=== PATIENT | male | born 1960 | race Caucasian/White ===

== ENCOUNTER → 2022-04-20 | Outpatient (CLI) | payer MEDICARE, SELFPAY ==
--- NOTE | 2022-04-20 07:07 | ECHOD_ITS ---
Reason For Study: CAD Procedure This was a 2D Doppler, Color Flow transthoracic echocardiogram. Exam performed in department. Left Ventricle Normal size and thickness. The left ventricular ejection fraction is 45 %. Unable to assess diastolic dysfunction. Right Ventricle Normal right ventricle. Atria Normal left atrium. Normal right atrium. Inter-atrial septum markedly aneurysmal. PFO noted on previous study thus no bubble contrast done. Mitral Valve Moderate (2+) mitral valve insufficiency. Tricuspid Valve Trivial tricuspid valve insufficiency. Unable to estimate RV systolic pressure due to insufficient tricuspid regurgitant envelope. Aortic Valve Trisinus/trileaflet aortic valve. Mild (1+) aortic valve insufficiency. Pulmonic Valve Severe (4+) pulmonic valve insufficiency. Great Vessels Moderate pulmonary artery dilation. Pericardium/Pleural No pericardial effusion. MMode/2D Measurements & Calculations LVIDd: 5.0 cm IVSd: 0.85 cm Ao root diam: 3.5 cm LVIDs: 4.0 cm LVPWd: 0.85 cm RVDd: 3.7 cm FS: 20.7 % LAV(MOD-bp): 42.5 ml RVOT diam: 2.6 cm LVAd ap4: 28.2 cm2 LAV(MOD-bp) Indexed: 20.9 ml/m2 LVLd ap4: 7.6 cm LAV(MOD-sp2): 41.2 ml EDV(MOD-sp4): 89.2 ml LAV(MOD-sp4): 37.7 ml EDV(sp4-el): 88.8 ml LVAs ap4: 18.4 cm2 LVLs ap4: 6.5 cm ESV(MOD-sp4): 46.6 ml ESV(sp4-el): 43.9 ml EF(MOD-sp4): 47.7 % EF(sp4-el): 50.6 % LVAd ap2: 32.4 cm2 SV(MOD-sp4): 42.6 ml SV(MOD-sp2): 46.7 ml LVLd ap2: 8.5 cm EDV(MOD-sp2): 103.8 ml EDV(sp2-el): 105.1 ml LVAs ap2: 22.0 cm2 LVLs ap2: 7.6 cm ESV(MOD-sp2): 57.1 ml ESV(sp2-el): 54.0 ml EF(MOD-sp2): 45.0 % SV(sp4-el): 44.9 ml LA dimension(2D): 4.0 cm LA A4 area: 16.0 cm2 RA A4 area: 13.1 cm2 Doppler Measurements & Calculations MV E max lambert: 31.1 cm/sec Lat Peak E' Lambert: 8.3 cm/sec Med Peak E' Lambert: 5.0 cm/sec MV A max lambert: 45.7 cm/sec E/E' lat: 3.7 E/E' med: 6.2 MV E/A: 0.68 Ao V2 max: 115.2 cm/sec AI max lambert: 365.9 cm/sec LV V1 max: 103.6 cm/sec Ao max P.3 mmHg AI max P.6 mmHg LV V1 max P.3 mmHg Ao V2 mean: 78.8 cm/sec AI dec slope: 153.0 cm/sec2 LV V1 mean P.1 mmHg Ao mean P.9 mmHg AI P1/2t: 700.4 msec LV V1 mean: 68.2 cm/sec Ao V2 VTI: 24.9 cm LV V1 VTI: 21.8 cm AV (velocity ratio): 0.88 PA V2 max: 179.8 cm/sec SV(RVOT): 131.3 ml PA max PG (full): 7.2 mmHg PA V2 mean: 113.6 cm/sec PA mean PG (full): 3.1 mmHg ECHO/Echo Complete Interpretation Summary The left ventricular ejection fraction is 45 %. Suspect non-cpmpaction. Unable to assess diastolic dysfunction. Inter-atrial septum markedly aneurysmal. PFO noted on previous study thus no bu bble contrast done. Moderate (2+) mitral valve insufficiency. Mild (1+) aortic valve insufficiency. Severe (4+) pulmonic valve insufficiency. Moderate pulmonary artery dilation. Recommend cardiac MRI for futher evlauation. Ordering Physician: Best Titus Referring Physician: Tej Vega Performed By: Bertha, Alexa, RDCS
[2022-04-20 08:48] LABS: Anion Gap 4 (5-15); BUN 14 mg/dL (7-18); BUN/Creat Ratio 12.2 RATIO (10-20); Calcium,Total 9.3 mg/dL (8.5-10.1); Chloride 108 mmol/L (98-107); Creatinine, Serum 1.15 mg/dL (0.70-1.30); EST Glomerular Filtration Rate 68 mL/min (>60); Est Glom Filt Rate - Afr Amer 83 mL/min (>60); Glucose 114 mg/dL (74-106); Potassium 3.8 mmol/L (3.5-5.1); Sodium Level 142 mmol/L (136-145)
== END | disposition home or self-care (01) ==
PROVIDERS: PCP Family Medicine; Visit Provider Internal Medicine Cardiovascular Disease
DX: I10 Essential (primary) hypertension (principal); I25.10 Atherosclerotic heart disease of native coronary artery without angina pectoris
CPT/HCPCS: 36415; 80048; 93306

== ENCOUNTER → 2022-07-18 | Outpatient (CLI) | payer MEDICARE, SELFPAY ==
--- NOTE | 2022-07-18 12:41 | CT_ITS ---
EXAM: CT CHEST WITHOUT INTRAVENOUS CONTRAST CLINICAL INDICATION: Multiple lung nodules TECHNIQUE: Helically acquired images were obtained of the chest without intravenous contrast. This CT exam was performed using one or more of the following dose reduction techniques: automated exposure control, adjustment of the mA and/or kV according to patient size, and/or use of iterative reconstruction technique. RADIATION DOSE: CTDIvol = 12.6 mGy, DLP = 472.47 mGy-cm COMPARISON: No relevant prior studies available. FINDINGS: LUNGS AND PLEURAL SPACES: There is severe COPD with diffuse bullous emphysematous change throughout the lungs, with less severe involvement at the lung bases. There is a juxtapleural right middle lobe nodular focus of 9 mm x 7 mm x 6 mm. Posterior right lower lobe juxtapleural ovoid nodule of 6 mm x 5 mm x 5 mm. Right upper lobe focal calcified apparent band of scarring with adjacent linear scarring, this measures roughly 1.1 cm x 7 mm x 6 mm but without obvious soft tissue nodule component. No definite infiltrate or effusion. No pneumothorax. HEART: See below. MEDIASTINUM: Slight hiatal hernia. No mediastinal or hilar adenopathy. Esophagus is unremarkable. THYROID: Unremarkable. No thyroid lesions. BONES/JOINTS: Unremarkable. No suspicious lytic or blastic abnormality. No suspicious bone lesions. VASCULATURE: Dilated main pulmonary artery is consistent with pulmonary arterial hypertension due to end-stage lung disease. Small mediastinal lymph nodes are not necessarily pathologic. Mild calcification of the great vessels. Marked calcification or stents in left anterior descending coronary artery and right coronary artery. ADRENALS: Most of the abdomen is not included. Unremarkable almost completely included adrenals. CT/Chest without Contrast IMPRESSION: 1. Severe diffuse COPD. 2. Distention of the main pulmonary artery consistent with aneurysmal dilatation due to end-stage lung disease and pulmonary arterial hypertension. Main pulmonary artery is 6.4 cm. 3. 2 indeterminate but juxtapleural noncalcified nodules on the right, the largest 9 mm. Likely benign due to the juxtapleural location. No spiculation and no nonjuxtapleural nodule. RECOMMENDATIONS: Fleischner Society Guidelines (MacMahon, et al. Radiology 2017; 284(1):228-43) suggest that no further follow-up is necessary for patients with low or high risk of malignancy. Additional Considerations: I suggest follow-up routine low-dose CT screening in this patient with severe COPD and obvious high risk for neoplasm. Electronically Signed: Tosin Godoy MD at 9:29 EDT ,
== END | disposition home or self-care (01) ==
PROVIDERS: PCP Family Medicine; Referring Provider Internal Medicine Critical Care Medicine; Visit Provider Internal Medicine Critical Care Medicine
DX: R91.8 Other nonspecific abnormal finding of lung field (principal); J44.9 Chronic obstructive pulmonary disease, unspecified
CPT/HCPCS: 71250

== ENCOUNTER → 2022-07-24 | Outpatient (CLI) | payer MEDICARE, SELFPAY ==
--- NOTE | 2022-07-25 07:41 | PFT ---
INTRODUCTION: The patient is a 62-year-old male that presents for pulmonary function studies secondary to a diagnosis of shortness of breath. Respiratory therapy reported good patient effort. Bronchodilators were used during testing. INTERPRETATION: Forced expiration spirometry demonstrates the presence of a moderately severe large airways obstructive ventilatory defect. There was no significant response to aerosolized bronchodilators. Spirograms are of good quality but do not plateau indicating slow emptying of the lungs. Body plethysmography was performed and revealed an elevated RV to 120% of predicted, indicative of underlying air trapping. Diffusing capacity by single breath CO was reduced to 56% of predicted. IMPRESSION: Irreversible moderately severe large airways obstructive ventilatory defect with associated air trapping and symmetric reduction in diffusing capacity.
== END | disposition home or self-care (01) ==
LOC: PSN 12:31
PROVIDERS: PCP Family Medicine; Referring Provider Internal Medicine Critical Care Medicine; Visit Provider Internal Medicine Critical Care Medicine
DX: R91.8 Other nonspecific abnormal finding of lung field (principal); J44.9 Chronic obstructive pulmonary disease, unspecified
CPT/HCPCS: 94060; 94726; 94729

== ENCOUNTER → 2022-07-31 | Outpatient (CLI) | payer MEDICARE, SELFPAY ==
[2022-07-31 12:45] VITALS: PULSE 48; PULSE 52; PULSE 59; PULSE 66; PULSE 69; PULSE 71; PULSE 72; O2SAT 90; O2SAT 93; O2SAT 96; O2SAT 98
--- NOTE | 2022-07-31 12:47 | CPS ---
Patient stated that he was really tired today but that he has days like this sometimes. I asked the patient if 48-52 was a normal resting heart rate for him and he stated that he wasn't sure. Denied chest pains and dizziness.
--- NOTE | 2022-07-31 14:39 | PCM.PSN.6M ---
PSN 6 Minute Walk Test 6 Minute Walk Test 6 Minute Walk Test: 6 Minute Walk Test PSN:6-Minute Walk Test Start: 07/31/22 12:45 Freq: Status: Active Protocol: RESP.6MINW Document 07/31/22 12:45 PAUL (Rec: 07/31/22 12:49 PAUL [id number]) 6 Minute Walk Test Date Performed 07/31/22 Time Performed 12:30 Height 5 ft 10 in Weight: 81.647 kg Weight in Pounds 180.[address]: Nuno Waggoner Assistive device used: Cane Pre-test Pulse Ox (%) 98 Pulse Rate (60-100 beats/min) 48 L Dyspnea Ewelina Scale (0-10) 1 Exertion Ewelina Scale (6-20) 6 1st minute Oxygen Delivery Method Room Air Pulse Ox (%) 96 Pulse Rate (60-100 beats/min) 59 L 2nd minute Oxygen Delivery Method Room Air Pulse Ox (%) 93 Pulse Rate (60-100 beats/min) 66 3rd minute Oxygen Delivery Method Room Air Pulse Ox (%) 90 Pulse Rate (60-100 beats/min) 69 4th minute Oxygen Delivery Method Room Air Pulse Ox (%) 90 Pulse Rate (60-100 beats/min) 71 5th minute Oxygen Delivery Method Room Air Pulse Ox (%) 90 Pulse Rate (60-100 beats/min) 72 6th minute Oxygen Delivery Method Room Air Pulse Ox (%) 90 Pulse Rate (60-100 beats/min) 72 Dyspnea Ewelina Scale (0-10) 4 Exertion Ewelina Scale (6-20) 14 Post-test Oxygen Delivery Method Room Air Pulse Ox (%) 96 Pulse Rate (60-100 beats/min) 52 L Full Laps Walked 10 Partial Lap, Number of Tiles Walked 20 Total Distance Walked (ft) 610 07/31/22 12:47 Cardiopulmonary Services by Maya Mallory Patient stated that he was really tired today but that he has days like this sometimes. I asked the patient if 48-52 was a normal resting heart rate for him and he stated that he wasn't sure. Denied chest pains and dizziness. Initialized on 07/31/22 12:47 - END OF NOTE Interpretation Interpretation: The patient was noted to have a saturation of 98% on room air at rest, but did desaturate as low as 90% with ambulation. In total, the patient traveled only 610 feet over the course of 6 minutes on room air with the assistance of a cane and no breaks. These findings are consistent with a respiratory limitation exercise tolerance. Recommendations Recommendations: No supplemental oxygen is indicated at this time. However, patient will need to be followed closely given level of desaturation.
== END | disposition home or self-care (01) ==
LOC: PSN 12:11
PROVIDERS: PCP Family Medicine; Referring Provider Internal Medicine Critical Care Medicine; Visit Provider Internal Medicine Critical Care Medicine
DX: R91.8 Other nonspecific abnormal finding of lung field (principal); J44.9 Chronic obstructive pulmonary disease, unspecified
CPT/HCPCS: 94618

== ENCOUNTER → 2022-08-14 | Outpatient (CLI) | payer MEDICARE, SELFPAY ==
--- NOTE | 2022-08-16 13:39 | STRESSREP ---
Stress Test Report Date: 08/14/2022 Procedure: Pharmacologic stress nuclear imaging study Indications: Dyspnea Consent: Per the patient Procedure: The patient underwent pharmacologic (Regadenoson 0.4mg ) evaluation with a peak heart rate of 75 beats per minute (47%predicted maximal heart rate) and a peak blood pressure of 122/64 mmHg. The baseline ECG demonstrated normal sinus rhythm with right bundle branch block. The peak pharmacologic ECG demonstrated no ischemic changes. There were no cardiac dysrhythmias pretest, during pharmacologic infusion, or recovery. There was no complaint of chest discomfort during pharmacologic infusion or recovery. The patient was injected with 10 millicuries of technetium 99m Cardiolite and subsequently rest SPECT Cardiolite nuclear imaging was obtained in the horizontal long, vertical long, and short axis views. The patient underwent pharmacologic (Regadenoson) evaluation. The patient was injected with 33.9 millicuries of technetium 99m Cardiolite and subsequently stress SPECT Cardiolite nuclear imaging was obtained in the horizontal long, vertical long, and short axis views. A gated Cardiolite study at peak stress was obtained. The examination was stopped secondary to completion of protocol. Rest and stress SPECT Cardiolite nuclear imaging status post realignment, normalization, and attenuation correction demonstrate no fixed or reversible perfusion defects. The left ventricle seems dilated. There is end systolic thickening and brightening. The gated Cardiolite study demonstrates myocardial thickening and inward wall motion. The reported LVEF is 57%. Impression: 1. Pharmacologic (Regadenoson) evaluation 2. Peak pharmacologic ECG with no ischemic changes. 3. There were no cardiac dysrhythmias pretest, during pharmacologic infusion, or recovery. 5. No fixed or reversible perfusion defects. 6. The gated Cardiolite study reports an LVEF of 57%. This note was generated with [employer] software. It may contain incorrect words, spelling, and punctuation that were not noted in checking the note before signing.
== END | disposition home or self-care (01) ==
LOC: CVS 07:14
PROVIDERS: PCP Family Medicine; Referring Provider Internal Medicine Cardiovascular Disease; Visit Provider Internal Medicine Cardiovascular Disease
DX: I25.10 Atherosclerotic heart disease of native coronary artery without angina pectoris (principal); R06.00 Dyspnea, unspecified
CPT/HCPCS: 78452; 93017; A9500; A4216; J2785

== ENCOUNTER → 2023-05-15 | Outpatient (CLI) | payer MEDICARE, SELFPAY ==
--- NOTE | 2023-05-15 12:55 | CT_ITS ---
INDICATION: h/o Tobacco Dependency EXAMINATION: - CT Low Dose CT Chest for Lung Cancer Screening A radiation dose optimization technique was used for this scan. RADIATION DOSAGE (If Supplied By Facility): CTDIvol/DLP = ( 2.39 ) / ( 89.06 ) mGy/mGycm COMPARISON: 07/18/2022 FINDINGS: Low dose Noncontrast serial CT axial images through the chest with coronal and sagittal reformatted series. MEDIASTINUM: Dense coronary artery atherosclerotic calcifications. Significantly enlarged main pulmonary artery likely pulmonary artery hypertension. Noncontrast mediastinum is otherwise unremarkable. LUNG PARENCHYMA: No acute pulmonary parenchymal abnormality. Multiple stable right pulmonary nodules, measuring up to 11 mm. Severe diffuse emphysematous lung changes, apical predominant. PLEURA: No pleural effusion. No pneumothorax. BONES: Osseous structures are unremarkable for age. UPPER ABDOMEN: Unremarkable. CT/Low Dose CT Lung Screening IMPRESSION: Multiple stable pulmonary nodules from 2021. Significantly enlarged main pulmonary artery likely pulmonary artery hypertension. Severe diffuse emphysematous lung changes, apical predominant. Electronically Signed: Tigre Yeung MD at 6:14 EST ,
== END | disposition home or self-care (01) ==
LOC: CT 12:44
PROVIDERS: PCP Family Medicine; Referring Provider Internal Medicine Critical Care Medicine; Visit Provider Internal Medicine Critical Care Medicine
DX: F17.211 Nicotine dependence, cigarettes, in remission (principal)
CPT/HCPCS: 71271

== ENCOUNTER → 2023-08-14 | Outpatient (CLI) | payer MEDICARE, SELFPAY ==
--- NOTE | 2023-08-14 12:53 | ECHOD_ITS ---
Reason For Study: Heart Disease Procedure This was a 2D Doppler, Color Flow transthoracic echocardiogram. Exam performed in department. Left Ventricle Normal size and thickness. Mild to moderate global left ventricular systolic dysfunction. The left ventricular ejection fraction is 40 %. Stage 2 diastolic dysfunction. Right Ventricle Normal RV size. Moderate global right ventricular systolic dysfunction. Atria The left atrium is mildly enlarged. Normal right atrium. Aneurysmal atrial septum. Mitral Valve Moderate (2+) mitral valve insufficiency. Tricuspid Valve Moderate (2+) tricuspid valve insufficiency. Right ventricular systolic pressure estimated to be 53 mmHg. Aortic Valve Trisinus/trileaflet aortic valve. Mild (1+) aortic valve insufficiency. Pulmonic Valve The pulmonic valve is not well visualized. Mild-Moderate (1-2+) pulmonic valve insufficiency. Great Vessels Normal sized aortic root. Pericardium/Pleural No pericardial effusion. MMode/2D Measurements & Calculations LVIDd: 5.0 cm IVSd: 0.82 cm Ao root diam: 3.5 cm LVIDs: 4.1 cm LVPWd: 0.86 cm RVDd: 4.7 cm FS: 19.5 % LAV(MOD-bp): 34.6 ml LVAd ap4: 25.3 cm2 SV(MOD-sp4): 32.9 ml LAV(MOD-bp) Indexed: 16.9 ml/m2 LVLd ap4: 6.9 cm LAV(MOD-sp2): 33.0 ml EDV(MOD-sp4): 75.7 ml LAV(MOD-sp4): 34.1 ml EDV(sp4-el): 78.6 ml LVAs ap4: 17.2 cm2 LVLs ap4: 5.9 cm ESV(MOD-sp4): 42.8 ml ESV(sp4-el): 43.0 ml EF(MOD-sp4): 43.4 % EF(sp4-el): 45.3 % SV(sp4-el): 35.6 ml LA A4 area: 14.4 cm2 LA dimension(2D): 3.7 cm RA A4 area: 17.0 cm2 TAPSE: 1.3 cm Time Measurements MV dec time: 0.26 sec Doppler Measurements & Calculations MV E max lambert: 35.5 cm/sec Lat Peak E' Lambert: 8.7 cm/sec Med Peak E' Lambert: 4.1 cm/sec MV A max lambert: 60.2 cm/sec E/E' lat: 4.1 E/E' med: 8.7 MV E/A: 0.59 AI max lambert: 352.5 cm/sec PA V2 max: 183.9 cm/sec MV dec slope: 134.8 cm/sec2 AI max P.7 mmHg PA max PG (full): 7.8 mmHg PA V2 mean: 124.2 cm/sec AI dec slope: 104.2 cm/sec2 PA mean PG (full): 4.0 mmHg AI P1/2t: 990.3 msec PI end-d lambert: 106.2 cm/sec TR max lambert: 346.4 cm/sec TR max P.0 mmHg ECHO/Echo Complete Interpretation Summary Mild to moderate global left ventricular systolic dysfunction. The left ventricular ejection fraction is 40-45 %. Stage 2 diastolic dysfunction. Moderate global right ventricular systolic dysfunction. The left atrium is mildly enlarged. Moderate (2+) mitral valve insufficiency. Moderate (2+) tricuspid valve insufficiency. Right ventricular systolic pressure estimated to be 53 mmHg. Mild-Moderate (1-2+) pulmonic valve insufficiency. Ordering Physician: Best Titus Referring Physician: Tej Vega Performed By: Dede Brooke, LINNETTECS, RVT
== END | disposition home or self-care (01) ==
PROVIDERS: PCP Family Medicine; Referring Provider Internal Medicine Cardiovascular Disease; Visit Provider Internal Medicine Cardiovascular Disease
DX: I25.10 Atherosclerotic heart disease of native coronary artery without angina pectoris (principal); I50.42 Chronic combined systolic (congestive) and diastolic (congestive) heart failure; R06.09 Other forms of dyspnea; I35.1 Nonrheumatic aortic (valve) insufficiency; I34.0 Nonrheumatic mitral (valve) insufficiency
CPT/HCPCS: 93306

== ENCOUNTER → 2023-12-18 | Outpatient (CLI) | payer MEDICARE, SELFPAY ==
[2023-12-18 13:07] LABS: ALB/GLOB Ratio 0.9 RATIO (0.9-2.4); AST(SGOT) 21 U/L (15-37); Alanine Aminotransfer ALT/SGPT 21 U/L (16-61); Albumin, Serum 3.5 g/dL (3.2-5.0); Alkaline Phosphatase 91 U/L (45-117); Anion Gap 4 (5-15); BUN 14 mg/dL (7-18); BUN/Creat Ratio 11.1 RATIO (10-20); Calcium,Total 9.7 mg/dL (8.5-10.1); Chloride 106 mmol/L (98-107); Cholesterol 109 mg/dL (200); Creatinine, Serum 1.26 mg/dL (0.70-1.30); EST Glomerular Filtration Rate 61 mL/min (>60); Est Glom Filt Rate - Afr Amer 74 mL/min (>60); Glucose 115 mg/dL (74-106); High Density Lipoprotein 35 mg/dL; Potassium 4.3 mmol/L (3.5-5.1); Protein, Total 7.5 g/dL (6.4-8.2); Sodium Level 138 mmol/L (136-145); Triglycerides 179 mg/dL; Very Low Density Lipoprotein 36 mg/dL (5-40)
== END | disposition home or self-care (01) ==
PROVIDERS: PCP Family Medicine; Referring Provider Internal Medicine Cardiovascular Disease; Visit Provider Internal Medicine Cardiovascular Disease
DX: I25.10 Atherosclerotic heart disease of native coronary artery without angina pectoris (principal); I10 Essential (primary) hypertension; R06.09 Other forms of dyspnea; E78.2 Mixed hyperlipidemia
CPT/HCPCS: 36415; 80053; 80061; 84443

== ENCOUNTER → 2024-01-01 | Outpatient (CLI) | payer MEDICARE, SELFPAY ==
--- NOTE | 2024-01-01 12:55 | CT_ITS ---
INDICATION: multiple lung nodules high risk patient EXAMINATION: CT CHEST WITHOUT CONTRAST - CT Chest W/O Contrast Injection TECHNIQUE: Helically acquired images were obtained of the chest. A radiation dose optimization technique was used for this scan. IV Contrast dosage and agent: None. COMPARISON: 05/15/2023 FINDINGS: LUNGS, PLEURA AND LARGE AIRWAYS: Severe emphysema. Right upper lobe calcified scar. No change in 1 cm noncalcified nodule in the subpleural right middle lobe of the lungs on image 88 unchanged dating back to 06/21/2021 consistent with a noncalcified granuloma or scar. No pleural effusion or thickening. No pneumothorax. THYROID: No thyroid lesions. HEART AND PERICARDIUM: Heart size is normal. No pericardial effusion. CORONARY ARTERIES: Coronary artery calcification is seen. VESSELS: Thoracic aorta is not dilated. Enlarged central pulmonary arteries suggesting pulmonary arterial hypertension. MEDIASTINUM AND FRANKY: No mediastinal or hilar adenopathy. Esophagus is unremarkable. Small hiatal hernia. UPPER ABDOMEN: No acute pathology. BONES: Multiple healed right rib fractures. CT/Chest without Contrast IMPRESSION: Severe emphysema with no change in the right middle lobe subpleural noncalcified granuloma or scar. Return to annual low-dose screening CT is recommended. Electronically Signed: Adan Sena MD at 9:54 EDT ,
== END | disposition home or self-care (01) ==
LOC: CT 12:53
PROVIDERS: PCP Family Medicine; Referring Provider Nurse Practitioner Acute Care; Visit Provider Nurse Practitioner Acute Care
DX: R91.1 Solitary pulmonary nodule (principal)
CPT/HCPCS: 71250

== ENCOUNTER → 2024-09-28 | Outpatient (CLI) | payer MEDICARE, SELFPAY | END | disposition home or self-care (01) | LOC: PSN 10:38 | PROVIDERS: PCP Family Medicine; Referring Provider Nurse Practitioner Acute Care; Visit Provider Nurse Practitioner Acute Care | DX: R06.09 Other forms of dyspnea (principal) | CPT/HCPCS: 94060; 94726; 94729 ==

== ENCOUNTER → 2024-11-03 | Outpatient (CLI) | payer MEDICARE, SELFPAY ==
[2024-11-03 12:55] VITALS: PULSE 45; PULSE 48; PULSE 63; PULSE 64; PULSE 66; PULSE 67; PULSE 68; O2SAT 89; O2SAT 90; O2SAT 92; O2SAT 93; O2SAT 96
--- NOTE | 2024-11-03 13:30 | CT_ITS ---
PROCEDURE: CHEST WITHOUT CONTRAST 11/03/2024 REASON FOR EXAM: SMOKER Current smoker. Patient has smoked for 54 years. TECHNIQUE: Chest CT without contrast. Coronal and Sagittal reconstruction series were provided. One or more dose reduction techniques were used (e.g., Automated exposure control, adjustment of the mA and/or kV according to patient size, use of iterative reconstruction technique RADIATION DOSE SUMMARY: CTDlvol: 10.53 mGy DLP: 397.47 mGycm COMPARISON: Prior studies dated May 16, 2023 and January 01, 2024. FINDINGS: Hardware: None Lymph nodes: Multiple small benign-appearing bilateral axillary lymph nodes. Heart and Vasculature: Stable dilatation of the main pulmonary artery with a transverse dimension of 5.7 cm. Prominence of the central pulmonary arteries bilaterally. Atherosclerotic calcific plaques of the aortic arch. Coronary Artery Calcifications: Coronary artery calcification. No evidence of pericardial effusion. Lungs and Airways: Advanced emphysematous changes are present. Interval decrease in size of the previously seen noncalcified nodule in the lateral aspect of the right upper lobe as seen on axial image number 38 it presently measures 6.8 mm. Previously, it measures 8.2 mL. Essentially stable size of the previously seen pulmonary nodule in the anterior aspect of the right middle lobe as seen on axial image number 87 Pleura: No pleural effusion. Upper Abdomen: Unremarkable Bones: Degenerative changes of the thoracic spine. CT/Chest without Contrast IMPRESSION: Coronary artery calcification (CAC) is is present Stable emphysematous changes. Stable dilatation of the main pulmonary artery in the right and left pulmonary arteries. This is suggestive of pulmonary hypertension. Slight decrease in size of the previously seen nodule in the lateral aspect of the right upper lobe. Otherwise unchanged. Reading Location: [id number]
--- NOTE | 2024-11-05 09:56 | PCM.PSN.6M ---
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 Assistive device Cane used: Pre-test Oxygen Delivery Room Air Method Pulse Ox (%) 96 Pulse Rate (60-100 48 L beats/min) Dyspnea Ewelina Scale ( 1 0-10) Exertion Ewleina Scale 7 (6-20) 1st minute Oxygen Delivery Room Air Method Pulse Ox (%) 93 Pulse Rate (60-100 66 beats/min) Reported Symptoms Increased Work of Breathing,Dizziness 2nd minute Oxygen Delivery Room Air Method Pulse Ox (%) 93 Pulse Rate (60-100 64 beats/min) Reported Symptoms Increased Work of Breathing,Dizziness 3rd minute Oxygen Delivery Room Air Method Pulse Ox (%) 92 Pulse Rate (60-100 67 beats/min) Reported Symptoms Increased Work of Breathing 4th minute Oxygen Delivery Room Air Method Pulse Ox (%) 92 Pulse Rate (60-100 63 beats/min) Dyspnea Ewelina Scale ( 7 0-10) Exertion Ewelina Scale 13 (6-20) Number of Rests 1 Taken Reported Symptoms Increased Work of Breathing,Dizziness 5th minute Oxygen Delivery Room Air Method Pulse Ox (%) 90 Pulse Rate (60-100 67 beats/min) 6th minute Oxygen Delivery Room Air Method Pulse Ox (%) 89 Pulse Rate (60-100 68 beats/min) Dyspnea Ewelina Scale ( 8 0-10) Exertion Ewelina Scale 14 (6-20) Post-test Oxygen Delivery Room Air Method Pulse Ox (%) 93 Pulse Rate (60-100 45 L beats/min) Full Laps Walked 8 Partial Lap, Number 0 of Tiles Walked Total Distance 472 Walked (ft) Interpretation Interpretation: The patient ambulated 472 feet over the course of 6 minutes beginning on room air without assistive devices. Pretesting oxygen saturation was noted to be 96% on room air. With ambulation, the joan oxygen saturation was 89%. This represents a significant exertional oxygen desaturation, consistent with a pulmonary limitation to exercise tolerance. Recommendations Recommendations: There is no indication for the use of supplemental oxygen at this time. However, close interval follow-up is recommended, given the degree of oxygen desaturation noted during this study.
== END | disposition home or self-care (01) ==
PROVIDERS: PCP Family Medicine; Referring Provider Nurse Practitioner Acute Care; Visit Provider Nurse Practitioner Acute Care
DX: R91.1 Solitary pulmonary nodule (principal)
CPT/HCPCS: 71250; 94618

== ENCOUNTER 2025-02-26 17:19 | Emergency (ER) | payer MEDICARE, SELFPAY ==
[2025-02-26] VITALS (7 sets, daily range): BP systolic 134–152; BP diastolic 71–85; PULSE 44–47; RESP 15–20; TEMP 37.2; O2SAT 94–100; BMI 23.1
--- NOTE | 2025-02-26 17:49 | EKG12_ITS ---
Test Reason : CP Blood Pressure : */* mmHG Vent. Rate : 46 BPM Atrial Rate : 46 BPM P-R Int : 172 ms QRS Dur : 150 ms QT Int : 478 ms P-R-T Axes : 62 -83 34 degrees QTcB Int : 418 ms Sinus bradycardia Left axis deviation Right bundle branch block Abnormal ECG Reconfirmed by Olga Lidia Quevedo ([id number]), copy editor TASNEEM KNAPP ([id number]) on 03/01/2025 10:21:18 AM Also confirmed by Olga Lidia Quevedo ([id number]), copy editor TASNEEM KNAPP ([id number]) on 03/02/2025 8:18:56 AM Referred By: UNA/DARREN Confirmed By: Olga Lidia Quevedo
--- NOTE | 2025-02-26 17:49 | EDS_ITS ---
HPI History of Present Illness Chief Complaint: Chest Pain Informant: patient and family Onset/Context/Timing Onset: Days Activity at onset: gradual Timing: Continuous Location: Left Chest Current Severity: Moderate Maximum Severity: Moderate Worsened By: Movement of Torso Relieved By: Nothing Associated Symptoms: Positive for Cough; Negative for Nausea, Vomiting, Diaphoresis, Dyspnea, Fever, Lightheadedness, Acid Reflux or Palpitations Narrative Narrative: 64-year-old male history of CHF mitral regurg, COPD, CAD. States he is concerned he may have pneumonia. He said left chest hurts with coughing or movement. Denies any fall injury or trauma. No hemoptysis. He has got basically nonproductive cough. No leg pain or swelling. No history of DVT or PE. No recent travel surgery or immobilization. No recent hospitalization. Prior Similar Symptoms: No Recent Illness/Hospitalization: No CVD Risk Factors: Negative for Diabetes PE Risk Factors: Negative for Recent Travel/Surgery, Recent Immobilization, Prior DVT or PE or Cancer TAD Risk Factors: Negative for Marfan's Syndrome [facility] Medical History Nicotine dependence, cigarettes, in remission Hypothyroidism (acquired) Nonrheumatic aortic (valve) insufficiency Non-rheumatic mitral regurgitation Nonrheumatic pulmonary valve regurgitation Dilation of pulmonary artery Dyslipidemia Dyspnea on exertion Chronic combined systolic and diastolic CHF, NYHA class 3 Lung nodules MVP (mitral valve prolapse) Pulmonary stenosis PFO (patent foramen ovale) Essential hypertension Mixed hyperlipidemia COPD (chronic obstructive pulmonary disease) Atherosclerotic heart disease of [place] coronary artery without angina pectoris Home Medications ?Medication ?Instructions ?Recorded ?Last Taken ?Type aspirin 81 mg tablet,delayed 81 mg PO DAILY 04/06/22 U nknown History release (Adult Low Dose Aspirin) lansoprazole 30 mg capsule,delayed 30 mg PO DAILY 03/12 09/30 Unknown History release metoprolol succinate 25 mg 25 mg PO DAILY 04/06/22 Unk nown History tablet,extended release 24 hr paroxetine HCl 20 mg tablet 20 mg PO DAILY 04/06/22 Un known History potassium chloride 20 mEq 20 meq PO DAILY 04/06/22 Unk nown History tablet,extended release rosuvastatin 10 mg tablet 10 mg PO DAILY 04/06/22 Unkn own History losartan 25 mg tablet (Cozaar) 25 mg PO DAILY #30 tabs 05/07/22 Unknown Rx levothyroxine 75 mcg tablet 75 mcg PO DAILY 06/19/22 U nknown History ipratropium 0.5 mg-albuterol 3 mg 3 ml inhalation Q4H PRN shortness 06/20/22 Unknown Rx (2.5 mg base)/3 mL nebulization of breath or wheezing #180 mL soln nitroglycerin 0.4 mg sublingual 0.4 mg sublingual Q5-1 5M PRN chest 06/26/22 Unkn own Rx tablet pain #25 tabs POWER MOBILITY DEVICE #1 ea 11/27/22 Unknown Rx furosemide 20 mg tablet 20 mg PO QDAY 05/20/23 Unkno wn History albuterol sulfate 90 mcg/actuation 2 puff inhalation Q 4H PRN 11/18/24 Unknown Rx aerosol inhaler (Proventil HFA) shortness of breath or wheezing #8.5 grams fluticasone fur. 100 mcg-umeclid 1 inh inhalation CHEN Y #60 ea 11/18/24 Unknown Rx 62.5 mcg-vilant 25 mcg inhalat.powder (Trelegy Ellipta) Allergy/AdvReac Type Severity Reaction Status Date / Time No Known Allergies Allergy Verified 02/26/25 17:20 Family History Mother Cancer Bone Grandmother Heart disease Grandfather CHF (congestive heart failure) Surgical History History of right heart catheterization (RHC) (~12/05/11) History of arthroscopy of right knee History of coronary artery bypass surgery (~2011) Social History housing: house Smoking Status: Former smoker alcohol intake: never substance use type: does not use caffeine: Yes Type: coffee Number of servings: 1 ROS ROS ED ROS Narrative Left-sided chest pain. Constitutional Constitutional ED: Denies chills or fever(s) Eyes Eyes: Reports none ENT ENT ED: Denies ear pain Cardiovascular Cardiovascular: Reports as per HPI and chest pain; Denies palpitations or racing heartbeat Respiratory/Chest Respiratory/Chest: Denies cough or dyspnea Gastrointestinal Gastrointestinal: Denies abdominal pain Genitourinary Genitourinary ED: Denies dysuria or hematuria Musculoskeletal Musculoskeletal: Denies arthralgias Integumentary Denies abscess Neurologic Neurologic: Denies headache(s) Psychiatric Psychiatric: Denies anxiety Endocrine Endocrinology: Denies cold intolerance Hematologic/Lymphatic Hematologic/Lymphatic: Denies easy bleeding, easy bruising or lymphadenopathy Allergic/Immunologic Allergic/Immunologic ED: Denies mouth swelling, tongue swelling or urticaria EXAM Physical Exam Narrative Exam Narrative: 64-year-old male sitting upright in bed vital signs are stable afebrile. Pulse ox 100% on room air no signs hypoxia. No distress. Family member at bedside. H EENT exam pupils round react light. Moist mucous membranes. Neck nontender no JVD. No lymphadenopathy. Lungs clear to auscultation bilaterally. Heart regular rhythm rate about 50 no murmur. Chest wall is reproducible chest wall pain on the left. There is no ecchymosis or bruising no subcu air or crepitance. No redness. Normal in appearance. Definitely reproducible pain however. Right chest wall nontender. Abdomen soft nontender normal bowel sounds without peritoneal signs. Back nontender. Moving all 4 extremities. 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 Equal symmetrical radial pulses. Dorsi plantarflexion intact. Calves nontender no edema no cords. Neurologically is awake alert. Answering questions following commands. Const Vital Signs: 02/26/25 17:20 02/26/25 17:38 02/26/25 17:57 Temperature 98.9 F Temperature Source Oral Pulse Rate 45 L Respiratory Rate 18 Respiratory Effort Normal Short of Breath Blood Pressure 139/75 H Blood Pressure Mean 96 Pulse Ox 100 96 Oxygen Delivery Method Room Air Room Air 02/26/25 18:20 02/26/25 19:00 02/26/25 20:00 Temperature Temperature Source Pulse Rate 44 L 44 L 44 L Respiratory Rate 15 20 H 16 Respiratory Effort Blood Pressure 147/74 H 152/77 H 134/74 H Blood Pressure Mean 98 102 94 Pulse Ox 97 95 94 Oxygen Delivery Method Room Air MDM MDM MDM Narrative Medical decision making narrative: 64-year-old male reproducible chest wall pain for a week. Denies fall injury or trauma. He is got no risk factors or history of a DVT or PE. No recent travel surgery immobilization. No hemoptysis. Pain is not pleuritic. He has got no calf pain or swelling. I do not think this is cardiac chest pain but undergo cardiac workup. His got no history of trauma. He is concerned it may be pneumonia possibly could be but did not have pneumonia on exam. Repeat exam unchanged at around 7:35 PM. Still has reproducible left chest wall pain consistent musculoskeletal pain. Is not red is not warm. There is no significant bruising or signs of trauma there is no crepitance. He has no axillary lymphadenopathy. I think is musculoskeletal chest wall pain waiting on the second troponin if it is okay he will be discharged home on Tylenol Motrin ice this should progressively get better if not follow-up or if getting worse return. I spoke to he and his family members are comfortable with the plan. We discussed his test results, EKG and chest x-ray. Repeat exam doing well at 9:06 PM. Patient be discharged home chest wall pain. History & Record Review Discussion w/independent historian: Patient and Family Additional record(s) reviewed:: Prior outpatient record, Prior ED visit and Prior labs Lab Data Attestation: I reviewed the patient's lab results. Lab results narrative: Chest x-ray 2 views showed chronic changes no acute process no pneumonia. CBC showed a white count of 10. H&H 15 and 45. Platelets of 210. Chemistries show a gap at 9. BUN and creatinine 10 and 1.1. Glucose 89. Troponin 22. 2-hour troponin 22 also. Labs: Laboratory Results - last 24 hr 02/26/25 02/26/25 17:34 19:15 WBC 10.1 RBC 4.60 Hgb 15.0 Hct 45.0 MCV 97.8 H MCH 32.6 H MCHC 33.3 RDW Std Deviation 50.4 H RDW Coeff of Fad[place] 14.0 Plt Count 210 MPV 9.7 Immature Gran % (Auto) 0.500 Neut % (Auto) 68.5 Lymph % (Auto) 21.7 Jenkins % (Auto) 6.0 Eos % (Auto) 2.7 Baso % (Auto) 0.6 Absolute Neuts (auto) 6.9 Absolute Lymphs (auto) 2.19 Nucleated RBC % 0 Sodium 140 Potassium 3.6 Chloride 105 Carbon Dioxide 25.8 Anion Gap 9 BUN 10 Creatinine 1.14 Estim Creat Clear Calc 68.80 Est GFR (MDRD) Non-Af 71 BUN/Creatinine Ratio 8.4 L Glucose 89 Calcium 9.4 Troponin T High Sens 22 Troponin T Hi Sens 2 Hr 22 Radiography Chest X-Ray - ED: 2 View, Read by ED Physician, Heart, Lungs, Mediastinum, Bony Structures, No Acute Disease and Chronic Changes Diagnostic Testing: Clinical Impression(s) from Imaging Studies Chest X-Ray 02/26/25 18:00 IMPRESSION: Mild cardiomegaly and central vascular congestion. Redemonstrated ectatic caliber of the central pulmonary arteries suggesting pulmonary arterial hypertension. 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 No appreciable airspace consolidation, pneumothorax or pleural effusion. Reading Location: [facility] Chest x-ray, 2 views, AP and lateral, shows chronic changes. Borderline cardiomegaly. No acute processes. No pneumonia. No pneumothorax. No effusion. Chronic lung changes. Interpreted both by myself and the radiologist. Rhythm Strip Rhythm Strip: Sinus bradycardia Rate: 46 Ectopy: None EKG Initial EKG: Attestation: I personally reviewed and interpreted this EKG as follows: Interpretation: No Acute Injury Pattern and Sinus Bradycardia Comments: Sinus bradycardia rate of 46 no acute signs of MO or ischemia. Right bundle branch block. Discharge Plan Triage Chief Complaint: Chest Pain ED Provider: Te Aleman Dx/Rx/DC Orders Clinical Impression: Left-sided chest wall pain, History of COPD Instructions: ED Chest Wall Strain Prescriptions: No Action ipratropium-albuterol 0.5 mg-3 mg(2.5 mg base)/3 mL solution for nebulization 3 ml inhalation Q4H PRN (Reason: shortness of breath or wheezing) Qty: 180 6RF potassium chloride 20 mEq tablet extended release 20 meq PO DAILY lansoprazole 30 mg capsule,delayed release(DR/EC) 30 mg PO DAILY metoprolol succinate 25 mg tablet extended release 24 hr 25 mg PO DAILY paroxetine HCl 20 mg tablet 20 mg PO DAILY rosuvastatin 10 mg tablet 10 mg PO DAILY aspirin [Adult Low Dose Aspirin] 81 mg tablet,delayed release (DR/EC) 81 mg PO DAILY nitroglycerin 0.4 mg tablet, sublingual 0.4 mg sublingual Q5-15M PRN (Reason: chest pain) Qty: 25 3RF Rx Instructions: do not exceed 3 doses per episode levothyroxine 75 mcg tablet 75 mcg PO DAILY furosemide 20 mg tablet 20 mg PO QDAY Trelegy Ellipta 100-62.5-25 mcg blister with device 1 inh inhalation DAILY Qty: 60 6RF albuterol sulfate [Proventil HFA] 90 mcg/actuation HFA aerosol inhaler 2 puff inhalation Q4H PRN (Reason: shortness of breath or wheezing) Qty: 8.5 6RF losartan [Cozaar] 25 mg tablet 25 mg PO DAILY Qty: 30 6RF (DME) POWER MOBILITY DEVICE See Rx Instructions .Route .MEDSUPPLY Qty: 1 0RF Rx Instructions: As directed Primary Care Provider: Tej Vega Referrals: Tej Vega MD [Primary Care Provider, Family Practice] - 3-5 Days if not improving Activity Restrictions/Additional Instructions: This appears to either be a contusion or strain or inflammation in your chest wall. There is no signs of infection or it being your heart. Ice to the area chest wall and sore. Do like 30 minutes at a time like 4 times a day. Motrin for pain and inflammation. Alternate with Tylenol for pain. This should progressively get better if not follow-up with your doctor if it looks red or you develop a fever or you are feeling worse to return. At this time your test and labs look good. Print Language: Dutch Disposition Disposition: Home, Self Care
--- OUTSIDE RECORDS SUMMARY | 2025-02-26 17:53 | XMS RPT_ITS | CCD ---
Author Organization [facility] Care Team Providers Care Shift Commander Name Role Phone Misael Saleh Attending Unavailable PROVIDER, UNKNOWN Referring Unavailable PROVIDER, UNKNOWN Primary Care Unavailable Cisco Phan MD Primary Care Provider Cisco Phan MD Primary Care Provider Cisco Phan MD Primary Care Provider Dr. Tej Phan Primary Care Provider Juliana Willson Attending Provider Unavailable Dr. Best Titus Attending Provider Dr. Tej Phan Referring Provider Dr. Tej Phan Primary Care Provider Juliana Willson Attending Provider Unavailable Dr. Best Titus Attending Provider Dr. Tej Phan Referring Provider Dr. Nuno Waggoner Attending Provider Dr. Tej Phan Primary Care Provider Juliana Willson Attending Provider Unavailable Dr. Tej Phan Referring Provider Dr. Best Titus Attending Provider Dr. Nuno Waggoner Referring Provider Dr. Nuno Waggoner Other Provider Dr. Agustín Elder Attending Provider Dr. Best Titus Referring Provider Dr. Best Titus Other Provider Kontak, Cisco R Primary Care Provider [phone] CISCO PHAN Attending Unavailable LINDSAY, BEST Referring Unavailable EMILIE, CISCO Primary Care Unavailable EMILIE DENNIS, CISCO ESPINOZA Attending Unava Dr. Tej Pablo Primary Care Provider Dr. Tej Phan Referring Provider Ghazal SUPERVISOR INSTRUMENT MAINTENANCE, SUPERVISOR INSTRUMENT MAINTENANCE-C María Attending Provider Emilie DENNIS, Cisco R Primary Care Provider Vilma PUBLICIST.INSURANCE ADJUSTOR, Carla Unavailable Emilie DENNIS, Dr. Burnham Primary Care Provider Ghazal SUPERVISOR INSTRUMENT MAINTENANCE-C, María Attending Provider Ghazal SUPERVISOR INSTRUMENT MAINTENANCE-C, María Referring Provider EMILIE DENNIS, CISCO ESPINOZA Primary Care Physicia n EMILIE DENNIS, CISCO ESPINOZA Primary Care Unava tata SILVA MD, CLEMENT Patel Attending Unavailable DR ANMOL MARAVILLA DO Attending Unavailable Ghazal SUPERVISOR INSTRUMENT MAINTENANCE-C, María Other Provider Dr. Nuno Waggoner DO Attending Provider Emilie DENNIS, Dr. Burnham Referring Provider CISCO PHAN Referring Unavailable EMILIE, CISCO R Primary Care Unavailable EMILIE, CISCO R Referring Unavailable KONTAAilyn, CISCO R Primary Care Unavailable SELF Referring Unavailable CISCO PHAN R Attending Unavailable YEIMIK, CISCO R Primary Care Unavailable Kontak, [place] Primary Care Unavailable Ghazal SUPERVISOR INSTRUMENT MAINTENANCE, María Referring Unavailable Nuno Waggoner Attending Unavailable Emilie, Tej Primary Care Unavailable Harman SUPERVISOR INSTRUMENT MAINTENANCE, María Referring Unavailable Ghazal SUPERVISOR INSTRUMENT MAINTENANCE, María Consulting Unavailable Nuno Waggoner Attending Unavailable Ghazal SUPERVISOR INSTRUMENT MAINTENANCE, María Attending Unavailable Julestaailyn, Tej Referring Unavailable Kontak, Tej Primary Care Unavailable Kontak, Tej Primary Care Unavailable Harman SUPERVISOR INSTRUMENT MAINTENANCE, María Attending Unavailable Emilie, Tej Referring Unavailable Kontak, Tej Primary Care Unavailable Lindsay, Best Attending Unavailable Lindsay, Best Referring Unavailable Harman SUPERVISOR INSTRUMENT MAINTENANCE, María Attending Unavailable Harman SUPERVISOR INSTRUMENT MAINTENANCE, María Attending Unavailable Tej Phan Primary [facility] [place] Unavailable Ghazal SUPERVISOR INSTRUMENT MAINTENANCE, María Referring Unavailable Ghazal SUPERVISOR INSTRUMENT MAINTENANCE, María Attending Unavailable Ghazal SUPERVISOR INSTRUMENT MAINTENANCE, María [facility] Unavailable Ghazal SUPERVISOR INSTRUMENT MAINTENANCE, María Attending Unavailable Ghazal SUPERVISOR INSTRUMENT MAINTENANCE, María Referring Unavailable Medications Current Medications Medication Drug Class(es) Dates Sig (Normalized) Sig (Original) [id number] actuat albuterol 0.09 mg/actuat metered dose inhaler (20 sources) beta2-Adrenergic Agonist Start: 04-06-2022 End: 11-18-2024 Albuterol Sulfate (Proventil Hfa) 90 mcg/actuation HFA aerosol inhaler Active 2 NMA INHALATION Q4H as needed for shortness of breath or wheezing 8.5 6 November 18, 2024 8:40am Chronic obstructive pulmonary disease Centrilobular emphysema Start: 04-06-2022 End: 06-20-2022 take 1 puff(s) by inhalation every four hours Albuterol Sulfate (Proventil Hfa) 90 mcg/actuation HFA aerosol inhaler Active 2 PUFF INHALATION Q4H 8.5 June 20, 2022 2:15pm Start: 06-16-2019 End: 09-13-2021 take 2 puff(s) by inhalation every four hours as needed albuterol HFA (PROVENTIL HFA, VENTOLIN HFA) 90 mcg/actuation inhaler Inhale 2 Puffs as instructed every 4 hours as needed. 1 Inhaler 5 09/13/2021 Active Start: 03-01-2018 Ventolin HFA M DI (90 mcg/inh) inhalation aerosol Inhalation, QID, 0 Refill(s) Start Date: 03/01/18 Status: Ordered Repeat number: 1 Start: 03-01-2018 Ventolin HFA M DI (90 mcg/inh) inhalation aerosol Inhalation, QID, 0 Refill(s) Start Date: 03/01/18 Status: Ordered Comment on above: Inhale 2 Puffs as in structed every 4 hours as needed. albuterol 0.833 mg/ml / ipratropium bromide 0.167 mg/ml inhalation solution (20 sources) Anticholinergic, beta2-Adrenergic Agonist Start: 3 take 3 mL by inhalation every four hours as needed for wheezing ipratropium-albute rol (DUONEB) 0.5 mg-3 mg(2.5 mg base)/3 mL nebu INHALE 3 ML EVERY 4 HOUR NEEDED FOR SHORTNESS OF BREATH/WHEEZING 06/20/2022 Active Start: 06-20-2022 take 1 mL by inhalat ion every four hours as needed for wheezing Ipratropium-Albuterol 0.5 mg-3 mg(2.5 mg base)/3 mL solution for nebulization Active 3 mL INHALATION Q4H as needed for shortness of breath or wheezing 180 6 June 20, 2022 12:00am Comment on above: INHALE 3 ML EVERY 4 HOUR NEEDED FOR SHORTNESS OF BREATH/WHEEZING aspirin 81 mg delayed release oral tablet (20 sources) Platelet Aggregation Inhibitor, Nonsteroidal Anti-inflammatory Drug Start: 04-06-2022 Aspirin (Adult Low Dose Aspirin) 81 mg tablet,delayed release (DR/EC) Active 81 mg PO DAILY April 06, 2022 1:00am Comment on above: Take 81 mg by mouth once daily. doxycycline hyclate 100 mg oral capsule (4 sources) Tetracycline-class Drug Start: 10-06-2024 End: 10-16-2024 doxycycline hyclate 100 mg oral capsule Dose : 100 mg = 1 cap(s), Oral, BID, X 10 day(s), # 20 cap(s), 0 Refill(s), 10/16/24 10:58:00 AM EDT, 87.6 Start Date: 10/06/24 Stop Date: 10/16/24 Status: Ordered Quantity: 20.0 Unit: cap(s) Repeat number: 1 Start: 08-22-2024 End: 09-01-2024 doxycycline hyclate 100 mg o ral tablet Dose : 100 mg = 1 tab(s), Oral, BID, Take with a probiotic, X 10 day(s), # 20 tab(s), 0 Refill(s), 09/01/24 11:08:00 PM EDT, 773 Start Date: 08/22/24 Stop Date: 09/01/24 Status: Ordered Quantity: 20.0 Unit: tab(s) Repeat number: 1 Start: 03-08-2022 End: 03-18-2022 take 1 tablet by mouth twice daily doxycycline (VIBRA-TABS) 100 mg tablet Indications: Acute non-recurrent maxillary sinusitis Take 1 tablet by mouth twice daily for 10 days. 20 tablet 0 03/08/2022 03/18/2022 Active Comment on above: Take 1 tablet by katrin twice daily for 10 days. Fluticasone-Umeclidin -Vilanter (20 sources) Anticholinergic, Corticosteroid, beta2-Adrenergic Agonist Start: 11-18-2024 Gghyqcrcloj-Smhewnstv-Nptiw ter (Trelegy Ellipta) 100-62.5-25 mcg blister with device Active 1 NMA INHALATION DAILY 60 November 18, 2024 8:39am Chronic obstructive pulmonary disease Centrilobular emphysema Start: 02-24-2024 End: 11-18-2024 Yvyzxqkzixa-Pjclzuxjz-Qnwftt er (Trelegy Ellipta) 100-62.5-25 mcg blister with device Discontinued 1 NMA INHALATION DAILY 60 February 24, 2024 10:15am November 18, 2024 8:40am Start: 02-24-2024 Fluticasone-Um eclidin-Vilanter (Trelegy Ellipta) 100-62.5-25 mcg blister with device Active 1 NMA INHALATION DAILY 60 February 24, 2024 10:15am Start: 05-13-2023 End: 02-24-2024 Hwfcgqoepqx-Gtjxpktdm-Ybfaly er (Trelegy Ellipta) 100-62.5-25 mcg blister with device Discontinued 1 NMA INHALATION DAILY 60 May 13, 2023 9:16am February 24, 2024 10:15am Start: 05-13-2023 Fluticasone-Um eclidin-Vilanter (Trelegy Ellipta) 100-62.5-25 mcg blister with device Active 1 INH INHALATION DAILY May 13, 2023 9:16am Start: 06-20-2022 End: 05-13-2023 Onifrqsgnti-Edszmzxan-Zxtgzg er (Trelegy Ellipta) 100-62.5-25 mcg blister with device Discontinued 1 NMA INHALATION DAILY 60 June 20, 2022 2:15pm May 13, 2023 9:16am Start: 06-20-2022 End: 05-13-2023 Egfzxrbqxry-Vdipnsmdx-Vpepai er (Trelegy Ellipta) 100-62.5-25 mcg blister with device Discontinued 1 INH INHALATION DAILY 60 June 20, 2022 2:15pm May 13, 2023 9:16am Start: 06-20-2022 Fluticasone-Um eclidin-Vilanter (Trelegy Ellipta) 100-62.5-25 mcg blister with device Active 1 INH INHALATION DAILY 60 June 20, 2022 2:15pm Start: 04-06-2022 End: 06-20-2022 Ldktofrkuec-Bbdnuknsl-Wibopi er (Trelegy Ellipta) 100-62.5-25 mcg blister with device Discontinued 1 NMA INHALATION DAILY April 06, 2022 1:00am June 20, 2022 2:16pm Start: 04-06-2022 End: 06-20-2022 Oxbrdbohzlh-Kupzgyzcz-Oihycz er (Trelegy Ellipta) 100-62.5-25 mcg blister with device Discontinued 1 INH INHALATION DAILY April 06, 2022 1:00am June 20, 2022 2:16pm Start: 04-06-2022 Fluticasone-Um eclidin-Vilanter (Trelegy Ellipta) 100-62.5-25 mcg blister with device Active 1 INH INHALATION DAILY April 06, 2022 12:00am Start: 09-21-2020 End: 09-13-2021 take 1 puff(s) by inhalation once daily iewikijkrpn-bmvobabde-pdstvyhl (TRELEGY ELLIPTA) 100-62.5-25 mcg inhalation powder Inhale 1 Puff as instructed once daily. 60 Each 5 09/13/2021 Active Comment on above: Inhale 1 Puff as ins tructed once daily. furosemide 20 mg oral tablet (20 sources) Loop Diuretic Start: 01-15-2023 End: 10-21-2024 take 1 tablet by mouth once daily furosemide (LASIX) 20 mg tablet Take 1 tablet by mouth once daily. 90 tablet 10/21/2024 Active Start: 04-06-2022 End: 05-20-2023 take 1 tablet by mouth once daily Furosemide 40 mg tablet Discontinued 40 mg PO DAILY April 06, 2022 1:00am May 20, 2023 2:21pm Start: 07-20-2021 End: 09-08-2021 take 1 tablet by mouth once daily furosemide (LASIX) 40 mg tablet Indications: Pedal edema Take 1 tablet by mouth once daily. 90 tablet 2 09/08/2021 Active Start: 07-07-2021 End: 07-20-2021 take 1 tablet by mouth once daily furosemide (LASIX) 20 mg tablet TAKE 1 TABLET BY MOUTH EVERY DAY 30 tablet 0 07/07/2021 07/20/2021 Discontinued Start: 05-18-2021 End: 06-09-2021 take 1 tablet by mouth once daily furosemide (LASIX) 20 mg tablet TAKE 1 TABLET BY MOUTH EVERY DAY 30 tablet 0 06/09/2021 Active Comment on above: Take 1 tablet by katrin once daily. TAKE 1 TABLET BY KATRIN TH EVERY DAY lansoprazole 30 mg delayed release oral capsule (20 sources) Proton Pump Inhibitor Start: 05-16-19 End: 07-28-19 take 1 capsule by mouth once daily lansoprazole (PREVACID) 30 mg capsule Indications: Epigastric pain Take 1 capsule by mouth once daily. 90 capsule 2 07/27/2024 Active Comment on above: TAKE 1 CAPSULE BY MO [facility] ONCE DAILY. TAKE A 1/2 HR BEFORE MEAL. TAKE 1 CAPSULE BY MO UT ONCE DAILY A 1/2 HOUR BEFORE MEAL Take 1 capsule by mo ut once daily. TAKE 1 CAPSULE BY MO UT ONCE DAILY levothyroxine sodium 0.075 mg oral tablet (20 sources) l-Thyroxine Start: 05-23-19 End: 10-22-19 take 1 tablet by mouth once daily for thyroid dysfunction levothyroxine (SYNTHROID) 75 mcg tablet TAKE 1 TABLET BY MOUTH ONCE DAILY. TAKE ON EMPTY STOMACH. FOR THYROID. 90 tablet 10/21/2024 Active Start: 05-08-2022 take 1 tablet by katrin th once daily for thyroid dysfunction levothyroxine (LEVOXYL) 75 mcg tablet Take 1 tablet by mouth once daily. Take on empty stomach. For thyroid. 30 tablet 5 05/08/2022 Active Comment on above: Take 1 tablet by katrin th once daily. Take on empty stomach. For thyroid. losartan potassium 25 mg oral tablet (20 sources) Angiotensin 2 Receptor Ino Start: 3 End: 5 take 1 tablet by mouth once daily losartan (COZAAR) 25 mg tablet Indications: Essential (primary) hypertension Take 1 tablet by mouth once daily. 90 tablet 3 07/27/2024 Active Comment on above: Take 25 mg by mouth once daily. Take 1 tablet by katrin th once daily. 24 hr metoprolol succinate 25 mg extended release oral tablet (20 sources) beta-Adrenergic Ino Start: 3 End: 5 take 1 tablet by mouth once daily metoprolol succinate ER (TOPROL XL) 25 mg 24 hr tablet Indications: Cardiomyopathy, ischemic Take 1 tablet by mouth once daily. 90 tablet 3 07/27/2024 Active Start: 04-21-2021 End: 09-08-2021 take 1 tablet by mouth once daily metoprolol succinate ER (TOPROL XL) 25 mg 24 hr tablet Indications: Cardiomyopathy, ischemic Take 1 tablet by mouth once daily. 90 tablet 2 09/08/2021 Active Comment on above: TAKE 1 TABLET BY KATRIN TH EVERY DAY Take 1 tablet by katrin th once daily. nitroglycerin 0.4 mg sublingual tablet (20 sources) Nitrate Vasodilator Start: 06-26-2022 nitroglycerin sublingual (NITROQUICK) 0.4 mg SL tablet 1 TAB SUBLINGUALLY EVERY 5 TO 15 MINUTES NEEDED FOR CHEST PAIN DO NOT EXCEED 3 DOSES PER EPISODE 06/26/2022 Active Start: 06-26-2022 End: 06-26-2022 Nitroglycerin 0.4 mg tablet, sublingual Active 0.4 mg SL every 5 to 15 minutes as needed for chest pain 02 06June 26, 2022 3:03pm do not exceed 3 doses per episode Start: 06-26-2022 End: 06-26-2022 Nitroglycerin Active 0.4 MG SL every 5 to 15 minutes June 26, 2022 3:03pm do not exceed 3 doses per episode Comment on above: 1 TAB SUBLINGUALLY E VERY 5 TO 15 MINUTES NEEDED FOR CHEST PAIN DO NOT EXCEED 3 DOSES PER EPISODE PARoxetine hydrochloride 20 mg oral tablet (20 sources) Serotonin Reuptake Inhibitor Start: 3 End: 5 take 1 tablet by mouth once daily PARoxetine (PAXIL) 20 mg tablet Take 1 tablet by mouth once daily. 90 tablet 3 07/27/2024 Active Start: 03-27-2021 End: 09-08-2021 take 1 tablet by mouth once daily PARoxetine (PAXIL) 20 mg tablet Take 1 tablet by mouth once daily. 90 tablet 2 09/08/2021 Active Comment on above: TAKE 1 TABLET BY KATRIN TH EVERY DAY Take 1 tablet by katrin th once daily. microencapsulated potassium chloride 20 meq extended release oral tablet (20 sources) Start: take 1 tablet by mouth once daily Potassium Chloride 20 mEq tablet extended release Active 20 meq PO DAILY April 06, 2022 1:00am Start: 07-20-2021 End: 10-19-2024 take 1 tablet by mouth once potassium chloride ER (KLO R-CON) 20 mEq tablet Indications: Pedal edema TAKE 1 TABLET BY MOUTH EVERY AFTERNOON 90 tablet 10/19/2024 Active Comment on above: Take 1 tablet by katrin th once daily. TAKE 1 TABLET BY KATRIN TH EVERY DAY POWER MOBILITY DEVICE (4 sources) Start: 11-27-2022 POWER MOBILITY DEVICE Active 0 .Route .MEDSUPPLY 1 0 November 27, 2022 1:05pm Chronic obstructive pulmonary disease Chronic obstructive pulmonary disease, unspecified As directed Start: 11-27-2022 POWER MOBILITY DEVICE Active 0 .Route .MEDSUPPLY 1 November 27, 2022 1:05pm As directed rosuvastatin calcium 10 mg oral tablet (20 sources) HMG-CoA Reductase Inhibitor Start: 05-09-2021 End: 10-01-2025 take 1 tablet by mouth once daily at bedtime rosuvastatin (CRESTOR) 10 mg tablet Indications: Cardiomyopathy, ischemic , Hypercholesterolemia Take 1 tablet by mouth daily at bedtime. 90 tablet 3 10/01/2024 10/01/2025 Active Comment on above: TAKE 1 TABLET BY KATRIN TH EVERYDAY AT BEDTIME Take 1 tablet by katrin th daily at bedtime. varenicline 1 mg oral tablet (10 sources) Partial Cholinergic Nicotinic Agonist Start: 07-27-2024 take 1 tablet by mouth twice daily at mealtime varenicline (CHANTIX) 1 mg tablet Take 1 tablet by mouth two times a day with meals. 60 tablet 2 07/27/2024 Active Completed/Discontinued Medications Medication Drug Class(es) Dates Sig (Normalized) Sig (Original) ALPRAZolam 0.5 mg oral tablet (19 sources) Benzodiazepine Start: 06-26-2022 End: 07-08-2023 Alprazolam (Xanax) 0.5 mg tablet Discontinued 0.5 mg PO .COMPLEX 2 0 June 26, 2022 3:00pm July 08, 2023 3:01pm 0.5 mg orally take 1 tab by mouth prior to procedure; Start: 04-18-2022 End: 05-21-2022 ALPRAZolam (XANAX) 0.25 mg t ablet Indications: Situational anxiety Take 1 tablet 30 minutes before procedure. May repeat dose x 1 if no relief. 2 tablet 0 04/30/2022 05/21/2022 Active Comment on above: Take 1 tablet 30 min utes before procedure. May repeat dose x 1 if no relief. gadobutrol (Gadavist) injection 12.5 mL (2 sources) Start: 09-25-2022 End: 09-25-2022 gadobutrol (Gadavist) injection 12.5 mL motorized wheelchair (4 sources) Start: 11-13-2022 End: 11-27-2022 motorized wheelchair Discontinued 0 .Route .MEDSUPPLY 1 0 November 13, 2022 12:00am November 27, 2022 1:05pm Chronic obstructive pulmonary disease Chronic obstructive pulmonary disease, unspecified As directed Start: 11-13-2022 End: 11-27-2022 motorized wheelchair Discont inued 0 .Route .MEDSUPPLY 1 November 13, 2022 12:00am November 27, 2022 1:05pm As directed Salt Irrigation Solution No.1 (OCEAN COMPLETE) aero (20 sources) Start: 03-08-2022 take 177 mL nasal route once Salt Irrigation Solution No.1 (OCEAN COMPLETE) aero Indications: Acute non-recurrent maxillary sinusitis [place] into nose both nostrils several times a day 177 mL 03/08/2022 Active Start: 03-08-2022 take 177 mL nasal route once S alt Irrigation Solution No.1 (OCEAN COMPLETE) aero Indications: Acute non-recurrent maxillary sinusitis [place] into nose both nostrils several times a day 177 mL 0 03/08/2022 Active Comment on above: [place] into nose both nostrils several times a day Problems Active Problems Problem Classification Problem Date Documented Date Episodic/Chronic Adjustment disorders (20 sources) Adjustment disorder with anxious mood; Translations: [Adjustment disorder with anxiety] Onset: 01-09-2019 01-09-2019 Chronic Anxiety disorders (6 sources) Panic disorder [episodic paroxysmal anxiety]; Translations: [Anxiety disorder, unspecified] Onset: 03-26-2018 Chronic Cardiac and circulatory congenital anomalies (20 sources) Patent foramen ovale; Translations: [Patent foramen ovale] Onset: 05-07-2022 04-06-2022 Chronic Cardiac dysrhythmias (20 sources) Ventricular premature beats; Translations: [Ventricular premature depolarization] Onset: 04-04-2015 04-04-2015 Chronic Chronic obstructive pulmonary disease and bronchiectasis (20 sources) Chronic obstructive pulmonary disease, unspecified; Translations: [Chronic obstructive lung disease] Onset: 11-14-2017 11-14-2017 Chronic Congestive heart failure; nonhypertensive (20 sources) 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ailure; Translations: [Chronic combined systolic (congestive) and diastolic (congestive) heart failure] Onset: 04-09-2022 Chronic Coronary atherosclerosis and other heart disease (20 sources) Atherosclerotic heart disease of [place] coronary artery without angina pectoris; Translations: [Ischemic myocardial dysfunction] Onset: 04-04-2015 Chronic Coronary atherosclerosis and other heart disease (4 sources) Presence of aortocoronary bypass graft; Translations: [Aortocoronary bypass status] 04-09-2022 Episodic Diabetes mellitus without complication (3 sources) Hyperglycemia; Translations: [Hyperglycemia, unspecified] Episodic Disorders of lipid metabolism (20 sources) Hyperlipidemia, unspecified; Translations: [Hypercholesterolemia] Onset: 04-04-2015 04-04-2015 Chronic E Codes: Fall (1 source) Fall in home; Translations: [Unspecified fall, initial encounter] 06-24-2023 Episodic Essential hypertension (20 sources) Essential (primary) hypertension; Translations: [Essential hypertension] Onset: 03-26-2018 04-09-2022 Chronic Genitourinary symptoms and ill-defined conditions (1 source) Increased frequency of urination; Translations: [Frequency of micturition] Episodic Headache; including migraine (1 source) Occipital headache; Translations: [Occipital headache] 06-24-2023 Episodic Heart valve disorders (20 sources) Pulmonic valve regurgitation; Translations: [Nonrheumatic pulmonary valve insufficiency] Onset: 05-07-2022 04-27-2022 Chronic Comment on above: Severe (4+) per ECHO 04/20/22 Mild (1+) per ECHO 0 04/20/22 Moderate (2+) per EC HO 04/20/22 Immunizations and screening for infectious disease (8 sources) Patient encounter status; Translations: [Encounter for screening for human immunodeficiency virus [HIV]] Onset: 11-18-2024 Episodic Mood disorders (1 source) Chronic depression; Translations: [Chronic depression] 07-27-2024 Chronic Mood disorders (2 sources) Major depressive disorder, single episode, unspecified; Translations: [Major depressive disorder, single episode, unspecified] Onset: 03-26-2018 Open wounds of extremities (2 sources) Open bite of left hand, initial encounter; Translations: [Open bite of left hand, initial encounter] Onset: 10-06-2024 Episodic Other aftercare (2 sources) 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; Translations: [snf (current) use of aspirin] Onset: 03-26-2018 Episodic Other and ill-defined heart disease (3 sources) Left ventricular systolic dysfunction; Translations: [Other ill-defined heart diseases] 12-11-2023 Chronic Other circulatory disease (7 sources) H/O: heart disorder; Translations: [Personal history of other diseases of the circulatory system] 04-09-2022 Episodic Other circulatory disease (1 source) Personal history of other diseases of the circulatory system; Translations: [Personal history of other diseases of circulatory system] 04-09-2022 Episodic Other congenital anomalies (3 sources) 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; Translations: [Other microdeletions] 09-25-2022 Chronic Other congenital anomalies (2 sources) Other microdeletions; Translations: [Other microdeletions] Onset: 09-25-2022 Chronic Other hereditary and degenerative nervous system conditions (1 source) Impaired cognition; Translations: [Mild cognitive impairment, so stated] 06-24-2023 Chronic Other lower respiratory disease (2 sources) Dyspnea; Translations: [Shortness of breath] Episodic Other lower respiratory disease (5 sources) Nodule of lung; Translations: [Solitary pulmonary nodule] Episodic Other lower respiratory disease (6 sources) Other forms of dyspnea; Translations: [Other respiratory abnormalities] Onset: 11-18-2024 04-09-2022 Episodic Other lower respiratory disease (3 sources) Other nonspecific abnormal finding of lung field; Translations: [Other nonspecific abnormal finding of lung field] 06-20-2022 Episodic Other lower respiratory disease (2 sources) Solitary pulmonary nodule; Translations: [Solitary pulmonary nodule] Onset: 11-26-2024 Episodic Other screening for suspected conditions (not mental disorders or infectious disease) (1 source) CT of chest abnormal; Translations: [Abnormal findings on diagnostic imaging of other specified body structures] Chronic Other upper respiratory infections (1 source) Acute maxillary sinusitis; Translations: [Acute maxillary sinusitis, unspecified] Episodic Peripheral and visceral atherosclerosis (20 sources) Peripheral vascular disease, unspecified; Translations: [Peripheral vascular disease, unspecified] Onset: 11-29-2017 11-29-2017 Chronic Pulmonary heart disease (20 sources) Pulmonary hypertension; Translations: [Pulmonary hypertension, unspecified] Onset: 01-15-2023 01-15-2023 Chronic Residual codes; unclassified (4 sources) Daytime hypersomnia; Translations: [Hypersomnia, unspecified] 05-20-2023 Chronic Residual codes; unclassified (1 source) Hypersomnia, unspecified; Translations: [Hypersomnia, unspecified] 05-20-2023 Chronic Residual codes; unclassified (8 sources) Edema of foot; Translations: [Localized edema] Episodic Skin and subcutaneous tissue infections (4 sources) Infection of skin and/or subcutaneous tissue; Translations: [Local infection of the skin and subcutaneous tissue, unspecified] Onset: 08-22-2024 Episodic Substance-related disorders (7 sources) Nicotine dependence, cigarettes, uncomplicated; Translations: [Tobacco dependence in remission] Onset: 03-26-2018 04-15-2023 Chronic Superficial injury; contusion (3 sources) Insect bite of lower limb; Translations: [Insect bite (nonvenomous), unspecified lower leg, initial encounter] 10-08-2022 Episodic Thyroid disorders (8 sources) Acquired hypothyroidism; Translations: [Hypothyroidism, unspecified] Chronic Past or Other Problems Problem Classification Problem Date Documented Date Episodic/Chronic Abdominal pain (9 sources) Epigastric pain; Translations: [Epigastric pain] Onset: 07-27-2024 Episodic Cardiac dysrhythmias (20 sources) Sinus bradycardia; Translations: [Bradycardia, unspecified] Onset: 04-04-2015 04-04-2015 Episodic Other aftercare (1 source) Other [place] (current[facility] drug therapy; Translations: [Medication management] Onset: 07-28-2024 Episodic Other lower respiratory disease (20 sources) Dyspnea on exertion; Translations: [Dyspnea, unspecified] Onset: 04-04-2015 04-04-2015 Episodic Other lower respiratory disease (20 sources) Multiple nodules of lung; Translations: [Other nonspecific abnormal finding of lung field] Onset: 05-07-2022 Episodic Other lower respiratory disease (2 sources) Persistent cough; Translations: [Persistent cough] Onset: 07-28-2024 07-27-2024 Episodic Pulmonary heart disease (20 sources) Dilatation of pulmonary artery; Translations: [Other diseases of pulmonary vessels] Onset: 09-25-2022 04-27-2022 Episodic Comment on above: Moderate Per ECHO Residual codes; unclassified (20 sources) Tobacco user; Translations: [Tobacco use] Onset: 04-04-2015 04-04-2015 Episodic Residual codes; unclassified (6 sources) History of cardiac catheterization; Translations: [Other specified postprocedural states] Onset: 11-10-2011 06-19-2022 Episodic Residual codes; unclassified (1 source) Tobacco use; Translations: [Continuous tobacco abuse] Onset: 07-27-2024 Episodic Screening and history of mental health and substance abuse codes (3 sources) Ex-smoker; Translations: [Personal history of nicotine dependence] Onset: 07-27-2024 Episodic Spondylosis; intervertebral disc disorders; other back problems (20 sources) Chronic low back pain; Translations: [Lumbago with sciatica, right side] Onset: 01-09-2019 01-09-2019 Episodic Results Test Name Value Interpretation Reference Range Facility [facility] 11-18-2024 MARYJANE Telephone (FPWADS) SANDEE SORIANO ([id number]) 1960 M Date Time Provider Department 11/18/24 CISCO PHAN During your visit today, we recorded the following information about you: Marcus Juarez LPN 11/18/2024 2:43 PM Signed Received visit summary from [facility] pul. Placed in provider's inbox for review. Route to MA scanning Allergies As of Date: 11/18/2024 (No Known Allergies) Date Reviewed: 07/27/2024 Reviewed by: Marcus Juarez LPN - Fully Assessed Reason for Visit: Received Outside Medical Records [[id number]] Cmt: [facility] pul Prescriptions as of 11/18/2024 - levothyroxine (SYNTHROID) 75 mcg tablet TAKE 1 TABLET BY MOUTH ONCE DAILY. TAKE ON EMPTY STOMACH. FOR THYROID. - furosemide (LASIX) 20 mg tablet Take 1 tablet by mouth once daily. - potassium chloride ER (KLOR-CON) 20 mEq tablet TAKE 1 TABLET BY MOUTH EVERY AFTERNOON - rosuvastatin (CRESTOR) 10 mg tablet Take 1 tablet by mouth daily at bedtime. - metoprolol succinate ER (TOPROL XL) 25 mg 24 hr tablet Take 1 tablet by mouth once daily. - PARoxetine (PAXIL) 20 mg tablet Take 1 tablet by mouth once daily. - lansoprazole (PREVACID) 30 mg capsule Take 1 capsule by mouth once daily. - losartan (COZAAR) 25 mg tablet Take 1 tablet by mouth once daily. - varenicline (CHANTIX) 1 mg tablet Take 1 tablet by mouth two times a day with meals. - nitroglycerin sublingual (NITROQUICK) 0.4 mg SL tablet 1 TAB SUBLINGUALLY EVERY 5 TO 15 MINUTES NEEDED FOR CHEST PAIN DO NOT EXCEED 3 DOSES PER EPISODE - ipratropium-albuterol (DUONEB) 0.5 mg-3 mg(2.5 mg base)/3 mL nebu INHALE 3 ML EVERY 4 HOUR NEEDED FOR SHORTNESS OF BREATH/WHEEZING - Salt Irrigation Solution No.1 (OCEAN COMPLETE) aero [place] into nose both nostrils several times a day - fjphqlogxhp-vjuwhvpvb-q ilanter (TRELEGY ELLIPTA) 100-62.5-25 mcg inhalation powder Inhale 1 Puff as instructed once daily. - albuterol HFA (PROVENTIL HFA, VENTOLIN HFA) 90 mcg/actuation inhaler Inhale 2 Puffs as instructed every 4 hours as needed. - aspirin, enteric coated (ASPIRIN, ENTERIC COATED) 81 mg EC tablet Take 81 mg by mouth once daily. Problem List As Of Date 11/18/2024 Noted Resolved Cardiomyopathy, ischemic [I25.5] 04/04/2015 Hx of CABG [Z95.1] 04/04/2015 Dyspnea on exertion [R06.09] 04/04/2015 Sinus bradycardia [R00.1] 04/04/2015 PVC's (premature ventricular contractions) [I49*04/04/2015 Tobacco abuse [Z72.0] 04/04/2015 Hypercholesterolemia [E78.00] 04/04/2015 COPD (chronic obstructive pulmonary disease) (H*11/14/2017 PAD (peripheral artery disease) (HCC) [I73.9] 11/29/2017 Chronic low back pain with bilateral sciatica [*01/09/2019 Adjustment disorder with anxiety [F43.22] 01/09/2019 Atherosclerosis of coronary artery [I25.10] 04/09/2022 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 [place] [address] OFFICE VISIT Date of Service: 11/18/24 MR#: [id number] Acct: [id number] Name: SANTOSSANDEEYUMIKO TORRES Rep #: [id number] : 1960 Provider: BAY Harman Age/Sex: 64/M Location: [facility] Status: Signed Assessment and Plan Assessment and Plan (1) COPD (chronic obstructive pulmonary disease): Status: Chronic Qualifiers: COPD type: emphysema Emphysema type: centrilobular Qualified Code(s): J43.2 - Centrilobular emphysema Comment: FEV1 53% of predicted Plan: Stable, he does not appear to be an exacerbation of COPD today. No need for prednisone or antibiotic. Continue current maintenance medication, symptomatically controlled with the use of triple therapy on Trelegy. Plan for repeat pulmonary function test and 6-minute walk test every 6 months while the patient continues to smoke. Ordered for May 2025. Contact the office for any new or worsening symptoms. An acute visit and typically be arranged within 1-2 days. Follow-up in June 2024. He was provided with annual influenza vaccination. (2) Lung nodules: Status: Chronic Plan: Encourage complete smoking cessation. 7 minutes spent [id number] discussing smoking cessation. I suggested that the patient would benefit from using a suckers or wooden cinnamon sticks in place of cigarettes, not to substitute cigarettes when feeling triggered and have the urge for the hand to mouth habit. Patient states he is not a fan of cinnamon, however he is willing to try suckers. He does have a prescription for Chantix at home. I offered to refer him to the outpatient smoking cessation clinic, the patient declined. Repeat LDCT in 12 months. Ordered accordingly. (3) Pulmonary hypertension: Status: Chronic Plan: Ruled out exertional hypoxia. (4) Smoking greater than 20 pack years: Status: Chronic Plan: Continue with LDCT, ordered. Orders: Orders Influenza Immunization Today Z23 - Encounter for immunization Low Dose CT Lung Screening 10/09/25 F17.210 - Nicotine dependence, cigarettes, uncomplicated, R91.8 - Other nonspecific abnormal finding of lung field PFT Complete - DLCO, Spirometry b/a bronchodilators, lung volumes 05/24/25 J43.2 - Centrilobular emphysema Simple Pulmonary Exercise Test 06/03/25 J43.2 - Centrilobular emphysema Medications: Refilled tpnrnwdrngm-gsdfufiqh-h ilanter 100-62.5-25 mcg (Trelegy Ellipta) 1 inh inhalation DAILY 60 ea 6RF J43.2 - Centrilobular emphysema albuterol sulfate 90 mcg/actuation (Proventil HFA) 2 puffs inhalation Q4H PRN 8.5 grams 6RF shortness of breath or wheezing J43.2 - Centrilobular emphysema Plan Details Additional Comments: This note was generated with [employer] dictation software. It may contain incorrect words, spelling, and punctuation that were not noted in checking the note before signing. I have spent 33 minutes today reviewing labs, records and history. Time includes coordinating care, interpretation of tests. This also includes time I spent with the patient for exam, treatment plan and education as well as documenting clinical information. Follow Up: 7 Months HPI Follow up from testing Chief Complaint: Test results HPI Comments Details: This patient presents to the office today for follow-up of his COPD and lung nodules, and to discuss test results. He is ambulatory, on room air and accompanied today by his daughter. He has not recently been seen in the ED or urgent care for any respiratory illness. He has not required any antibiotics or prednisone for any breathing problems. He is compliant with use of Trelegy 1 puff daily. He admits that he was not aware he was supposed to be rinsing his mouth out after each use. He denies any medication side effect such as sore throat or thrush. He is using albuterol 5 times daily. Typically utilizes the inhaler and infrequently the nebulizer. Unfortunately, he has resumed smoking. He is now smoking 1/2 pack/day. He does have some shortness of breath on exertion. He denies any wheezing, chest tightness, chest pain or palpitations. He denies any cough, sputum production or hemoptysis. He denies any fever, chills or body aches. Test results personally reviewed with patient: CT scan of the chest completed on November 03, 2024. Advanced evidence Simonis changes present. Interval decrease in size of the previously seen noncalcified nodule in the lateral aspect of the right upper lobe, presently measures 6.8 mm. Essentially stable size of the previously seen pulmonary nodule in the anterior aspect of the right middle lobe. Pulmonary stress test completed on November 03, 2024. The patient was able to ambulate total of 472 feet over the course of 6 minutes. He did not become hypoxic and does not currently qualify for supple (more content not included)... [facility] 6 Minute Walk Teston 025 6 Minute Walk Test y [facility] Pulmonary Services/Neurology [address] [place] [address] MR#: [id number] Acct: [id number] Name: SANDEE SORIANO Rep #: [id number] : 1960 64 From: Nuno Waggoner DO Referring Dr: María Harman SUPERVISOR INSTRUMENT MAINTENANCE SUPERVISOR INSTRUMENT MAINTENANCE-C Status: REG CLI Location: PSN Date: Sex: M C PSN 6 Minute Walk Test 6 Minute Walk Test 6 Minute Walk Test: 6 Minute Walk Test PSN:6-Minute Walk Test Start: 11/03/24 13:19 Freq: Status: Active Protocol: RESP.[id number] Document 11/03/24 12:55 WLB (Rec: 11/03/24 13:22 WLB [id number]) 6 Minute Walk Test Date Performed 11/03/24 Time Performed 12:55 Height 5 ft 11 in Weight: 193 lb Weight in Pounds 193.[address]: María Harman SUPERVISOR INSTRUMENT MAINTENANCE Assistive device Cane used: Pre-test Oxygen Delivery Room Air Method Pulse Ox (%) 96 Pulse Rate (60-100 48 L beats/min) Dyspnea Ewelina Scale ( 1 0-10) Exertion [place]welina Scale 7 (6-20) 1st minute Oxygen Delivery Room Air Method Pulse Ox (%) 93 Pulse Rate (60-100 66 beats/min) Reported Symptoms Increased Work of Breathing,Dizziness 2nd minute Oxygen Delivery Room Air Method Pulse Ox (%) 93 Pulse Rate (60-100 64 beats/min) Reported Symptoms Increased Work of Breathing,Dizziness 3rd minute Oxygen Delivery Room Air Method Pulse Ox (%) 92 Pulse Rate (60-100 67 beats/min) Reported Symptoms Increased Work of Breathing 4th minute Oxygen Delivery Room Air Method Pulse Ox (%) 92 Pulse Rate (60-100 63 beats/min) Dyspnea Ewelina Scale ( 7 0-10) Exertion Ewelina Scale 13 (6-20) Number of Rests 1 Taken Reported Symptoms Increased Work of Breathing,Dizziness 5th minute Oxygen Delivery Room Air Method Pulse Ox (%) 90 Pulse Rate (60-100 67 beats/min) 6th minute Oxygen Delivery Room Air Method Pulse Ox (%) 89 Pulse Rate (60-100 68 beats/min) Dyspnea Ewelina Scale ( 8 0-10) Exertion Ewelina Scale 14 (6-20) Post-test Oxygen Delivery Room Air Method Pulse Ox (%) 93 Pulse Rate (60-100 45 L beats/min) Full Laps Walked 8 Partial Lap, Number 0 of Tiles Walked Total Distance 472 Walked (ft) Interpretation Interpretation: The patient ambulated 472 feet over the course of 6 minutes beginning on room air without assistive devices. Pretesting oxygen saturation was noted to be 96% on room air. With ambulation, the joan oxygen saturation was 89%. This represents a significant exertional oxygen desaturation, consistent with a pulmonary limitation to exercise tolerance. Recommendations Recommendations: There is no indication for the use of supplemental oxygen at this time. However, close interval follow-up is recommended, given the degree of oxygen desaturation noted during this study. 11/05/24955 Date Nuno Waggoner DO CC: Date Dictated: 11/05/24955 Date Transcribed: 11/05/24955 Side Seam Envelope Machine Operator: Dr. Nuno Waggoner DO Signed [facility] Chest without Contraston Chest without Contrast [facility] Imaging Services [address] [place] [id number] Chest without Contrast MR#: [id number] Acct: [id number] Name: SANDEE SORIANO Rep #: [id number] : 1960 M 64 From: Oumar huynh MD PCP: Dr. Tej Phan MD Status: REG CL Study: Chest without Contrast Date of Exam: 11/03/24 Exam# [id number] Ordering Dr: María Harman SUPERVISOR INSTRUMENT MAINTENANCE SUPERVISOR INSTRUMENT MAINTENANCE-C PROCEDURE: CHEST WITHOUT CONTRAST 11/03/2024 REASON FOR EXAM: SMOKER Current smoker. Patient has smoked for 54 years. TECHNIQUE: Chest CT without contrast. Coronal and Sagittal reconstruction series were provided. One or more dose reduction techniques were used (e.g., Automated exposure control, adjustment of the mA and/or kV according to patient size, use of iterative reconstruction technique RADIATION DOSE SUMMARY: CTDlvol: 10.53 mGy DLP: 397.47 mGycm COMPARISON: Prior studies dated May 16, 2023 and January 01, 2024. FINDINGS: Hardware: None Lymph nodes: Multiple small benign-appearing bilateral axillary lymph nodes. Heart and Vasculature: Stable dilatation of the main pulmonary artery with a transverse dimension of 5.7 cm. Prominence of the central pulmonary arteries bilaterally. Atherosclerotic calcific plaques of the aortic arch. Coronary Artery Calcifications: Coronary artery calcification. No evidence of pericardial effusion. Lungs and Airways: Advanced emphysematous changes are present. Interval decrease in size of the previously seen noncalcified nodule in the lateral aspect of the right upper lobe as seen on axial image number 38 it presently measures 6.8 mm. Previously, it measures 8.2 mL. Essentially stable size of the previously seen pulmonary nodule in the anterior aspect of the right middle lobe as seen on axial image number 87 Pleura: No pleural effusion. Upper Abdomen: Unremarkable Bones: Degenerative changes of the thoracic spine. CT/Chest without Contrast IMPRESSION: Coronary artery calcification (CAC) is is present Stable emphysematous changes. Stable dilatation of the main pulmonary artery in the right and left pulmonary arteries. This is suggestive of pulmonary hypertension. Slight decrease in size of the previously seen nodule in the lateral aspect of the right upper lobe. Otherwise unchanged. Reading Location: [id number] CC: BAY Harman; Dr. Tej Phan MD Side Seam Envelope Machine Operator: Signed [facility] 08-24-2024 MARYJANE Telephone (MARY) SANDEE SORIANO ([id number]) 1960 M Date Time Provider Department 08/24/24 CISCO PHAN During your visit today, we recorded the following information about you: Marcus Juarez LPN 08/24/2024 4:23 PM Signed Received home visit summary from [facility]. Placed in provider's inbox for review. Route to MA scanning Allergies As of Date: 08/24/2024 (No Known Allergies) Date Reviewed: 07/27/2024 Reviewed by: Marcus Juarez LPN - Fully Assessed Reason for Visit: Received Outside Medical Records [[id number]] Cmt: [facility] Prescriptions as of 08/24/2024 - furosemide (LASIX) 20 mg tablet TAKE 1 TABLET BY MOUTH EVERY DAY - metoprolol succinate ER (TOPROL XL) 25 mg 24 hr tablet Take 1 tablet by mouth once daily. - PARoxetine (PAXIL) 20 mg tablet Take 1 tablet by mouth once daily. - lansoprazole (PREVACID) 30 mg capsule Take 1 capsule by mouth once daily. - losartan (COZAAR) 25 mg tablet Take 1 tablet by mouth once daily. - varenicline (CHANTIX) 1 mg tablet Take 1 tablet by mouth two times a day with meals. - levothyroxine (SYNTHROID) 75 mcg tablet TAKE 1 TABLET BY MOUTH ONCE DAILY. TAKE ON EMPTY STOMACH. FOR THYROID. - potassium chloride ER (KLOR-CON) 20 mEq tablet TAKE 1 TABLET BY MOUTH EVERY DAY EVERY AFTERNOON - rosuvastatin (CRESTOR) 10 mg tablet TAKE 1 TABLET BY MOUTH EVERYDAY AT BEDTIME - nitroglycerin sublingual (NITROQUICK) 0.4 mg SL tablet 1 TAB SUBLINGUALLY EVERY 5 TO 15 MINUTES NEEDED FOR CHEST PAIN DO NOT EXCEED 3 DOSES PER EPISODE - ipratropium-albuterol (DUONEB) 0.5 mg-3 mg(2.5 mg base)/3 mL nebu INHALE 3 ML EVERY 4 HOUR NEEDED FOR SHORTNESS OF BREATH/WHEEZING - Salt Irrigation Solution No.1 (OCEAN COMPLETE) aero [place] into nose both nostrils several times a day - ivlamvekmww-qfphrrsvd-z ilanter (TRELEGY ELLIPTA) 100-62.5-25 mcg inhalation powder Inhale 1 Puff as instructed once daily. - albuterol HFA (PROVENTIL HFA, VENTOLIN HFA) 90 mcg/actuation inhaler Inhale 2 Puffs as instructed every 4 hours as needed. - aspirin, enteric coated (ASPIRIN, ENTERIC COATED) 81 mg EC tablet Take 81 mg by mouth once daily. Problem List As Of Date 08/24/2024 Noted Resolved Cardiomyopathy, ischemic [I25.5] 04/04/2015 Hx of CABG [Z95.1] 04/04/2015 Dyspnea on exertion [R06.09] 04/04/2015 Sinus bradycardia [R00.1] 04/04/2015 PVC's (premature ventricular contractions) [I49*04/04/2015 Tobacco abuse [Z72.0] 04/04/2015 Hypercholesterolemia [E78.00] 04/04/2015 COPD (chronic obstructive pulmonary disease) (H*11/14/2017 PAD (peripheral artery disease) (HCC) [I73.9] 11/29/2017 Chronic low back pain with bilateral sciatica [*01/09/2019 Adjustment disorder with anxiety [F43.22] 01/09/2019 Atherosclerosis of coronary artery [I25.10] 04/09/2022 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*04/09/2022 Dyslipidemia [E78.5] 04/09/2022 Essential (primary) hypertension [I10] 04/09/2022 Multiple pulmonary nodules [R91.8] 05/07/2022 Patent foramen ovale [Q21.12] 05/07/2022 Pulmonary valve stenosis [I37.0] 05/07/2022 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 No acute fracture or dislocation. There is subtle remodeling of the proximal pole the scaphoid at the radiocarpal joint, likely secondary to fracture or osteoarthritis. Negative ulnar variance. Linear high density foreign bodies anterior to the carpal bones and the ulnar side of the 2nd digit distal interphalangeal joint are of questionable clinical significance. IMPRESSION: No acute osseous abnormality. Generalized edema of the wrist and distal forearm. Tiny radiopaque foreign bodies of the wrist and 2nd ray are of questionable clinical significance. Correlation is advised. I have reviewed the resident's preliminary report and agree with findings and impression. Interpreted by: Zion Petersen Preliminary Report By: Fernie Morrow Electronically signed By Zion Petersen Dictated Date: 08/22/2024 10:45:12 PM Prelim Date: 08/22/2024 10:49:44 PM Sign Date: 08/22/2024 10:54:12 PM Ordering Provider: ANMOL Topete [facility] CBC panel Auto (Bld)on 07-28 Erythrocyte distribution width (RBC) [Ratio] 15.1 % High 11.5-15.0 [facility] Comment on above: Order Comment: Speci men Type: BLOOD SPECIMEN Ordering Facility: [facility] Address: [address] [place] [address] Performed By: #### 5 8410-2 #### [facility] CLIA [id number] [address] [place] [address] [place] Hematocrit (Bld) [Volume fraction] 48.3 % Normal 39.0-51.0 [facility] Comment on above: Order Comment: Speci men Type: BLOOD SPECIMEN Ordering Facility: [facility] Address: [address] [place] [address] Performed By: #### 5 8410-2 #### [facility] CLIA [id number] [address] [place] [address] [place] Hemoglobin (Bld) [Mass/Vol] 16.1 g/dL Normal 13.0-17.0 [facility] Comment on above: Order Comment: Speci men Type: BLOOD SPECIMEN Ordering Facility: [facility] Address: [address] [place] [address] Performed By: #### 5 8410-2 #### [facility] CLIA [id number] [address] [place] [address] [place] MCH (RBC) [Entitic mass] 31.8 pg Normal 26.0-34.0 [facility] Comment on above: Order Comment: Speci men Type: BLOOD SPECIMEN Ordering Facility: [facility] Address: [address] [place] [address] Performed By: #### 5 8410-2 #### [facility] CLIA [id number] [address] [place] [address] [place] MCHC (RBC) [Mass/Vol] 33.3 g/dL Normal 30.5-36.0 [facility] Comment on above: Order Comment: Speci men Type: BLOOD SPECIMEN Ordering Facility: [facility] Address: [address] [place] [address] Performed By: #### 5 8410-2 #### [facility] CLIA [id number] [address] [place] [address] [place] MCV (RBC) [Entitic vol] 95.3 fL Normal 80.0-100.0 [facility] Comment on above: Order Comment: Speci men Type: BLOOD SPECIMEN Ordering Facility: [facility] Address: [address] [place] [address] Performed By: #### 5 8410-2 #### [facility] CLIA [id number] [address] [place] [address] [place] Nucleated RBC (Bld) [#/Vol] 10*3/uL Normal <0.01 [facility] Comment on above: Order Comment: Speci men Type: BLOOD SPECIMEN Ordering Facility: [facility] Address: [address] [place] [address] Performed By: #### 5 8410-2 #### [facility] CLIA [id number] [address] [place] [address] [place] Platelet mean volume (Bld) [Entitic vol] 9.8 fL Normal 9.0-12.7 [facility] Comment on above: Order Comment: Speci men Type: BLOOD SPECIMEN Ordering Facility: [facility] Address: [address] [place] [address] Performed By: #### 5 8410-2 #### [facility] CLIA [id number] [address] [place] [address] [place] Platelets (Bld) [#/Vol] 234 10*3/uL Normal 150-400 [facility] Comment on above: Order Comment: Speci men Type: BLOOD SPECIMEN Ordering Facility: [facility] Address: [address] [place] [address] Performed By: #### 5 8410-2 #### [facility] CLIA [id number] [address] [place] [address] [place] RBC (Bld) [#/Vol] 5.07 10*6/uL Normal 4.20-6.00 [facility] Comment on above: Order Comment: Speci men Type: BLOOD SPECIMEN Ordering Facility: [facility] Address: [address] [place] [address] Performed By: #### 5 8410-2 #### [facility] CLIA [id number] [address] [place] [address] [place] WBC (Bld) [#/Vol] 11.36 10*3/uL High 3.70-11.00 [facility] Comment on above: Order Comment: Speci men Type: BLOOD SPECIMEN Ordering Facility: [facility] Address: [address] [place] [address] Performed By: #### 5 8410-2 #### [facility] CLIA [id number] [address] [place] [address] [place] Lipid 1996 panelon 5 Cholesterol [Mass/Vol] 96 mg/dL Normal <200 [facility] Comment on above: Order Comment: Speci men Type: BLOOD SPECIMEN Ordering Facility: [facility] Address: [address] [place] [address] Result Comment: <200 mg/dL, Desirable 200-239 mg/dL, Borderline high >239 mg/dL, High Performed By: #### 2 4331-1 #### [facility] CLIA [id number] [address] [place] [address] OF [facility] Cholesterol in HDL [Mass/Vol] 30 mg/dL Low >39 [facility] Comment on above: Order Comment: Justine shore Type: BLOOD SPECIMEN Ordering Facility: [facility] Address: [address] [place] [address] Result Comment: 40-5 9 mg/dL, Acceptable >59 mg/dL, High: Negative risk factor for coronary heart disease <40 mg/dL, Low: Positive risk factor for coronary heart disease Performed By: #### 2 4331-1 #### [facility] CLIA [id number] [address] [place] [address] Cholesterol in LDL [Mass/Vol] 40 mg/dL Normal <100 [facility] Comment on above: Order Comment: [place]ine [place] Type: BLOOD SPECIMEN Ordering Facility: [facility] Address: [address] [place] [address] Result Comment: <100 mg/dL, Optimal 100-129 mg/dL, Near optimal/above optimal 130-159 mg/dL, Borderline high 160-189 mg/dL, High >189 mg/dL, Very high Secondary prevention optimal LDL Cholesterol levels are recommended to be <70 mg/dL LDL cholesterol is calculated using the Chao-NIH equation. Performed By: #### 2 4331-1 #### [facility] CLIA [id number] [address] [place] [address] OF [facility] Cholesterol in LDL/Cholesterol in HDL [Mass ratio] 1.33 {ratio} Normal <2.54 [facility] Comment on above: Order Comment: Justine silviano Type: BLOOD SPECIMEN Ordering Facility: [facility] Address: [address] [place] [address] Result Comment: Eze kay: 1. National Cholesterol Education Program ATP III Guideline At-A-Glance Quick Desk Reference: National Heart, Lung, and Blood [place]. National Institutes of Health. 2001: NIH Publication No. 01-3305. 2. An International Atherosclerosis Society position paper: global recommendations for the management of dyslipidemia: executive summary, Atherosclerosis. 2014: 232(2):410-413. Performed By: #### 2 4331-1 #### [facility] CLIA [id number] [address] [place] [address] [place] Cholesterol in VLDL [Mass/Vol] 20 mg/dL Normal <30 [facility] Comment on above: Order Comment: Speci men Type: BLOOD SPECIMEN Ordering Facility: [facility] Address: [address] [place] [address] Performed By: #### 2 4331-1 #### [facility] CLIA [id number] [address] [place], [place] [id number] [place] Cholesterol non HDL [Mass/Vol] 66 mg/dL Normal <130 [facility] Comment on above: Order Comment: Speci men Type: BLOOD SPECIMEN Ordering Facility: [facility] Address: [address] [place] [address] Result Comment: <130 mg/dL, Optimal 130-159 mg/dL, Near optimal/above optimal 160-189 mg/dL, Borderline high 190-219 mg/dL, High >219 mg/dL, Very high Secondary prevention optimal non HDL Cholesterol levels are recommended to be <100 mg/dL Performed By: #### 2 4331-1 #### [facility] CLIA [id number] [address] [place], [place] [id number] [place] Cholesterol.total/Cho lesterol in HDL [Mass ratio] 3.20 {ratio} Normal <5.10 [facility] Comment on above: Order Comment: Speci men Type: BLOOD SPECIMEN Ordering Facility: [facility] Address: [address] [place], [place] [address] Performed By: #### 2 4331-1 #### [facility] CLIA [id number] [address] [place], [place] [id number] [place] FASTING TIME 12 hrs Normal [facility] Comment on above: Order Comment: Speci men Type: BLOOD SPECIMEN Ordering Facility: [facility] Address: [address] [place] [address] Performed By: #### 2 4331-1 #### [facility] CLIA [id number] [address] [place] [address] [place] [facility] Triglyceride [Mass/Vol] 149 mg/dL Normal <150 [facility] Comment on above: Order Comment: Speci men Type: BLOOD SPECIMEN Ordering Facility: [facility] Address: [address] [place] [address] Result Comment: <150 mg/dL, Normal 150-199 mg/dL, Borderline high 200-499 mg/dL, High >499 mg/dL, Very high Performed By: #### 2 4331-1 #### [facility] CLIA [id number] [address] [place] [address] [place] XR CHEST 2V FRONTAL/LATon XR CHEST 2V FRONTAL/LAT * * *Final Report* * * DATE OF EXAM: Jul 28 2024 11:58AM WOX [id number] - XR CHEST 2V FRONTAL/LAT / PROCEDURE REASON: multiple diagnoses * * * * Physician Interpretation * * * * EXAMINATION: CHEST RADIOGRAPH (2 VIEW FRONTAL and LATERAL) CLINICAL HISTORY: Chronic obstructive pulmonary disease, unspecified COPD type (HCC) Persistent cough MQ: [id number] EXAM DATE/TIME: 07/28/2024 11:58 AM COMPARISON: 06/27/2023 RESULT: Lines, tubes, and devices: None. Lungs and pleura: No consolidation. No lung mass. No pleural effusion. No pneumothorax. Hyperinflated lungs with mild interstitial prominence. Cardiomediastinal silhouette: Enlarged pulmonary artery is suggested. Bones and soft tissues: Unremarkable. IMPRESSION: Pulmonary arterial hypertension likely present. Emphysema and mild interstitial prominence is noted with no pneumonia seen Side Seam Envelope Machine Operator: PSCB Transcribe Date/Time: Jul 30 2024 5:01P Dictated by : TRESA BRANDON MD This examination was interpreted and the report reviewed and electronically signed by: TRESA BRANDON MD on Jul 30 2024 5:01PM EST [id number] Normal [facility] CNOVon 07-27-2024 CNOV Office Visit (FPWADS ) SANDEE SORIANO ([id number]) 1960 M Date Time Provider Department 07/27/24 1:00 PM CISCO PHAN During your visit today, we recorded the following information about you: Temperature Blood pressure Weight Height 97 degrees 110/67 78.5 kg 1.769 m Cisco Phan MD 07/27/2024 3:55 PM Signed Subjective Sandee is a 64-year-old male with a history of COPD, depression, and tricuspid valve regurgitation, presenting with fatigue, dyspnea, and leg pain. Fatigue and Dyspnea: - Reports fatigue and low energy, often remaining on the couch. - Experiences wheezing and easy dyspnea. - Recent exposure to son with pneumonia. - History of COPD; missed recent pulmonary function tests due to a family . - Last seen by coal carrier Dr. Waggoner at [facility]. - Recent recommendation for portable oxygen due to SpO2 <90% with exertion. Leg Pain: - Bilateral leg pain when standing in one spot for >2 minutes. - Pain radiates to the back, preventing standing upright. - Believes pain is related to arthritis in the back. Depression: - Mood is stable on Paxil. - Denies suicidal ideation. Tricuspid Valve Regurgitation: - Missed recent cardiology appointment due to illness and family . Tobacco Use: - Resumed smoking, approximately 1 pack/week. - Expresses desire to quit, previously used Chantix successfully. Constitutional: (+) fatigue Eyes: (+) tearing right eye Ears/Nose/Mouth/Throat: (+) congestion, (+) runny nose Cardiovascular: (-) chest pain Respiratory: (+) wheezing, (+) shortness of breath Musculoskeletal: (+) leg pain, (+) back pain Psychiatric: (-) depressed mood, (-) suicidal ideation Objective Blood pressure 110/67, temperature 36.1 ?C (97 ?F), height 176.9 cm (5' 9.65), weight 78.5 kg (173 lb 1 oz), SpO2 95%. General: No acute distress. HEENT: Right eye with excessive tearing. CV: Regular rhythm, soft murmur auscultated. Resp: Lungs clear to auscultation. MSK/Ext: No ankle edema. Labs: (12/17) - Kidney function: Normal - Blood glucose: Normal - Liver enzymes: Normal - Triglycerides: Elevated - HDL: Low - LDL: Well-controlled - Thyroid function: Normal Imaging: (08/13) Echocardiogram: Mild tricuspid regurgitation 1. Screening for depression (Z13.31) 2. Encounter for screening examination for other mental health and behavioral disorders (Z13.39) - Depression is stable on Paxil; no suicidal ideation reported. - Renewed Paxil prescription for one year. 3. Cardiomyopathy, ischemic (I25.5) 4. 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 - Previous echocardiogram on August 13 showed tricuspid valve regurgitation. - Follow-up with cardiology was missed last week; advised to reschedule. - Renewed metoprolol prescription for one year. 5. Hypercholesterolemia (E78.00) - December labs showed elevated triglycerides, low HDL, and well-controlled LDL. - Ordered repeat fasting lipid panel. 6. Chronic obstructive pulmonary disease, unspecified COPD type (HCC) (J44.9) - Dyspnea on exertion and occasional wheezing reported. - Lungs clear on auscultation. - Missed pulmonary function tests last week; advised to reschedule with Dr. Waggoner at [facility]. - Discussed potential need for supplemental oxygen during exertion; advised follow-up with pulmonology. 7. PAD (peripheral artery disease) (I73.9) - No significant edema noted in lower extremities. - Advised to monitor for any changes in symptoms. 8. Essential (primary) hypertension (I10) - Blood pressure management stable on metoprolol. - Renewed metoprolol prescription for one year. 9. Persistent cough (R05.3) - Ordered chest X-ray to evaluate for pneumonia. - Will consider antibiotics based on X-ray findings. 10. Epigastric pain (R10.13) Seeing GI. He's on lansoprazole 11. Continuous tobacco abuse (Z72.0) - Resumed smoking, approximately one pack per week. - agreeble to smoking cessation Prescribed Chantix 1 mg; instructed to start with 1 tablet daily for 3-5 days, then increase to 2 tablets daily. - Discussed potential side effects including nausea and headache. 12. Chronic bilateral low back pain with bilateral sciatica (M54.42) - Severe pain limiting standing to less than 2 minutes. - Discussed previous treatments and current limitations; not a surgical candidate. - Advised to manage pain with current measures. This sounds like spinal stenosis. Attestation Recording using [employer] software for draft documentation of the visit was discussed with the patient/authorized field representative/health education; all questions welcomed and answered. Patient/authorized field representative/health education agreed to proceed Cisco Phan MD Referring Provider: SELF [200] Ousmane (more content not included)... Normal [facility] Julieta 02-13-2024 MARYJANE Telephone (RICOBioMetric SolutionANJELICA) SANDEE SORIANO ([id number]) 1960 M Date Time Provider Department 02/13/24 CISCO PHAN During your visit today, we recorded the following information about you: Marcus Juarez LPN 02/13/2024 9:55 AM Signed Received visit summary from [facility] pul. Placed in provider's inbox for review. Route to MA scanning Allergies As of Date: 02/13/2024 (No Known Allergies) Date Reviewed: 06/24/2023 Reviewed by: Marcus Juarez LPN - Fully Assessed Reason for Visit: Received Outside Medical Records [[id number]] Cmt: [facility] Pulmonary Prescriptions as of 02/13/2024 - potassium chloride ER (KLOR-CON M20) 20 mEq tablet Take 1 tablet by mouth every afternoon. - metoprolol succinate ER (TOPROL XL) 25 mg 24 hr tablet TAKE 1 TABLET BY MOUTH EVERY DAY - furosemide (LASIX) 20 mg tablet Take 1 tablet by mouth once daily. - PARoxetine (PAXIL) 20 mg tablet Take 1 tablet by mouth once daily. - lansoprazole (PREVACID) 30 mg capsule take 1 capsule by mouth every day - losartan (COZAAR) 25 mg tablet Take 1 tablet by mouth once daily. - levothyroxine (SYNTHROID) 75 mcg tablet TAKE 1 TABLET BY MOUTH ONCE DAILY. TAKE ON EMPTY STOMACH. FOR THYROID. - rosuvastatin (CRESTOR) 10 mg tablet take 1 tablet by mouth everyday at bedtime - nitroglycerin sublingual (NITROQUICK) 0.4 mg SL tablet 1 TAB SUBLINGUALLY EVERY 5 TO 15 MINUTES NEEDED FOR CHEST PAIN DO NOT EXCEED 3 DOSES PER EPISODE - ipratropium-albuterol (DUONEB) 0.5 mg-3 mg(2.5 mg base)/3 mL nebu INHALE 3 ML EVERY 4 HOUR NEEDED FOR SHORTNESS OF BREATH/WHEEZING - Salt Irrigation Solution No.1 (OCEAN COMPLETE) aero [place] into nose both nostrils several times a day - vdymxhgihoj-qgpuuhrdi-f ilanter (TRELEGY ELLIPTA) 100-62.5-25 mcg inhalation powder Inhale 1 Puff as instructed once daily. - albuterol HFA (PROVENTIL HFA, VENTOLIN HFA) 90 mcg/actuation inhaler Inhale 2 Puffs as instructed every 4 hours as needed. - aspirin, enteric coated (ASPIRIN, ENTERIC COATED) 81 mg EC tablet Take 81 mg by mouth once daily. Problem List As Of Date 02/13/2024 Noted Resolved Cardiomyopathy, ischemic [I25.5] 04/04/2015 Hx of CABG [Z95.1] 04/04/2015 Dyspnea on exertion [R06.09] 04/04/2015 Sinus bradycardia [R00.1] 04/04/2015 PVC's (premature ventricular contractions) [I49*04/04/2015 Tobacco abuse [Z72.0] 04/04/2015 Hypercholesterolemia [E78.00] 04/04/2015 COPD (chronic obstructive pulmonary disease) (H*11/14/2017 PAD (peripheral artery disease) (HCC) [I73.9] 11/29/2017 Chronic low back pain with bilateral sciatica [*01/09/2019 Adjustment disorder with anxiety [F43.22] 01/09/2019 Atherosclerosis of coronary artery [I25.10] 04/09/2022 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*04/09/2022 Dyslipidemia [E78.5] 04/09/2022 Essential (primary) hypertension [I10] 04/09/2022 Multiple pulmonary nodules [R91.8] 05/07/2022 Patent foramen ovale [Q21.12] 05/07/2022 Pulmonary valve stenosis [I37.0] 05/07/2022 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 [place] [address] OFFICE VISIT Date of Service: 02/12/24 MR#: [id number] Acct: [id number] Name: SANDEE SORIANO Rep #: [id number] : 1960 Provider: BAY Harman Age/Sex: 63/M Location: [facility] Status: Signed Assessment and Plan Assessment and Plan (1) COPD (chronic obstructive pulmonary disease): Status: Chronic Qualifiers: COPD type: emphysema Emphysema type: centrilobular Qualified Code(s): J43.2 - Centrilobular emphysema Plan: Stable, he does not appear to be an exacerbation of COPD today. No need for prednisone or antibiotic. Continue current maintenance medication, symptomatically controlled with the use of triple therapy on Trelegy. Repeat pulmonary function test and walking oximetry. The patient did have a saturation of 88% when he presented to the office today but quickly rebounded to 92% after a few minutes of rest. I suspect that he will require supplemental oxygen on ambulation, which will be ordered accordingly. Contact the office for any new or worsening symptoms. An acute visit and typically be arranged within 1-2 days. Follow-up in July 2024. He was provided with influenza vaccination and Pneumovax 23 today. If the patient's PFT and walking oximetry indicate disease progression he may be appropriate for lung transplant referral. This was briefly discussed at the office visit today. (2) Lung nodules: Status: Chronic Plan: Continue surveillance with repeat diagnostic CT of the chest in 6 months. Follow-up afterwards to discuss test results. (3) Daytime hypersomnia: Status: Acute Plan: The patient did not complete testing as requested. He is not interested in testing at this time. Orders: Orders Chest without Contrast 06/09/24 R91.1 - Solitary pulmonary nodule PFT Complete: DLCO, Spirometry b/a bronchodilators, lung volumes 02/18/24 R06.09 - Other forms of dyspnea Simple Pulmonary Exercise Test 02/20/24 R06.09 - Other forms of dyspnea Influenza Immunization Today J43.2 - Centrilobular emphysema, J44.9 - Chronic obstructive pulmonary disease, unspecified Pneumonia Immunization Today J43.2 - Centrilobular emphysema, Z23 - Encounter for immunization Plan Details Follow Up: 07/09/24 (LMR) HPI 7 m fu Chief Complaint: Test results HPI Comments Details: This patient presents to the office today for follow-up of his COPD and lung nodules. He is ambulatory, currently on room air and accompanied today by his daughter. He has not recently been seen in the ED or urgent care for any respiratory illness. He has not required any antibiotics or prednisone for any breathing problems. He is compliant with use of Trelegy 1 puff daily. He admits that he was not aware he was supposed to be rinsing his mouth out after each use. He denies any medication side effect such as sore throat or thrush. He is using albuterol 1-3 times daily. Typically utilizes the inhaler and infrequently needs the nebulizer. He continues complete smoking cessation. If you recall, he quit smoking in January 2019. Prior to that he was a 2 to 3 pack/day smoker. He does have shortness of breath on exertion. He denies any wheezing, chest tightness, chest pain or palpitations. He has a daily cough productive of clear to white-colored sputum but denies any hemoptysis. He denies any fever, chills or body aches. Polysomnogram ordered at the last office visit, it was canceled due to concern over cost. Order was then placed for a home sleep test, also not scheduled per patient preference. Test results personally reviewed with patient: CT scan of the chest completed on January 01, 2024. Severe emphysema. Right upper lobe calcified scar. No change in 1 cm noncalcified nodule in the subpleural right middle lobe of the lungs when compared back to June 21, 2021, consistent with a noncalcified granuloma or scar. Intake Vital Signs 05/20/23 07:57 07/08/23 14:55 12/11/23 14:39 02/12/24 07:54 Height 5 ft 10 in 5 ft 10 in 5 ft 10 in 5 ft 10 in Weight: 190 lb BMI 27.2 BP 134/73 H Blood Pressure Location Rt brachial Position Sitting Respiration 24 H Pulse 81 Pulse Source Monitor Temp 97.3 F L Temperature Source Temporal Artery Pulse Oximetry (%) 88 Oxygen Delivery Method room air Comment oxygen increased to 93 after 2 minutes Intake Visit Reasons: 7 m Baler Operator Required: No Accompanied by: Daughter Allergies No Known Allergies Allergy (Unverified 02/12/24 15:22) Medications ???Medication ???Instructions ???Recorded ???Confirmed ???Type aspirin 81 mg tablet,delayed 81 mg PO DAILY 04/06/22 02/12/24 History release (Adult Low Dose Aspirin) lansoprazole 30 mg capsule,delayed 30 mg PO DAILY 04/06/22 (more content not included)... Normal [facility] 01-02-2024 [facility] Telephone ([employer]) SANDEE SORIANO ([id number]) 1960 M Date Time Provider Department 01/02/24 [facility] During your visit today, we recorded the following information about you: Marcus Juarez LPN 01/02/2024 2:30 PM Signed Received chest ct results from [facility]. Placed in provider's inbox for review. Route to MA scanning Allergies As of Date: 01/02/2024 (No Known Allergies) Date Reviewed: 06/24/2023 Reviewed by: Marcus Juarez LPN - Fully Assessed Reason for Visit: Received Outside Medical Records [[id number]] Cmt: [facility] chest CT Prescriptions as of 01/02/2024 - lansoprazole (PREVACID) 30 mg capsule take 1 capsule by mouth every day - losartan (COZAAR) 25 mg tablet Take 1 tablet by mouth once daily. - levothyroxine (SYNTHROID) 75 mcg tablet TAKE 1 TABLET BY MOUTH ONCE DAILY. TAKE ON EMPTY STOMACH. FOR THYROID. - rosuvastatin (CRESTOR) 10 mg tablet take 1 tablet by mouth everyday at bedtime - furosemide (LASIX) 20 mg tablet take 1 tablet by mouth every day - metoprolol succinate ER (TOPROL XL) 25 mg 24 hr tablet take 1 tablet by mouth every day - PARoxetine (PAXIL) 20 mg tablet take 1 tablet by mouth every day - KLOR-CON M20 20 mEq tablet take 1 tablet by mouth every day - nitroglycerin sublingual (NITROQUICK) 0.4 mg SL tablet 1 TAB SUBLINGUALLY EVERY 5 TO 15 MINUTES NEEDED FOR CHEST PAIN DO NOT EXCEED 3 DOSES PER EPISODE - ipratropium-albuterol (DUONEB) 0.5 mg-3 mg(2.5 mg base)/3 mL nebu INHALE 3 ML EVERY 4 HOUR NEEDED FOR SHORTNESS OF BREATH/WHEEZING - Salt Irrigation Solution No.1 (OCEAN COMPLETE) aero [place] into nose both nostrils several times a day - mvsrdefdvhc-sjzbwovhk-i ilanter (TRELEGY ELLIPTA) 100-62.5-25 mcg inhalation powder Inhale 1 Puff as instructed once daily. - albuterol HFA (PROVENTIL HFA, VENTOLIN HFA) 90 mcg/actuation inhaler Inhale 2 Puffs as instructed every 4 hours as needed. - aspirin, enteric coated (ASPIRIN, ENTERIC COATED) 81 mg EC tablet Take 81 mg by mouth once daily. Problem List As Of Date 01/02/2024 Noted Resolved Cardiomyopathy, ischemic [I25.5] 04/04/2015 Hx of CABG [Z95.1] 04/04/2015 Dyspnea on exertion [R06.09] 04/04/2015 Sinus bradycardia [R00.1] 04/04/2015 PVC's (premature ventricular contractions) [I49*04/04/2015 Tobacco abuse [Z72.0] 04/04/2015 Hypercholesterolemia [E78.00] 04/04/2015 COPD (chronic obstructive pulmonary disease) (H*11/14/2017 PAD (peripheral artery disease) (HCC) [I73.9] 11/29/2017 Chronic low back pain with bilateral sciatica [*01/09/2019 Adjustment disorder with anxiety [F43.22] 01/09/2019 Atherosclerosis of coronary artery [I25.10] 04/09/2022 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*04/09/2022 Dyslipidemia [E78.5] 04/09/2022 Essential (primary) hypertension [I10] 04/09/2022 Multiple pulmonary nodules [R91.8] 05/07/2022 Patent foramen ovale [Q21.12] 05/07/2022 Pulmonary valve stenosis [I37.0] 05/07/2022 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 Tej Phan MD Status: REG CLI Study: Chest without Contrast Date of Exam: 01/01/24 Exam# [id number] Ordering Dr: María Harman SUPERVISOR INSTRUMENT MAINTENANCE SUPERVISOR INSTRUMENT MAINTENANCE-C [id number] INDICATION: multiple lung nodules high risk patient EXAMINATION: CT CHEST WITHOUT CONTRAST - CT Chest W/O Contrast Injection TECHNIQUE: Helically acquired images were obtained of the chest. A radiation dose optimization technique was used for this scan. IV Contrast dosage and agent: None. COMPARISON: 05/15/2023 FINDINGS: LUNGS, PLEURA AND LARGE AIRWAYS: Severe emphysema. Right upper lobe calcified scar. No change in 1 cm noncalcified nodule in the subpleural right middle lobe of the lungs on image 88 unchanged dating back to 06/21/2021 consistent with a noncalcified granuloma or scar. No pleural effusion or thickening. No pneumothorax. THYROID: No thyroid lesions. HEART AND PERICARDIUM: Heart size is normal. No pericardial effusion. CORONARY ARTERIES: Coronary artery calcification is seen. VESSELS: Thoracic aorta is not dilated. Enlarged central pulmonary arteries suggesting pulmonary arterial hypertension. MEDIASTINUM AND FRANKY: No mediastinal or hilar adenopathy. Esophagus is unremarkable. Small hiatal hernia. UPPER ABDOMEN: No acute pathology. BONES: Multiple healed right rib fractures. CT/Chest without Contrast IMPRESSION: Severe emphysema with no change in the right middle lobe subpleural noncalcified granuloma or scar. Return to annual low-dose screening CT is recommended. Electronically Signed: Adan Sena MD at 9:54 EDT , CC: BAY Harman; Dr. Tej Phan MD Side Seam Envelope Machine Operator: Signed [facility] 12-19-2023 [facility] Tele[facility] (MARY) SANDEE SORIANO ([id number]) 1960 M Date Time Provider Department 12/19/23 CISCO PHAN During your visit today, we recorded the following information about you: Marcus Juarez LPN 12/19/2023 9:47 AM Signed Received lab results from [facility]. Placed in provider's inbox for review. Route to MA scanning Entered into pt chart. Allergies As of Date: 12/19/2023 (No Known Allergies) Date Reviewed: 06/24/2023 Reviewed by: Marcus Juarez LPN - Fully Assessed Reason for Visit: Outside Labs Results [437] [facility]: [facility] 12/17 Order(s):CMP (EXTERNAL) [[id number]] Order #: [id number] LIPID PANEL BASIC [SQLIPB] Order #: [id number] TSH (EXTERNAL) [3019999] Order #: [id number] Prescriptions as of 12/19/2023 - lansoprazole (PREVACID) 30 mg capsule take 1 capsule by mouth every day - losartan (COZAAR) 25 mg tablet Take 1 tablet by mouth once daily. - levothyroxine (SYNTHROID) 75 mcg tablet TAKE 1 TABLET BY MOUTH ONCE DAILY. TAKE ON EMPTY STOMACH. FOR THYROID. - rosuvastatin (CRESTOR) 10 mg tablet take 1 tablet by mouth everyday at bedtime - furosemide (LASIX) 20 mg tablet take 1 tablet by mouth every day - metoprolol succinate ER (TOPROL XL) 25 mg 24 hr tablet take 1 tablet by mouth every day - PARoxetine (PAXIL) 20 mg tablet take 1 tablet by mouth every day - KLOR-CON M20 20 mEq tablet take 1 tablet by mouth every day - nitroglycerin sublingual (NITROQUICK) 0.4 mg SL tablet 1 TAB SUBLINGUALLY EVERY 5 TO 15 MINUTES NEEDED FOR CHEST PAIN DO NOT EXCEED 3 DOSES PER EPISODE - ipratropium-albuterol (DUONEB) 0.5 mg-3 mg(2.5 mg base)/3 mL nebu INHALE 3 ML EVERY 4 HOUR NEEDED FOR SHORTNESS OF BREATH/WHEEZING - Salt Irrigation Solution No.1 (OCEAN COMPLETE) aero [place] into nose both nostrils several times a day - txioazunapn-ahentdpic-j ilanter (TRELEGY ELLIPTA) 100-62.5-25 mcg inhalation powder Inhale 1 Puff as instructed once daily. - albuterol HFA (PROVENTIL HFA, VENTOLIN HFA) 90 mcg/actuation inhaler Inhale 2 Puffs as instructed every 4 hours as needed. - aspirin, enteric coated (ASPIRIN, ENTERIC COATED) 81 mg EC tablet Take 81 mg by mouth once daily. Problem List As Of Date 12/19/2023 Noted Resolved Cardiomyopathy, ischemic [I25.5] 04/04/2015 Hx of CABG [Z95.1] 04/04/2015 Dyspnea on exertion [R06.09] 04/04/2015 Sinus bradycardia [R00.1] 04/04/2015 PVC's (premature ventricular contractions) [I49*04/04/2015 Tobacco abuse [Z72.0] 04/04/2015 Hypercholesterolemia [E78.00] 04/04/2015 COPD (chronic obstructive pulmonary disease) (H*11/14/2017 PAD (peripheral artery disease) (HCC) [I73.9] 11/29/2017 Chronic low back pain with bilateral sciatica [*01/09/2019 Adjustment disorder with anxiety [F43.22] 01/09/2019 Atherosclerosis of coronary artery [I25.10] 04/09/2022 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*04/09/2022 Dyslipidemia [E78.5] 04/09/2022 Essential (primary) hypertension [I10] 04/09/2022 Multiple pulmonary nodules [R91.8] 05/07/2022 Patent foramen ovale [Q21.12] 05/07/2022 Pulmonary valve stenosis [I37.0] 05/07/2022 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 Anion gap [Moles/Vol] 4 mmol/L Abnormal 8 - 15 mmol/L [facility] Bili Total 0.8 mg/dL 0.2 - 1 mg/dL [facility] Calcium [Mass/Vol] 9.7 mg/dL 8.5 - 10. 1 mg/dL [facility] CO2 [Moles/Vol] 28 mmol/L [facility] GFR 61 mL/MIN [facility] GFR AFR AMER 74 mL/MIN [facility] GLOBULIN 4.9 [facility] Protein [Mass/Vol] 7.5 g/dL [facility] Urea nitrogen/Creatinine [Mass ratio] 11.1 mg/mg [facility] Metabolic Prof margot 12-18-2023 Albumin [Mass/Vol] 3.5 g/dL Normal 3.2-5.0 [facility] Comment on above: Performed By: #### L 501.9520, L500.4100, L500.4050 #### [facility] [address] [place], [address] Albumin/Globulin [Mass ratio] 0.9 {ratio} Normal 0.9-2.4 [facility] Comment on above: Performed By: #### L 501.9520, L500.4100, L500.4050 #### [facility] [address] [place], [address] ALK P 91 U/L Normal 45-117 [facility] Comment on above: Performed By: #### L 501.9520, L500.4100, L500.4050 #### [facility] [address] [place], [address] ALT [Catalytic activity/Vol] 21 U/L Normal 16-61 [facility] Comment on above: Performed By: #### L 501.9520, L500.4100, L500.4050 #### [facility] [address] [place], [address] AST [Catalytic activity/Vol] 21 U/L Normal 15-37 [facility] Comment on above: Performed By: #### L 501.9520, L500.4100, L500.4050 #### [facility] [address] [place], [address] Bilirubin [Mass/Vol] 0.80 mg/dL Normal 0.20-1.00 [facility] Comment on above: Result Comment: For patients on eltrombopag therapy, use of Dimension [place] TBIL is not recommended. Performed By: #### L 501.9520, L500.4100, L500.4050 #### [facility] [address] [place], [address] BUN/CRE 11.1 RATIO Normal 10-20 [facility] Comment on above: Performed By: #### L 501.9520, L500.4100, L500.4050 #### [facility] [address] [place], [address] CA,Total 9.7 mg/dL Normal 8.5-10.1 [facility] Comment on above: Performed By: #### L 501.9520, L500.4100, L500.4050 #### [facility] [address] [place], [address] Chloride [Moles/Vol] 106 mmol/L Normal 98-107 [facility] Comment on above: Performed By: #### L 501.9520, L500.4100, L500.4050 #### [facility] [address] [place], [address] CO2 [Moles/Vol] 28.0 mmol/L Normal 21.0-32.0 [facility] Comment on above: Performed By: #### L 501.9520, L500.4100, L500.4050 #### [facility] [address] [place], [address] Creatinine [Mass/Vol] 1.26 mg/dL Normal 0.70-1.30 [facility] Comment on above: Result Comment: The validity of the calculated GFR GFRAA in patients over 70 years has not been determined. Clinical correlation is essential. Performed By: #### L 501.9520, L500.4100, L500.4050 #### [facility] [address] [place], [address] EST GFR - AA 74 mL/min Normal >60 [facility] Comment on above: Result Comment: Afri can [place] GFR Calc Performed By: #### L 501.9520, L500.4100, L500.4050 #### [facility] [address] [facility] [place], [address] GAP 4 Low 5-15 [facility] Comment on above: Performed By: #### L 501.9520, L500.4100, L500.4050 #### [facility] [address] [place], [address] GFR/1.73 sq M.predicted among non-blacks MDRD (S/P/Bld) [Vol rate/Area] 61 mL/min/{1.73_m2} Normal >60 [facility] Comment on above: Result Comment: Non- GFR Calc Performed By: #### L 501.9520, L500.4100, L500.4050 #### [facility] [address] [place], [address] Globulin (S) [Mass/Vol] 4.0 g/dL Normal 2.2-4.2 [facility] Comment on above: Performed By: #### L 501.9520, L500.4100, L500.4050 #### [facility] [address] [place], [address] Glucose [Mass/Vol] 115 mg/dL High 74-106 [facility] Comment on above: Result Comment: Fast ing Glucose result from 100 to 125 mg/dL suggests IMPAIRED HOMEOSTASIS per A.D.A. criteria. Performed By: #### L 501.9520, L500.4100, L500.4050 #### [facility] [address] [place], [address] Potassium [Moles/Vol] 4.3 mmol/L Normal 3.5-5.1 [facility] Comment on above: Performed By: #### L 501.9520, L500.4100, L500.4050 #### [facility] [address] [place], [address] Sodium [Moles/Vol] 138 mmol/L Normal 136-145 [facility] Comment on above: Performed By: #### L 501.9520, L500.4100, L500.4050 #### [facility] [address] [place], [address] T PROT 7.5 g/dL Normal 6.4-8.2 [facility] Comment on above: Performed By: #### L 501.9520, L500.4100, L500.4050 #### [facility] [address] [place], [address] Urea nitrogen [Mass/Vol] 14 mg/dL Normal 7-18 [facility] Comment on above: Performed By: #### L 501.9520, L500.4100, L500.4050 #### [facility] [address] [place], [address] Lipid 1996 panelon VLDL Cholesterol [address] [facility] Lipid Profileon 12-18-2023 Cholesterol [Mass/Vol] 109 mg/dL Normal 200 [facility] Comment on above: Result Comment: <200 mg/dL Desirable 200-240 mg/dL Borderline >240 mg/dL High Risk Performed By: #### L 501.9520, L500.4100, L500.4050 #### [facility] [address] [place], [address] Cholesterol in HDL [Mass/Vol] 35 mg/dL Low [facility] Comment on above: Result Comment: The drugs N-Acetylcysteine and Metamizole may falsely depress this assay. Reference Range HDL <40 mg/dL Low HDL Cholesterol HDL >or= 60 mg/dL High HDL Cholesterol Performed By: #### L 501.9520, L500.4100, L500.4050 #### [facility] [address] [place], [address] Cholesterol in LDL [Mass/Vol] 38 mg/dL Normal 0-130 [facility] Comment on above: Performed By: #### L 501.9520, L500.4100, L500.4050 #### [facility] [address] [place], [address] Cholesterol in VLDL [Mass/Vol] 36 mg/dL Normal 5-40 [facility] Comment on above: Performed By: #### L 501.9520, L500.4100, L500.4050 #### [facility] [address] [place], [address] Triglyceride [Mass/Vol] 179 mg/dL Normal [facility] Comment on above: Result Comment: The drugs N-Acetylcysteine and Metamizole may falsely depress this assay. Serum Triglycerides Reference Interval Normal <150 mg/dL Borderline high 150 - 199 mg/dL High 200 - 499 mg/dL Very High > or = 500 mg/dL Performed By: #### L 501.9520, L500.4100, L500.4050 #### [facility] [address] [place], [address] No Panel Informationon 12-17 Interpretation and review of laboratory results Abnormal [facility] TSH (EXTERNAL)on 12-18-2023 TSH Qn 3.7 m[IU]/L [facility] Thyroid Stim Hormone (TSH)on 12-18-2023 TSH 3.700 uIU/mL Normal 0.358-3.740 [facility] Comment on above: Performed By: #### L 501.9520, L500.4100, L500.4050 #### [facility] [address] [place], [address] XR Ribs - right 2 Viewson IMPRESSION: 1. Negative radiographs of the right ribs. Side Seam Envelope Machine Operator: PSCB Transcribe Date/Time: Jun 29 2023 8:48A Dictated by : AUTUMN BOURGEOIS MD This examination was interpreted and the report reviewed and electronically signed by: UATUMN BOURGEOIS MD on Jun 29 2023 8:49AM [facility] DIVISION OF RADIOLOGY * * *Final Report* * * DATE OF EXAM: Jun 27 2023 4:35PM WOX 5585 - XR RIBS 2V AP/OBL RT / PROCEDURE REASON: Rib contusion, right, initial encounter * * * * Physician Interpretation * * * * RIGHT RIB RADIOGRAPHS HISTORY: Rib contusion, right, initial encounter TECHNOLOGIST PROVIDED HISTORY (if applicable): Right rib pain after fall onto side of bathtub a couple days ago. Pain on lateral side of ribs. TECHNIQUE: XR RIBS 2V AP/OBL RT COMPARISON: Chest radiograph 08/17/2014 RESULT: There is no visualized rib fracture or focal bony abnormality. COPD with chronic linear lung markings and peripheral/pleural-base d scarring in the right upper lobe appears grossly stable. DIVISION OF RADIOLOGY Provider, [facility] - 06/29/2023 * * *Final Report* * * DATE OF EXAM: Jun 27 2023 4:35PM WOX 5585 - XR RIBS 2V AP/OBL RT / PROCEDURE REASON: Rib contusion, right, initial encounter * * * * Physician Interpretation * * * * RIGHT RIB RADIOGRAPHS HISTORY: Rib contusion, right, initial encounter TECHNOLOGIST PROVIDED HISTORY (if applicable): Right rib pain after fall onto side of bathtub a couple days ago. Pain on lateral side of ribs. TECHNIQUE: XR RIBS 2V AP/OBL RT COMPARISON: Chest radiograph 08/17/2014 RESULT: There is no visualized rib fracture or focal bony abnormality. COPD with chronic linear lung markings and peripheral/pleural-base d scarring in the right upper lobe appears grossly stable. IMPRESSION IMPRESSION: 1. Negative radiographs of the right ribs. Side Seam Envelope Machine Operator: PSCB Transcribe Date/Time: Jun 29 2023 8:48A Dictated by : AUTUMN BOURGEOIS MD This examination was interpreted and the report reviewed and electronically signed by: AUTUMN BOURGEOIS MD on Jun 29 2023 8:49AM EST [facility] XR Ribs - right 2 ViewsOrder ed By: [facility] Provider on 06-29-2023 [facility] XR Ribs - right 2 Viewson Radiology Study observation (narrative) [facility] .Auto Diffon 03-12-2023 Basophil, Absolute 0.0 10 3/mcL Normal 0.0-0.2 [facility] ([place]) Comment on above: Performed By: #### G FR, ANEU, ADIFF, BMP, CBC #### [address] [address] Basophils/100 WBC (Bld) 0.3 % Normal 0.0-2.5 [facility] ([place]) Comment on above: Performed By: #### G FR, ANEU, ADIFF, BMP, CBC #### [address] [address] Eosinophil, Absolute 0.0 10 3/mcL Normal 0.0-0.4 [facility] ([place]) Comment on above: Performed By: #### G FR, ANEU, ADIFF, BMP, CBC #### [address] [address] Eosinophils/100 WBC (Bld) 0.1 % Normal 0.0-7.0 [facility] ([place]) Comment on above: Performed By: #### G FR, ANEU, ADIFF, BMP, CBC #### [address] [address] Lymphocyte, Absolute 1.0 10 3/mcL Normal 0.8-3.9 [facility] ([place]) Comment on above: Performed By: #### Eric FR, ANEU, ADIFF, BMP, CBC #### [address] [address] Lymphocytes/100 WBC (Bld) 12.1 % Normal 10.0-50.0 [facility] ([place]) Comment on above: Performed By: #### G FR, ANEU, ADIFF, BMP, CBC #### [address] [address] Monocyte, Absolute 1.1 10 3/mcL High 0.2-1.0 [facility] ([place]) Comment on above: Performed By: #### G FR, ANEU, ADIFF, BMP, CBC #### [address] [address] Monocytes/100 WBC (Bld) 12.3 % Normal 1.7-13.0 [facility] ([place]) Comment on above: Performed By: #### G FR, ANEU, ADIFF, BMP, CBC #### [address] [address] Neutrophils/100 WBC (Bld) 75.2 % Normal 37.0-80.0 [facility] ([place]) Comment on above: Performed By: #### G FR, ANEU, ADIFF, BMP, CBC #### [address] [address] .GFRon 03-12-2023 GFR Non- 57 ml/min/1.73sqm Normal [facility] ([place]) Comment on above: Result Comment: GFR Population mean for , Non- Americans Ages 20-29 = 116 mL/min/1.73 sq.m. Ages 30-39 = 107 mL/min/1.73 sq.m. Ages 40-49 = 99 mL/min/1.73 sq.m. Ages 50-59 = 93 mL/min/1.73 sq.m. Ages 60-69 = 85 mL/min/1.73 sq.m. Ages 70+ = 75 mL/min/1.73 sq.m. Chronic Kidney Disease: Less than 60 mL/min/1.73 square meters End Stage Renal Disease: Less than 15 mL/min/1.73 square meters Performed By: #### G FR, ANEU, ADIFF, BMP, CBC #### [address] [address] GFR 69 ml/min/1.73sqm Normal [facility] ([place]) Comment on above: Result Comment: GFR Population mean for , Non- Americans Ages 20-29 = 116 mL/min/1.73 sq.m. Ages 30-39 = 107 mL/min/1.73 sq.m. Ages 40-49 = 99 mL/min/1.73 sq.m. Ages 50-59 = 93 mL/min/1.73 sq.m. Ages 60-69 = 85 mL/min/1.73 sq.m. Ages 70+ = 75 mL/min/1.73 sq.m. Chronic Kidney Disease: Less than 60 mL/min/1.73 square meters End Stage Renal Disease: Less than 15 mL/min/1.73 square meters Performed By: #### G FR, ANEU, ADIFF, BMP, CBC #### [address] [address] .NEUABSon 03-12-2023 Neutrophil, Absolute 6.5 10 3/mcL High 2.9-6.2 [facility] ([place]) Comment on above: Performed By: #### G FR, ANEU, ADIFF, BMP, CBC #### [address] [address] .Urinalysis Microscopic (AO) on 03-12-2023 UA Bacteria 2+ /hpf Abnormal [facility] ([place]) Comment on above: Performed By: #### U A, UAMICAO #### [address] [address] UA RBC 10-15 Abnormal None Seen [facility] ([place]) Comment on above: Performed By: #### U A, UAMICAO #### [address] [address] UA Squam Epithelial None Seen Normal None Seen [facility] ([place]) Comment on above: Performed By: #### U A, UAMICAO #### [address] [address] UA WBC LOADED Abnormal None Seen [facility] ([place]) Comment on above: Performed By: #### U A, UAMICAO #### [address] [address] BMPon 03-12-2023 BUN/Creatinine Ratio 13 ratio Normal 7-27 [facility] ([place]) Comment on above: Performed By: #### G FR, ANEU, ADIFF, BMP, CBC #### [address] [address] Calcium [Mass/Vol] 9.1 mg/dL Normal 8.4-10.2 [facility] ([place]) Comment on above: Performed By: #### G FR, ANEU, ADIFF, BMP, CBC #### [address] [address] Chloride [Moles/Vol] 97 mmol/L Low 98-107 [facility] ([place]) Comment on above: Performed By: #### G FR, ANEU, ADIFF, BMP, CBC #### [address] [address] CO2 [Moles/Vol] 25 mmol/L Normal 23-31 [facility] ([place]) Comment on above: Performed By: #### G FR, ANEU, ADIFF, BMP, CBC #### [address] [address] Creatinine [Mass/Vol] 1.28 mg/dL Normal 0.70-1.30 [facility] ([place]) Comment on above: Performed By: #### G FR, ANEU, ADIFF, BMP, CBC #### [address] [address] Electrolyte Balance 11.0 mEq/L Normal 4.0-15.0 [facility] ([place]) Comment on above: Performed By: #### G FR, ANEU, ADIFF, BMP, CBC #### [address] [address] Glucose [Mass/Vol] 108 mg/dL Normal 80-115 [facility] ([place]) Comment on above: Performed By: #### G FR, ANEU, ADIFF, BMP, CBC #### [address] [address] Potassium [Moles/Vol] 3.7 mmol/L Normal 3.5-5.1 [facility] ([place]) Comment on above: Performed By: #### G FR, ANEU, ADIFF, BMP, CBC #### [address] [address] Sodium [Moles/Vol] 133 mmol/L Low 136-145 [facility] ([place]) Comment on above: Performed By: #### G FR, ANEU, ADIFF, BMP, CBC #### [address] [address] Urea nitrogen [Mass/Vol] 17 mg/dL Normal 7-18 [facility] ([place]) Comment on above: Performed By: #### G FR, ANEU, ADIFF, BMP, CBC #### [address] [address] CBCon 03-12-2023 Erythrocyte distribution width (RBC) [Ratio] 14.6 % High 11.5-14.5 [facility] ([place]) Comment on above: Performed By: #### G FR, ANEU, ADIFF, BMP, CBC #### [place] [address] Hematocrit (Bld) [Volume fraction] 41.9 % Low 42.0-52.0 [facility] ([place]) Comment on above: Performed By: #### G FR, ANEU, ADIFF, BMP, CBC #### [place] [address] Hgb 14.3 G/dL Normal 14.0-18.0 [facility] ([place]) Comment on above: Performed By: #### Eric FR, ANEU, ADIFF, BMP, CBC #### [place] [address] MCH (RBC) [Entitic mass] 31.1 pg Normal 27.0-31.2 [facility] ([place]) Comment on above: Performed By: #### Eric FR, ANEU, ADIFF, BMP, CBC #### [place] [address] MCHC 34.2 G/dL Normal 31.8-35.4 [facility] ([place]) Comment on above: Performed By: #### Eric FR, ANEU, ADIFF, BMP, CBC #### [place] [address] MCV (RBC) [Entitic vol] 91.0 fL Normal 80.0-94.0 [facility] ([place]) Comment on above: Performed By: #### Eric FR, ANEU, ADIFF, BMP, CBC #### [place] [address] Platelet 179 10 3/mcL Normal 130-400 [facility] ([place]) Comment on above: Performed By: #### G FR, ANEU, ADIFF, BMP, CBC #### [address] [address] Platelet mean volume (Bld) [Entitic vol] 7.9 fL Normal 7.4-10.4 [facility] ([place]) Comment on above: Performed By: #### G FR, ANEU, ADIFF, BMP, CBC #### [address] [address] RBC 4.61 10 6/mcL Normal 4.04-6.13 [facility] ([place]) Comment on above: Performed By: #### G FR, ANEU, ADIFF, BMP, CBC #### [address] [address] WBC 8.6 10 3/mcL Normal 4.6-10.8 [facility] ([place]) Comment on above: Performed By: #### G FR, ANEU, ADIFF, BMP, CBC #### [address] [address] LABORATORYOrdered By: Kristi Crenshaw on 03-12-2023 Appearance (U) Slightly Cloudy *ABN* (03/12/23 1:51 PM) Invalid Interpretation Code Clear AO Auto Urine SS Bacteria LM.HPF (Urine sed) [#/Area] 2 /[HPF] Invalid Interpretation Code AO Auto Urine SS Bilirubin Ql (U) Negative (03/12/23 1:51 PM) Normal Negative AO Auto Urine SS Color (U) Yellow (03/12/23 1:51 PM) Normal AO Auto Urine SS Glucose Test strip (U) [Mass/Vol] Negative Normal Negative AO Auto Urine SS Hemoglobin Auto test strip (U) [Mass/Vol] Moderate *ABN* (03/12/23 1:51 PM) Invalid Interpretation Code Negative AO Auto Urine SS Ketones Ql (U) Negative Normal Negative AO Auto Urine SS UA Leuk Est Large *ABN* (03/12/23 1:51 PM) Invalid Interpretation Code Negative AO Auto Urine SS UA Nitrite Positive *ABN* (03/12/23 1:51 PM) Invalid Interpretation Code Negative AO Auto Urine SS UA pH 5.5 (03/12/23 1:51 PM) Normal 5.0 - 8.0 AO Auto Urine SS UA Protein 100 mg/dL Invalid Interpretation Code Negative AO Auto Urine SS UA RBC 10-15 /HPF Invalid Interpretation Code None Seen AO Auto Urine SS UA Spec Grav 1.015 (03/12/23 1:51 PM) Normal 1.015-1.025 AO Auto Urine SS UA Specimen Type Not Given (03/12/23 1:51 PM) Normal AO Auto Urine SS UA Squam Epithelial None Seen /HPF Normal None Seen A O Auto Urine SS UA Urobilinogen 1.0 E.U./dL Normal 0.2-1.0 AO Auto Urine SS WBC LM.HPF (Urine sed) [#/Area] LOADED /HPF Invalid Interpretation Code None Seen AO Auto Urine SS LABORATORYOrdered By: SYSTEM SYSTEM on 03-12-2023 Basophil, Absolute 0.0 103/mcL Normal 0.0 - 0.2 10^3/mcL AO Workflow SS Basophils/100 WBC (Bld) 0.3 % Normal 0.0 - 2.5 % AO Workflow SS Calcium [Mass/Vol] 9.1 mg/dL Normal 8.4 - 10. 2 mg/dL AO ADM SS Chloride [Moles/Vol] 97 mmol/L Low 98 - 10 7 mmol/L AO ADM SS CO2 [Moles/Vol] 25 mmol/L Normal 23 - 31 mmol/L AO ADM SS Creatinine [Mass/Vol] 1.28 mg/dL Normal 0.70 - 1.30 mg/dL AO ADM SS Electrolyte Balance 11.0 mEq/L Normal 4.0 - 15 .0 mEq/L AO ADM SS Eosinophil, Absolute 0.0 103/mcL Normal 0.0 - 0 .4 10^3/mcL AO Workflow SS Eosinophils/100 WBC (Bld) 0.1 % Normal 0.0 - 7.0 % AO Workflow SS Erythrocyte distribution width (RBC) [Ratio] 14.6 % High 11.5 - 14.5 % AO Workflow SS GFR/1.73 sq M.predicted among blacks MDRD (S/P/Bld) [Vol rate/Area] 69 ml/min/1.73sqm Invalid Interpretation Code AO Chemistry S Comment on above: Interpretive Data: GFR Population mean for , Non- Americans Ages 20-29 = 116 mL/min/1.73 sq.m. Ages 30-39 = 107 mL/min/1.73 sq.m. Ages 40-49 = 99 mL/min/1.73 sq.m. Ages 50-59 = 93 mL/min/1.73 sq.m. Ages 60-69 = 85 mL/min/1.73 sq.m. Ages 70+ = 75 mL/min/1.73 sq.m. Chronic Kidney Disease: Less than 60 mL/min/1.73 square meters End Stage Renal Disease: Less than 15 mL/min/1.73 square meters GFR/1.73 sq M.predicted among non-blacks MDRD (S/P/Bld) [Vol rate/Area] 57 ml/min/1.73sqm Invalid Interpretation Code AO Chemistry S Comment on above: Interpretive Data: GFR Population mean for , Non- Americans Ages 20-29 = 116 mL/min/1.73 sq.m. Ages 30-39 = 107 mL/min/1.73 sq.m. Ages 40-49 = 99 mL/min/1.73 sq.m. Ages 50-59 = 93 mL/min/1.73 sq.m. Ages 60-69 = 85 mL/min/1.73 sq.m. Ages 70+ = 75 mL/min/1.73 sq.m. Chronic Kidney Disease: Less than 60 mL/min/1.73 square meters End Stage Renal Disease: Less than 15 mL/min/1.73 square meters Glucose [Mass/Vol] 108 mg/dL Normal 80 - 115 mg/dL AO ADM SS Hematocrit (Bld) [Volume fraction] 41.9 % Low 42.0 - 52.0 % AO Workflow SS Hemoglobin (Bld) [Mass/Vol] 14.3 G/dL Normal 14.0 - 18.0 G/dL AO Workflow SS Lymphocyte, Absolute 1.0 103/mcL Normal 0.8 - 3 .9 10^3/mcL AO Workflow SS Lymphocytes/100 WBC (Bld) 12.1 % Normal 10.0 - 50.0 % AO Workflow SS MCH (RBC) [Entitic mass] 31.1 pg Normal 27.0 - 31.2 pg AO Workflow SS MCHC 34.2 G/dL Normal 31.8 - 35.4 G/dL AO Workflow SS MCV (RBC) [Entitic vol] 91.0 fL Normal 80.0 - 94.0 fL AO Workflow SS Monocyte, Absolute 1.1 103/mcL High 0.2 - 1.0 10^3/mcL AO Workflow SS Monocytes/100 WBC (Bld) 12.3 % Normal 1.7 - 13.0 % AO Workflow SS Neutrophil, Absolute 6.5 103/mcL High 2.9 - 6 .2 10^3/mcL AO Workflow SS Neutrophils/100 WBC (Bld) 75.2 % Normal 37.0 - 80.0 % AO Workflow SS Platelet mean volume (Bld) [Entitic vol] 7.9 fL Normal 7.4 - 10.4 fL AO Workflow SS Platelets (Bld) [#/Vol] 179 103/mcL Normal 130 - 400 10^3/mcL AO Workflow SS Potassium [Moles/Vol] 3.7 mmol/L Normal 3.5 - 5.1 mmol/L AO ADM SS RBC (Bld) [#/Vol] 4.61 106/mcL Normal 4.04 - 6.1 3 10^6/mcL AO Workflow SS Sodium [Moles/Vol] 133 mmol/L Low 136 - 145 mmol/L AO ADM SS Urea nitrogen [Mass/Vol] 17 mg/dL Normal 7 - 18 mg/dL AO ADM SS Urea nitrogen/Creatinine [Mass ratio] 13 ratio Normal 7 - 27 ratio AO ADM SS WBC (Bld) [#/Vol] 8.6 103/mcL Normal 4.6 - 10.8 10^3/mcL AO Workflow SS UAon 03-12-2023 Color (U) Yellow Normal [facility] ([place]) Comment on above: Performed By: #### U A, UAMICAO #### [address] [address] Glucose (U) [Mass/Vol] Negative Normal Negative [facility] ([place] Comment on above: Performed By: #### U A, UAMICAO #### [address] [address] Ketones Ql (U) Negative Normal Negative [facility] ([place]) Comment on above: Performed By: #### U A, UAMICAO #### [address] [address] UA Appear Slightly Cloudy Abnormal Clear [facility] ([place]) Comment on above: Performed By: #### U A, UAMICAO #### [address] [address] UA Blood Moderate Abnormal Negative [facility] ([place]) Comment on above: Performed By: #### U A, UAMICAO #### [address] [address] UA Leuk Est Large Abnormal Negative [facility] ([place] Comment on above: Performed By: #### U A, UAMICAO #### [place] [address] UA Nitrite Positive Abnormal Negative [facility] ([place] Comment on above: Performed By: #### U A, UAMICAO #### [place] [address] UA pH 5.5 Normal 5.0 - 8.0 [facility] ([place]) Comment on above: Performed By: #### U A, UAMICAO #### [place] [address] UA Protein 100 mg/dL Abnormal Negative [facility] ([place] Comment on above: Performed By: #### U A, UAMICAO #### [place] [address] UA Spec Grav 1.015 Normal 1.015-1.025 [facility] ([place]) Comment on above: Performed By: #### U A, UAMICAO #### [place] [address] UA Specimen Type Not Given Normal [facility] ([place] Comment on above: Performed By: #### U A, UAMICAO #### [place] [address] UA Urobilinogen 1.0 E.U./dL Normal 0.2-1.0 [facility] ([place]) Comment on above: Performed By: #### U A, UAMICAO #### [place] [address] Urobilinogen (U) [Mass/Vol] Negative Normal Negative [facility] ([place] Comment on above: Performed By: #### U A, UAMICAO #### [address] [address] CBC panel Auto (Bld)on 05-07 Erythrocyte distribution width (RBC) [Ratio] 13.4 % 11.5 - 15.0 % [facility] Hematocrit (Bld) [Volume fraction] 48.8 % 39.0 - 51.0 % [facility] Hemoglobin (Bld) [Mass/Vol] 15.4 g/dL 13.0 - 17.0 g/dL [facility] MCH (RBC) [Entitic mass] 30.9 pg 26.0 - 34.0 pg [facility] MCHC (RBC) [Mass/Vol] 31.6 g/dL 30.5 - 36.0 g/dL [facility] MCV (RBC) [Entitic vol] 98.0 fL 80.0 - 100.0 fL [facility] Nucleated RBC (Bld) [#/Vol] <0.01 k/uL [facility] Platelet mean volume (Bld) [Entitic vol] 10.0 fL 9.0 - 12.7 fL [facility] Platelets (Bld) [#/Vol] 277 10*3/uL 150 - 400 k/uL [facility] RBC (Bld) [#/Vol] 4.98 10*6/uL 4.20 - 6.0 0 m/uL [facility] WBC (Bld) [#/Vol] 9.93 10*3/uL 3.70 - 11. 00 k/uL [facility] BMP - EXTERNALon 04-23-2022 Anion gap [Moles/Vol] 4 mmol/L [facility] Calcium [Mass/Vol] 9.3 mg/dL 8.8 - 10. 5 MG/DL [facility] Chloride [Moles/Vol] 108 mmol/L Abnormal 98 - 10 7 MEQ/L [facility] Creatinine [Mass/Vol] 1.15 mg/dL 0.6 - 1.3 MG/DL [facility] GFR AFR AMER 83 mL/MIN [facility] GFR/1.73 sq M.predicted among non-blacks MDRD (S/P/Bld) [Vol rate/Area] 68 mL/min/{1.73_m2} [facility] Glucose [Mass/Vol] 114 mg/dL Abnormal 74 - 106 MG/DL [facility] HCO3 (Bld) [Moles/Vol] 30 mmol/L [facility] Potassium [Moles/Vol] 3.8 mmol/L 3.5 - 5.1 MEQ/L [facility] Sodium [Moles/Vol] 142 mmol/L 136 - 145 MEQ/L [facility] Basophil percentageOrdered B y: Dr. Titus on 04-20-2022 Chloride [Moles/Vol] 108 mmol/L 98-107 [facility] Glucose [Mass/Vol] 114 mg/dL 74-106 [facility] Comment on above: Fasting Glucose resu lt from 100 to 125 mg/dL suggests IMPAIRED HOMEOSTASIS per A.D.A. criteria. Potassium [Moles/Vol] 3.8 mmol/L 3.5-5.1 [facility] Sodium [Moles/Vol] 142 mmol/L 136-145 [facility] Laboratory - Chemistry and C hemistry - challengeOrdered By: Dr. Titus on 04-20-2022 CO2 [Moles/Vol] 30.0 mmol/L 21.0-32.0 [facility] Urea nitrogen/Creatinine [Mass ratio] 12.2 mg/mg 10- [facility] No Panel InformationOrdered By: Dr. Titus on 04-20-2022 Estimated GFR (MDRD) Amer 83 mL/min >60 [facility] Comment on above: GFR Calc Estimated GFR (MDRD) Non-Af Amer 68 mL/min >60 [facility] Comment on above: Non- GFR Calc Serum or plasma calcium venita urement (mass/volume)Ordered By: Dr. Titus on 04-20-2022 Calcium [Mass/Vol] 9.3 mg/dL 8.5-10.1 [facility] Serum or plasma creatinine m easurement (mass/volume)Ordered By: Dr. Titus on 04-20-2022 Creatinine [Mass/Vol] 1.15 mg/dL 0.70-1.30 [facility] Comment on above: The validity of the calculated GFR & GFRAA in patients over 70 years has not been determined. Clinical correlation is essential. Serum or plasma urea nitroge n measurement (mass/volume)Ordered By: Dr. Titus on 04-20-2022 Urea nitrogen [Mass/Vol] 14 mg/dL 7-18 [facility] Thin prep Papanicolaou smear with manual screeningOrdered By: Dr. Titus on 04-20-2022 Thin prep Papanicolaou smear with manual screening 4 5-[address] [facility] [address] CHEST W IVCONon 2 Radiology Result ACTIONABLE Abnormal [facility] PROGRESSon 01-21-2019 PROGRESS HNO ID: [id number] Author: Juli (Ct) ROSARIO Givens Service: ? Author Type: Clinical Material Flow Engineer Type: Progress Notes Filed: 01/21/2019 1:37 PM Note Text: NAME:Sandee Soriano DATE: January 21, 2019 CCF#: [id number] Spine X-Ray(s): Lumbar AP / LAT / / OBL COMPLETED TECH ID SIGN: JULI GIVENS [facility] XR LUMBAR PARS 4V AP/LAT/OBL X2on 01-21-2019 XR LUMBAR PARS 4V AP/LAT/OBL X2 * * *Final Report* * * DATE OF EXAM: Jan 21 2019 1:35PM DIANA [id number] - XR LUMBAR PARS 4V AP/LAT/OBL X2 / PROCEDURE REASON: multiple diagnoses * * * * Physician Interpretation * * * * LUMBAR SPINE: EXAM DATE/TIME: 01/21/2019 1:35 PM HISTORY: 58 years old Indication: Low back pain with right-sided sciatica, unspecified back pain laterality, unspecified chronicity DDD (degenerative disc disease), lumbar Lumbar spondylosis RT SIDED LBP TECHNIQUE: Views obtained: XR LUMBAR PARS 4V AP/LAT/OBL X2 Comparison: None. RESULT: Findings: Mild narrowing of the L5-S1 disc space. Marked bony demineralization. The vertebra are in good alignment. No fractures or dislocations are seen. Moderate narrowing of both hip joints. IMPRESSION: Degenerative changes L5-S1 and both hips Side Seam Envelope Machine Operator: PSCB Transcribe Date/Time: Jan 21 2019 2:42P Dictated by : RAMAN ALLISON DO This examination was interpreted and the report reviewed and electronically signed by: RAMAN ALLISON DO on Jan 21 2019 2:43PM EST [id number] [facility] CR Chest PA/LATon 03-26-2018 CR Chest PA/LAT Patient Name: SANDEE BREAUX Diagnostic Radiology Exam Date/Time 03/26/2018 09:51:49 EST Exam CR Chest PA/LAT Ordering Physician RAVI TERRY Accession Number [id number] CPT4 Codes 06690 () Reason For Exam COPD Report CHEST X-RAY PA/LATERAL CLINICAL INDICATION: COPD Frontal and lateral plain films of the chest were obtained. COMPARISON: None FINDINGS: The heart size is within normal limits. Prominence of the left pulmonary hilum is noted. The lungs are hyperinflated, with coarsening of the interstitial lung markings consistent with a component of obstructive lung disease. No focal consolidation is seen within the lungs. There is no pleural effusion or pneumothorax. There is an elongated density within the periphery of the right upper lobe, measuring approximately 6 mm in thickness. Bony structures are unremarkable. IMPRESSION: Hyperinflation of the lungs and coarsening of the interstitial lung markings consistent with a component of obstructive lung disease. No focal consolidation is identified. Elongated density within the periphery of the right upper lobe. There also appears to be prominence of the left pulmonary hilum. Further evaluation with CT of the chest is recommended to exclude underlying adenopathy and/or mass. No prior examinations are available for comparison. Report Dictated on Final Dictating Physician: MD MONCADA JONATHAN R Signed Date and Time: 03/26/2018 9:56 am Signed by: MD MONCADA JONATHAN R Transcribed Date and Time: 03/26/2018 9:57 Normal [facility] Comp Panel with Mg Reflexon 03-26-2018 ALP enzyme act/vol 96 U/L Normal 38-126 [facility] Comment on above: Performed By: #### H EMDF, CMP3M, TROPN #### [facility] [address] [place] [address] ALT enzyme act/vol 42 U/L Normal 13-69 [facility] Comment on above: Performed By: #### H EMDF, CMP3M, TROPN #### [facility] [address] [place] [address] Calcium mass conc 10.1 mg/dL Normal 8.4-10.4 [facility] Comment on above: Performed By: #### H EMDF, CMP3M, TROPN #### [facility] [address] [place] [address] Glucose mass conc 115 mg/dL High 70-100 [facility] Comment on above: Performed By: #### H EMDF, CMP3M, TROPN #### [facility] [address] [place] [address] Protein mass conc 7.6 g/dL Normal 6.3-8.2 [facility] Comment on above: Performed By: #### H EMDF, CMP3M, TROPN #### [facility] [address] [place] [address] Urea nitrogen mass conc 10 mg/dL Normal 7-20 [facility] Comment on above: Performed By: #### H EMDF, CMP3M, TROPN #### [facility] [address] [place] [address] Anion gap molar conc 10 Normal [facility] Comment on above: Performed By: #### H EMDF, CMP3M, TROPN #### [facility] [address] [place] [address] AST enzyme act/vol 30 U/L Normal 15-46 [facility] Comment on above: Performed By: #### H EMDF, CMP3M, TROPN #### [facility] [address] [place] [address] Bilirubin mass conc 0.5 mg/dL Normal 0.2-1.3 [facility] Comment on above: Performed By: #### H EMDF, CMP3M, TROPN #### [facility] [address] [place] [address] CO2 molar conc 26 mmol/L Normal 22-30 [facility] Comment on above: Performed By: #### H EMDF, CMP3M, TROPN #### [facility] [address] [place] [address] Creatinine mass conc 1.12 mg/dL Normal 0.52-1.25 [facility] Comment on above: Performed By: #### H EMDF, CMP3M, TROPN #### [facility] [address] [place] [address] GFR/1.73 sq M predicted among blacks MDRD vol rate/area (S/P/Bld) mL/min/{1.73_m2} Normal >60 [facility] Comment on above: Performed By: #### H EMDF, CMP3M, TROPN #### [facility] [address] [place] [address] GFR/1.73 sq M predicted among non-blacks MDRD vol rate/area (S/P/Bld) mL/min/{1.73_m2} Normal >60 [facility] Comment on above: Result Comment: Sour ce- MDRD equation with creatinine calibration to IDMS(NKDEP) eGFR not recommended for drug dose adjustment Performed By: #### H EMDF, CMP3M, TROPN #### [facility] [address] [place] [address] Albumin mass conc 4.6 g/dL Normal 3.5-5.0 [facility] Comment on above: Performed By: #### H EMDF, CMP3M, TROPN #### [facility] [address] [place] [address] Chloride molar conc 103 mmol/L Normal 98-107 [facility] Comment on above: Performed By: #### H EMDF, CMP3M, TROPN #### [facility] [address] [place] [address] Potassium molar conc 4.6 mmol/L Normal 3.5-5.1 [facility] Comment on above: Performed By: #### H EMDF, CMP3M, TROPN #### [facility] [address] [place] [address] Sodium molar conc 139 mmol/L Normal 135-145 [facility] Comment on above: Performed By: #### H EMDF, CMP3M, TROPN #### [facility] [address] [place] [address] Hemogram w/ Autodiffon 03-26 Abs Baso Cnt 0.1 10*3/uL Normal 0.0-0.2 [facility] Comment on above: Performed By: #### H EMDF, CMP3M, TROPN #### [facility] [address] [place] [address] Abs Neutrophile Cnt 6.4 10*3/uL Normal 1.8-7.0 [facility] Comment on above: Performed By: #### H EMDF, CMP3M, TROPN #### [facility] [address] [place] [address] Basophils/100 WBC (Bld) 0.7 % Normal 0.0-2.0 [facility] Comment on above: Performed By: #### H EMDF, CMP3M, TROPN #### [facility] [address] [place] [address] Eosinophils #/vol (Bld) 0.4 10*3/uL Normal 0.0-0.5 [facility] Comment on above: Performed By: #### H EMDF, CMP3M, TROPN #### [facility] [address] [place] [address] Eosinophils/100 WBC (Bld) 4.5 % Normal 1.0-6.0 [facility] Comment on above: Performed By: #### H EMDF, CMP3M, TROPN #### [facility] [address] [place] [address] Erythrocyte distribution width Ratio (RBC) 13.9 % Normal 11.5-14.5 [facility] Comment on above: Performed By: #### H EMDF, CMP3M, TROPN #### [facility] [address] [place] [address] Granulocytes/100 WBC (Bld) 68.5 % Normal 40.0-80.0 [facility] Comment on above: Performed By: #### H EMDF, CMP3M, TROPN #### [facility] [address] [place] [address] Hematocrit Volume Fraction (Bld) 52.7 % High 40.0-52.0 [facility] Comment on above: Performed By: #### H EMDF, CMP3M, TROPN #### [facility] [address] [place] [address] Hemoglobin mass conc (Bld) 17.3 g/dL Normal 13.0-18.0 [facility] Comment on above: Performed By: #### H EMDF, CMP3M, TROPN #### [facility] [address] [place] [address] Lymphocytes #/vol (Bld) 1.8 10*3/uL Normal 1.0-4.3 [facility] Comment on above: Performed By: #### H EMDF, CMP3M, TROPN #### [facility] [address] [place] [address] Lymphocytes/100 WBC (Bld) 19.2 % Low 20.0-40.0 [facility] Comment on above: Performed By: #### H EMDF, CMP3M, TROPN #### [facility] [address] [place] [address] MCH Entitic mass (RBC) 31.7 pg Normal 26.0-34.0 [facility] Comment on above: Performed By: #### H EMDF, CMP3M, TROPN #### [facility] [address] [place] [address] MCHC mass conc (RBC) 32.9 % Normal 32.0-36.0 [facility] Comment on above: Performed By: #### H EMDF, CMP3M, TROPN #### [facility] [address] [place] [address] MCV Entitic volume (RBC) 96.4 fL Normal 80.0-98.0 [facility] Comment on above: Performed By: #### H EMDF, CMP3M, TROPN #### [facility] [address] [place] [address] Monocytes #/vol (Bld) 0.7 10*3/uL Normal 0.0-0.8 [facility] Comment on above: Performed By: #### H EMDF, CMP3M, TROPN #### [facility] [address] [place] [address] Monocytes/100 WBC (Bld) 7.1 % Normal 2.0-10.0 [facility] Comment on above: Performed By: #### H EMDF, CMP3M, TROPN #### [facility] [address] [place] [address] Platelet mean volume Entitic volume (Bld) 7.5 fL Normal 7.4-10.4 [facility] Comment on above: Performed By: #### H EMDF, CMP3M, TROPN #### [facility] [address] [place] [address] Platelets #/vol (Bld) 177 10*3/uL Normal 140-440 [facility] Comment on above: Performed By: #### H EMDF, CMP3M, TROPN #### [facility] [address] [place] [address] RBC #/vol (Bld) 5.47 10*6/uL Normal 4.40-5.90 [facility] Comment on above: Performed By: #### H EMDF, CMP3M, TROPN #### [facility] [address] [place] [address] WBC #/vol (Bld) 9.3 10*3/uL Normal 3.6-10.7 [facility] Comment on above: Performed By: #### H EMDF, CMP3M, TROPN #### [facility] [address] [place] [address] Troponin Ion 03-26-2018 Troponin I.cardiac mass conc 0.023 ng/mL Normal 0.000-0.034 [facility] Comment on above: Result Comment: 0.04 6 - 0.400 = Indeterminate > 0.400 = Consider Myocardial Injury Performed By: #### H EMDF, CMP3M, TROPN #### [facility] [address] [place] [address] Vital Signs Date Time Vital Sign Value Performing Clinician Azra pereyra 11-18-2024 07:50-0400 Body height 180.[address] Tej Phan MD Work Phone: [facility] 11-18-2024 07:50-0400 Body mass index (BMI) [Ratio] 22.8 kg/m2 Dr. Tej Phan MD Work Phone: 8(917)255-196686 [place] [address] 11-18-2024 07:50-0400 Body temperature 97 [degF] Dr. Tej Phan MD Work Phone: 0(853)571-066922 [place] [address] 11-18-2024 07:50-0400 Body weight 74.[address] Tej Phan MD Work Phone: 9(865)333-022422 [place] [address] 11-18-2024 07:50-0400 Diastolic blood pressure 48 mm[Hg] Dr. Tej Phan MD Work Phone: 3(400)051-708122 [place] [address] 11-18-2024 07:50-0400 Heart rate 46 /min Dr. Tej Phan MD Work Phone: 8(347)599-672922 [place] [address] 11-18-2024 07:50-0400 Respiratory rate 18 /min Dr. Tej Phan MD Work Phone: 4(384)903-839622 [address] 11-18-2024 07:50-0400 SaO2% (BldA) [Mass fraction] 97 % Dr. Tej Phan MD Work Phone: 2(421)606-012922 [address] 11-18-2024 07:50-0400 Systolic blood pressure 101 mm[Hg] Dr. Tej Phan MD Work Phone: 3(030)152-126922 [address] 11-03-2024 12:55-0400 Body height 180.[address] Tej Phan MD Work Phone: 7(821)542-733022 [address] 11-03-2024 12:55-0400 Body weight 87.[address] Tej Phan MD Work Phone: 6(313)913-341522 [place] [address] 11-03-2024 12:55-0400 Heart rate 48 /min Dr. Tej Phan MD Work Phone: 8(442)848-917722 [address] 11-03-2024 12:55-0400 SaO2% (BldA) [Mass fraction] 96 % Dr. Tej Phan MD Work Phone: [facility] 07-27-2024 13:05-0400 Body height 176.9 cm Cisco Phan MD Work Phone: [facility] 07-27-2024 13:05-0400 Body mass index (BMI) [Ratio] 25.08 kg/m2 Cisco Phan MD Work Phone: [facility] 07-27-2024 13:05-0400 Body temperature 97 [degF] Cisco Phan MD Work Phone: [facility] 07-27-2024 13:05-0400 Body weight 78.5 kg Cisco Phan MD Work Phone: [facility] 07-27-2024 13:05-0400 Diastolic blood pressure 67 mm[Hg] Cisco Phan MD Work Phone: [facility] 07-27-2024 13:05-0400 SaO2% (BldA) [Mass fraction] 95 % Cisco Phan MD Work Phone: [facility] 07-27-2024 13:05-0400 Systolic blood pressure 110 mm[Hg] Cisco Phan MD Work Phone: [facility] 06-24-2023 14:03-0400 Body height 176.9 cm Cisco Phan MD Work Phone: [facility] 06-24-2023 14:03-0400 Body weight 83 kg Cisco Phan MD Work Phone: [facility] 06-24-2023 14:03-0400 Diastolic blood pressure 72 mm[Hg] Cisco Phan MD Work Phone: [facility] 06-24-2023 14:03-0400 Heart rate 54 /min Cisco Phan MD Work Phone: [facility] 06-24-2023 14:03-0400 SaO2% (BldA) [Mass fraction] 97 % Cisco Phan MD Work Phone: [facility] 06-24-2023 14:03-0400 Systolic blood pressure 112 mm[Hg] Cisco Phan MD Work Phone: [facility] 05-20-2023 07:57-0400 Body height 177.[address] Tej Phan Work Phone: [facility] 05-20-2023 07:57-0400 Body mass index (BMI) [Ratio] 27.2 kg/m2 Dr. Tej Phan Work Phone: [facility] 05-20-2023 07:57-0400 Body temperature 97.8 [degF] Dr. Tej Phan Work Phone: [facility] 05-20-2023 07:57-0400 Body weight 86.[address] Tej Phan Work Phone: [facility] 05-20-2023 07:57-0400 Diastolic blood pressure 93 mm[Hg] Dr. Tej Phan Work Phone: [facility] 05-20-2023 07:57-0400 Heart rate 52 /min Dr. Tej Phan Work Phone: [facility] 05-20-2023 07:57-0400 Respiratory rate 24 /min Dr. Tej Phan Work Phone: [facility] 05-20-2023 07:57-0400 SaO2% (BldA) [Mass fraction] 93 % Dr. Tej Phan Work Phone: [facility] 05-20-2023 07:57-0400 Systolic blood pressure 130 mm[Hg] Dr. Tej Phan Work Phone: [facility] 01-15-2023 15:09-0500 Body height 176.9 cm Cisco Phan MD Work Phone: [facility] 01-15-2023 15:09-0500 Body weight 86.64 kg Cisco Phan MD Work Phone: [facility] 01-15-2023 15:09-0500 Diastolic blood pressure 61 mm[Hg] Cisco Phan MD Work Phone: [facility] 01-15-2023 15:09-0500 Heart rate 56 /min Cisco Phan MD Work Phone: [facility] 01-15-2023 15:09-0500 SaO2% (BldA) [Mass fraction] 94 % Cisco Phan MD Work Phone: [facility] 01-15-2023 15:09-0500 Systolic blood pressure 91 mm[Hg] Cisco Phan MD Work Phone: [facility] 10-08-2022 10:10-0400 Body height 176.9 cm Cisco Phan MD Work Phone: [facility] 10-08-2022 10:10-0400 Body weight 85.73 kg Cisco Phan MD Work Phone: [facility] 10-08-2022 10:10-0400 Diastolic blood pressure 59 mm[Hg] Cisco Phan MD Work Phone: [facility] 10-08-2022 10:10-0400 Heart rate 50 /min Cisco Phan MD Work Phone: [facility] 10-08-2022 10:10-0400 SaO2% (BldA) [Mass fraction] 97 % Cisco Phan MD Work Phone: [facility] 10-08-2022 10:10-0400 Systolic blood pressure 100 mm[Hg] Cisco Phan MD Work Phone: [facility] 07-31-2022 12:45-0400 Body height 177.[address] Tej Phan Work Phone: [facility] 07-31-2022 12:45-0400 Body weight 81.[address] Tej Phan Work Phone: [facility] 07-31-2022 12:45-0400 Heart rate 48 /min Dr. Tej Phan Work Phone: [facility] 07-31-2022 12:45-0400 SaO2% (BldA) [Mass fraction] 98 % Dr. Tej Phan Work Phone: [facility] 06-26-2022 14:37-0400 Body height 177.[address] Tej Phan Work Phone: 8(517)631-065222 [address] 06-26-2022 14:37-0400 Body mass index (BMI) [Ratio] 27.5 kg/m2 Dr. Tej Phan Work Phone: 2(488)181-002422 [address] 06-26-2022 14:37-0400 Body weight 87.[address] Tej Phan Work Phone: 4(067)967-130022 [address] 06-26-2022 14:37-0400 Diastolic blood pressure 58 mm[Hg] Dr. Tej Phan Work Phone: 3(515)029-178722 [address] 06-26-2022 14:37-0400 Heart rate 58 /min Dr. Tej Phan Work Phone: 5(289)687-940222 [address] 06-26-2022 14:37-0400 Respiratory rate 18 /min Dr. Tej Phan Work Phone: 6(875)182-420922 [address] 06-26-2022 14:37-0400 Systolic blood pressure 127 mm[Hg] Dr. Tej Phan Work Phone: [facility] 06-20-2022 13:55-0400 Body mass index (BMI) [Ratio] 27.9 kg/m2 Dr. Tej Phan Work Phone: 9(666)194-691086 [place] [address] 06-20-2022 13:55-0400 Body temperature 97.4 [degF] Dr. Tej Phan Work Phone: 7(771)736-807222 [place] [address] 06-20-2022 13:55-0400 Body weight [address] Tej Phan Work Phone: [phone] [address] 06-20-2022 13:55-0400 Diastolic blood pressure 72 mm[Hg] Dr. Tej Phan Work Phone: [facility] 06-20-2022 13:55-0400 Heart rate 72 /min Dr. Tej Phan Work Phone: [facility] 06-20-2022 13:55-0400 Respiratory rate 19 /min Dr. Tej Phan Work Phone: [facility] 06-20-2022 13:55-0400 SaO2% (BldA) [Mass fraction] 94 % Dr. Tej Phan Work Phone: [facility] 06-20-2022 13:55-0400 Systolic blood pressure 115 mm[Hg] Dr. Tje Phan Work Phone: [facility] 05-30-2022 14:01-0400 Body height 176.9 cm Cisco Phan MD Work Phone: [facility] 05-30-2022 14:01-0400 Body weight 85.73 kg Cisco Phan MD Work Phone: [facility] 05-30-2022 14:01-0400 Diastolic blood pressure 60 mm[Hg] Cisco Phan MD Work Phone: [facility] 05-30-2022 14:01-0400 Heart rate 51 /min Cisco Phan MD Work Phone: [facility] 05-30-2022 14:01-0400 SaO2% (BldA) [Mass fraction] 96 % Cisco Phan MD Work Phone: [facility] 05-30-2022 14:01-0400 Systolic blood pressure 118 mm[Hg] Cisco Phan MD Work Phone: [facility] 05-07-2022 11:57-0500 Body height 176.9 cm Cisco Phan MD Work Phone: [facility] 05-07-2022 11:57-0500 Body temperature 98.1 [degF] Cisco Phan MD Work Phone: [facility] 05-07-2022 11:57-0500 Body weight 85.73 kg Cisco Phan MD Work Phone: [facility] 05-07-2022 11:57-0500 Diastolic blood pressure 72 mm[Hg] Cisco Phan MD Work Phone: [facility] 05-07-2022 11:57-0500 Heart rate 55 /min Cisco Phan MD Work Phone: [facility] 05-07-2022 11:57-0500 SaO2% (BldA) [Mass fraction] 95 % Cisco Phan MD Work Phone: [facility] 05-07-2022 11:57-0500 Systolic blood pressure 109 mm[Hg] Cisco Phan MD Work Phone: [facility] 04-09-2022 14:05-0500 Body height 177.[address] Tej Phan Work Phone: [facility] 04-09-2022 14:05-0500 Body mass index (BMI) [Ratio] 26.9 kg/m2 Dr. Tej Phan Work Phone: [facility] 04-09-2022 14:05-0500 Body weight 85.[address] Tej Phan Work Phone: [facility] 04-09-2022 14:05-0500 Diastolic blood pressure 86 mm[Hg] Dr. Tej Phan Work Phone: [facility] 04-09-2022 14:05-0500 Heart rate 68 /min Dr. Tej Phan Work Phone: [facility] 04-09-2022 14:05-0500 Respiratory rate 18 /min Dr. Tej Phan Work Phone: [facility] 04-09-2022 14:05-0500 Systolic blood pressure 145 mm[Hg] Dr. Tej Phan Work Phone: [facility] 09-13-2021 10:23-0400 Body height 176.9 cm Beto Guevara MD Work Phone: [facility] 09-13-2021 10:23-0400 Body weight 87 kg Beto Guevara MD Work Phone: [facility] 09-13-2021 10:23-0400 Diastolic blood pressure 54 mm[Hg] Beto Guevara MD Work Phone: [facility] 09-13-2021 10:23-0400 Heart rate 54 /min Beto Guevara MD Work Phone: [facility] 09-13-2021 10:23-0400 SaO2% (BldA) [Mass fraction] 96 % Beto Guevara MD Work Phone: [facility] 09-13-2021 10:23-0400 Systolic blood pressure 104 mm[Hg] Beto Guevara MD Work Phone: [facility] 09-08-2021 10:18-0400 Body height 180.3 cm Cisco Phan MD Work Phone: [facility] 09-08-2021 10:18-0400 Body weight 86.14 kg Cisco Phan MD Work Phone: [facility] 09-08-2021 10:18-0400 Diastolic blood pressure 69 mm[Hg] Cisco Phan MD Work Phone: [facility] 09-08-2021 10:18-0400 Heart rate 60 /min Cisco Phan MD Work Phone: [facility] 09-08-2021 10:18-0400 SaO2% (BldA) [Mass fraction] 97 % Cisco Phan MD Work Phone: [facility] 09-08-2021 10:18-0400 Systolic blood pressure 123 mm[Hg] Cisco Phan MD Work Phone: [facility] Encounters Encounter Date Encounter Type Care Provider Facility Start: 11-18-2024 End: 11-18-2024 Telephone encounter Cisco Phan MD Work Phone: [facility] Comment on above: Received Outside Med ical Records ([facility] pulm) Start: 11-18-2024 End: 11-18-2024 Patient encounter procedure María Harman SUPERVISOR INSTRUMENT MAINTENANCE-C -[facility] Work Phone: Start: 11-18-2024 End: 11-18-[address] Tej Phan MD Work Phone: -[facility] Start: 11-05-2024 ambulatory Tej Phan Facility :[facility] Start: 11-05-2024 Non-patient / Non-visit Dr. Nuno carranza DO -[facility] Start: 11-03-2024 End: 11-03-[address] Tej Phan MD Work Phone: -Pulmonary Services/Neurology Start: 11-03-2024 End: 11-03-2024 Patient encounter procedure María Harman SUPERVISOR INSTRUMENT MAINTENANCE-C -Pulmonary Services/Neurology Work Phone: Start: 11-03-2024 End: 11-03-2024 ambulatory María Harman NP Facility:[facility] Start: 10-21-2024 End: 10-21-2024 Refill Carla Esparza PUBLICIST.INSURANCE ADJUSTOR Work Phone: [facility] Comment on above: Refill Request Start: 10-17-2024 End: 10-19-2024 Refill Carla Vilma PUBLICIST.INSURANCE ADJUSTOR Work Phone: [facility] Comment on above: Refill Request Start: 10-06-2024 End: 10-06-2024 Emergency department patient visit CLEMENT SILVA MD [facility] Start: 10-01-2024 End: 10-01-2024 Refill Carla Vilma PUBLICIST.INSURANCE ADJUSTOR Work Phone: [facility] Comment on above: Refill Request Start: 09-28-2024 End: 09-28-[address] Tej Phan MD Work Phone: -Pulmonary Services/Neurology Start: 09-28-2024 End: 09-28-2024 Patient encounter procedure María HERMOSILLO -Pulmonary Services/Neurology Work Phone: Start: 09-28-2024 End: 09-28-2024 ambulatory Tej Phan Facility:[facility] Start: 08-24-2024 End: 08-24-2024 Telephone encounter Cisco Phan MD Work Phone: [facility] Comment on above: Received Outside Med ical Records ([facility]) Start: 08-22-2024 End: 08-22-2024 Emergency department patient visit DR ANMOL MARAVILLA DO [facility] Start: 08-06-2024 End: 08-06-2024 Refill Carla Esparza PUBLICIST.INSURANCE ADJUSTOR Work Phone: [facility] Comment on above: Refill Request Start: 08-03-2024 End: 08-06-2024 ambulatory Raegan Martinez PUBLICIST.INSURANCE ADJUSTOR Work Phone: Pulmonary Medicine Start: 07-30-2024 End: 09-29-2024 Follow-up encounter Cisco Phan MD Work Phone: [facility] Start: 07-29-2024 End: 09-28-2024 Follow-up encounter Cisco Phan MD Work Phone: [facility] Start: 07-28-2024 End: 07-28-2024 ambulatory CISCO PHAN Facility:[facility] Start: 07-27-2024 End: 07-27-2024 Office outpatient visit 25 minutes Cisco Phan MD Work Phone: [facility] Comment on above: Chronic obstructive pulmonary disease, unspecified COPD type (HCC) (Primary Dx); Cardiomyopathy, ischemic; Hypercholesterolemia; Chronic combined systolic (congestive) and diastolic (congestive) heart failure (HCC); Chronic depression; PAD (peripheral artery disease); Essential (primary) hypertension; Persistent cough; Epigastric pain; Continuous tobacco abuse; Chronic bilateral low back pain with bilateral sciatica; Screening for depression; Encounter for screening examination for other mental health and behavioral disorders; Acquired hypothyroidism; Hyperglycemia Start: 07-27-2024 End: 07-27-2024 ambulatory SELF Facility:[facility] Start: 07-22-2024 End: 07-22-2024 Refill Carla Esparza PUBLICIST.INSURANCE ADJUSTOR Work Phone: [facility] Comment on above: Refill Request Start: 07-14-2024 End: 07-17-2024 ambulatory Cisco Phan MD Work Phone: Internal Medicine [facility] Start: 06-27-2024 End: 06-29-2024 Refill Cisco Phan MD Work Phone: [facility] Comment on above: Refill Request Start: 05-06-2024 End: 05-06-2024 Refill Carla Esparza PUBLICIST.INSURANCE ADJUSTOR Work Phone: Family Practice Comment on above: Refill Request Start: 05-03-2024 End: 05-04-2024 Refill Carla Vilma PUBLICIST.INSURANCE ADJUSTOR Work Phone: [facility] Practice Comment on above: Refill Request Start: 02-13-2024 End: 02-13-2024 Telephone encounter Cisco Phan MD Work Phone: [facility] Comment on above: Received Outside Med ical Records ([facility] Pulmonary) Start: 02-12-2024 End: 02-12-2024 ambulatory Tej Phan Facility:[facility] Start: 02-10-2024 End: 02-11-2024 Refill Cisco Phan MD Work Phone: [facility] Practice Comment on above: Refill Request Start: 02-04-2024 End: 02-04-2024 Refill Carla Vilma PUBLICIST.INSURANCE ADJUSTOR Work Phone: [facility] Comment on above: Refill Request Start: 01-02-2024 End: 01-02-2024 Telephone encounter Cisco Phan MD Work Phone: [facility] Comment on above: Received Outside Med ical Records ([facility] chest CT) Start: 01-01-2024 End: 01-01-2024 ambulatory Tej Phan Facility:[facility] Start: 12-19-2023 End: 12-19-2023 Telephone encounter Cisco Phan MD Work Phone: Family Practice Comment on above: Outside Labs Results ([facility] 12/17) Start: 12-18-2023 End: 12-18-2023 ambulatory Tej Phan Facility:[facility] Start: 11-10-2023 End: 11-12-2023 Refill Carla Margarette PUBLICIST.INSURANCE ADJUSTOR Work Phone: [facility] Practice Comment on above: Refill Request Start: 10-22-2023 Refill Carla Margarette PUBLICIST.INSURANCE ADJUSTOR Work Phone: [facility] Comment on above: Refill Request Start: 10-21-2023 Refill Carla Margarette PUBLICIST.INSURANCE ADJUSTOR Work Phone: [facility] Comment on above: Refill Request Start: 09-19-2023 Refill Carla Margarette PUBLICIST.INSURANCE ADJUSTOR Work Phone: [facility] Practice Comment on above: Refill Request Start: 09-04-2023 ambulatory Cisco agustin MD Work Phone: [facility] Practice Comment on above: Edema Start: 08-15-2023 Telephone encounter Cisco Phan MD Work Phone: [facility] Comment on above: Received Outside Med ical Records ([facility] Cardiovascular Services Echo Complete 08/14/2023) Start: 07-17-2023 Telephone encounter Cisco Phan MD Work Phone: [facility] Comment on above: Received Outside Med ical Records ([facility] ) Start: 07-10-2023 Telephone encounter Cisco Phan MD Work Phone: Family Practice Comment on above: Received Outside Med ical Records ([facility] 07/08/23) Refill Request Start: 06-27-2023 End: 06-27-2023 Subsequent hospital visit by physician Xr [facility] Work Phone: Radiology Comment on above: Rib contusion, right , initial encounter [S20.211A] Start: 06-24-2023 End: 06-24-2023 Patient encounter procedure Cisco Phan MD Work Phone: [facility] Comment on above: Cardiomyopathy, isch emic (Primary Dx); MCMULLEN (dyspnea on exertion); Essential (primary) hypertension; 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ailure (HCC); Fall in home, initial encounter; Rib contusion, right, initial encounter; Mild cognitive impairment; Hypercholesterolemia; Occipital headache Refill Request Start: 06-11-2023 ambulatory Cisco agustin MD Work Phone: Internal Medicine [facility] [place] Start: 05-29-2023 ambulatory Cisco agustin MD Work Phone: [facility] Comment on above: Labs Start: 05-25-2023 Refill Carla Pfeiffer APRN.CNP Work Phone: [facility] Comment on above: Refill Request Start: 05-21-2023 Telephone encounter Cisco Phan MD Work Phone: [facility] Comment on above: Received Outside Med ical Records ([facility] Visit summary Pulmonary medicine 05/20/2023 Evaluation for sleep apnea) Start: 05-20-2023 End: 05-20-[address] Tej Phan Work Phone: [facility] [place] Work Phone: Start: 05-16-2023 Telephone encounter Cisco Phan MD Work Phone: [facility] Comment on above: Received Outside Med ical Records ([facility] Low dose CT Lung screening 05/15/2023) Start: 05-15-2023 End: 05-15-[address] Tej Phan Work Phone: [facility] Work Phone: Start: 05-15-2023 End: 05-15-[address] Tej Phan Work Phone: [facility]-Cat Scan, [facility] Work Phone: Start: 04-13-2023 Refill Cisco agustin MD Work Phone: [facility] Comment on above: Refill Request Start: 04-12-2023 Refill Cisco agustin MD Work Phone: [facility] Comment on above: Refill Request Start: 03-12-2023 End: 03-13-2023 ambulatory CISCO PHAN MD Facility:[facility] Start: 03-12-2023 End: 03-12-2023 Patient encounter procedure CISCO PHAN MD [facility] Start: 01-17-2023 ambulatory Donna Costa [facility] [place] Comment on above: Population Health Na vigation Outreach ([facility]) Start: 01-15-2023 End: 01-15-2023 Patient encounter procedure Cisco Phan MD Work Phone: [facility] Comment on above: Essential (primary) hypertension (Primary Dx); Encounter for immunization; Pulmonary hypertension (HCC); 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ailure (HCC) Start: 12-17-2022 Telephone encounter Cisco Phan MD Work Phone: [facility] Start: 10-08-2022 End: 10-08-2022 Patient encounter procedure Cisco Phan MD Work Phone: [facility] Comment on above: Flea bite of lower l eg, unspecified laterality, initial encounter (Primary Dx); Pedal edema; Pulmonary emphysema, unspecified emphysema type (HCC); PAD (peripheral artery disease) (HCC); Pulmonary artery aneurysm (HCC) Start: 09-25-2022 End: 09-26-2022 [facility] Start: 09-25-2022 End: 09-25-2022 Subsequent hospital visit by physician Cisco Phan Work Phone: [facility] Comment on above: Nonrheumatic pulmona ry valve insufficiency; Other diseases of pulmonary vessels (HCC); Nonrheumatic mitral (valve) prolapse; 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 Levi Phan Work Phone: [facility] Start: 08-14-2022 End: 08-14-[address] [facility] Work Phone: Start: 07-31-2022 Non-patient / Non-visit Dr. Levi Phan Work Phone: [facility] Start: 07-31-2022 End: 07-31-[address] Tej Phan Work Phone: [facility] Work Phone: Start: 07-31-2022 End: 07-31-[address] Tej [facility] Work [facility]: Start: 07-25-2022 Non-patient / Non-visit Dr. Levi Phan Work Phone: [facility] Start: 07-24-2022 End: 07-24-[address] Te[facility]an [facility] Work [facility]: Start: 07-18-2022 End: 07-18-[address] Tej Phan Work Phone: [facility] Work Phone: Start: 07-18-2022 End: 07-18-[address] 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 Tej Phan Work Phone: [facility] Start: 06-20-2022 End: 06-20-[address] Tej Phan [facility] Start: 06-19-2022 Non-patient / Non-visit Dr. Levi Phan Work Phone: [facility] Start: 05-30-2022 End: 05-30-2022 Patient encounter procedure Cisco Phan MD Work Phone: [facility] Comment on above: Acquired hypothyroid ism (Primary Dx); Hyperglycemia Start: 05-22-2022 Refill Cisco agustin MD Work Phone: [facility] Comment on above: Refill Request Start: 05-08-2022 ambulatory Cisco agustin MD Work Phone: [facility] Comment on above: labs Start: 05-08-2022 E-mail encounter fro m caregiver Cisco Phan MD Work Phone: [facility] Start: 05-07-2022 End: 05-07-2022 Patient encounter procedure Cisco Phan MD Work Phone: Family Practice Comment on above: Chronic combined sys tolic and diastolic CHF (congestive heart failure) (HCC) (Primary Dx); Nonrheumatic pulmonary valve insufficiency; Hyperglycemia; Adjustment disorder with anxiety Start: 04-30-2022 Telephone encounter Cisco Phan MD Work Phone: [facility] Comment on above: Medication Request ( Xanax one pill) Start: 04-24-2022 ambulatory Cisco agustin MD Work Phone: Family Practice Start: 04-24-2022 Telephone encounter Cisco Phan MD Work Phone: [facility] Comment on above: Received Outside Med ical Records ([facility] Cardiovascular Services 04/20/22) Start: 04-23-2022 Telephone encounter Cisco Phan MD Work Phone: [facility] Comment on above: Received Outside Med ical Records ([facility] Lab BMP 04/20/2022/) Start: 04-20-2022 Non-patient / Non-visit Dr. Levi Phan Work Phone: [facility] Start: 04-20-2022 End: 04-20-[address] Tej Phan Work Phone: [facility] Work Phone: Start: 04-20-2022 End: 04-20-[address] Tej Phan Work Phone: [facility] Start: 04-18-2022 Telephone encounter Cisco Phan MD Work Phone: [facility] Comment on above: Patient Question Start: 04-13-2022 Telephone encounter Cisco Phan MD Work Phone: [facility] Comment on above: EKG Start: 04-09-2022 End: 04-09-[address] Tej Phan Work Phone: [facility] Start: 04-06-2022 Non-patient / Non-visit Dr. Levi Phan Work Phone: [facility] Start: 03-26-2022 Telephone encounter Cisco Phan MD Work Phone: [facility] Comment on above: FYI-No Action Needed ; Patient Update Results (MRI and Abril st xray on disc) Start: 03-14-2022 Telephone encounter Cisco Phan MD Work Phone: [facility] Comment on above: Received Outside Med [facility] Records (PAD results [facility]) Start: 03-08-2022 End: 03-08-2022 ambulatory Cisco Phan MD Work Phone: [facility] Comment on above: Acute non-recurrent maxillary sinusitis (Primary Dx); Pulmonary nodule Start: 03-08-2022 End: 03-08-2022 Telemedicine consultation with patient Cisco Phan MD Work Phone: [facility] Start: 02-07-2022 ambulatory Donna Costa [facility] [place] Comment on above: Population Health Na vigation Outreach [facility] Start: 01-29-2022 Nurse Triage Cisco agustin MD Work Phone: [facility] Comment on above: Refill Request Start: 11-07-2021 ambulatory Yana Adamson APRN.INSURANCE ADJUSTOR Work Phone: Pulmonary Medicine Start: 09-13-2021 End: [facility]-13[facility] Comment on above: Spirometry Start: 09-13-2021 End: 09-13-2021 Patient encounter procedure Pulm [facility] Work Phone: [facility] Comment on above: Pulmonary emphysema, unspecified emphysema type (HCC) (Primary Dx); Lung nodules; Ex-smoker; Chronic combined systolic and diastolic congestive heart failure, NYHA class 3 (HCC) Start: 09-08-2021 End: 09-08-2021 Patient encounter procedure Cisco Phan MD Work Phone: [facility] Comment on above: Medicare annual well ness visit, subsequent (Primary Dx); Abnormal CT of the chest; Panlobular emphysema (HCC); Cardiomyopathy, ischemic; Chronic low back pain with bilateral sciatica, unspecified back pain laterality; Pedal edema; Epigastric pain; Lung nodules; Screening for prostate cancer; Screening for HIV (human immunodeficiency virus) Start: 09-06-2021 Refill Carla Margarette PUBLICIST.INSURANCE ADJUSTOR Work Phone: [facility] Comment on above: Refill Request Start: 08-05-2021 Refill Carla Margarette PUBLICIST.INSURANCE ADJUSTOR Work Phone: [facility] Comment on above: Refill Request Start: 07-21-2021 Telephone encounter Cisco Phan MD Work Phone: [facility] Comment on above: Future Appointment Start: 07-20-2021 End: 07-20-2021 ambulatory Cisco Phan MD Work Phone: [facility] Comment on above: Pedal edema (Primary Dx); Lung nodules; Dyspnea, unspecified Start: 07-20-2021 End: 07-20-2021 Telemedicine consultation with patient Cisco Phan MD Work Phone: [facility] Start: 07-19-2021 ambulatory Cisco agustin MD Work Phone: [facility] Comment on above: Nurse Triage Call (f eet swelling) Start: 07-19-2021 Telephone encounter Cisco Phan MD Work Phone: [facility] Comment on above: Erroneous encounter- disregard Start: 07-17-2021 Telephone encounter Cisco Phan MD Work Phone: Ambulatory Surgery Comment on above: Orders Start: 07-10-2021 ambulatory Donna Costa [facility] [place] Comment on above: Population Health Na vigation Outreach ( [facility]) Start: 07-09-2021 Refill Cisco agustin MD Work Phone: [facility] Comment on above: Refill Request Start: 07-01-2021 Refill Maren Kerns PUBLICIST. INSURANCE ADJUSTOR Work Phone: Family Practice Comment on above: Refill Request Start: 06-30-2021 Orders Only Beto eddy MD Work Phone: [facility] [place] Comment on above: Chronic obstructive pulmonary disease, unspecified COPD type (HCC) (Primary Dx) Start: 06-23-2021 Telephone encounter Cisco Phan MD Work Phone: [facility] Comment on above: Results (CT) Start: 06-21-2021 End: 06-21-2021 Subsequent hospital visit by physician [facility] (I-Stat) Work Phone: Cat Scan Comment on above: Lung nodules [R91.8] Start: 06-09-2021 Refill Carla Pfeiffer PUBLICIST.INSURANCE ADJUSTOR Work Phone: [facility] Comment on above: Refill Request Start: 06-02-2021 Refill Maren Kerns PUBLICIST. INSURANCE ADJUSTOR Work Phone: [facility] Comment on above: Refill Request Start: 03-26-2018 Emergency department patient visit [facility] Procedures Date Procedure Procedure Detail Performing Clinician Start: 11-03-2024 CT of chest without contrast Dr. Tej Phan MD Work Phone: Start: 07-28-2024 Lipid 1996 panel - S linda or Plasma Raegan Martinez PUBLICIST.INSURANCE ADJUSTOR Work Phone: Start: 07-27-2024 Adult depression scr eening assessment Cisco Phan MD Work Phone: Start: 12-18-2023 Comprehensive metabo lic 2000 panel - Serum or Plasma [facility] Provider Start: 12-18-2023 LIPID PANEL BASIC [facility] P rovider Start: 12-18-2023 Thyrotropin [Units/v olume] in Serum or Plasma [facility] Provider Start: 12-18-2023 Lipid 1996 panel - S linda or Plasma Cisco Phan MD Work Phone: Start: 06-27-2023 Radex ribs unilatera l 2 views Cisco Phan MD Work Phone: Start: 06-20-2023 Lipid 1996 panel - S linda or Plasma Cisco Phan MD Work Phone: Start: 05-15-[address] Estevan Phan Work Phone: Start: 01-15-2023 INFLUENZA VACCINE, A GE 6 MO - 64 YR, QUADRIVALENT (AFLURIA, FLULAVAL, FLUZONE) Cisco Phan MD Work Phone: Start: 08-14-2022 Cardiovascular stres s test using pharmacologic stress agent Dr. Tej Phan Work Phone: Start: 07-18-2022 CT of chest without contrast Dr. Tej Phan Work Phone: Start: 05-28-2022 Lipid 1996 panel - S linda or Plasma Cisco Phan MD Work Phone: Start: 04-20-2022 BMP - EXTERNAL [facility] Prov ider Start: 09-13-2021 Brncdilat rspse spmt ry pre&post-brncdilat admn Beto Guevara MD Work Phone: Start: 09-08-2021 Adult depression scr eening assessment Cisco Phan MD Work Phone: Start: 06-21-2021 Ct thorax w/contrast material Carla Pfeiffer PUBLICIST.INSURANCE ADJUSTOR Work Phone: Start: 01-09-2019 Adult depression scr eening assessment Maren Kerns PUBLICIST.INSURANCE ADJUSTOR Work Phone: Start: 04-04-2015 History of coronary artery bypass grafting Hx of CABG Maren Kerns PUBLICIST.INSURANCE ADJUSTOR Work Phone: Heart structure (bod y structure) DR ANMOL MARAVILLA DO History of coronary artery bypass grafting History of coronary artery bypass surgery Dr. Tej Phan Work Phone: Comment on above: CABG x1 Dr. Turpin @ [facility] 2011 Plan of Treatment Date Care Activity Detail Author Start: 07-28-2029 Lipid panel Lipid Screening [facility] Start: 02-11-2029 Pneumococcal Vaccine: 50+ (3 of 3 - PCV20 or PCV21) Pneumococcal Vaccine: 50+ (3 of 3 - PCV20 or PCV21) [facility] Start: 12-17-2028 Lipid panel Lipid Screening [facility] Start: 06-19-2028 Lipid panel Lipid Screening [facility] Start: 05-29-2027 Lipid 1996 panel - Serum or Plasma Lipid Screening [facility] Start: 05-29-2027 Lipid panel Lipid Screening [facility] Start: 05-29-2027 LIPID SCREEN LIPID SCREEN [facility] Start: 12-17-2026 Diabetes Screening Diabetes Screening [facility] Start: 06-19-2026 Diabetes Screening Diabetes Screening [facility] Start: 05-18-2026 PNEUMOCOCCAL (3 - PPSV23 if available, else PCV20) PNEUMOCOCCAL (3 - PPSV23 if available, else PCV20) [facility] Start: 05-18-2026 PNEUMOCOCCAL (3 - PPSV23 or PCV20) PNEUMOCOCCAL (3 - PPSV23 or PCV20) [facility] Start: 05-18-2026 Pneumococcal vaccination [facility] Start: 05-18-2026 Pneumococcal Vaccine: 50+ (3 of 3 - PCV20 or PCV21) Pneumococcal Vaccine: 50+ (3 of 3 - PCV20 or PCV21) [facility] Start: 05-18-2026 Pneumococcal Vaccine: Pediatrics (0 to 5 Years) and At-Risk Patients (6 to 64 Years) (3 - PPSV23 if available, else PCV20) Pneumococcal Vaccine: Pediatrics (0 to 5 Years) and At-Risk Patients (6 to 64 Years) (3 - PPSV23 if available, else PCV20) [facility] Start: 01-11-2026 LIPID SCREEN LIPID SCREEN [facility] Start: 07-31-2025 DIABETES SCREEN DIABETES SCREEN [facility] Start: 07-31-2025 Diabetes Screening Diabetes Screening [facility] Start: 07-28-2025 Hepatitis B surface antibody level LDL Cholesterol [facility] Start: 07-27-2025 Annual PCP Team Chronic Disease Visit Annual PCP Team Chronic Disease Visit [facility] Start: 07-27-2025 Anxiety Screening Anxiety Screening [facility] Start: 07-27-2025 BP Controlled (<130/80) BP Controlled (<130/80) [facility] Start: 07-27-2025 Depression Screening Depression Screening [facility] Start: 06-03-2025 Walking distance 6 minutes [facility] Start: 05-28-2025 DIABETES SCREEN DIABETES SCREEN [facility] Start: 05-24-2025 Measurement of respiratory function [facility] Start: 05-07-2025 DIABETES SCREEN DIABETES SCREEN [facility] Start: 12-17-2024 Hepatitis B surface antibody level LDL Cholesterol [facility] Start: 12-09-2024 End: 03-10-2025 CBC panel - Blood by Automated count COMPLETE BLOOD COUNT Lab Routine Chronic combined systolic (congestive) and diastolic (congestive) heart failure (HCC) Expected: 12/09/2024, Expires: 03/10/2025 [facility] Comment on above: Expected: 12/09/2024, Expires: Start: 12-09-2024 End: 03-10-2025 Comprehensive metabolic 2000 panel - Serum or Plasma COMPREHENSIVE METABOLIC PANEL Lab Routine Cardiomyopathy, ischemic Chronic combined systolic (congestive) and diastolic (congestive) heart failure (HCC) Expected: 12/09/2024, Expires: 03/10/2025 [facility] Comment on above: Expected: 12/09/2024, Expires: Start: 12-09-2024 End: 03-10-2025 Hemoglobin A1c in Blood HEMOGLOBIN A1C Lab Routine Hyperglycemia Expected: 12/09/2024, Expires: 03/10/2025 [facility] Comment on above: Expected: 12/09/2024, Expires: Start: 12-09-2024 End: 03-10-2025 Thyrotropin [Units/volume] in Serum or Plasma THYROID STIMULATING HORMONE Lab Routine Acquired hypothyroidism Expected: 12/09/2024, Expires: 03/10/2025 [facility] Comment on above: Expected: 12/09/2024, Expires: Start: 11-09-2024 Influenza vaccination [facility] Start: 07-27-2024 End: 07-27-2024 Patient encounter procedure 07/27/2024 1:00 PM EDT Office Visit Family Practice [address] [place] [address] [address] [place], [place] [id number] Cisco Phan MD [address] [place] [address] [address] [place], [place] [id number] Follow up Family Practice Comment on above: Follow up Start: 07-25-2024 DIABETES SCREEN DIABETES SCREEN [facility] Start: 07-14-2024 End: 10-13-2024 CBC panel - Blood by Automated count COMPLETE BLOOD COUNT Lab Routine Medication management Expected: 07/14/2024, Expires: 10/13/2024 [facility] Comment on above: Expected: 07/14/2024, Expires: Start: 07-14-2024 End: 10-13-2024 Lipid 1996 panel - Serum or Plasma LIPID PANEL, FASTING Lab Routine Hypercholesterolemia Expected: 07/14/2024, Expires: 10/13/2024 [facility] Work Phone: Comment on above: Expected: 07/14/2024, Expires: Start: 06-23-2024 Annual PCP Team Chronic Disease Visit Annual PCP Team Chronic Disease Visit [facility] Start: 06-23-2024 BP Controlled (<130/80) BP Controlled (<130/80) [facility] Start: 06-19-2024 Hepatitis B surface antibody level LDL Cholesterol [facility] Start: 2024 Advance Directive Discussion Advance Directive Discussion [facility] Start: 03-12-2024 Annual PCP Team Chronic Disease Visit Annual PCP Team Chronic Disease Visit [facility] Start: 03-11-2024 Medicare Advantage Annual Wellness Visit Medicare Advantage Annual Wellness Visit [facility] Start: 01-16-2024 Annual PCP Team Chronic Disease Visit Annual PCP Team Chronic Disease Visit [facility] Start: 01-16-2024 BP Controlled (<130/80) BP Controlled (<130/80) [facility] Start: 01-12-2024 DIABETES SCREEN DIABETES SCREEN [facility] Start: 11-10-2023 Covid-19 Vaccine ( season) Covid-19 Vaccine ( season) [facility] Start: 11-10-2023 Covid-19 Vaccine ( season) Covid-19 Vaccine ( season) [facility] Start: 11-10-2023 Influenza vaccination [facility] (#[facility] Start: 10-09-2023 ANNUAL PCP TEAM CHRONIC DISEASE VISIT ANNUAL PCP TEAM CHRONIC DISEASE VISIT [facility] Start: 10-09-2023 BP CONTROLLED (<130/80) BP CONTROLLED (<130/80) [facility] Start: 06-11-2023 End: 09-10-2023 Hemoglobin A1c in Blood HGB A1C Lab Routine Medication management Expected: 06/11/2023, Expires: 09/10/2023 [facility] Work Phone: Comment on above: Expected: 06/11/2023, Expires: Start: 06-11-2023 End: 09-10-2023 Thyrotropin [Units/volume] in Serum or Plasma TSH BLD Lab Routine Medication management Expected: 06/11/2023, Expires: 09/10/2023 [facility] Work Phone: Comment on above: Expected: 06/11/2023, Expires: Start: 05-31-2023 ANNUAL PCP TEAM CHRONIC DISEASE VISIT ANNUAL PCP TEAM CHRONIC DISEASE VISIT [facility] Start: 05-31-2023 BP CONTROLLED (<130/80) BP CONTROLLED (<130/80) [facility] Start: 05-31-2023 COVID-19 VACCINE (#1) COVID-19 VACCINE (#1) [facility] Comment on above: Postponed from 1959 (Declined at t his time) Start: 05-31-2023 SHINGRIX VACCINE (1 of 2) SHINGRIX VACCINE (1 of 2) [facility] Comment on above: Postponed from 2009 (Declined at t his time) Start: 05-31-2023 Urine microalbumin profile [facility] Comment on above: Postponed from 1978 (Declined at t his time) Start: 05-29-2023 Hepatitis B surface antibody level LDL CHOLESTEROL [facility] Start: 05-27-2023 End: 08-26-2023 CBC panel - Blood by Automated count CBC Lab Routine Cardiomyopathy, ischemic Expected: 05/27/2023, Expires: 08/26/2023 [facility] Work Phone: Comment on above: Expected: 05/27/2023, Expires: Start: 05-27-2023 End: 08-26-2023 Comprehensive metabolic 2000 panel - Serum or Plasma COMP METABOLIC PANEL Lab Routine Cardiomyopathy, ischemic Hypercholesterolemia Dyslipidemia Expected: 05/27/2023, Expires: 08/26/2023 [facility] Work Phone: Comment on above: Expected: 05/27/2023, Expires: 4 Start: 05-27-2023 End: 08-26-2023 Lipid 1996 panel - Serum or Plasma LIPID PANEL BASIC Lab Routine Cardiomyopathy, ischemic Dyslipidemia Expected: 05/27/2023, Expires: 08/26/2023 [facility] Work Phone: Comment on above: Expected: 05/27/2023, Expires: Start: 05-07-2023 ANNUAL PCP TEAM CHRONIC DISEASE VISIT ANNUAL PCP TEAM CHRONIC DISEASE VISIT [facility] Start: 05-07-2023 BP CONTROLLED (<130/80) BP CONTROLLED (<130/80) [facility] Start: 03-11-2023 Behavioral Health Screening Behavioral Health Screening [facility] Start: 03-11-2023 Depression Assessment Depression Assessment [facility] Start: 03-08-2023 ANNUAL PCP TEAM CHRONIC DISEASE VISIT ANNUAL PCP TEAM CHRONIC DISEASE VISIT [facility] Start: 11-09-2022 Covid-19 Vaccine ( season) Covid-19 Vaccine () [facility] Start: 11-09-2022 Influenza vaccination [facility] Start: 09-08-2022 Adult depression screening assessment DEPRESSION SCREENING [facility] Start: 09-08-2022 ANNUAL PCP TEAM CHRONIC DISEASE VISIT ANNUAL PCP TEAM CHRONIC DISEASE VISIT [facility] Start: 07-20-2022 ANNUAL PCP TEAM CHRONIC DISEASE VISIT ANNUAL PCP TEAM CHRONIC DISEASE VISIT [facility] Start: 07-09-2022 End: 09-08-2022 Basic metabolic 2000 panel - Serum or Plasma BASIC METABOLIC PNL Lab Routine Hyperglycemia Expected: 07/09/2022, Expires: 09/08/2022 [facility] Work Phone: Comment on above: Expected: 07/09/2022, Expires: Start: 07-09-2022 End: 09-08-2022 Hemoglobin A1c in Blood HGB A1C Lab Routine Hyperglycemia Expected: 07/09/2022, Expires: 09/08/2022 [facility] Work Phone: Comment on above: Expected: 07/09/2022, Expires: 3 Start: 07-09-2022 End: 09-08-2022 Thyrotropin [Units/volume] in Serum or Plasma TSH BLD Lab Routine Acquired hypothyroidism Expected: 07/09/2022, Expires: 09/08/2022 [facility] Work Phone: Comment on above: Expected: 07/09/2022, Expires: 3 Start: 07-06-2022 End: 07-07-2023 MR cardiac morphology and function wo IV contrast MR cardiac morphology and function wo IV contrast Imaging Routine Nonrheumatic pulmonary valve insufficiency Other diseases of pulmonary vessels (HCC) Nonrheumatic mitral (valve) prolapse 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 Expected: 07/06/2022, Expires: 07/07/2023 [facility] Work Phone: Comment on above: Expected: 07/06/2022, Expires: 4 Start: 06-21-2022 Influenza vaccination LUNG CANCER SCREENING [facility] Start: 06-21-2022 Screening for malignant neoplasm of lung Lung Cancer Screening [facility] Start: 05-18-2022 ANNUAL PCP TEAM CHRONIC DISEASE VISIT ANNUAL PCP TEAM CHRONIC DISEASE VISIT [facility] Start: 05-07-2022 End: 07-07-2022 Hemoglobin A1c in Blood [facility] Work Phone: Comment on above: Expected: 05/07/2022, Expires: 3 Start: 05-07-2022 End: 07-07-2022 Hepatic function 2000 panel - Serum or Plasma [facility] Work Phone: Comment on above: Expected: 05/07/2022, Expires: 3 Start: 05-07-2022 End: 07-07-2022 Natriuretic peptide.B prohormone N-Terminal [Mass/volume] in Serum or Plasma [facility] Work Phone: Comment on above: Expected: 05/07/2022, Expires: 3 Start: 05-07-2022 End: 07-07-2022 Thyrotropin [Units/volume] in Serum or Plasma [facility] Work Phone: Comment on above: Expected: 05/07/2022, Expires: 3 Start: 03-11-2022 DEPRESSION ASSESSMENT DEPRESSION ASSESSMENT [facility] Start: 01-11-2022 Hepatitis B surface antibody level LDL CHOLESTEROL [facility] Start: 01-09-2022 End: 03-11-2022 Comprehensive metabolic 2000 panel - Serum or Plasma COMP METABOLIC PANEL Lab Routine Cardiomyopathy, ischemic Expected: 01/09/2022, Expires: 03/11/2022 [facility] Work Phone: Comment on above: Expected: 01/09/2022, Expires: 3 Start: 01-09-2022 End: 03-11-2022 Hepatitis C virus Ab [Presence] in Serum HEP C AB IA W/CONF SCRN Lab Routine Screening for prostate cancer Expected: 01/09/2022, Expires: 03/11/2022 [facility] Work Phone: Comment on above: Expected: 01/09/2022, Expires: 3 Start: 01-09-2022 End: 03-11-2022 HIV 1+2 Ab [Presence] in Serum or Plasma by Immunoassay HIV 1 2 COMBO(AG/AB),WITH REFLEX TO DIFFERENTIATION Lab Routine Screening for HIV (human immunodeficiency virus) Expected: 01/09/2022, Expires: 03/11/2022 [facility] Work Phone: Comment on above: Expected: 01/09/2022, Expires: 3 Start: 01-09-2022 End: 03-11-2022 PSA/PROSTSPECAG SCRN PSA/PROSTSPECAG SCRN Lab Routine Screening for prostate cancer Expected: 01/09/2022, Expires: 03/11/2022 [facility] Work Phone: Comment on above: Expected: 01/09/2022, Expires: 3 Start: 11-09-2021 Influenza vaccination INFLUENZA (#1) [facility] Start: 10-09-2021 End: 10-08-2022 Ct thorax w/o contrast material CT CHEST WO IVCON Radiology Routine Lung nodules Expected: 10/09/2021, Expires: 10/08/2022 [facility] Work Phone: Comment on above: Expected: 10/09/2021, Expires: 3 Start: 09-22-2021 End: 08-19-2022 Ct thorax w/o contrast material CT CHEST WO IVCON Radiology Routine Lung nodules Expected: 09/22/2021, Expires: 08/19/2022 [facility] Work Phone: Comment on above: Expected: 09/22/2021, Expires: 3 Start: 07-20-2021 End: 09-19-2021 Basic metabolic 2000 panel - Serum or Plasma BASIC METABOLIC PNL Lab Routine Pedal edema Expected: 07/20/2021, Expires: 09/19/2021 [facility] Work Phone: Comment on above: Expected: 07/20/2021, Expires: 2 Start: 07-20-2021 End: 09-19-2021 Natriuretic peptide.B prohormone N-Terminal [Mass/volume] in Serum or Plasma NT PRO BNP Lab Routine Pedal edema Dyspnea, unspecified Expected: 07/20/2021, Expires: 09/19/2021 [facility] Work Phone: Comment on above: Expected: 07/20/2021, Expires: 2 Start: 03-11-2021 DEPRESSION ASSESSMENT DEPRESSION ASSESSMENT [facility] Start: 05-04-2020 PROSTATE CANCER SCREENING DISCUSSION PROSTATE CANCER SCREENING DISCUSSION [facility] Start: 05-04-2020 Prostate specific antigen measurement Prostate Cancer Screening Discussion [facility] Start: 01-10-2020 Adult depression screening assessment DEPRESSION SCREENING [facility] Start: 2019 HEPATITIS B (1 of 3 - Risk 3-dose series) HEPATITIS B (1 of 3 - Risk 3-dose series) [facility] Start: 2019 Hepatitis B Vaccine (1 of 3 - Risk 3-dose series) Hepatitis B Vaccine (1 of 3 - Risk 3-dose series) [facility] Start: 2019 RSV Vaccine (1 - 1-dose 60+ series) RSV Vaccine (1 - 1-dose 60+ series) [facility] Start: 2019 RSV Vaccine (1 - Risk 60-74 years 1-dose series) RSV Vaccine (1 - Risk 60-74 years 1-dose series) [facility] Start: 03-19-2018 Influenza vaccination LUNG CANCER SCREENING [facility] Start: 2009 SHINGRIX VACCINE (1 of 2) SHINGRIX VACCINE (1 of 2) [facility] Start: 2009 Zoster Vaccines (1 of 2) Zoster Vaccines (1 of 2) [facility] Start: 2004 COLOGUARD (FIT-DNA) COLOGUARD (FIT-DNA) [facility] Start: 2004 Colonoscopy COLONOSCOPY [facility] Start: 2004 COLORECTAL CANCER SCREENING COLORECTAL CANCER SCREENING [facility] Start: [address] COLONOGRAPHY [facility] Start: 2004 FECAL OCCULT BLOOD FECAL OCCULT BLOOD [facility] Start: 2004 Screening for malignant neoplasm of colon [facility] Start: 2004 SIGMOIDOSCOPY SIGMOIDOSCOPY [facility] Start: 1978 DTaP/Tdap/Td Vaccines (1 - Tdap) DTaP/Tdap/Td Vaccines (1 - Tdap) [facility] Start: 1978 HEPATITIS A (1 of 2 - Risk 2-dose series) HEPATITIS A (1 of 2 - Risk 2-dose series) [facility] Start: 1978 Hepatitis A Vaccine (1 of 2 - Risk 2-dose series) Hepatitis A Vaccine (1 of 2 - Risk 2-dose series) [facility] Start: 1978 Urine microalbumin profile [facility] Start: 1977 Anxiety Screening Anxiety Screening [facility] Start: 1977 BP Controlled (<130/80) BP Controlled (<130/80) [facility] Start: 1977 Depression Screening Depression Screening [facility] Start: 1977 Diabetes mellitus screening Diabetes Screening [facility] Start: 1977 HEPATITIS C SCREENING HEPATITIS C SCREENING [facility] Start: 1977 Hepatitis C screening Hepatitis C Screening [facility] Start: 1977 HIV SCREENING HIV SCREENING [facility] Start: 1977 HIV screening HIV Screening [facility] Start: 1971 Depression Screening Depression Screening [facility] Start: 1964 COVID-19 VACCINE (#1) COVID-19 VACCINE (#1) [facility] Start: 1964 COVID-19 VACCINE (1) COVID-19 VACCINE (1) [facility] Start: 1960 HEPATITIS A (1 of 2 - Risk 2-dose series) HEPATITIS A (1 of 2 - Risk 2-dose series) [facility] Start: 1960 MMR Vaccines (1 of 1 - Standard series) MMR Vaccines (1 of 1 - Standard series) [facility] Start: 1959 COVID-19 VACCINE (#1) COVID-19 VACCINE (#1) [facility] Start: 1959 Abdominal aortic aneurysm screening Abdominal Aortic Aneurysm Screening [facility] Start: 1959 Creatinine measurement Creatinine Level [facility] Start: 1959 Echocardiography Echocardiogram [facility] Start: 1959 HIV screening HIV Screening [facility] Start: 1959 Lipid panel Lipid Panel [facility] Start: 1959 Potassium measurement Potassium Level [facility] Start: 1959 Screening for malignant neoplasm of colon [facility] CT Chest [facility] CT Chest WO contrast [facility] Exercise tolerance test [facility] Measurement of respiratory function [facility] End: 09-25-2022 MR cardiac morphology and function wo IV contrast [facility] Work Phone: Comment on above: Once for 1 Occurrences starting 09/26/19 23 until 09/25/2022 NM Heart Views W str ess and W radionuclide IV [facility] End: 10-13-[address] attenuation skull base mid-thigh NM PET/CT SKULL-THIGH INITIAL Radiology Routine Lung nodules 1 Occurrences starting 09/13/2021 until 10/13/2022 [facility] Work Phone: Comment on above: 1 Occurrences starting 09/13/2021 until 10/13/2022 Polysomnography [facility] End: 07-30-2022 Radiologic exam chest 2 views XR CHEST 2V FRONTAL/LAT Radiology Routine Chronic obstructive pulmonary disease, unspecified COPD type (HCC) 1 Occurrences starting 07/01/2021 until 07/30/2022 [facility] Work Phone: Comment on above: 1 Occurrences starting 07/01/2021 until 07/30/2022 End: 07-30-2022 SPIROMETRY WITH DILATOR IF OBSTRUCTED SPIROMETRY WITH DILATOR IF OBSTRUCTED PFT Routine Chronic obstructive pulmonary disease, unspecified COPD type (HCC) 1 Occurrences starting 07/01/2021 until 07/30/2022 [facility] Work Phone: Comment on above: 1 Occurrences starting 07/01/2021 until 07/30/2022 SPIROMETRY WITH DILA TOR IF OBSTRUCTED SPIROMETRY WITH DILATOR IF OBSTRUCTED PFT Routine Chronic obstructive pulmonary disease, unspecified COPD type (HCC) 09/13/2021 9:52 AM EDT [facility] Work Phone: End: 08-26-2025 XR Chest PA and Lateral XR CHEST 2V FRONTAL/LAT Radiology Routine Chronic obstructive pulmonary disease, unspecified COPD type (HCC) Persistent cough 1 Occurrences starting 07/27/2024 until 08/26/2025 [facility] Work Phone: Comment on above: 1 Occurrences starting 07/27/2024 until 08/26/2025 End: 07-23-2024 XR Ribs - right 2 Views XR RIBS 2V AP/OBL RIGHT Radiology Routine Rib contusion, right, initial encounter 1 Occurrences starting 06/24/2023 until 07/23/2024 [facility] Work Phone: Comment on above: 1 Occurrences starting 06/24/2023 until 07/23/2024 [facility] Immunizations Immunization Date Immunization Notes Care Provider [facility] 11-18-2024 Seasonal trivalent influenza vaccine, adjuvanted, preservative free Dr. Tej Phan MD Work Phone: [facility] 02-12-2024 influenza, injectabl e, madin john canine kidney, preservative free Dr. Tej Phan MD Work Phone: [facility] 02-12-2024 pneumococcal polysaccharide vaccine, [address] Tej Phan MD Work Phone: [facility] 02-12-2024 influenza virus vacc ine, unspecified formulation Cisco Phan MD Work Phone: [facility] 01-15-2023 influenza, injectabl e, quadrivalent, contains preservative Cisco Phan MD Work Phone: [facility] 01-15-2023 influenza virus vacc ine, unspecified formulation Carla Margarette PUBLICIST.INSURANCE ADJUSTOR Work Phone: [facility] 05-18-2021 influenza, injectabl e, quadrivalent, contains preservative Maren Kerns PUBLICIST.INSURANCE ADJUSTOR Work Phone: [facility] 05-18-2021 pneumococcal polysaccharide vaccine, 23 valent Maren Kerns PUBLICIST.INSURANCE ADJUSTOR Work Phone: [facility] 05-18-2021 influenza virus vacc ine, unspecified formulation Cisco Phan Work Phone: [facility] 01-23-2020 influenza, injectabl e, quadrivalent, preservative free Maren Kerns PUBLICIST.INSURANCE ADJUSTOR Work Phone: [facility] 01-23-2020 influenza, seasonal, injectable Maren Kerns PUBLICIST.INSURANCE ADJUSTOR Work Phone: [facility] 01-09-2019 pneumococcal conjuga te vaccine, 13 valent Maren Kerns PUBLICIST.INSURANCE ADJUSTOR Work Phone: [facility] 12-23-2018 influenza, injectabl e, quadrivalent, contains preservative Maren Kerns PUBLICIST.INSURANCE ADJUSTOR Work Phone: [facility] 12-23-2017 influenza, injectabl e, quadrivalent, preservative free Maren Kerns PUBLICIST.INSURANCE ADJUSTOR Work Phone: [facility] 03-19-2017 influenza, injectabl e, quadrivalent, contains preservative Maren Kerns PUBLICIST.INSURANCE ADJUSTOR Work Phone: [facility] 01-23-2017 pneumococcal conjuga te vaccine, 13 valent Maren Kerns PUBLICIST.INSURANCE ADJUSTOR Work Phone: [facility] 05-30-2015 influenza, injectabl e, quadrivalent, contains preservative Maren Kerns PUBLICIST.INSURANCE ADJUSTOR Work Phone: [facility] 05-30-2015 influenza, seasonal, injectable Maren Kerns PUBLICIST.INSURANCE ADJUSTOR Work Phone: [facility] 05-30-2015 pneumococcal conjuga te vaccine, 13 valent Maren Kerns PUBLICIST.INSURANCE ADJUSTOR Work Phone: [facility] Payers Date Payer Category Payer Self-pay 2023 Private Health Insurance [id number] 2021 Medicare 2021 Medicare [employer] BY [facility] [id number] 2021-Present [phone] [place] [id number] [facility] [id number] 2021 Medicare (Managed Care) [employer] [facility] [id number] 2021 Medicare [id number] 2016 Medicare MEDICARE MEDICAR E A AND B [id number] 2016-Present [phone] [facility] [address] [place] [address] Medicare [id number] 2011 Private Health Insurance [id number] 1959 Unknown [id number] 1959 Unknown [id number] 1959 Unknown [id number] 1959 Unknown [id number] [id number] Unknown [id number] Unknown [id number] [id number] Unknown [id number] [id number] Unknown [id number] [id number] Unknown [id number] [id number] Unknown [id number] [id number] Unknown [id number] Unknown [id number] Unknown [id number] Social History Date Type Detail Facility Start: 01-21-2019 End: 07-27-2024 Tobacco smoking status NHIS Ex-smoker [facility] Work Phone: Start: 05-30-1971 End: 01-06-2019 History of tobacco use Current smoker [facility] Work Phone: Start: 05-30-1971 End: 01-06-2019 History of tobacco use Cigarette Smoker [facility] Work Phone: Start: 05-30-1971 End: 01-06-2019 History of tobacco use Cigar Smoker [facility] Work Phone: Start: 01-21-2019 End: 10-08-2022 Cigarettes smoked current (pack per day) - Reported 2 [facility] Start: 01-21-2019 End: 07-27-2024 Tobacco use and exposure Smokeless tobacco non-user [facility] Work Phone: Start: 05-18-2021 End: 07-27-2024 Alcohol intake Current non-drinker of alcohol (finding) [facility] Start: 02-02-2020 End: 03-08-2022 History SDOH Alcohol Frequency 1 [facility] Start: 07-06-2014 History SDOH Alcohol Comment heavy in past [facility] Start: 02-02-2020 End: 03-08-2022 History SDOH Social Connections Phone 5 [facility] Start: 02-02-2020 End: 03-08-2022 History SDOH Social Connections Membership 2 [facility] Start: 02-02-2020 End: 03-08-2022 History SDOH Physical Activity DPW 0 [facility] Start: 01-21-2019 End: 05-07-2022 Tobacco Comment quit smoking Nov [facility] Start: 1960 Sex Assigned At Not on file C [facility] Start: 05-08-2021 End: 09-25-2022 Exposure to SARS-CoV-2 (event) Not sure [facility] Start: 03-08-2022 History SDOH Financial 4 [facility] Start: 04-09-2022 End: 05-20-2023 Tobacco smoking status DCIS Unknown if ever smoked [facility] Start: 1960 Sex Assigned At Male W [facility] Tobacco smoking stat us NHIS Smokes tobacco daily [facility] Start: 03-08-2022 End: 10-08-2022 Gender identity Not on file [facility] Do you belong to any clubs or organizations such as judaism groups, unions, fraternal or athletic groups, or school groups? No [facility] Are you now , , , , never or living with a partner? [facility] How often to you hav e a drink containing alcohol? Never [facility] Start: 06-28-[address] inks containing alcohol do you have on a typical day? Patient does not drink [facility] How hard is it for y ou to pay for the very basics like food, housing, medical care, and heating Not very hard [facility] Do you feel stress - tense, restless, nervous, or anxious, or unable to sleep at night because your mind is troubled all the time - these days [OSQ] Only a little [facility] (I/We) worried juan m saha (my/our) food would run out before (I/we) got money to buy more. Never true [facility] Start: 08-22-2024 Tobacco smoking status Heavy t obacco smoker (finding) [facility] Sexual Orientation [facility] Start: 11-10-2013 Sex Male (finding) [facility] Functional Status Date Assessment Result Facility 08-17-2014 Are you deaf, or do you have serious difficulty hearing No 08/17/2014 1:54 PM Isabel Kirk LPN No [facility] 08-17-2014 Are you blind, or do you have serious difficulty seeing, even when wearing glasses Yes 08/17/2014 1:54 PM Isabel Kirk LPN Yes [facility] 08-17-2014 Do you have serious difficulty walking or climbing stairs Yes 08/17/2014 1:54 PM Isabel iKrk LPN Yes [facility] 08-17-2014 Do you have difficul ty dressing or bathing No 08/17/2014 1:54 PM Isabel Kirk LPN No [facility] 08-17-2014 Because of a physica l, mental, or emotional condition, do you have difficulty doing errands alone such as visiting a physician's office or shopping Yes 08/17/2014 1:54 PM EDT Isabel Wetzel LPN Yes [facility] Mental Status Date Assessment Result Facility 08-17-2014 Because of a physica l, mental, or emotional condition, do you have serious difficulty concentrating, remembering, or making decisions No 08/17/2014 1:54 PM EDT Isabel Wetzel LPN No [facility] Clinical Notes 06-02-2021 to 11-18-2024 Telephone Encounter - Marcus Juarez LPN - 11/18/2024 2:42 PM EDTTelephone Encounter - Marcus Juarez LPN - 11/18/2024 2:42 PM EDT Note Date & Type Note Facility 11-18-2024 Telephone encounter Note Form atting of this note might be different from the original. Received visit summary from [facility] pul. Placed in provider's inbox for review. Route to MA scanning [facility] 11-18-2024 Miscellaneous Notes Formattin g of this note might be different from the original. Received visit summary from [facility] pul. Placed in provider's inbox for review. Route to MA scanning documented in this encounter [facility] 11-05-2024 Procedure note [facility] 11-04-2024 Radiology Diagnostic study note [facility] Imaging Services [address] [place] [address] [id number] Chest without Contrast MR#: [id number] Acct: [id number] Name: SANDEE SORIANO Rep #: [id number] : 1960 M 64 From: Nicolas Oviedo MD PCP: Dr. Tej Phan MD Status: REG CLI Study:Chest without Contrast Date of Exam: 11/03/24 Exam# [id number] Ordering Dr: Shady Harman NP SUPERVISOR INSTRUMENT MAINTENANCE-C PROCEDURE: CHEST WITHOUT CONTRAST 11/03/2024 REASON FOR EXAM: SMOKER Current smoker. Patient has smoked for 54 years. TECHNIQUE: Chest CT without contrast. Coronal and Sagittal reconstruction series were provided. One or more dose reduction techniques were used (e.g., Automated exposure control, adjustment of the mA and/or kV according to patient size, use of iterative reconstruction technique RADIATION DOSE SUMMARY: CTDlvol: 10.53 mGy DLP: 397.47 mGycm COMPARISON: Prior studies dated May 16, 2023 and January 01, 2024. FINDINGS: Hardware: None Lymph nodes: Multiple small benign-appearing bilateral axillary lymph nodes. Heart and Vasculature: Stable dilatation of the main pulmonary artery with a transverse dimension of 5.7 cm. Prominence of the central pulmonary arteries bilaterally. Atherosclerotic calcific plaques of theaortic arch. Coronary Artery Calcifications: Coronary artery calcification. No evidence of pericardial effusion. Lungs and Airways: Advanced emphysematous changes are present. Interval decrease in size of the previously seen noncalcified nodule in the lateral aspect of the right upper lobe as seen on axial image number 38 it presently measures 6.8 mm. Previously, it measures 8.2 mL. Essentially stable size of the previously seen pulmonary nodule in the anterior aspect of the right middle lobe as seen on axial image number 87 Pleura: No pleural effusion. Upper Abdomen: Unremarkable Bones: Degenerative changes of the thoracic spine. CT/Chest without Contrast IMPRESSION: Coronary artery calcification (CAC) is is present Stable emphysematous changes. Stable dilatation of the main pulmonary artery in the right and left pulmonary arteries. This is suggestive of pulmonary hypertension. Slight decrease in size of the previously seen nodule in the lateral aspect of the right upper lobe. Otherwise unchanged. Reading Location: [id number] CC: BAY Harman; Dr. Tej Phan MD ~ Side Seam Envelope Machine Operator: Signed [facility] 10-21-2024 Telephone encounter Note Prescription Refill Information The patient has been identified by name and date of : Yes Caregiver verified no other encounters exist for this prescription request: Yes Caregiver confirmed with patient/requestor that no other refills are due, in the near future, with this provider at this time: Yes The last office visit in the department: 07/27/2024 Does the patient have a future office visit with this provider/department: No Requested Prescriptions Pending Prescriptions Disp Refills levothyroxine (SYNTHROID) 75 mcg tablet [Pharmacy Med Name: LEVOTHYROXINE 75 MCG TABLET] 90 tablet 0 Sig: TAKE 1 TABLET BY MOUTH ONCE DAILY. TAKE ON EMPTY STOMACH. FOR THYROID. furosemide (LASIX) 20 mg tablet 90 tablet 0 Sig: Take 1 tablet by mouth once daily. Yoon Brand LPN October 21, 2024 10:22 AM [facility] 10-21-2024 Miscellaneous Notes Prescription Refill Information The patient has been identified by name and date of : Yes Caregiver verified no other encounters exist for this prescription request: Yes Caregiver confirmed with patient/requestor that no other refills are due, in the near future, with this provider at this time: Yes The last office visit in the department: 07/27/2024 Does the patient have a future office visit with this provider/department: No Requested Prescriptions Pending Prescriptions Disp Refills levothyroxine (SYNTHROID) 75 mcg tablet [Pharmacy Med Name: LEVOTHYROXINE 75 MCG TABLET] 90 tablet 0 Sig: TAKE 1 TABLET BY MOUTH ONCE DAILY. TAKE ON EMPTY STOMACH. FOR THYROID. furosemide (LASIX) 20 mg tablet 90 tablet 0 Sig: Take 1 tablet by mouth once daily. Yoon Brand LPN October 21, 2024 10:22 AM documented in this encounter [facility] 10-19-2024 Telephone encounter Note Prescription Refill Information The patient has been identified by name and date of : Yes Caregiver verified no other encounters exist for this prescription request: Yes Caregiver confirmed with patient/requestor that no other refills are due, in the near future, with this provider at this time: Yes The last office visit in the department: 07/27/2024 Does the patient have a future office visit with this provider/department: No Requested Prescriptions Pending Prescriptions Disp Refills potassium chloride ER (KLOR-CON) 20 mEq tablet [Pharmacy Med Name: POTASSIUM CL ER 20 MEQ TAB MCR] 90 tablet 0 Sig: TAKE 1 TABLET BY MOUTH EVERY AFTERNOON Yoon Brand LPN October 19, 2024 11:30 AM t [facility] 10-19-2024 Miscellaneous Notes Prescription Refill Information The patient has been identified by name and date of : Yes Caregiver verified no other encounters exist for this prescription request: Yes Caregiver confirmed with patient/requestor that no other refills are due, in the near future, with this provider at this time: Yes The last office visit in the department: 07/27/2024 Does the patient have a future office visit with this provider/department: No Requested Prescriptions Pending Prescriptions Disp Refills potassium chloride ER (KLOR-CON) 20 mEq tablet [Pharmacy Med Name: POTASSIUM CL ER 20 MEQ TAB MCR] 90 tablet 0 Sig: TAKE 1 TABLET BY MOUTH EVERY AFTERNOON Yoon Brand LPN October 19, 2024 11:30 AM t documented in this encounter [facility] 10-06-2024 Hospital Discharge instructions Patient Education 10/06/2024 10:58:55 Cellulitis Skin Infection Cellulitis Cellulitis is an infection of the deep layers of skin. A break in the skin, such as a cut or scratch, can let bacteria under the skin. If the bacteria get to deep layers of the skin, it can be serious. If not treated, cellulitis can get into the bloodstream and lymph nodes. The infection can then spread throughout the body. This causes serious illness. Cellulitis causes the affected skin to become red, swollen, warm, and sore. The reddened areas have a visible border. An open sore may leak fluid (pus). You may have a fever, chills, and pain. Cellulitis is treated with antibiotics taken for 7 to 10 days. An open sore may be cleaned and covered with cool wet gauze. Symptoms should get better 1 to 2 days after treatment is started. Make sure to take all the antibiotics for the full number of days until they are gone. Keep taking the medicine even if your symptoms go away. Home care Follow these tips: Limit the use of the part of your body with cellulitis. If the infection is on your leg, keep your leg raised while sitting. This will help to reduce swelling. Take all of the antibiotic medicine exactly as directed until it is gone. Do not miss any doses, especially during the first 7 days. Don t stop taking the medicine when your symptoms get better. Keep the affected area clean and dry. Wash your hands with soap and warm water before and after touching your skin. Anyone else who touches your skin should also wash his or her hands. Don't share towels. Follow-up care Follow up with your healthcare provider, or as advised. If your infection does not go away on the first antibiotic, your healthcare provider will prescribe a different one. When to seek medical advice Call your healthcare provider right away if any of these occur: Red areas that spread Swelling or pain that gets worse Fluid leaking from the skin (pus) Fever higher of 100.4 F (38.0 C) or higher after 2 days on antibiotics 0525-1610 [employer]. [address] [place] [address]. All rights reserved. This information is not intended as a substitute for professional medical care. Always follow your healthcare professional's instructions. Follow Up Care 10/06/2024 10:44:40 With:CISCO PHAN MD Address: [address] [place] [address] [phone] When:2-4 days [facility] 10-06-2024 Note Discharge Instructions Thank you for allowing [facility] to assist you with your healthcare needs. The following is important discharge information regarding your hospital visit. Diagnosis from Today's Visit Cat bite of left hand Cellulitis of left hand What to Do Next Instructions from Your Care Team No qualifying data available. Post Acute Orders No qualifying data available. You Need to Schedule the Following Appointments Follow Up with CISCO PHAN MD When:Within 2-4 days Where:[address] [place] [address]- [phone] Allergies NKA Medications Please ask your primary doctor or pharmacist before taking any other medication not listed, including over the counter drugs, herbal medications, vitamins and or supplements as they may interact with your home medications. What How Much When Instructions Last Dose New doxycycline (doxycycline hyclate 100 mg oral capsule) 1 cap by mouth Two (2) times a day Duration: 10 Days Printed Prescription Unchanged albuterol (Ventolin HFA MDI (90 mcg/ inh) inhalation aerosol) by inhalation Four (4) times a day Please take this list to your next doctor s visit. Bring all medications you take, including over the counter medications, herbals and other supplements with you to your doctor s visit. Patients and families are reminded to discard old lists and to update any records with all medication providers or retail pharmacies. Education Materials Cellulitis Cellulitis is an infection of the deep layers of skin. A break in the skin, such as a cut or scratch, can let bacteria under the skin. If the bacteria get to deep layers of the skin, it can be serious. If not treated, cellulitis can get into the bloodstream and lymph nodes. The infection can then spread throughout the body. This causes serious illness. Cellulitis causes the affected skin to become red, swollen, warm, and sore. The reddened areas have a visible border. An open sore may leak fluid (pus). You may have a fever, chills, and pain. Cellulitis is treated with antibiotics taken for 7 to 10 days. An open sore may be cleaned and covered with cool wet gauze. Symptoms should get better 1 to 2 days after treatment is started. Make sure to take all the antibiotics for the full number of days until they are gone. Keep taking the medicine even if your symptoms go away. Home care Follow these tips: Limit the use of the part of your body with cellulitis. If the infection is on your leg, keep your leg raised while sitting. This will help to reduce swelling. Take all of the antibiotic medicine exactly as directed until it is gone. Do not miss any doses, especially during the first 7 days. Don t stop taking the medicine when your symptoms get better. Keep the affected area clean and dry. Wash your hands with soap and warm water before and after touching your skin. Anyone else who touches your skin should also wash his or her hands. Don't share towels. Follow-up care Follow up with your healthcare provider, or as advised. If your infection does not go away on the first antibiotic, your healthcare provider will prescribe a different one. When to seek medical advice Call your healthcare provider right away if any of these occur: Red areas that spread Swelling or pain that gets worse Fluid leaking from the skin (pus) Fever higher of 100.4 F (38.0 C) or higher after 2 days on antibiotics 6176-4422 [employer]. [address] [place] [address], [place] [address]. All rights reserved. This information is not intended as a substitute for professional medical care. Always follow your healthcare professional's instructions. Additional Information VACCINATE! IT SAVES LIVES! Members of the community who have not yet received the COVID-19 vaccine and would like to receive it can visit one of [facility] vaccine clinics. There are many vaccine clinic locations within the [facility]. For locations and available times, please visit [email or web address] [email or web address] It is important to note that some COVID mobile vaccine clinics are held outdoors and may be canceled in rainy or stormy conditions. To learn more about pediatric vaccinations (ages 5-11), we invite you to visit the [employer] webpage. [email or web address]/pag [email or web address]-[email or web address]-Frequent [email or web address]-[email or web address].html To learn more about the COVID-19 vaccine, we invite you to visit the CDC website for a list of frequently asked questions. https://www.cdc.gov/coronavirus/20 19-ncov/vaccines/faq.html [facility] Patient Portal Access Instructions: Stay connected with your healthcare team and access your personal medical information anytime with the [facility] Patient Portal. If you would like a full copy of your medical records please contact the [facility] Medical Records Department Saturday through Saturday between 8a.m. and 4:30p.m. Please follow the directions below to access the portal: 1.Access the email account you provided upon registration to the hospital.2.Look for an invitation email from [facility].3.Open the email and access the invitation link: Accept Invitation to [facility]4.Fill in the required hanna to create your account. Sign into [email or web address] with your username and password that you created in the above steps to stay up to date. You can then view a summary of results, a summary of your visits, and the ability to download your summaries to your computer or send the information securely to a physician. Remember that your healthcare information is confidential, so carefully consider who you will allow to register on the [facility] Patient Portal for access to your information. You can also access the [facility] Patient Portal on the [employer] bettie. Simply click on Health Records under Health Data and then click on the [employer] logo. HOW TO SAFELY DISPOSE OF PRESCRIPTION MEDICATIONS Please use one of the following methods to safely dispose of your unused medications. 1.Use a drug disposal kit: the drug disposal pouch allows you to safely discard your old and unused drugs. Ask your nurse to give you one when you are discharged.2.Visit a local take-back location: Many local pharmacies and police departments have programs that collect old and unwanted prescription drugs. Call your local pharmacy or go to http://[employer].Cortona3D/1I0Ca6o to find one close to you.3.Make use of household items: Use cat litter or old coffee grounds to dispose medications if other options are not available. Mix your drugs with these household products, seal them in an airtight container and throw it into the garbage. Call [facility]: [phone] to be sure your drugs can be disposed of in this way. Some medicines may require a different approach.4.Never flush your medications down the toilet. IF YOU HAVE BEEN PRESCRIBED AN OPIOIDS FOR PAIN If you have been prescribed an opioid (such as hydrocodone, oxycodone or morphine), it is critical to understand the possible side effects and risks of opioid pain medications. Even when taken as directed, opioids can have several side effects including: Tolerance, meaning you might need to take more of a medication for the same pain relief. Nausea, vomiting and/or constipation. Sleepiness, dizziness, dry mouth, confusion, depression or itching. Physical dependence, meaning you have withdrawal symptoms when a medication is stopped ? this can develop within a few days. KNOW YOUR RESPONSIBILITIES It is important to know exactly how much and how often to take the opioid pain medications you are prescribed. Never take opioids in higher amounts or more often than prescribed. Do not combine opioids with alcohol or other drugs that cause drowsiness, such as benzodiazepines, also known as benzos, including diazepam and alprazolam, muscle relaxants or sleep aids. Never sell or share prescription opioids. This is illegal. Store opioids in a secure place and out of reach of others (including children, family, friends and visitors). The last page(s) of this document has been signed and retained as a CHART COPY Signatures Patient Education Materials Cellulitis Skin Infection Medication Leaflets My discharge plan and instructions have been reviewed and explained to me and I,SANDEE SORIANO understand my current condition and have read and understand these discharge instructions. I have received a written copy of the plan/instructions. If I have questions, I am aware that I should contact my doctor. 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 No need to notify patient. Patient phones for refill(s): Requested Prescriptions Pending Prescriptions Disp Refills rosuvastatin (CRESTOR) 10 mg tablet [Pharmacy Med Name: ROSUVASTATIN CALCIUM 10 MG TAB] 90 tablet 0 Sig: TAKE 1 TABLET BY MOUTH EVERYDAY AT BEDTIME Date of last office visit : 07/27/2024 Date of next office visit : Visit date not found Last 2 Encounter Wt Readings: Date: Wt: 07/27/2024 78.5 kg (173 lb 1 oz) 06/24/2023 83 kg (182 lb 15.7 oz) Not applicable Please advise. Rut Sarah MA [facility] 10-01-2024 Miscellaneous Notes Pharmacy verified in [facility] Patient has been identified by name and date of : Yes Patient aware RX will be sent to pharmacy. No need to notify patient. Patient phones for refill(s): Requested Prescriptions Pending Prescriptions Disp Refills rosuvastatin (CRESTOR) 10 mg tablet [Pharmacy Med Name: ROSUVASTATIN CALCIUM 10 MG TAB] 90 tablet 0 Sig: TAKE 1 TABLET BY MOUTH EVERYDAY AT BEDTIME Date of last office visit : 07/27/2024 Date of next office visit : Visit date not found Last 2 Encounter Wt Readings: Date: Wt: 07/27/2024 78.5 kg (173 lb 1 oz) 06/24/2023 83 kg (182 lb 15.7 oz) Not applicable Please advise. Rut Sarah MA documented in this encounter [facility] 08-24-2024 Telephone encounter Note Received home visit summary from [facility]. Placed in provider's inbox for review. Route to MA scanning [facility] 08-24-2024 Miscellaneous Notes Received home visit summary from [facility]. Placed in provider's inbox for review. Route to MA scanning documented in this encounter [facility] 08-23-2024 Hospital Discharge instructions Patient Education 08/22/2024 23:08:24 Insect Sting/Bite, Infected Infected Insect Bite or Sting When an insect stings you, it injects venom. When an insect bites you, it does not. Stings and bites may cause a local reaction. Or they may cause a reaction that affects your whole body. Bites and stings may become infected. Signs of infection include redness, warmth, pain, drainage of pus, and swelling. Infections will need treatment with antibiotics and should get better over the next 10 days. However, they can sometimes form an abscess (a pocket of pus) that needs to be opened by a healthcare provider to release the pus. Home care The following will help you care for your bite or sting at home: If a stinger is still in your skin, it will need to be removed. Don't use tweezers. Gently scrape the stinger from the side with a firm object such as the side of a credit card. This will loosen it and remove it from your skin. If itching is a problem, applying ice packs to the sting area will help. Wash the area with soap and water at least 3 times a day. Apply a topical antibiotic cream or ointment. You can use an over-the counter antihistamine unless your doctor has given you a prescription antihistamine. You may use antihistamines to reduce itching if large areas of the skin are involved. Use lower doses during the daytime and higher doses at bedtime since the drug may make you sleepy. Don't use an antihistamine if you have glaucoma or if you are a man with trouble urinating due to an enlarged prostate. Some antihistamines cause less drowsiness and are a good choice for daytime use. If oral antibiotics have been prescribed, be sure to take them as directed until they are all finished. You may use yjwg-jcs-zkjnusb pain medicine to control pain, unless another pain medicine was prescribed. Talk with your doctor before using acetaminophen or ibuprofen if you have chronic liver or kidney disease. Also talk with your doctor if you have ever had a stomach ulcer or gastrointestinal bleeding. Follow-up care Follow up with your healthcare provider, or as advised if you don't get better over the next 2 days or if your symptoms get worse. Call 911 Call 911 if any of these occur: Swelling of the face, eyelids, mouth, throat, or tongue Difficulty swallowing or breathing When to seek medical advice Call your healthcare provider right away if any of these occur: Spreading areas of redness or swelling Fever of 100.4 F (38 C) or higher, or as directed by your healthcare provider Increased local pain, especially if the area starts feeling squishy like a water ballon. Headache, fever, chills, muscle or joint aching, or vomiting, New rash [phone] [employer]. [address] [place] [address]. All rights reserved. This information is not intended as a substitute for professional medical care. Always follow your healthcare professional's instructions. Follow Up Care 08/22/2024 21:42:30 With:MADISON BRENNAN MD Address: [address] [place] [address] [phone] When:2-4 days With:Call Physician Referral Address:Unknown When:2-4 days [facility]24 Emergency department Discharge summary Discharge Instructions Thank you for allowing [facility] to assist you with your healthcare needs. The following is important discharge information regarding your hospital visit. Diagnosis from Today's Visit Infected hand What to Do Next Instructions from Your Care Team No qualifying data available. Post Acute Orders No qualifying data available. You Need to Schedule the Following Appointments Follow Up with MADISON BRENNAN MD When:Within 2-4 days Where:[address] [place] [address]- [phone] Follow Up with Call Physician Referral When:Within 2-4 days Allergies NKA Medications Please ask your primary doctor or pharmacist before taking any other medication not listed, including over the counter drugs, herbal medications, vitamins and or supplements as they may interact with your home medications. What How Much When Instructions Last Dose New doxycycline (doxycycline hyclate 100 mg oral tablet) 1 tab(s) by mouth Two (2) times a day Duration: 10 Days Take with a probiotic Printed Prescription Unchanged albuterol (Ventolin HFA MDI (90 mcg/ inh) inhalation aerosol) by inhalation Four (4) times a day Please take this list to your next doctor s visit. Bring all medications you take, including over the counter medications, herbals and other supplements with you to your doctor s visit. Patients and families are reminded to discard old lists and to update any records with all medication providers or retail pharmacies. Education Materials Infected Insect Bite or Sting When an insect stings you, it injects venom. When an insect bites you, it does not. Stings and bites may cause a local reaction. Or they may cause a reaction that affects your whole body. Bites and stings may become infected. Signs of infection include redness, warmth, pain, drainage of pus, and swelling. Infections will need treatment with antibiotics and should get better over the next 10 days. However, they can sometimes form an abscess (a pocket of pus) that needs to be opened by a healthcare provider to release the pus. Home care The following will help you care for your bite or sting at home: If a stinger is still in your skin, it will need to be removed. Don't use tweezers. Gently scrape the stinger from the side with a firm object such as the side of a credit card. This will loosen it and remove it from your skin. If itching is a problem, applying ice packs to the sting area will help. Wash the area with soap and water at least 3 times a day. Apply a topical antibiotic cream or ointment. You can use an over-the counter antihistamine unless your doctor has given you a prescription antihistamine. You may use antihistamines to reduce itching if large areas of the skin are involved. Use lower doses during the daytime and higher doses at bedtime since the drug may make you sleepy. Don't use an antihistamine if you have glaucoma or if you are a man with trouble urinating due to an enlarged prostate. Some antihistamines cause less drowsiness and are a good choice for daytime use. If oral antibiotics have been prescribed, be sure to take them as directed until they are all finished. You may use yete-hwv-mgummlk pain medicine to control pain, unless another pain medicine was prescribed. Talk with your doctor before using acetaminophen or ibuprofen if you have chronic liver or kidney disease. Also talk with your doctor if you have ever had a stomach ulcer or gastrointestinal bleeding. Follow-up care Follow up with your healthcare provider, or as advised if you don't get better over the next 2 days or if your symptoms get worse. Call 911 Call 911 if any of these occur: Swelling of the face, eyelids, mouth, throat, or tongue Difficulty swallowing or breathing When to seek medical advice Call your healthcare provider right away if any of these occur: Spreading areas of redness or swelling Fever of 100.4 F (38 C) or higher, or as directed by your healthcare provider Increased local pain, especially if the area starts feeling squishy like a water ballon. Headache, fever, chills, muscle or joint aching, or vomiting, New rash [phone] [employer]. [address] [place] [address], [place] [address]. All rights reserved. This information is not intended as a substitute for professional medical care. Always follow your healthcare professional's instructions. Additional Information VACCINATE! IT SAVES LIVES! Members of the community who have not yet received the COVID-19 vaccine and would like to receive it can visit one of [facility] vaccine clinics. There are many vaccine clinic locations within the [facility]. For locations and available times, please visit [email or web address] [email or web address] It is important to note that some COVID mobile vaccine clinics are held outdoors and may be canceled in rainy or stormy conditions. To learn more about pediatric vaccinations (ages 5-11), we invite you to visit the [facility] webpage. https://www.Bijk.coms.org/pag es/4380-Mqzsk-Flicwhmlwgo-Frequent ux-Xbcxt-Jkgwsygoc.html To learn more about the COVID-19 vaccine, we invite you to visit the CDC website for a list of frequently asked questions. https://www.cdc.gov/coronavirus/20 19-ncov/vaccines/faq.html [facility] Patient Portal Access Instructions: Stay connected with your healthcare team and access your personal medical information anytime with the [facility] Patient Portal. If you would like a full copy of your medical records please contact the [facility] Medical Records Department Saturday through Saturday between 8a.m. and 4:30p.m. Please follow the directions below to access the portal: 1.Access the email account you provided upon registration to the hospital.2.Look for an invitation email from [facility].3.Open the email and access the invitation link: Accept Invitation to [facility]4.Fill in the required hanna to create your account. Sign into [email or web address] with your username and password that you created in the above steps to stay up to date. You can then view a summary of results, a summary of your visits, and the ability to download your summaries to your computer or send the information securely to a physician. Remember that your healthcare information is confidential, so carefully consider who you will allow to register on the [facility] Patient Portal for access to your information. You can also access the [facility] Patient Portal on the [employer]. Simply click on Health Records under Health Data and then click on the [employer] logo. HOW TO SAFELY DISPOSE OF PRESCRIPTION MEDICATIONS Please use one of the following methods to safely dispose of your unused medications. 1.Use a drug disposal kit: the drug disposal pouch allows you to safely discard your old and unused drugs. Ask your nurse to give you one when you are discharged.2.Visit a local take-back location: Many local pharmacies and police departments have programs that collect old and unwanted prescription drugs. Call your local pharmacy or go to http://[employer].Cortona3D/9D9Ch6r to find one close to you.3.Make use of household items: Use cat litter or old coffee grounds to dispose medications if other options are not available. Mix your drugs with these household products, seal them in an airtight container and throw it into the garbage. Call [facility]: [phone] to be sure your drugs can be disposed of in this way. Some medicines may require a different approach.4.Never flush your medications down the toilet. IF YOU HAVE BEEN PRESCRIBED AN OPIOIDS FOR PAIN If you have been prescribed an opioid (such as hydrocodone, oxycodone or morphine), it is critical to understand the possible side effects and risks of opioid pain medications. Even when taken as directed, opioids can have several side effects including: Tolerance, meaning you might need to take more of a medication for the same pain relief. Nausea, vomiting and/or constipation. Sleepiness, dizziness, dry mouth, confusion, depression or itching. Physical dependence, meaning you have withdrawal symptoms when a medication is stopped ? this can develop within a few days. KNOW YOUR RESPONSIBILITIES It is important to know exactly how much and how often to take the opioid pain medications you are prescribed. Never take opioids in higher amounts or more often than prescribed. Do not combine opioids with alcohol or other drugs that cause drowsiness, such as benzodiazepines, also known as benzos, including diazepam and alprazolam, muscle relaxants or sleep aids. Never sell or share prescription opioids. This is illegal. Store opioids in a secure place and out of reach of others (including children, family, friends and visitors). The last page(s) of this document has been signed and retained as a CHART COPY Signatures Patient Education Materials Insect Sting/Bite, Infected Medication Leaflets My discharge plan and instructions have been reviewed and explained to me and I,SANDEE SORIANO understand my current condition and have read and understand these discharge instructions. I have received a written copy of the plan/instructions. If I have questions, I am aware that I should contact my doctor. Patient/Mold Capper Helper Signature: Date/Time: Relationship to Patient: ___ Witness Name/Signature: Date/Time: [facility] 08-22-2024 Note Exam Date Time Procedure Performing Provider Status 08/22/24 10:34 PM XR Hand and Wrist 6 Views Left ZION PETERSEN DO; Auth (Verified) [id number] ORIGINAL EXAMINATION: 6 XRAY VIEWS OF THE LEFT HAND08/22/2024 10:35 pm COMPARISON: None HISTORY: ORDERING SYSTEM PROVIDED HISTORY: Reason for Exam: pain FINDINGS: There is generalized edema around the wrist and distal forearm. No acute fracture or dislocation. There is subtle remodeling of the proximal pole the scaphoid at the radiocarpal joint, likely secondary to fracture or osteoarthritis. Negative ulnar variance. Linear high density foreign bodies anterior to the carpal bones and the ulnar side of the 2nd digit distal interphalangeal joint are of questionable clinical significance. IMPRESSION: No acute osseous abnormality. Generalized edema of the wrist and distal forearm. Tiny radiopaque foreign bodies of the wrist and 2nd ray are of questionable clinical significance. Correlation is advised. I have reviewed the resident's preliminary report and agree with findings and impression. Interpreted by: Zion Petersen Preliminary Report By: Fernie Morrow Electronically signed By Zion Petersen Dictated Date: 08/22/2024 10:45:12 PM Prelim Date: 08/22/2024 10:49:44 PM Sign Date: 08/22/2024 10:54:12 PM Ordering Provider: [facility]05-29-2025 Telephone encounter Note* Telephone Encounter - Diane Galvan MA - 08/06/2024 11:02 AM EDT Pharmacy verified in [place]. Patient has been identified by name and date of : Yes Patient aware RX will be sent to pharmacy. No need to notify patient. Pharmacy phones for refill(s): Requested Prescriptions Pending Prescriptions Disp Refills furosemide (LASIX) 20 mg tablet [Pharmacy Med Name: FUROSEMIDE 20 MG TABLET] 90 tablet 0 Sig: TAKE 1 TABLET BY MOUTH EVERY DAY Date of last office visit : 07/27/2024 Date of next office visit : Visit date not found Last 2 Encounter Wt Readings: Date: Wt: 07/27/2024 78.5 kg (173 lb 1 oz) 06/24/2023 83 kg (182 lb 15.7 oz) Please advise. Diane Galvan MA [facility]05-29-2025 Miscellaneous Notes* Telephone Encounter - Diane Galvan MA - 08/06/2024 11:02 AM EDT Pharmacy verified in [place]. Patient has been identified by name and date of : Yes Patient aware RX will be sent to pharmacy. No need to notify patient. Pharmacy phones for refill(s): Requested Prescriptions Pending Prescriptions Disp Refills furosemide (LASIX) 20 mg tablet [Pharmacy Med Name: FUROSEMIDE 20 MG TABLET] 90 tablet 0 Sig: TAKE 1 TABLET BY MOUTH EVERY DAY Date of last office visit : 07/27/2024 Date of next office visit : Visit date not found Last 2 Encounter Wt Readings: Date: Wt: 07/27/2024 78.5 kg (173 lb 1 oz) 06/24/2023 83 kg (182 lb 15.7 oz) Please advise. Diane Galvan [facility] NotePatient Outreach (PULMMN) SANTOSSANDEE Fabiana ([id number]) 1960 M Date Time Provider Department 08/03/24 RAEGAN MARTINEZ During your visit today, we recorded the following information about you: Allergies As of Date: 08/03/2024 (No Known Allergies) Date Reviewed: 07/27/2024 Reviewed by: Marcus Juarez LPN - Fully Assessed Visit Diagnosis:Tobacco abuse [Z72.0] Order(s):[facility] [[id number]] Order #: [id number]: 1 FUTURE Prescriptions as of 08/06/2024 - metoprolol succinate ER (TOPROL XL) 25 mg 24 hr tablet Take 1 tablet by mouth once daily. - PARoxetine (PAXIL) 20 mg tablet Take 1 tablet by mouth once daily. - lansoprazole (PREVACID) 30 mg capsule Take 1 capsule by mouth once daily. - losartan (COZAAR) 25 mg tablet Take 1 tablet by mouth once daily. - varenicline (CHANTIX) 1 mg tablet Take 1 tablet by mouth two times a day with meals. - levothyroxine (SYNTHROID) 75 mcg tablet TAKE 1 TABLET BY MOUTH ONCE DAILY. TAKE ON EMPTY STOMACH. FOR THYROID. - potassium chloride ER (KLOR-CON) 20 mEq tablet TAKE 1 TABLET BY MOUTH EVERY DAY EVERY AFTERNOON - rosuvastatin (CRESTOR) 10 mg tablet TAKE 1 TABLET BY MOUTH EVERYDAY AT BEDTIME - furosemide (LASIX) 20 mg tablet Take 1 tablet by mouth once daily. - nitroglycerin sublingual (NITROQUICK) 0.4 mg SL tablet 1 TAB SUBLINGUALLY EVERY 5 TO 15 MINUTES NEEDED FOR CHEST PAIN DO NOT EXCEED 3 DOSES PER EPISODE - ipratropium-albuterol (DUONEB) 0.5 mg-3 mg(2.5 mg base)/3 mL nebu INHALE 3 ML EVERY 4 HOUR NEEDED FOR SHORTNESS OF BREATH/WHEEZING - Salt Irrigation Solution No.1 (OCEAN COMPLETE) aero [place] into nose both nostrils several times a day - alcyzifzvkb-ffkfcdxex-lepyfvev (TRELEGY ELLIPTA) 100-62.5-25 mcg inhalation powder Inhale 1 Puff as instructed once daily. - albuterol HFA (PROVENTIL HFA, VENTOLIN HFA) 90 mcg/actuation inhaler Inhale 2 Puffs as instructed every 4 hours as needed. - aspirin, enteric coated (ASPIRIN, ENTERIC COATED) 81 mg EC tablet Take 81 mg by mouth once daily. Problem List As Of Date 08/03/2024 Noted Resolved Cardiomyopathy, ischemic [I25.5] 04/04/2015 Hx of CABG [Z95.1] 04/04/2015 Dyspnea on exertion [R06.09] 04/04/2015 Sinus bradycardia [R00.1] 04/04/2015 PVC's (premature ventricular contractions) [I49*04/04/2015 Tobacco abuse [Z72.0] 04/04/2015 Hypercholesterolemia [E78.00] 04/04/2015 COPD (chronic obstructive pulmonary disease) (H*11/14/2017 PAD (peripheral artery disease) (HCC) [I73.9] 11/29/2017 Chronic low back pain with bilateral sciatica [*01/09/2019 Adjustment disorder with anxiety [F43.22] 01/09/2019 Atherosclerosis of coronary artery [I25.10] 04/09/2022 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*04/09/2022 Dyslipidemia [E78.5] 04/09/2022 Essential (primary) hypertension [I10] 04/09/2022 Multiple pulmonary nodules [R91.8] 05/07/2022 Patent foramen ovale [Q21.12] 05/07/2022 Pulmonary valve stenosis [I37.0] 05/07/2022 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 Author Type: Technologist Type: Progress Notes Filed: 07/28/2024 11:59 Note Text: Radiology Service Progress Note PATIENT NAME: Sandee Soriano DATE OF SERVICE: July 28, 2024 TIME: 11:47 AM PATIENT IDENTITY VERIFICATION COMPLETED USING TWO (2) IDENTIFIERS: Name and Date of confirmed by patient verbally. FALL SCREENING: Has the patient had 2 falls in the last year or 1 fall with injury or currently using an Ambulatory Assistive Device (Walker, Cane, Wheelchair, Crutches, etc.)? No PATIENT GENDER DATA: Assigned male at PATIENT RELEVANT IMPLANT DATA REVIEWED: Not Applicable PATIENT PRESENTS WITH AN IMPLANTABLE OR ATTACHED FIRER LOCOMOTIVE CRANE: No RADIOLOGY DEPARTMENT: General X-ray: Exam(s) Completed: Chest X-Ray PERIPHERAL IV DATA: Not applicable SIGNED BY: Jaylen Alvarez July 28, 2024 11:47 [facility]05-19-2025 NoteHNO ID: [id number] Author: CISCO PHAN MD Service: ? Author Type: Physician Type: Progress Notes Filed: 07/27/2024 15:55 Note Text: Josefina Alvarado is a 64-year-old male with a history of COPD, depression, and tricuspid valve regurgitation, presenting with fatigue, dyspnea, and leg pain. Fatigue and Dyspnea: - Reports fatigue and low energy, often remaining on the couch. - Experiences wheezing and easy dyspnea. - Recent exposure to son with pneumonia. - History of COPD; missed recent pulmonary function tests due to a family . - Last seen by coal carrier Dr. Waggoner at [facility]. - Recent recommendation for portable oxygen due to SpO2 <90% with exertion. Leg Pain: - Bilateral leg pain when standing in one spot for >2 minutes. - Pain radiates to the back, preventing standing upright. - Believes pain is related to arthritis in the back. Depression: - Mood is stable on Paxil. - Denies suicidal ideation. Tricuspid Valve Regurgitation: - Missed recent cardiology appointment due to illness and family . Tobacco Use: - Resumed smoking, approximately 1 pack/week. - Expresses desire to quit, previously used Chantix successfully. Constitutional: (+) fatigue Eyes: (+) tearing right eye Ears/Nose/Mouth/Throat: (+) congestion, (+) runny nose Cardiovascular: (-) chest pain Respiratory: (+) wheezing, (+) shortness of breath Musculoskeletal: (+) leg pain, (+) back pain Psychiatric: (-) depressed mood, (-) suicidal ideation Objective Blood pressure 110/67, temperature 36.1 ?C (97 ?F), height 176.9 cm (5' 9.65), weight 78.5 kg (173 lb 1 oz), SpO2 95%. General: No acute distress. HEENT: Right eye with excessive tearing. CV: Regular rhythm, soft murmur auscultated. Resp: Lungs clear to auscultation. MSK/Ext: No ankle edema. Labs: (12/17) - Kidney function: Normal - Blood glucose: Normal - Liver enzymes: Normal - Triglycerides: Elevated - HDL: Low - LDL: Well-controlled - Thyroid function: Normal Imaging: (08/13) Echocardiogram: Mild tricuspid regurgitation 1. Screening for depression (Z13.31) 2. Encounter for screening examination for other mental health and behavioral disorders (Z13.39) - Depression is stable on Paxil; no suicidal ideation reported. - Renewed Paxil prescription for one year. 3. Cardiomyopathy, ischemic (I25.5) 4. 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 - Previous echocardiogram on August 13 showed tricuspid valve regurgitation. - Follow-up with cardiology was missed last week; advised to reschedule. - Renewed metoprolol prescription for one year. 5. Hypercholesterolemia (E78.00) - December labs showed elevated triglycerides, low HDL, and well-controlled LDL. - Ordered repeat fasting lipid panel. 6. Chronic obstructive pulmonary disease, unspecified COPD type (HCC) (J44.9) - Dyspnea on exertion and occasional wheezing reported. - Lungs clear on auscultation. - Missed pulmonary function tests last week; advised to reschedule with Dr. Waggoner at [facility]. - Discussed potential need for supplemental oxygen during exertion; advised follow-up with pulmonology. 7. PAD (peripheral artery disease) (I73.9) - No significant edema noted in lower extremities. - Advised to monitor for any changes in symptoms. 8. Essential (primary) hypertension (I10) - Blood pressure management stable on metoprolol. - Renewed metoprolol prescription for one year. 9. Persistent cough (R05.3) - Ordered chest X-ray to evaluate for pneumonia. - Will consider antibiotics based on X-ray findings. 10. Epigastric pain (R10.13) Seeing GI. He's on lansoprazole 11. Continuous tobacco abuse (Z72.0) - Resumed smoking, approximately one pack per week. - agreeble to smoking cessation Prescribed Chantix 1 mg; instructed to start with 1 tablet daily for 3-5 days, then increase to 2 tablets daily. - Discussed potential side effects including nausea and headache. 12. Chronic bilateral low back pain with bilateral sciatica (M54.42) - Severe pain limiting standing to less than 2 minutes. - Discussed previous treatments and current limitations; not a surgical candidate. - Advised to manage pain with current measures. This sounds like spinal stenosis. Attestation Recording using [employer] software for draft documentation of the visit was discussed with the patient/authorized field representative/health education; all questions welcomed and answered. Patient/authorized field representative/health education agreed to proceed Cisco Phan, [facility]05-19-2025 History of Present illness Narrative* Cisco Phan MD - 07/27/2024 3:31 PM EDT Josefina Alvarado is a 64-year-old male with a history of COPD, depression, and tricuspid valve regurgitation, presenting with fatigue, dyspnea, and leg pain. Fatigue and Dyspnea: - Reports fatigue and low energy, often remaining on the couch. - Experiences wheezing and easy dyspnea. - Recent exposure to son with pneumonia. - History of COPD; missed recent pulmonary function tests due to a family . - Last seen by coal carrier Dr. Waggoner at [facility]. - Recent recommendation for portable oxygen due to SpO2 <90% with exertion. Leg Pain: - Bilateral leg pain when standing in one spot for >2 minutes. - Pain radiates to the back, preventing standing upright. - Believes pain is related to arthritis in the back. Depression: - Mood is stable on Paxil. - Denies suicidal ideation. Tricuspid Valve Regurgitation: - Missed recent cardiology appointment due to illness and family . Tobacco Use: - Resumed smoking, approximately 1 pack/week. - Expresses desire to quit, previously used Chantix successfully. Constitutional: (+) fatigue Eyes: (+) tearing right eye Ears/Nose/Mouth/Throat: (+) congestion, (+) runny nose Cardiovascular: (-) chest pain Respiratory: (+) wheezing, (+) shortness of breath Musculoskeletal: (+) leg pain, (+) back pain Psychiatric: (-) depressed mood, (-) suicidal ideation Objective Blood pressure 110/67, temperature 36.1 C (97 F), height 176.9 cm (5' 9.65), weight 78.5 kg (173 lb 1 oz), SpO2 95%. General: No acute distress. HEENT: Right eye with excessive tearing. CV: Regular rhythm, soft murmur auscultated. Resp: Lungs clear to auscultation. MSK/Ext: No ankle edema. Labs: (12/17) - Kidney function: Normal - Blood glucose: Normal - Liver enzymes: Normal - Triglycerides: Elevated - HDL: Low - LDL: Well-controlled - Thyroid function: Normal Imaging: (08/13) Echocardiogram: Mild tricuspid regurgitation 1. Screening for depression (Z13.31) 2. Encounter for screening examination for other mental health and behavioral disorders (Z13.39) - Depression is stable on Paxil; no suicidal ideation reported. - Renewed Paxil prescription for one year. 3. Cardiomyopathy, ischemic (I25.5) 4. 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 - Previous echocardiogram on August 13 showed tricuspid valve regurgitation. - Follow-up with cardiology was missed last week; advised to reschedule. - Renewed metoprolol prescription for one year. 5. Hypercholesterolemia (E78.00) - December labs showed elevated triglycerides, low HDL, and well-controlled LDL. - Ordered repeat fasting lipid panel. 6. Chronic obstructive pulmonary disease, unspecified COPD type (HCC) (J44.9) - Dyspnea on exertion and occasional wheezing reported. - Lungs clear on auscultation. - Missed pulmonary function tests last week; advised to reschedule with Dr. Waggoner at [facility]. - Discussed potential need for supplemental oxygen during exertion; advised follow-up with pulmonology. 7. PAD (peripheral artery disease) (I73.9) - No significant edema noted in lower extremities. - Advised to monitor for any changes in symptoms. 8. Essential (primary) hypertension (I10) - Blood pressure management stable on metoprolol. - Renewed metoprolol prescription for one year. 9. Persistent cough (R05.3) - Ordered chest X-ray to evaluate for pneumonia. - Will consider antibiotics based on X-ray findings. 10. Epigastric pain (R10.13) Seeing GI. He's on lansoprazole 11. Continuous tobacco abuse (Z72.0) - Resumed smoking, approximately one pack per week. - agreeble to smoking cessation Prescribed Chantix 1 mg; instructed to start with 1 tablet daily for 3-5 days, then increase to 2 tablets daily. - Discussed potential side effects including nausea and headache. 12. Chronic bilateral low back pain with bilateral sciatica (M54.42) - Severe pain limiting standing to less than 2 minutes. - Discussed previous treatments and current limitations; not a surgical candidate. - Advised to manage pain with current measures. This sounds like spinal stenosis. Attestation Recording using [employer] software for draft documentation of the visit was discussed with the patient/authorized field representative/health education; all questions welcomed and answered. Patient/authorized field representative/health education agreed to proceed Cisco Phan MD documented in this encounterGen[facility]05-14-[facility]25 Telephone encounter Note * Telephone Encounter - Yoon Brand LPN - 07/22/2024 1:47 PM EDT Prescription Refill Information The patient has been identified by name and date of : Yes Caregiver verified no other encounters exist for this prescription request: Yes Caregiver confirmed with patient/requestor that no other refills are due, in the near future, with this provider at this time: Yes The last office visit in the department: 06/24/2023 Does the patient have a future office visit with this provider/department: No Requested Prescriptions Pending Prescriptions Disp Refills levothyroxine (SYNTHROID) 75 mcg tablet [Pharmacy Med Name: LEVOTHYROXINE 75 MCG TABLET] 90 tablet 2 Sig: TAKE 1 TABLET BY MOUTH ONCE DAILY. TAKE ON EMPTY STOMACH. FOR THYROID. Yoon Brand LPN July 22, 2024 1:47 PM [facility]05-14[facility] Miscellaneous Notes* Telephone Encounter - Yoon Brand LPN - 07/22/2024 1:47 PM EDT Prescription Refill Information The patient has been identified by name and date of : Yes Caregiver verified no other encounters exist for this prescription request: Yes Caregiver confirmed with patient/requestor that no other refills are due, in the near future, with this provider at this time: Yes The last office visit in the department: 06/24/2023 Does the patient have a future office visit with this provider/department: No Requested Prescriptions Pending Prescriptions Disp Refills levothyroxine (SYNTHROID) 75 mcg tablet [Pharmacy Med Name: LEVOTHYROXINE 75 MCG TABLET] 90 tablet 2 Sig: TAKE 1 TABLET BY MOUTH ONCE DAILY. TAKE ON EMPTY STOMACH. FOR THYROID. Yoon Brand LPN July 22, 2024 1:47 PM documented in this encounterGenesis Hospital05-14-2025 Telephone encounter Note * Telephone Encounter - Yoon Brand LPN - 07/22/2024 1:18 PM EDT Prescription Refill Information The patient has been identified by name and date of : Yes Caregiver verified no other encounters exist for this prescription request: Yes Caregiver confirmed with patient/requestor that no other refills are due, in the near future, with this provider at this time: Yes The last office visit in the department: 06/24/2023 Does the patient have a future office visit with this provider/department: Yes 07/27/2024 Requested Prescriptions Pending Prescriptions Disp Refills potassium chloride ER (KLOR-CON) 20 mEq tablet [Pharmacy Med Name: POTASSIUM CL ER 20 MEQ TAB MCR] 90 tablet 1 Sig: TAKE 1 TABLET BY MOUTH EVERY DAY EVERY AFTERNOON Yoon Brand LPN July 22, 2024 1:18 PM [facility]-14[facility] Miscellaneous Notes* Telephone Encounter - Yoon Brand LPN - 07/22/2024 1:18 PM EDT Prescription Refill Information The patient has been identified by name and date of : Yes Caregiver verified no other encounters exist for this prescription request: Yes Caregiver confirmed with patient/requestor that no other refills are due, in the near future, with this provider at this time: Yes The last office visit in the department: 06/24/2023 Does the patient have a future office visit with this provider/department: Yes 07/27/2024 Requested Prescriptions Pending Prescriptions Disp Refills potassium chloride ER (KLOR-CON) 20 mEq tablet [Pharmacy Med Name: POTASSIUM CL ER 20 MEQ TAB MCR] 90 tablet 1 Sig: TAKE 1 TABLET BY MOUTH EVERY DAY EVERY AFTERNOON Yoon Brand LPN July 22, 2024 1:18 PM documented in this encounterGenesis Hospital05-06-2025 NotePatient Outreach (INTMMN) SANDEE SORIANO ([id number]) 1960 M Date Time Provider Department 07/14/24 CISCO PHAN During your visit today, we recorded the following information about you: Allergies As of Date: 07/14/2024 (No Known Allergies) Date Reviewed: 06/24/2023 Reviewed by: Marcus Juarez LPN - Fully Assessed Visit Diagnoses:Hypercholesterolemia [E78.00] Medication management [Z79.899] Order(s):LIPID PANEL, FASTING [SQLIPB] Order #: [id number] FUTURE COMPLETE BLOOD COUNT [SQCBC] Order #: [id number] FUTURE Prescriptions as of 07/17/2024 - rosuvastatin (CRESTOR) 10 mg tablet TAKE 1 TABLET BY MOUTH EVERYDAY AT BEDTIME - metoprolol succinate ER (TOPROL XL) 25 mg 24 hr tablet TAKE 1 TABLET BY MOUTH EVERY DAY - PARoxetine (PAXIL) 20 mg tablet Take 1 tablet by mouth once daily. - furosemide (LASIX) 20 mg tablet Take 1 tablet by mouth once daily. - potassium chloride ER (KLOR-CON M20) 20 mEq tablet Take 1 tablet by mouth every afternoon. - lansoprazole (PREVACID) 30 mg capsule take 1 capsule by mouth every day - losartan (COZAAR) 25 mg tablet Take 1 tablet by mouth once daily. - levothyroxine (SYNTHROID) 75 mcg tablet TAKE 1 TABLET BY MOUTH ONCE DAILY. TAKE ON EMPTY STOMACH. FOR THYROID. - nitroglycerin sublingual (NITROQUICK) 0.4 mg SL tablet 1 TAB SUBLINGUALLY EVERY 5 TO 15 MINUTES NEEDED FOR CHEST PAIN DO NOT EXCEED 3 DOSES PER EPISODE - ipratropium-albuterol (DUONEB) 0.5 mg-3 mg(2.5 mg base)/3 mL nebu INHALE 3 ML EVERY 4 HOUR NEEDED FOR SHORTNESS OF BREATH/WHEEZING - Salt Irrigation Solution No.1 (OCEAN COMPLETE) aero [place] into nose both nostrils several times a day - pehtbcryxel-kseupntde-gdkujols (TRELEGY ELLIPTA) 100-62.5-25 mcg inhalation powder Inhale 1 Puff as instructed once daily. - albuterol HFA (PROVENTIL HFA, VENTOLIN HFA) 90 mcg/actuation inhaler Inhale 2 Puffs as instructed every 4 hours as needed. - aspirin, enteric coated (ASPIRIN, ENTERIC COATED) 81 mg EC tablet Take 81 mg by mouth once daily. Problem List As Of Date 07/14/2024 Noted Resolved Cardiomyopathy, ischemic [I25.5] 04/04/2015 Hx of CABG [Z95.1] 04/04/2015 Dyspnea on exertion [R06.09] 04/04/2015 Sinus bradycardia [R00.1] 04/04/2015 PVC's (premature ventricular contractions) [I49*04/04/2015 Tobacco abuse [Z72.0] 04/04/2015 Hypercholesterolemia [E78.00] 04/04/2015 COPD (chronic obstructive pulmonary disease) (H*11/14/2017 PAD (peripheral artery disease) (HCC) [I73.9] 11/29/2017 Chronic low back pain with bilateral sciatica [*01/09/2019 Adjustment disorder with anxiety [F43.22] 01/09/2019 Atherosclerosis of coronary artery [I25.10] 04/09/2022 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*04/09/2022 Dyslipidemia [E78.5] 04/09/2022 Essential (primary) hypertension [I10] 04/09/2022 Multiple pulmonary nodules [R91.8] 05/07/2022 Patent foramen ovale [Q21.12] 05/07/2022 Pulmonary valve stenosis [I37.0] 05/07/2022 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 pharmacy for the following medication(s): Requested Prescriptions Pending Prescriptions Disp Refills rosuvastatin (CRESTOR) 10 mg tablet [Pharmacy Med Name: ROSUVASTATIN CALCIUM 10 MG TAB] 90 tablet 2 Sig: TAKE 1 TABLET BY MOUTH EVERYDAY AT BEDTIME The pharmacy has been populated. Last (Rx 'd/filled) by 09/20/23 Cisco Phan MD (#90 with 2 refills) Last Appointment(s) 06/24/23 with Cisco Phan MD Next Appointment(s): 07/27/24 with Cisco Phan MD Please review/advise. Aisha Landeros MA [facility]04-21-[facility] Miscellaneous Notes* Telephone Encounter - Aisha Landeros MA - 06/29/2024 10:27 AM EDT Received a refill request via electronical from [facility] pharmacy for the following medication(s): Requested Prescriptions Pending Prescriptions Disp Refills rosuvastatin (CRESTOR) 10 mg tablet [Pharmacy Med Name: ROSUVASTATIN CALCIUM 10 MG TAB] 90 tablet 2 Sig: TAKE 1 TABLET BY MOUTH EVERYDAY AT BEDTIME The pharmacy has been populated. Last (Rx 'd/filled) by 09/20/23 Cisco Phan MD (#90 with 2 refills) Last Appointment(s) 06/24/23 with Cisco Phan MD Next Appointment(s): 07/27/24 with Cisco Phan MD Please review/advise. Aisha Landeros MA documented in this encounterGenesis Hospital02-26-2025 Telephone encounter Note * Telephone Encounter - Yoon Brand LPN - 05/06/2024 8:48 AM EST Prescription Refill Information The patient has been identified by name and date of : Yes Caregiver verified no other encounters exist for this prescription request: Yes Caregiver confirmed with patient/requestor that no other refills are due, in the near future, with this provider at this time: Yes The last office visit in the department: 06/24/2023 Does the patient have a future office visit with this provider/department: No Requested Prescriptions Pending Prescriptions Disp Refills metoprolol succinate ER (TOPROL XL) 25 mg 24 hr tablet [Pharmacy Med Name: METOPROLOL SUCC ER 25 MGTAB] 90 tablet 0 Sig: TAKE 1 TABLET BY MOUTH EVERY DAY PARoxetine (PAXIL) 20 mg tablet 90 tablet 0 Sig: Take 1 tablet by mouth once daily. Yoon Brand LPN May 06, 2024 8:48 AM [facility]02-26-[facility]25 Miscellaneous Notes* Telephone Encounter - Yoon Brand LPN - 05/06/2024 8:48 AM EST Prescription Refill Information The patient has been identified by name and date of : Yes Caregiver verified no other encounters exist for this prescription request: Yes Caregiver confirmed with patient/requestor that no other refills are due, in the near future, with this provider at this time: Yes The last office visit in the department: 06/24/2023 Does the patient have a future office visit with this provider/department: No Requested Prescriptions Pending Prescriptions Disp Refills metoprolol succinate ER (TOPROL XL) 25 mg 24 hr tablet [Pharmacy Med Name: METOPROLOL SUCC ER 25 MGTAB] 90 tablet 0 Sig: TAKE 1 TABLET BY MOUTH EVERY DAY PARoxetine (PAXIL) 20 mg tablet 90 tablet 0 Sig: Take 1 tablet by mouth once daily. Yoon Brand LPN May 06, 2024 8:48 AM documented in this encounterGenesis Hospital02-24-2025 Telephone encounter Note * Telephone Encounter - Salvatore Oakley MA - 05/04/2024 11:40 AM EST Pharmacy verified in [place]. Patient has been identified by name and date of : Yes Patient aware RX will be sent to pharmacy. No need to notify patient. Patient phones for refill(s): Requested Prescriptions Pending Prescriptions Disp Refills furosemide (LASIX) 20 mg tablet 90 tablet 0 Sig: Take 1 tablet by mouth once daily. Date of last office visit : 06/24/2023 Date of next office visit : Visit date not found Last 2 Encounter Wt Readings: Date: Wt: 06/24/2023 83 kg (182 lb 15.7 oz) 01/15/2023 86.6 kg (191 lb) Not applicable Please advise. Salvatore Oakley MA [facility]02-24-2025 Miscellaneous Notes* Telephone Encounter - Salvatore Oakley MA - 05/04/2024 11:40 AM EST Pharmacy verified in [place]. Patient has been identified by name and date of : Yes Patient aware RX will be sent to pharmacy. No need to notify patient. Patient phones for refill(s): Requested Prescriptions Pending Prescriptions Disp Refills furosemide (LASIX) 20 mg tablet 90 tablet 0 Sig: Take 1 tablet by mouth once daily. Date of last office visit : 06/24/2023 Date of next office visit : Visit date not found Last 2 Encounter Wt Readings: Date: Wt: 06/24/2023 83 kg (182 lb 15.7 oz) 01/15/2023 86.6 kg (191 lb) Not applicable Please advise. Salvatore Oakley MA documented in this encounterGenesis Hospital12-05-2024 Telephone encounter Note * Telephone Encounter - Marcus Juarez LPN - 02/13/2024 9:54 AM EST Received visit summary from [facility]. Placed in provider's inbox for review. Route to MA scanning [facility]12-05-[facility]24 Miscellaneous Notes* Telephone Encounter - Marucs Juarez LPN - 02/13/2024 9:54 AM EST Received visit summary from [facility]. Placed in provider's inbox for review. Route to MA scanning documented in this encounterGenesis Hospital12-03-2024 Telephone encounter Note * Telephone Encounter - Karen Glover MA - 02/11/2024 9:39 AM EST Refilled on 02/03 for 90 days [facility]12-03-[facility] Miscellaneous Notes* Telephone Encounter - Karen Glover MA - 02/11/2024 9:39 AM EST Refilled on 02/03 for 90 days documented in this encounterGenesis Hospital12-02-2024 Telephone encounter Note * Telephone Encounter - Jyoti Saenz LPN - 02/10/2024 7:11 PM EST Prescription Refill Information The patient has been identified by name and date of : Yes Caregiver verified no other encounters exist for this prescription request: Yes Caregiver confirmed with patient/requestor that no other refills are due, in the near future, with this provider at this time: Yes The last office visit in the department: 06/24/23 Does the patient have a future office visit with this provider/department: No Requested Prescriptions Pending Prescriptions Disp Refills potassium chloride ER (KLOR-CON M20) 20 mEq tablet 90 tablet 2 Sig: Take 1 tablet by mouth every afternoon. Jyoti Saenz LPN February 10, 2024 7:11 PM [facility]12-02-[facility] Miscellaneous Notes* Telephone Encounter - Jyoti Saenz LPN - 02/10/2024 7:11 PM EST Prescription Refill Information The patient has been identified by name and date of : Yes Caregiver verified no other encounters exist for this prescription request: Yes Caregiver confirmed with patient/requestor that no other refills are due, in the near future, with this provider at this time: Yes The last office visit in the department: 06/24/23 Does the patient have a future office visit with this provider/department: No Requested Prescriptions Pending Prescriptions Disp Refills potassium chloride ER (KLOR-CON M20) 20 mEq tablet 90 tablet 2 Sig: Take 1 tablet by mouth every afternoon. Jyoti Saenz LPN February 10, 2024 7:11 PM documented in this encounterGenesis Hospital11-26-2024 Telephone encounter Note * Telephone Encounter - Yoon Brand LPN - 02/04/2024 9:35 AM EST Prescription Refill Information The patient has been identified by name and date of : Yes Caregiver verified no other encounters exist for this prescription request: Yes Caregiver confirmed with patient/requestor that no other refills are due, in the near future, with this provider at this time: Yes The last office visit in the department: 06/24/2023 Does the patient have a future office visit with this provider/department: No Requested Prescriptions Pending Prescriptions Disp Refills metoprolol succinate ER (TOPROL XL) 25 mg 24 hr tablet [Pharmacy Med Name: METOPROLOL SUCC ER 25 MGTAB] 90 tablet 2 Sig: TAKE 1 TABLET BY MOUTH EVERY DAY furosemide (LASIX) 20 mg tablet 90 tablet 0 Sig: Take 1 tablet by mouth once daily. PARoxetine (PAXIL) 20 mg tablet 90 tablet 2 Sig: Take 1 tablet by mouth once daily. Yoon Brand LPN February 04, 2024 9:35 AM [facility]-26-[facility] Miscellaneous Notes* Telephone Encounter - Yoon Brand LPN - 02/04/2024 9:35 AM EST Prescription Refill Information The patient has been identified by name and date of : Yes Caregiver verified no other encounters exist for this prescription request: Yes Caregiver confirmed with patient/requestor that no other refills are due, in the near future, with this provider at this time: Yes The last office visit in the department: 06/24/2023 Does the patient have a future office visit with this provider/department: No Requested Prescriptions Pending Prescriptions Disp Refills metoprolol succinate ER (TOPROL XL) 25 mg 24 hr tablet [Pharmacy Med Name: METOPROLOL SUCC ER 25 MGTAB] 90 tablet 2 Sig: TAKE 1 TABLET BY MOUTH EVERY DAY furosemide (LASIX) 20 mg tablet 90 tablet 0 Sig: Take 1 tablet by mouth once daily. PARoxetine (PAXIL) 20 mg tablet 90 tablet 2 Sig: Take 1 tablet by mouth once daily. Yoon Brand LPN February 04, 2024 9:35 AM documented in this encounterGenesis Hospital10-24-2024 Telephone encounter Note * Telephone Encounter - Marcus Juarez LPN - 01/02/2024 1:10 PM EDT Received chest ct results from [facility]. Placed in provider's inbox for review. Route to MA scanning [facility]-24-[facility]24 Miscellaneous Notes* Telephone Encounter - Marcus Juarez LPN - 01/02/2024 1:10 PM EDT Received chest ct results from [facility]. Placed in provider's inbox for review. Route to MA scanning documented in this encounterGenesis Hospital10-10-2024 Telephone encounter Note * Telephone Encounter - Marcus Juarez LPN - 12/19/2023 9:16 AM EDT Received lab results from [facility]. Placed in provider's inbox for review. Route to MA scanning Entered into pt chart. [facility] Miscellaneous Notes* Telephone Encounter - Marcus Juarez LPN - 12/19/2023 9:16 AM EDT Received lab results from [facility]. Placed in provider's inbox for review. Route to MA scanning Entered into pt chart. documented in this encounterGenesis Hospital09-03-2024 Telephone encounter Note * Telephone Encounter - Yoon Brand LPN - 11/12/2023 1:24 PM EDT Prescription Refill Information The patient has been identified by name and date of : Yes Caregiver verified no other encounters exist for this prescription request: Yes Caregiver confirmed with patient/requestor that no other refills are due, in the near future, with this provider at this time: Yes The last office visit in the department: 06/24/2023 Does the patient have a future office visit with this provider/department: No Requested Prescriptions Pending Prescriptions Disp Refills lansoprazole (PREVACID) 30 mg capsule [Pharmacy Med Name: LANSOPRAZOLE DR 30 MG CAPSULE] 90 capsule2 Sig: take 1 capsule by mouth every day Yoon Brand LPN November 12, 2023 1:25 PM [facility]-03-2024 Miscellaneous Notes* Telephone Encounter - Yoon Brand LPN - 11/12/2023 1:24 PM EDT Prescription Refill Information The patient has been identified by name and date of : Yes Caregiver verified no other encounters exist for this prescription request: Yes Caregiver confirmed with patient/requestor that no other refills are due, in the near future, with this provider at this time: Yes The last office visit in the department: 06/24/2023 Does the patient have a future office visit with this provider/department: No Requested Prescriptions Pending Prescriptions Disp Refills lansoprazole (PREVACID) 30 mg capsule [Pharmacy Med Name: LANSOPRAZOLE DR 30 MG CAPSULE] 90 capsule2 Sig: take 1 capsule by mouth every day Yoon Brand LPN November 12, 2023 1:25 PM documented in this encounterGenesis Hospital08-14-2024 Telephone encounter Note * Telephone Encounter - Cisco Phan MD - 10/23/2023 2:28 PM EDT The following approved medication requests have been transmitted electronically. Requested Prescriptions Signed Prescriptions Disp Refills losartan (COZAAR) 25 mg tablet 90 tablet 2 Sig: Take 1 tablet by mouth once daily. Authorizing Provider: CISCO PHAN MD [facility]08-14-2024 Miscellaneous Notes* Telephone Encounter - Cisco Phan MD - 10/23/2023 2:28 PM EDT The following approved medication requests have been transmitted electronically. Requested Prescriptions Signed Prescriptions Disp Refills losartan (COZAAR) 25 mg tablet 90 tablet 2 Sig: Take 1 tablet by mouth once daily. Authorizing Provider: CISCO PHAN MD * Telephone Encounter - Rut Sarah MA - 10/23/2023 9:52 AM EDT Pharmacy verified in [facility] Patient has been identified by name and date of : Yes Patient aware RX will be sent to pharmacy. No need to notify patient. Patient phones for refill(s): Requested Prescriptions Pending Prescriptions Disp Refills losartan (COZAAR) 25 mg tablet 90 tablet 2 Sig: Take 1 tablet by mouth once daily. Date of last office visit : 06/24/2023 Date of next office visit : 10/22/2023 Last 2 Encounter Wt Readings: Date: Wt: 06/24/2023 83 kg (182 lb 15.7 oz) 01/15/2023 86.6 kg (191 lb) Not applicable Please advise. Rut Sarah MA documented in this encounterGenesis Hospital08-14-2024 Telephone encounter Note * Telephone Encounter - Rut Sarah MA - 10/23/2023 9:52 AM EDT Pharmacy verified in [facility] Patient has been identified by name and date of : Yes Patient aware RX will be sent to pharmacy. No need to notify patient. Patient phones for refill(s): Requested Prescriptions Pending Prescriptions Disp Refills losartan (COZAAR) 25 mg tablet 90 tablet 2 Sig: Take 1 tablet by mouth once daily. Date of last office visit : 06/24/2023 Date of next office visit : 10/22/2023 Last 2 Encounter Wt Readings: Date: Wt: 06/24/2023 83 kg (182 lb 15.7 oz) 01/15/2023 86.6 kg (191 lb) Not applicable Please advise. Rut Sarah MA [facility]08-14-2024 Telephone encounter Note* Telephone Encounter - Karen Glover MA - 10/23/2023 8:04 AM EDT 90 day was given on 09/19/23 [facility]08-14-2024 Miscellaneous Notes* Telephone Encounter - Karen Glover MA - 10/23/2023 8:04 AM EDT 90 day was given on 09/19/23 documented in this encounterGenesis Hospital07-11-2024 Telephone encounter Note * Telephone Encounter - Salvatore Oakley MA - 09/19/2023 5:29 PM EDT Pharmacy verified in [place]. Patient has been identified by name and date of : Yes Patient aware RX will be sent to pharmacy. No need to notify patient. Patient phones for refill(s): Requested Prescriptions Pending Prescriptions Disp Refills losartan (COZAAR) 25 mg tablet [Pharmacy Med Name: LOSARTAN POTASSIUM 25 MG TAB] 90 tablet 3 Sig: take 1 tablet by mouth every day levothyroxine (SYNTHROID) 75 mcg tablet [Pharmacy Med Name: LEVOTHYROXINE 75 MCG TABLET] 90 tablet 3 Sig: TAKE 1 TABLET BY MOUTH ONCE DAILY. TAKE ON EMPTY STOMACH. FOR THYROID. rosuvastatin (CRESTOR) 10 mg tablet [Pharmacy Med Name: ROSUVASTATIN CALCIUM 10 MG TAB] 90 tablet 0 Sig: take 1 tablet by mouth everyday at bedtime Date of last office visit : 06/24/2023 Date of next office visit : 09/19/2023 Last 2 Encounter Wt Readings: Date: Wt: 06/24/2023 83 kg (182 lb 15.7 oz) 01/15/2023 86.6 kg (191 lb) Thyroid: TSH Date Value 06/20/2023 2.960 mIU/L 04/12/2015 4.450 uU/mL Cholesterol: Triglyceride (mg/dL) Date Value 06/20/2023 146 01/11/2021 141 HDL Cholesterol (mg/dL) Date Value 06/20/2023 34 01/11/2021 33 LDL Cholesterol (mg/dL) Date Value 06/20/2023 55 01/11/2021 78 ALT (U/L) Date Value 06/20/2023 19 01/11/2021 38 Non HDL Cholesterol (mg/dL) Date Value 06/20/2023 84 01/11/2021 106 Blood Pressure: BUN Date Value 06/20/2023 11 mg/dL 03/12/2023 17 MG/DL 01/11/2021 14 mg/dL Creatinine Date Value 06/20/2023 1.07 mg/dL 03/12/2023 1.28 MG/DL 01/11/2021 1.21 mg/dL Sodium Date Value 06/20/2023 137 mmol/L 03/12/2023 133 MEQ/L 01/11/2021 138 mmol/L Potassium Date Value 06/20/2023 4.0 mmol/L 03/12/2023 3.7 MEQ/L 01/11/2021 4.5 mmol/L Last 1 Encounter BP Readings: Date: BP: 06/24/2023 112/72 Please advise. Salvatore Oakley MA [facility]07-11-2024 Miscellaneous Notes* Telephone Encounter - Salvatore Oakley MA - 09/19/2023 5:29 PM EDT Pharmacy verified in [place]. Patient has been identified by name and date of : Yes Patient aware RX will be sent to pharmacy. No need to notify patient. Patient phones for refill(s): Requested Prescriptions Pending Prescriptions Disp Refills losartan (COZAAR) 25 mg tablet [Pharmacy Med Name: LOSARTAN POTASSIUM 25 MG TAB] 90 tablet 3 Sig: take 1 tablet by mouth every day levothyroxine (SYNTHROID) 75 mcg tablet [Pharmacy Med Name: LEVOTHYROXINE 75 MCG TABLET] 90 tablet 3 Sig: TAKE 1 TABLET BY MOUTH ONCE DAILY. TAKE ON EMPTY STOMACH. FOR THYROID. rosuvastatin (CRESTOR) 10 mg tablet [Pharmacy Med Name: ROSUVASTATIN CALCIUM 10 MG TAB] 90 tablet 0 Sig: take 1 tablet by mouth everyday at bedtime Date of last office visit : 06/24/2023 Date of next office visit : 09/19/2023 Last 2 Encounter Wt Readings: Date: Wt: 06/24/2023 83 kg (182 lb 15.7 oz) 01/15/2023 86.6 kg (191 lb) Thyroid: TSH Date Value 06/20/2023 2.960 mIU/L 04/12/2015 4.450 uU/mL Cholesterol: Triglyceride (mg/dL) Date Value 06/20/2023 146 01/11/2021 141 HDL Cholesterol (mg/dL) Date Value 06/20/2023 34 01/11/2021 33 LDL Cholesterol (mg/dL) Date Value 06/20/2023 55 01/11/2021 78 ALT (U/L) Date Value 06/20/2023 19 01/11/2021 38 Non HDL Cholesterol (mg/dL) Date Value 06/20/2023 84 01/11/2021 106 Blood Pressure: BUN Date Value 06/20/2023 11 mg/dL 03/12/2023 17 MG/DL 01/11/2021 14 mg/dL Creatinine Date Value 06/20/2023 1.07 mg/dL 03/12/2023 1.28 MG/DL 01/11/2021 1.21 mg/dL Sodium Date Value 06/20/2023 137 mmol/L 03/12/2023 133 MEQ/L 01/11/2021 138 mmol/L Potassium Date Value 06/20/2023 4.0 mmol/L 03/12/2023 3.7 MEQ/L 01/11/2021 4.5 mmol/L Last 1 Encounter BP Readings: Date: BP: 06/24/2023 112/72 Please advise. Salvatore Oakley MA documented in [facility] encounterGen[facility]07-[facility]24 Telephone encounter Note * Telephone Encounter - Yoon Brand LPN - 09/19/2023 4:31 PM EDT Prescription Refill Information The patient has been identified by name and date of : Yes Caregiver verified no other encounters exist for this prescription request: Yes Caregiver confirmed with patient/requestor that no other refills are due, in the near future, with this provider at this time: Yes The last office visit in the department: 06/24/2023 Does the patient have a future office visit with this provider/department: No Requested Prescriptions Pending Prescriptions Disp Refills furosemide (LASIX) 20 mg tablet [Pharmacy Med Name: FUROSEMIDE 20 MG TABLET] 90 tablet 0 Sig: take 1 tablet by mouth every day Yoon Brand LPN September 19, 2023 4:32 PM [facility]07-11-2024 Miscellaneous Notes* Telephone Encounter - Yoon Brand LPN - 09/19/2023 4:31 PM EDT Prescription Refill Information The patient has been identified by name and date of : Yes Caregiver verified no other encounters exist for this prescription request: Yes Caregiver confirmed with patient/requestor that no other refills are due, in the near future, with this provider at this time: Yes The last office visit in the department: 06/24/2023 Does the patient have a future office visit with this provider/department: No Requested Prescriptions Pending Prescriptions Disp Refills furosemide (LASIX) 20 mg tablet [Pharmacy Med Name: FUROSEMIDE 20 MG TABLET] 90 tablet 0 Sig: take 1 tablet by mouth every day Yoon Brand LPN September 19, 2023 4:32 PM documented in this encounterGenesis Hospital06-27-2024 Telephone encounter Note * Telephone Encounter - Yari Nguyen RN - 09/05/2023 6:32 PM EDT Spoke to patient who is aware of providers advice and agreeable. Will follow up if cardiology makes a different suggestion regarding medication. Reason for Disposition [1] MILD swelling of both ankles (i.e., pedal edema) AND [2] is a chronic symptom (recurrent or ongoing AND present > 4 weeks) Protocols used: Leg Swelling and [id number] [facility]06-27-2024 Miscellaneous Notes* Telephone Encounter - Yari Nguyen RN - 09/05/2023 6:32 PM EDT Spoke to patient who is aware of providers advice and agreeable. Will follow up if cardiology makes a different suggestion regarding medication. Reason for Disposition [1] MILD swelling of both ankles (i.e., pedal edema) AND [2] is a chronic symptom (recurrent or ongoing AND present > 4 weeks) Protocols used: Leg Swelling and Yavua-[id number] * Telephone Encounter - Cisco Phan MD - 09/05/2023 5:14 PM EDT Lasix 20 mg is pretty low dose. Sounds like it's working well, inclined to have him stick with it. Complaint Operator may have a different water pill in mind. Do check with them Cisco Phan MD * Telephone Encounter - Yari Nguyen RN - 09/04/2023 3:28 PM EDT Spoke to daughter who is not with patient, called and spoke to patient who states: Taking 20mg lasix once a day Swelling noted a few days ago, has decreased Swelling only in bilateral feet - ankles look normal, no swelling in hands or anywhere else Right was worse than left States this occurs intermittently Denies pain Normal color - denies redness or rash Able to walk Denies chest pain, worsened breathing, calf pain, increased sodium in diet Drinking fluids - believes he is well hydrated Pt does not check BP at home, pulse ox while on the phone 97% and HR 48-53 Dr. [facility] At cardiology appointment, an option was discussed about stopping lasix and replacing with a new medication (unsure of the name of it). Daughter is trying to reach cardiology office, Pt and daughter wanted PCPs advice - on medication changes. If patient needs to be seen in the office to discuss, call daughter to schedule * Telephone Encounter - Lyndsay Rao - 09/04/2023 1:42 PM EDT Patient's daughter returned call. Please call her back at [phone]. * Telephone Encounter - Yari Nguyen RN - 09/04/2023 10:49 AM EDT Called Ruchi, no answer, left VM * Telephone Encounter - Faye Paulino - 09/04/2023 9:33 AM EDT Sandee's daughter is calling Cisco Phan MD today with concern regarding swelling in his feet. His water pill medication was decreased. Questioning if this is the cause of his swelling. Daughter is also asking Dr. Phan to review his recent ECHO test results. The cardiology provider wants to change his medications and removing the water pill would be one of the changes. Patient has been identified by name and birthdate. Person calling: daughter: Ruchi Call patient at: on cell [phone] (home) [phone] (cell) Was an appointment scheduled: No Closing statement: Symptom Call: Thank you for calling [facility], your call is very important. A nurse will call in approximately 2-4 hours during business hours. If this is an emergency, please contact 911. Faye Paulino documented in this encounterGenesis Hospital06-27-2024 Telephone encounter Note * Telephone Encounter - Cisco Phan MD - 09/05/2023 5:14 PM EDT Lasix 20 mg is pretty low dose. Sounds like it's working well, inclined to have him stick with it. Complaint Operator may have a different water pill in mind. Do check with them Cisco Phan MD [facility]06-26-2024 Telephone encounter Note* Telephone Encounter - Yari Nguyen RN - 09/04/2023 3:28 PM EDT Spoke to daughter who is not with patient, called and spoke to patient who states: Taking 20mg lasix once a day Swelling noted a few days ago, has decreased Swelling only in bilateral feet - ankles look normal, no swelling in hands or anywhere else Right was worse than left States this occurs intermittently Denies pain Normal color - denies redness or rash Able to walk Denies chest pain, worsened breathing, calf pain, increased sodium in diet Drinking fluids - believes he is well hydrated Pt does not check BP at home, pulse ox while on the phone 97% and HR 48-53 Dr. [facility] At cardiology appointment, an option was discussed about stopping lasix and replacing with a new medication (unsure of the name of it). Daughter is trying to reach cardiology office, Pt and daughter wanted PCPs advice - on medication changes. If patient needs to be seen in the office to discuss, call daughter to schedule [facility]06-26-2024 Telephone encounter Note* Telephone Encounter - Lyndsay Rao - 09/04/2023 1:42 PM EDT Patient's daughter returned call. Please call her back at [phone]. [facility] Telephone encounter Note* Telephone Encounter - Yari Nguyen RN - 09/04/2023 10:49 AM EDT Called Ruchi, no answer, left VM [facility]-26-2024 Telephone encounter Note* Telephone Encounter - Faye Paulino - 09/04/2023 9:33 AM EDT Sandee's daughter is calling Cisco Phan MD today with concern regarding swelling in his feet. His water pill medication was decreased. Questioning if this is the cause of his swelling. Daughter is also asking Dr. Phan to review his recent ECHO test results. The cardiology provider wants to change his medications and removing the water pill would be one of the changes. Patient has been identified by name and birthdate. Person calling: daughter: Ruchi Floyd patient at: on cell [phone] (home) [phone] (cell) Was an appointment scheduled: No Closing statement: Symptom Call: Thank you for calling [facility], your call is very important. A nurse will call in approximately 2-4 hours during business hours. If this is an emergency, please contact 911. Faye Paulino [facility]06-06-2024 Telephone encounter Note* Telephone Encounter - Yoon Brand LPN - 08/15/2023 12:45 PM EDT Received 08/15/2023 from [facility]. Placed in provider's inbox for review. Route to [place] for scanning. [facility]06-06-[facility] Miscellaneous Notes* Telephone Encounter - Yoon Brand LPN - 08/15/2023 12:45 PM EDT Received 08/15/2023 from [facility]. Placed in provider's inbox for review. Route to [place] for scanning. documented in this encounterGenesis Hospital05-08-2024 Telephone encounter Note * Telephone Encounter - Marcus Juarez LPN - 07/17/2023 4:10 PM EDT Received PAD screening (abnormal) from [facility]. Placed in provider's inbox for review. Route to [place] scanning [facility]-08-[facility]24 Miscellaneous Notes* Telephone Encounter - Marcus Juarez LPN - 07/17/2023 4:10 PM EDT Received PAD screening (abnormal) from [facility]. Placed in provider's inbox for review. Route to [place] scanning documented in this encounterGenesis Hospital05-01-2024 Telephone encounter Note * Telephone Encounter - Rosanna Wolfe LPN - 07/10/2023 4:11 PM EDT Last appointment:06/24/23 Next appointment: n/a Pharmacy verified in [place]. Refill(s) requested: Requested Prescriptions Pending Prescriptions Disp Refills furosemide (LASIX) 20 mg tablet 90 tablet 0 Sig: Take 1 tablet by mouth once daily. Order(s) pended. Please advise. Rosanna Wolfe LPN MANAGEMENT PLANNER [facility]05-01-2024 Miscellaneous Notes* Telephone Encounter - Rosanna Wolfe LPN - 07/10/2023 4:11 PM EDT Last appointment:06/24/23 Next appointment: n/a Pharmacy verified in [facility]. Refill(s) requested: Requested Prescriptions Pending Prescriptions Disp Refills furosemide (LASIX) 20 mg tablet 90 tablet 0 Sig: Take 1 tablet by mouth once daily. Order(s) pended. Please advise. Rosanna Wolfe LPN, MANAGEMENT PLANNER documented in this encounterGenesis Hospital05-01-2024 Telephone encounter Note * Telephone Encounter - Marcus Juarez LPN - 07/10/2023 9:51 AM EDT Received visit summary from [facility]. Placed in provider's inbox for review. Route to [place] scanning [facility]05-01-[facility]24 Miscellaneous Notes* Telephone Encounter - Marcus Juarez LPN - 07/10/2023 9:51 AM EDT Received visit summary from [facility]. Placed in provider's inbox for review. Route to [place] scanning documented in this encounterGenesis Hospital04-18-2024 History of Present illness Narrative* Nae Adams RT(R) - 06/27/2023 4:30 PM EDT Radiology Service Progress Note PATIENT NAME: Sandee Soriano DATE OF SERVICE: June 27, 2023 TIME: 4:33 PM PATIENT IDENTITY VERIFICATION COMPLETED USING TWO (2) IDENTIFIERS: Name and Date of confirmedby patient verbally. FALL SCREENING: Has the patient had 2 falls in the last year or 1 fall with injury or currently using an Ambulatory Assistive Device (Walker, Cane, Wheelchair, Crutches, etc.)? Yes, Patient High Riskfor Falls What interventions were put in place to prevent falls during this visit? Offered Assistance with Transfers/Clothing, Instructed Patient to Remain Seated (Not on Exam Table) Until Exam, and Increased Observations by Caregivers PATIENT GENDER DATA: Male PATIENT RELEVANT IMPLANT DATA REVIEWED: Yes PATIENT PRESENTS WITH AN IMPLANTABLE OR ATTACHED FIRER LOCOMOTIVE CRANE: No RADIOLOGY DEPARTMENT: General X-ray: Exam(s) Completed: Rib X-Ray: Right PERIPHERAL IV DATA: Not applicable SIGNED BY: RT Jose Francisco(R) June 27, 2023 4:33 PM documented in this encounterGenesis Hospital04-15-2024 Miscellaneous Notes* Telephone Encounter - Cisco Phan MD - 06/24/2023 5:41 PM EDT The following approved medication requests have been transmitted electronically. Requested Prescriptions Signed Prescriptions Disp Refills rosuvastatin (CRESTOR) 10 mg tablet 90 tablet 0 Sig: Take 1 tablet by mouth daily at bedtime. Authorizing Provider: CISCO PHAN MD * Telephone Encounter - Marcus Juarez LPN - 06/24/2023 5:24 PM EDT Pharmacy verified in [facility] Patient has been identified by name and date of : Yes Patient aware RX will be sent to pharmacy. No need to notify patient. Pharmacy phones for refill(s): Requested Prescriptions Pending Prescriptions Disp Refills rosuvastatin (CRESTOR) 10 mg tablet 90 tablet 0 Sig: Take 1 tablet by mouth daily at bedtime. Date of last office visit : 06/24/2023 Date of next office visit : Visit date not found Last 2 Encounter Wt Readings: Date: Wt: 06/24/2023 83 kg (182 lb 15.7 oz) 01/15/2023 86.6 kg (191 lb) Cholesterol: Triglyceride (mg/dL) Date Value 06/20/2023 146 01/11/2021 141 HDL Cholesterol (mg/dL) Date Value 06/20/2023 34 01/11/2021 33 LDL Cholesterol (mg/dL) Date Value 06/20/2023 55 01/11/2021 78 ALT (U/L) Date Value 06/20/2023 19 01/11/2021 38 Non HDL Cholesterol (mg/dL) Date Value 06/20/2023 84 01/11/2021 106 Please advise. Marcus Juarez LPN documented in this encounterGenesis Hospital04-15-2024 History of Present illness Narrative* Cisco Phan MD - 06/24/2023 2:14 PM EDT CHIEF COMPLAINT Patient presents with: Follow Up HISTORY OF PRESENT ILLNESS Sandee Soriano is a 63 year old male who presents here today for follow up. I last saw this patient on 03/12/2023. Headaches - Onset 1 week ago - Back of head - Occurred twice, stated they were strong - Did not check blood pressure at times of ongoing headaches Shortness of breath - Slightly worse from baseline - Has an appointment with case checker on 07/08/2023, with Dr. Titus - Reports falling this morning - Has bruising and tenderness of the ribs - Denies frequent falls Health Maintenance Due for Hep C Screening Due for HIV Screening Due for DTaP, Tdap, Td Vaccine (1- Tdap) Due for Hep A Vaccine (1 of 2- Risk 2-dose series) Due for Colorectal Cancer Screening Due for Shingrix Vaccine (1 of 2) Due for Hep B Vaccine (1 of 3- Risk 3 dose series) Due for RSV Vaccine (1-1 dose 60+ series) Due for Prostate Cancer Screening Discussion Due for Lung Cancer Screening Due for Covid-19 Vaccine ( season) Due for Behavioral Health Screening Labs reviewed. Past medical history, appointments, medications, allergies reviewed. REVIEW OF SYSTEMS General: Feels well, no weight changes, fevers or chills. HEENT: No sinus congestion, earache, sore throat. Cardiac: No chest pain, palpitations Resp: No cough or wheeze, +shortness of breath; slightly worse GI: No reflux symptoms, food intolerance, bowel changes. : No urinary frequency, dysuria. MS: +bruising and tenderness of the ribs due to fall PAST MEDICAL HISTORY PAST MEDICAL HISTORY Diagnosis Date CAD (coronary artery disease) 2011 1v bypass COPD (chronic obstructive pulmonary disease) (HCC) Depression Hyperlipidemia Hypertension Left inguinal hernia MVP (mitral valve prolapse) Patent foramen ovale Pulmonary stenosis Tobacco abuse PHYSICAL EXAMINATION BP 112/72 Pulse (!) 54 Ht 176.9 cm (5' 9.65) Wt 83 kg (182 lb 15.7 oz) SpO2 97% BMI 26.52 kg/m General: Alert, well developed, well nourished, no distress, pleasant and cooperative. Heart: Regular rate and rhythm. Normal S1 and S2. No murmurs, rubs, or gallops. Lungs: Clear to auscultation bilaterally. No respiratory distress. No wheezes, rales, or rhonchi. Abdomen: Soft, non-tender, no distention. Extremities: Feet/ankles without edema, posterior tibial pulses full and symmetrical. Data Reviewed Latest Ref Rng 06/20/2023 Protein, Total 6.3 - 8.0 g/dL 7.1 Albumin 3.9 - 4.9 g/dL 3.7 (L) Calcium 8.5 - 10.2 mg/dL 9.5 Bilirubin, Total 0.2 - 1.3 mg/dL 0.5 Alkaline Phosphatase 38 - 113 U/L 83 AST 14 - 40 U/L 31 ALT 10 - 54 U/L 19 Glucose 74 - 99 mg/dL 98 BUN 9 - 24 mg/dL 11 Creatinine 0.73 - 1.22 mg/dL 1.07 Sodium 136 - 144 mmol/L 137 Potassium 3.7 - 5.1 mmol/L 4.0 Chloride 97 - 105 mmol/L 105 CO2 22 - 30 mmol/L 20 (L) Anion Gap 9 - 18 mmol/L 12 eGFR >=60 mL/min/1.73m 77 WBC 3.70 - 11.00 k/uL 8.21 RBC 4.20 - 6.00 m/uL 4.64 Hemoglobin 13.0 - 17.0 g/dL 14.3 Hematocrit 39.0 - 51.0 % 45.2 MCV 80.0 - 100.0 fL 97.4 MCH 26.0 - 34.0 pg 30.8 MCHC 30.5 - 36.0 g/dL 31.6 RDW-CV 11.5 - 15.0 % 14.8 Platelet Count 150 - 400 k/uL 223 MPV 9.0 - 12.7 fL 9.9 Absolute nRBC <0.01 k/uL <0.01 Cholesterol, Total <200 mg/dL 118 Triglyceride <150 mg/dL 146 HDL Cholesterol >39 mg/dL 34 (L) Non HDL Cholesterol <130 mg/dL 84 Fasting Time hrs 13 VLDL Cholesterol <30 mg/dL 29 TC:HDL Ratio <5.10 3.47 LDL Cholesterol <100 mg/dL 55 LDL:HDL Ratio <2.54 1.62 Hemoglobin A1C 4.3 - 5.6 % 5.5 Estimated Average Glucose mg/dL 111 TSH 0.270 - 4.200 mIU/L 2.960 Legend: (L) Low 09/25/2022 MRI Cardiac Morphology and Function WO IVCON Impression: Pulmonary arterial hypertension with marked main PA dilation (5.9cm) with RV thickening and septal flattening during systole secondary to elevated PA pressures, presumably related to COPD. No PA webs or thrombi is evident. No PE. Mild Pulmonary valve regurgitation. Mild LV thickening likely secondary to hypertension. Low normal LV function and moderate reduced RV function with global LV and RV hypokinesis. 10/09/2022 External Cardiology Stress Test Impression: Pharmacologic (Regadenoson) evaluation Peak pharmacologic ECG with no ischemic changes There were no cardiac dysrhythmias pretest, during pharmacologic infusion, or recovery No fixed or reversible perfusion defects The gated Cardiolite study reports an LVEF of 57% Assessment/Plan (E78.00) Hypercholesterolemia (primary encounter diagnosis) Comment: Well managed on statin therapy Plan: Continue current regimen (I50.42) 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ailure (HCC) (I25.5) Cardiomyopathy, ischemic (R06.09) MCMULLEN (dyspnea on exertion) Comment: Slightly worse from baseline. Plan: Pt has an appointment with cardiology on 07/08/2023 Will continue to monitor (I10) Essential (primary) hypertension Comment: Well controlled Plan: Continue current regimen (W19.XXXA, Y92.009) Fall in home, initial encounter (S20.211A) Rib contusion, right, initial encounter Comment: Fall occurred this morning. Likely to resolve on its own. Will obtain xray Plan: XR RIBS 2V AP/OBL RIGHT (G31.84) Mild cognitive impairment Comment: Ongoing Plan: Not concerning at this time, will continue to monitor Occipital headache. Normal bp . Will observe . Of note, he has had no cranial imaging Requested Prescriptions No prescriptions requested or ordered in this encounter RTO: 6 months Scribe Attestation: By signing my name below, I, Jordan Gold, attest that this documentation has been prepared under the direction and in the presence of Tej Phan M.D. Electronically Signed: Mckenzie Garcia. June 24, 2023 2:14 PM Provider Attestation: Cisco Hernández MD, personally performed the services described in this documentation. All medical record entries made by the scribe were at my direction and in my telephonic presence. I have reviewed the chart and discharge instructions (if applicable), and agree that the record reflects my personal performance and is accurate and complete. Electronically Signed: Cisco Phan MD June 24, 2023 5:23 PM documented in this encounterGenesis Hospital03-27-2024 Miscellaneous Notes* Telephone Encounter - Hollie Vaughan RN - 06/05/2023 10:11 AM EDT Patient is scheduled. * Telephone Encounter - Meena Montiel - 05/30/2023 10:58 AM EDT Patient read mychart * Telephone Encounter - Meena Montiel - 05/28/2023 9:03 AM EDT 1st attempt. Sent BAAS[employer] message. * Telephone Encounter - Cisco Phan MD - 05/27/2023 3:06 PM EDT Overdue for lab and in office visit. 1 fill only Labs ordered. Refill on 05/25/23 COMP METABOLIC PANEL CBC LIPID PANEL BASIC The following approved medication requests have been transmitted electronically. Requested Prescriptions Signed Prescriptions Disp Refills rosuvastatin (CRESTOR) 10 mg tablet 30 tablet 0 Sig: take 1 tablet by mouth everyday at bedtime Authorizing Provider: CISCO PHAN MD * Telephone Encounter - Radha Ramos MA - 05/27/2023 8:55 AM EDT Last appointment: 03/12/23 Next appointment: n/a Pharmacy verified in [facility]. Refill(s) requested: Requested Prescriptions Pending Prescriptions Disp Refills rosuvastatin (CRESTOR) 10 mg tablet [Pharmacy Med Name: ROSUVASTATIN CALCIUM 10 MG TAB] 90 tablet 3 Sig: take 1 tablet by mouth everyday at bedtime Order(s) pended. Please advise. Radha Ramos MA, MANAGEMENT PLANNER documented in this encounterGenesis Hospital03-12-2024 Miscellaneous Notes* Telephone Encounter - Yoon Brand LPN - 05/21/2023 9:14 AM EDT Received 05/21/2023 from [facility] . Placed in provider's inbox for review. Route to [place] for scanning. documented in this encounterGenesis Hospital03-07-2024 Miscellaneous Notes* Telephone Encounter - Yoon Brand LPN - 05/16/2023 10:10 AM EST Received 05/16/2023 from [facility]. Placed in provider's inbox for review. Route to [place] for scanning. documented in this encounterGenesis Hospital02-05-2024 Miscellaneous Notes* Telephone Encounter - Yoon Brand LPN - 04/15/2023 9:04 AM EST Pharmacy verified in [facility] Patient has been identified by name and date of : Yes Patient aware RX will be sent to pharmacy. No need to notify patient. Pharmacy phones for refill(s): Requested Prescriptions Pending Prescriptions Disp Refills furosemide (LASIX) 20 mg tablet [Pharmacy Med Name: FUROSEMIDE 20 MG TABLET] 90 tablet 0 Sig: take 1 tablet by mouth every day Date of last office visit : 01/15/2023 Date of next office visit : Last 2 Encounter Wt Readings: Date: Wt: 01/15/2023 86.6 kg (191 lb) 10/08/2022 85.7 kg (189 lb) Blood Pressure: BUN Date Value 03/12/2023 17 MG/DL 01/11/2021 14 mg/dL Creatinine Date Value 03/12/2023 1.28 MG/DL 01/11/2021 1.21 mg/dL Sodium Date Value 03/12/2023 133 MEQ/L 01/11/2021 138 mmol/L Potassium Date Value 03/12/2023 3.7 MEQ/L 01/11/2021 4.5 mmol/L Last 1 Encounter BP Readings: Date: BP: 01/15/2023 91/61 Please advise. Yoon Brand LPN documented in this encounterGenesis Hospital02-02-2024 Miscellaneous Notes* Telephone Encounter - Yoon Brand LPN - 04/12/2023 8:51 AM EST Pharmacy verified in Epic Patient has been identified by name and date of : Yes Patient aware RX will be sent to pharmacy. No need to notify patient. Pharmacy phones for refill(s): Requested Prescriptions Pending Prescriptions Disp Refills PARoxetine (PAXIL) 20 mg tablet [Pharmacy Med Name: PAROXETINE HCL 20 MG TABLET] 90 tablet 2 Sig: take 1 tablet by mouth every day Date of last office visit : 01/15/2023 Date of next office visit : 04/12/2023 Last 2 Encounter Wt Readings: Date: Wt: 01/15/2023 86.6 kg (191 lb) 10/08/2022 85.7 kg (189 lb) Not applicable Please advise. Yoon Brand LPN documented in this encounterGenesis Hospital02-02-2024 Miscellaneous Notes* Telephone Encounter - Cisco Phan MD - 04/12/2023 8:48 AM EST The following approved medication requests have been transmitted electronically. Requested Prescriptions Signed Prescriptions Disp Refills KLOR-CON M20 20 mEq tablet 90 tablet 2 Sig: take 1 tablet by mouth every day Authorizing Provider: CISCO PHAN MD * Telephone Encounter - Amaris Padilla Ma - 04/12/2023 8:42 AM EST Pharmacy verified in Epic Patient has been identified by name and date of : Yes Patient aware RX will be sent to pharmacy. No need to notify patient. Pharmacy phones for refill(s): Requested Prescriptions Pending Prescriptions Disp Refills KLOR-CON M20 20 mEq tablet [Pharmacy Med Name: KLOR-CON M20 TABLET] 90 tablet 2 Sig: take 1 tablet by mouth every day Date of last office visit : 01/15/2023 Date of next office visit : Visit date not found Last 2 Encounter Wt Readings: Date: Wt: 01/15/2023 86.6 kg (191 lb) 10/08/2022 85.7 kg (189 lb) Please advise. Amaris Padilla Ma documented in this encounterGenesis Hospital01-04-2024 Note. MICRO - Microbiology PROCEDURE: Urine Culture [*1] SOURCE: Urine BODY SITE: COLLECTED DATE/TIME: 03/12/2023 13:52 EST RECEIVED DATE/TIME: 03/12/2023 19:05 EST START DATE/TIME: 03/12/2023 19:06 EST FREE TEXT SOURCE: FINAL REPORTS Final Report [] Verified Date/Time/Personnel: 03/14/2023 07:53 EST >100,000 cfu/ml Escherichia coli PRELIMINARY REPORTS Preliminary Report [] Verified Date/Time/Personnel: 03/13/2023 10:31 EST >100,000 cfu/ml Escherichia coli PAXTON to follow SUSCEPTIBILITY RESULTS Escherichia coli Antibiotic PAXTON Dilut PAXTON Inter Ampicillin >16 Resistant Ampicillin/ 8/4 Susceptible Sulbactam Aztreonam <=4 Susceptible Cefazolin <=2 Susceptible Ciprofloxacin <=0.25 Susceptible Ertapenem <=0.5 Susceptible Gentamicin <=2 Susceptible ID Panel Not Not Applicable Applicable Imipenem <=1 Susceptible Levofloxacin <=0.5 Susceptible Meropenem <=1 Susceptible Minocycline >8 Resistant Nitrofurantoin <=32 Susceptible Piperacillin/ <=8 Susceptible Tazobactam Trimethoprim/ >2/38 Resistant Sulfa Performing Locations *1: This test was performed at: [facility], [address] [place] [address], [id number] , [facility] ([place])03-12-2023 Evaluation + Plan note Diagnostic Tests Pending * Urine Culture 03/12/23 [facility] 11-09-2023 History of Present illness Narrative* Donna Calderon MA - 01/17/2023 7:54 AM EST POPULATION HEALTH NAVIGATION OUTREACH Action/FYI LVM [employer] MESSAGE SENT ANNUAL MEDICARE WELLNESS due in July 2023 Colorectal Cancer Screening Never done Patient Identified by Name and : NO Outreach Outcome/Action Unable to reach patient: Left message [employer] message sent Did you use a PCP flex slot to schedule this appointment? N/A Reason for Outreach Care Gap or Scheduling/Wellness visits Payer: Payor: [employer]ARE / Plan: WELLCARE BY [employer] HMO / Product Type: HMO / Care Gap Reviewed:: Annual Wellness visit Colorectal Cancer Screening Reminder: Reminder note to check Health Maintenance for items below Health Maintenance items due: Hepatitis C Screening Never done HIV Screening Never done Hepatitis A Vaccine(1 of 2 - Risk 2-dose series) Never done Colorectal Cancer Screening Never done Hepatitis B Vaccine(1 of 3 - Risk 3-dose series) Never done RSV Vaccine(1 - 1-dose 60+ series) Never done Prostate Cancer Screening Discussion due on 05/04/2020 Lung Cancer Screening due on 06/21/2022 Navigation Signature: Donna Calderon MA January 17, 2023 7:54 AM documented in this encounterGenesis Hospital11-07-2023 History of Present illness Narrative* Cisco Phan MD - 01/15/2023 3:11 PM EST CHIEF COMPLAINT Patient presents with: Follow Up HISTORY OF PRESENT ILLNESS Sandee Soriano is a 62 year old male who presents here today for follow up. I last saw this patient on 10/08/2022. - Generally feeling well Cardiac - Had a cardiac MRI on 09/25/2022 at [facility], remarkable for pulmonary hypertension - Currently managed on Losartan 25 mg tablet once daily, furosemide 40 mg tablet once daily, metoprolol succinate ER 25 mg 24 hr tablet once daily and Crestor 10 mg tablet once daily at bedtime. - Blood pressure low upon arrival to office at 91/61, improved on repeat at 104/54. Arthritis - Has a hard time standing for long period of time Health Maintenance Due for Hep C Screening Due for HIV Screening Due for Hep A Vaccine (1 of 2- Risk 2- dose series) Due for Colorectal Cancer Screening Due for Hep B Vaccine (1 of 3- Risk 3- dose series) Due for RSV Vaccine Due for Prostate Cancer Screening Discussion Due for Lung Cancer Screening Due for Influenza Vaccine Labs reviewed. Past medical history, appointments, medications, allergies reviewed. REVIEW OF SYSTEMS General: Feels well, no weight changes, fevers or chills. HEENT: No sinus congestion, earache, sore throat. Cardiac: No chest pain, palpitations Resp: No cough, wheeze, shortness of breath GI: No reflux symptoms, food intolerance, bowel changes. : No urinary frequency, dysuria. MS: No pain or joint complaints. PAST MEDICAL HISTORY PAST MEDICAL HISTORY Diagnosis Date CAD (coronary artery disease) 2011 1v bypass COPD (chronic obstructive pulmonary disease) (HCC) Depression Hyperlipidemia Hypertension Left inguinal hernia MVP (mitral valve prolapse) Patent foramen ovale Pulmonary stenosis Tobacco abuse PHYSICAL EXAMINATION BP 91/61 Pulse (!) 56 Ht 176.9 cm (5' 9.65) Wt 86.6 kg (191 lb) SpO2 94% BMI 27.68 kg/m Repeat BP: 104/54 General: Alert, well developed, well nourished, no distress, pleasant and cooperative. Heart: Regular rate and rhythm. Normal S1 and S2. No murmurs, rubs, or gallops. Lungs: Clear to auscultation bilaterally. No respiratory distress. No wheezes, rales, or rhonchi. Abdomen: Soft, non-tender, no distention. Extremities: Feet/ankles without edema, posterior tibial pulses full and symmetrical. Data Reviewed Component Latest Ref Rng & Units 07/31/2022 Glucose 74 - 99 mg/dL 89 BUN 9 - 24 mg/dL 8 (L) Creatinine 0.73 - 1.22 mg/dL 1.22 Sodium 136 - 144 mmol/L 139 Potassium 3.7 - 5.1 mmol/L 4.5 Chloride 97 - 105 mmol/L 105 CO2 22 - 30 mmol/L 23 Anion Gap 9 - 18 mmol/L 11 Calcium 8.5 - 10.2 mg/dL 10.0 eGFR >=60 mL/min/1.73m 67 Hemoglobin A1C 4.3 - 5.6 % 5.8 (H) Estimated Average Glucose mg/dL 120 TSH 0.270 - 4.200 mIU/L 1.780 09/25/2022 MRI Cardiac Morphology and Function WO IVCON Impression: - Pulmonary arterial hypertension with marked main PA dilation (5.9cm) with RV thickening and septal flattening during systole secondary to elevated PA pressures, presumably related to COPD. No PA webs or thrombi is evident. No PE. - Mild Pulmonary valve regurgitation. - Mild LV thickening likely secondary to hypertension. - Low normal LV function and moderate reduced RV function with global LV and RV hypokinesis. Assessment/Plan Hypertension (I27.20) Pulmonary hypertension (HCC) I50.42) 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ailure (HCC) Comment: Blood pressure low upon arrival to office, improved on repeat however it remained low at 104/54. Plan: Start reduced dose of Furosemide, 20 mg tablet once daily Continue current regimen of metoprolol and losartan Requested Prescriptions Signed Prescriptions Disp Refills furosemide (LASIX) 20 mg tablet 90 tablet 0 Sig: Take 1 tablet by mouth once daily. RTO: 6 months Scribe Attestation: By signing my name below, Jordan Hernández, attest that this documentation has been prepared under the direction and in the presence of Tej Phan M.D. Electronically Signed: Mckenzie Garcia. January 15, 2023 3:11 PM Provider Attestation: Cisco Hernández MD, personally performed the services described in this documentation. All medical record entries made by the scribe were at my direction and in my presence. I have reviewed the chart and discharge instructions (if applicable), and agree that the record reflects my personal performance and is accurate and complete. Electronically Signed: Cisco Phan MD January 15, 2023 4:57PM documented in this encounterGenesis Hospital10-09-2023 Miscellaneous Notes* Telephone Encounter - Celena Lawton - 12/17/2022 11:06 AM EDT Sent [facility] * Telephone Encounter - Carla Pfeiffer APRN.CNP - 12/17/2022 10:31 AM EDT No labs needed prior to appointment. Carla Pfeiffer APRN.BOONE * Telephone Encounter - Katie Nathan RN - 12/17/2022 10:09 AM EDT Patient's daughter, Ruchi. Calling. Patient has f/u scheduled with PCP this . Wants to know if any labs should be completed prior- none ordered yet. Also would like to confirm OV is approved by insurance. Routing to PCP and PSS for assistance. [phone]. Katie Nathan RN documented in this encounterGenesis Hospital07-31-2023 History of Present illness Narrative* Cisco Phan MD - 10/08/2022 10:18 AM EDT CHIEF COMPLAINT Patient presents with: f/u HISTORY OF PRESENT ILLNESS Sandee Soriano is a 62 year old male who presents here today for follow up. I last saw this patient on 05/30/2022. Congestive Heart Failure - States that his circulation is doing well - Follows with cardiology Occaisonal chest pain , takes nitro with relief Skin - Has flea bites all over Health Maintenance Due for Hep C Screening Due for HIV Screening Due for Hep A (1 of 2- Risk 2- dose series) Due for Colorectal Cancer Screening Due for Hep B (1 of 3- Risk 3- dose series) Due for Prostate Cancer Screening Discussion Due for Lung Cancer Screening Labs reviewed. Past medical history, appointments, medications, allergies reviewed. REVIEW OF SYSTEMS General: Feels well, no weight changes, fevers or chills. HEENT: No sinus congestion, earache, sore throat. Cardiac: No chest pain, palpitations Resp: No cough, wheeze, shortness of breath GI: No reflux symptoms, food intolerance, bowel changes. : No urinary frequency, dysuria. MS: No pain or joint complaints. Skin: +Flea bites involving the lower extremities PAST MEDICAL HISTORY PAST MEDICAL HISTORY Diagnosis Date CAD (coronary artery disease) 2011 1v bypass COPD (chronic obstructive pulmonary disease) (HCC) Depression Hyperlipidemia Hypertension Left inguinal hernia MVP (mitral valve prolapse) Patent foramen ovale Pulmonary stenosis Tobacco abuse PHYSICAL EXAMINATION BP 100/59 Pulse (!) 50 Ht 176.9 cm (5' 9.65) Wt 85.7 kg (189 lb) SpO2 97% BMI 27.40 kg/m General: Alert, well developed, well nourished, no distress, pleasant and cooperative. Heart: Regular rate and rhythm. Normal S1 and S2. Systolic murmur, no rubs, or gallops. Lungs: Clear to auscultation bilaterally. No respiratory distress. No wheezes, rales, or rhonchi. Abdomen: Soft, non-tender, no distention. Extremities: Feet/ankles without edema, posterior tibial pulses full and symmetrical. Skin: multiple ankle excoriations bilat shellow pulses. Data Reviewed Component Latest Ref Rng & Units 07/31/2022 Glucose 74 - 99 mg/dL 89 BUN 9 - 24 mg/dL 8 (L) Creatinine 0.73 - 1.22 mg/dL 1.22 Sodium 136 - 144 mmol/L 139 Potassium 3.7 - 5.1 mmol/L 4.5 Chloride 97 - 105 mmol/L 105 CO2 22 - 30 mmol/L 23 Anion Gap 9 - 18 mmol/L 11 Calcium 8.5 - 10.2 mg/dL 10.0 eGFR >=60 mL/min/1.73m 67 Hemoglobin A1C 4.3 - 5.6 % 5.8 (H) Estimated Average Glucose mg/dL 120 TSH 0.270 - 4.200 mIU/L 1.780 6 minute walk test OK - Underwent CT scan on 07/27/2022 which showed severe COPD with diffuse bullous emphysematous changethroughout lungs and small mediastinal lymph nodes, pathology not necessary. 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 - Underwent Echo on 05/11/2022 Assessment/Plan (I73.9) PAD (peripheral artery disease) (HCC) (R60.0) Pedal edema Comment: Stable. Plan: Continue to follow with cardiology at [facility]. (J43.9) Pulmonary emphysema, unspecified emphysema type (HCC) Comment: Stable. Underwent CT scan on 07/27/2022, is to have repeat scan, date unknown Plan: Continue to follow with pulmonology Angel Luis olguin. He has some triamcinolone cream at home. Requested Prescriptions Pending Prescriptions Disp Refills levothyroxine (LEVOXYL) 75 mcg tablet 30 tablet 5 Sig: Take 1 tablet by mouth once daily. Take on empty stomach. For thyroid. losartan (COZAAR) 25 mg tablet 90 tablet 3 Sig: Take 1 tablet by mouth once daily. furosemide (LASIX) 40 mg tablet 90 tablet 2 Sig: Take 1 tablet by mouth once daily. RTO: 3 months Scribe Attestation: By signing my name below, Jordan Hernández, attest that this documentation has been prepared under the direction and in the presence of Tej Phan M.D. Electronically Signed: Mckenzie Garcia. October 08, 2022 10:18 AM Provider Attestation: Cisco Hernández MD, personally performed the services described in this documentation. All medical record entries made by the scribe were at my direction and in my presence. I have reviewed the chart and discharge instructions (if applicable), and agree that the record reflects my personal performance and is accurate and complete. Electronically Signed: Cisco Phan MD October 08, 2022 11:18 AM documented in this encounterGenesis Hospital06-27-2023 History of Present illness Narrative* Yoon Brand LPN - 09/04/2022 11:10 AM EDT Care Gap Reviewed: Follow-up appointment Outreach Outcome/Action: Unable to reach patient: Left message [facility] sent Yoon Brand LPN documented in this encounterGenesis Hospital05-23-2023 Procedure [facility]04-19-2023 Miscellaneous Notes* Telephone Encounter - Marcus Juarez - 06/27/2022 4:38 PM EDT Received visit summary discussing echo results from [facility]. Placed in provider's inboxfor review. Route to MA scanning. documented in this encounterGenesis Hospital03-22-2023 History of Present illness Narrative* Cisco Phan MD - 05/30/2022 3:00 PM EDT Patient presents with: f/u Pt presents for follow up thyroid, CAD? COPD. HPI: Hypothyroid. He feels better on the levothyrxine, only on it a few weeks now . More alert, more energy. Continues on his other meds for BP, depression. Lipid. Past family and social history reviewed. PAST MEDICAL HISTORY Diagnosis Date CAD (coronary artery disease) 2011 1v bypass COPD (chronic obstructive pulmonary disease) (HCC) Depression Hyperlipidemia Hypertension Left inguinal hernia MVP (mitral valve prolapse) Patent foramen ovale Pulmonary stenosis Tobacco abuse PAST SURGICAL HISTORY Procedure Laterality Date ARTHROSCOPY KNEE DIAGNOSTIC W/WO SYNOVIAL BX SPX Arthroscopy, knee x 2 on right knee CABG, MIN INV, 1 ART, [address] Turpin in [facility] LEFT HEART CATH age 14 evaluation heart murmur ALLERGIES Patient has no known allergies. MEDICATIONS lansoprazole (PREVACID) 30 mg capsule TAKE 1 CAPSULE BY MOUTH ONCE DAILY KLOR-CON M20 20 mEq tablet TAKE 1 TABLET BY MOUTH EVERY DAY furosemide (LASIX) 40 mg tablet Take 1 tablet by mouth once daily. metoprolol succinate ER (TOPROL XL) 25 mg 24 hr tablet Take 1 tablet by mouth once daily. PARoxetine (PAXIL) 20 mg tablet Take 1 tablet by mouth once daily. levothyroxine (LEVOXYL) 75 mcg tablet Take 1 tablet by mouth once daily. Take on empty stomach. Forthyroid. rosuvastatin (CRESTOR) 10 mg tablet Take 1 tablet by mouth daily at bedtime. losartan (COZAAR) 25 mg tablet Take 25 mg by mouth once daily. Salt Irrigation Solution No.1 (OCEAN COMPLETE) aero [place] into nose both nostrils several times a day tbqlaxxpwvz-hvbqiwtam-lszavxkm (TRELEGY ELLIPTA) 100-62.5-25 mcg inhalation powder Inhale 1 Puff asinstructed once daily. albuterol HFA (PROVENTIL HFA, VENTOLIN HFA) 90 mcg/actuation inhaler Inhale 2 Puffs as instructed every 4 hours as needed. aspirin, enteric coated (ASPIRIN, ENTERIC COATED) 81 mg EC tablet Take 81 mg by mouth once daily. FAMILY HISTORY Problem Relation Age of Onset Heart Mother bone cancer Emphysema Mother Cancer Maternal Grandmother unsure type Heart Maternal Grandmother open heart Heart Maternal Grandfather CHF None Father never met GI Son volvulus, short gut syndrome post surgery Social History Tobacco Use Smoking status: Former Packs/day: 2.00 Years: 44.00 Pack years: 88.00 Types: Cigarettes, Cigars Start date: 05/30/1971 Quit date: 01/06/2019 Years since quittin.3 Smokeless tobacco: Never Tobacco comments: quit smoking Jan.09 Substance Use Topics Alcohol use: No Comment: heavy in past Drug use: No ROS: General: Feels more energetic , no weight changes, no fever, chills. HEENT: No sinus congestion, earache, sore throat. Cardiac: No chest pain, palpitations, shortness of breath Resp: No cough, wheeze. GI: No reflux symptoms, food intolerance, bowel changes. : No urinary frequency, dysuria. MS: No pain or joint complaints. Psych: mood well controlled.d Physical Exam Health Maintenance: HEPATITIS A(1 of 2 - Risk 2-dose series) Never done HEPATITIS C SCREENING Never done HIV SCREENING Never done COLORECTAL CANCER SCREENING Never done HEPATITIS B(1 of 3 - Risk 3-dose series) Never done PROSTATE CANCER SCREENING DISCUSSION due on 05/04/2020 INFLUENZA(1) due on 11/09/2021 DEPRESSION ASSESSMENT Never done DTAP,TDAP,TD(1 - Tdap) due on 05/31/2023 SHINGRIX VACCINE(1 of 2) due on 05/31/2023 COVID-19 VACCINE(1) due on 05/31/2023 LUNG CANCER SCREENING due on 06/21/2022 ANNUAL PCP TEAM CHRONIC DISEASE VISIT due on 05/07/2023 BP CONTROLLED (<130/80) due on 05/07/2023 LDL CHOLESTEROL due on 05/29/2023 DIABETES SCREEN due on 05/28/2025 PNEUMOCOCCAL(3 - PPSV23 if available, else PCV20) due on 05/18/2026 LIPID SCREEN due on 05/29/2027 ALPHA-1 ANTITRYPSIN DEFICIENCY SCREENING Completed SPIROMETRY Completed Data reviewed TSH high . New Rx. Assessment/Plan: (E03.9) Acquired hypothyroidism (primary encounter diagnosis) Comment: new medication, good clinical response Plan: TSH BLD Lab about july 09 (R73.9) Hyperglycemia Comment: he has not been Dx with DM. Plan: BASIC METABOLIC PNL, HGB A1C Fasting lab next time. July Requested Prescriptions No prescriptions requested or ordered in this encounter RTO: 3 mos. Cisco Phan MD documented in this encounterGenesis Hospital03-14-2023 Miscellaneous Notes* Telephone Encounter - Cisco Phan MD - 05/22/2022 1:32 PM EDT The following approved medication requests have been transmitted electronically. Requested Prescriptions Signed Prescriptions Disp Refills lansoprazole (PREVACID) 30 mg capsule 90 capsule 2 Sig: TAKE 1 CAPSULE BY MOUTH ONCE DAILY Authorizing Provider: CISCO PHAN KLOR-CON M20 20 mEq tablet 90 tablet 2 Sig: TAKE 1 TABLET BY MOUTH EVERY DAY Authorizing Provider: CISCO PHAN Refused Prescriptions Disp Refills PARoxetine (PAXIL) 20 mg tablet [Pharmacy Med Name: PAROXETINE HCL 20 MG TABLET] 90 tablet 2 Sig: TAKE 1 TABLET BY MOUTH EVERY DAY Refused By: SALVATORE OAKLEY Reason for Refusal: A Refill not appropriate furosemide (LASIX) 40 mg tablet [Pharmacy Med Name: FUROSEMIDE 40 MG TABLET] 90 tablet 2 Sig: TAKE 1 TABLET BY MOUTH EVERY DAY Refused By: SALVATORE OAKLEY Reason for Refusal: A Refill not appropriate metoprolol succinate ER (TOPROL XL) 25 mg 24 hr tablet [Pharmacy Med Name: METOPROLOL SUCC ER 25 MGTAB] 90 tablet 2 Sig: TAKE 1 TABLET BY MOUTH EVERY DAY Refused By: SALVATORE OAKLEY Reason for Refusal: A Refill not appropriate Cisco Phan MD * Telephone Encounter - Salvatore Oakley MA - 05/22/2022 12:43 PM EDT Pharmacy verified in [place]. Patient has been identified by name and date of : Yes Patient aware RX will be sent to pharmacy. No need to notify patient. Patient phones for refill(s): Requested Prescriptions Pending Prescriptions Disp Refills lansoprazole (PREVACID) 30 mg capsule [Pharmacy Med Name: LANSOPRAZOLE DR 30 MG CAPSULE] 90 capsule2 Sig: TAKE 1 CAPSULE BY MOUTH ONCE DAILY KLOR-CON M20 20 mEq tablet [Pharmacy Med Name: KLOR-CON M20 TABLET] 90 tablet 2 Sig: TAKE 1 TABLET BY MOUTH EVERY DAY Refused Prescriptions Disp Refills PARoxetine (PAXIL) 20 mg tablet [Pharmacy Med Name: PAROXETINE HCL 20 MG TABLET] 90 tablet 2 Sig: TAKE 1 TABLET BY MOUTH EVERY DAY furosemide (LASIX) 40 mg tablet [Pharmacy Med Name: FUROSEMIDE 40 MG TABLET] 90 tablet 2 Sig: TAKE 1 TABLET BY MOUTH EVERY DAY metoprolol succinate ER (TOPROL XL) 25 mg 24 hr tablet [Pharmacy Med Name: METOPROLOL SUCC ER 25 MGTAB] 90 tablet 2 Sig: TAKE 1 TABLET BY MOUTH EVERY DAY Date of last office visit : 05/07/2022 Date of next office visit : 05/22/2022 Last 2 Encounter Wt Readings: Date: Wt: 05/07/2022 85.7 kg (189 lb) 09/13/2021 87 kg (191 lb 12.8 oz) Potassium: Potassium Date Value 04/20/2022 3.8 MEQ/L 01/11/2021 4.5 mmol/L Please advise. Salvatore Oakley MA documented in this encounterGenesis Hospital02-28-2023 Miscellaneous Notes* Telephone Encounter - Yulissa Palacios - 05/08/2022 4:09 PM EST Sandee's insurance is out of network, and a new Financial Clearance is required for future visits. He does not have a clearance in his active referrals that is valid for scheduling at this time. I have messaged him and completed a financial clearance request and if approved, he can be scheduled. Thank you, Yulissa Palacios * Telephone Encounter - Cisco Phan MD - 05/08/2022 2:58 PM EST The following approved medication requests have been transmitted electronically. Requested Prescriptions Signed Prescriptions Disp Refills levothyroxine (LEVOXYL) 75 mcg tablet 30 tablet 5 Sig: Take 1 tablet by mouth once daily. Take on empty stomach. For thyroid. Follow up visit in office in a few weeks Cisco Phan MD documented in this encounterGenesis Hospital02-27-2023 History of Present illness Narrative* Cisco Phan MD - 05/07/2022 11:58 AM EST CHIEF COMPLAINT No chief complaint on file. HISTORY OF PRESENT ILLNESS Sandee Soriano is a 62 year old male who presents here today for fatigue. I last saw this patient on 09/08/21. Patient is accompanied by his daughter. Fatigue: Patient reports he has been fatigued recently. He has also been feeling dizziness. Patient does notuse oxygen at home. He recently last saw the case checker for CHF check. Oxygen levels are alright.Patient is currently on a water pill. Health Maintenance COVID-19 Vaccine Dose 1 Hepatitis A Dose 1 Hepatitis C Screening HIV Screening DTAP, TDAP, TD Dose 1 Shingrix Vaccine Dose 1 Hepatitis B Dose 1 Prostate Cancer Screening Discussion Influenza Shot Depression Assessment Labs reviewed. Past medical history, appointments, medications, allergies reviewed. REVIEW OF SYSTEMS General: +fatigued, no fever, no chills. HEENT: No sinus congestion, earache, sore throat. Cardiac: No chest pain, palpitations. +leaky valves from ECHO tests Resp: No cough, wheeze, shortness of breath GI: No reflux symptoms, food intolerance, bowel changes. : No urinary frequency, dysuria. MS: No pain or joint complaints. PAST MEDICAL HISTORY PAST MEDICAL HISTORY Diagnosis Date CAD (coronary artery disease) 2011 1v bypass COPD (chronic obstructive pulmonary disease) (HCC) Depression Hyperlipidemia Hypertension Left inguinal hernia MVP (mitral valve prolapse) Patent foramen ovale Pulmonary stenosis Tobacco abuse PHYSICAL EXAMINATION General: Patient is fatigued, well developed, well nourished, no distress, pleasant and cooperative. Heart: Regular rate and rhythm. Normal S1 and S2. No murmurs, rubs, or gallops. Has CHF. Lungs: Clear to auscultation bilaterally. No respiratory distress. No wheezes, rales, or rhonchi. Abdomen: Soft, non-tender, no distention. Extremities: Feet/ankles without edema, posterior tibial pulses full and symmetrical. Data Reviewed Latest Reference Range & Units 04/20/22 00:00 Sodium 136 - 145 MEQ/L 142 (E) Potassium 3.5 - 5.1 MEQ/L 3.8 (E) Chloride 98 - 107 MEQ/L 108 ! (E) Creatinine 0.6 - 1.3 MG/DL 1.15 (E) Glucose 74 - 106 MG/DL 114 ! (E) Calcium 8.8 - 10.5 MG/DL 9.3 (E) Anion Gap 4 (E) BICARBONATE 30 (E) GFR mL/MIN 68 (E) GFR AFR AMER mL/MIN 83 (E) !: Data is abnormal (E): External lab result Assessment/Plan (I50.42) Chronic combined systolic and diastolic CHF (congestive heart failure) (HCC) (primary encounter diagnosis) Comment: he is discouraged and not keen to proceed with testing. Plan: NT PRO BNP, HGB A1C, CBC, TSH BLD, HEPATIC FUNCTION PNL Encourage follow through with the cardiology update. Check labs. 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 Plan: NT PRO BNP, HGB A1C, CBC, TSH BLD, HEPATIC FUNCTION PNL (R73.9) Hyperglycemia Comment: Patient is due for blood work. Plan: HGB A1C Requested Prescriptions No prescriptions requested or ordered in this encounter RTO: 6 months Scribe Attestation: By signing my name below, IMt, attest that this documentation has been prepared under the direction and in the presence of Tej Phan M.D. Electronically Signed: Mckenzie Kellogg. May 07, 2022 11:58 AM Provider Attestation: I, Cisco Phan MD, personally performed the services described in this documentation. All medical record entries made by the scribe were at my direction and in my presence. I have reviewed the chart and discharge instructions (if applicable) and agree that the record reflects my personal performance and is accurate and complete. Electronically Signed: Cisco Phan MD May 07, 2022 2:14PM documented in this encounterGenesis Hospital02-21-2023 Miscellaneous Notes* Telephone Encounter - Yoon Brand LPN - 05/01/2022 2:06 PM EST Daughter aware. * Telephone Encounter - Cisco Phan MD - 05/01/2022 1:54 PM EST Glucose mildly elevated. Schedule office appointment., Cisco Phan MD * Telephone Encounter - Yoon Brand LPN - 05/01/2022 10:34 AM EST Informed daughter that medication was called into the pharmacy. Patients daughter said that there were some abnormal findings on his last labs. She is concerned about patient elevated glucose and is concerned about patients kidney function. * Telephone Encounter - Cisco Phan MD - 04/30/2022 2:15 PM EST The following approved medication requests have been transmitted electronically. Requested Prescriptions Signed Prescriptions Disp Refills ALPRAZolam (XANAX) 0.25 mg tablet 2 tablet 0 Sig: Take 1 tablet 30 minutes before procedure. May repeat dose x 1 if no relief. Authorizing Provider: CISCO PHAN MD * Telephone Encounter - Betty Foster Pss - 04/30/2022 11:27 AM EST Sandee Soriano is calling Cisco Phan MD today Ruchi, daughter called because the nuclearstress test was cancelled last week at [facility] after they arrived Her father already took 2 Xanax pills. He was rescheduled for the test on 05/03/22 when they arrived. He only has one pill left and is requesting another pill for the new test date. Please call Ruchi once sent to the Pharmacy. Patient has been identified by name and birthdate. Duration of symptoms: N/A Person calling: self Call patient at: on cell [phone] (home) [phone] (cell) Was an appointment scheduled: No Closing statement: Results or non-symptom based questions: Thank you for calling [facility], your call will be returned within the next business day. Betty Foster Pss documented in this encounterGenesis Hospital02-14-2023 Miscellaneous Notes* Telephone Encounter - Marcus Juarez - 04/24/2022 8:36 AM EST Received Echo complete from [facility]. Placed in provider's inbox for review. Route to MA scanning. documented in this encounterGenesis Hospital02-13-2023 Miscellaneous Notes* Telephone Encounter - Yoon Brand LPN - 04/23/2022 10:25 AM EST Received 04/20/2022 from [facility]. Placed in provider's inbox for review. Route to MA scanning. documented in this encounterGenesis Hospital02-08-2023 Miscellaneous Notes* Telephone Encounter - Yoon Brand LPN - 04/18/2022 3:32 PM EST LM for patient daughter * Telephone Encounter - Cisco Phan MD - 04/18/2022 3:06 PM EST Will send a few doses of Xanax, he should try one before he takes it on the day of his test. Requested Prescriptions Signed Prescriptions Disp Refills ALPRAZolam (XANAX) 0.25 mg tablet 4 tablet 0 Sig: Take 1 tablet 30 minutes before procedure. May repeat dose x 1 if no relief. Authorizing Provider: CISCO PHAN MD * Telephone Encounter - Diane Matt Pss - 04/18/2022 12:59 PM EST Ruchi is calling on behalf of her dad. His recent EKG at the [facility] case [facility] showed signs of heart failure. Jose will be having a Nuclear Stress Test done and due to his claustrophobia he is asking for a medication for anxiety. Please sent to: Pharmacy is [facility] in [place] And call Ruchi at [phone] documented in this encounterGenesis Hospital02-06-2023 Miscellaneous Notes* Telephone Encounter - Yoon Brand LPN - 04/16/2022 9:10 AM EST Copies of EKG faxed to Complaint Operator [phone] * Telephone Encounter - Yoon Brand LPN - 04/13/2022 4:49 PM EST Office closed. Could not obtain fax number * Telephone Encounter - Betty Foster Pss - 04/13/2022 3:51 PM EST Sandee Soriano is a patient of Cisco Phan MD today his daughter Ruchi called to request EKGtet results. She stated her father had an appointment this week with the [facility] and she needs to discuss his previous EKG at [facility]. Patient has been identified by name and birthdate. Was an appointment scheduled: No Closing statement: Results or non-symptom based questions: Thank you for calling [facility], your call will be returned within the next business day. Betty Foster Pss documented in this encounterGenesis Hospital01-27-2023 Miscellaneous Notes* Telephone Encounter - Leilani Love - 04/06/2022 12:13 PM EST Disc has been picked up by his daughter Ruchi. Verbal permission given by the patient. 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 Any questions please contact Ruchi at [phone]. Yazmin Aguila documented in this encounterGenesis Hospital01-16-2023 Miscellaneous Notes* Telephone Encounter - Carlajoanna Pfeiffer APRN.CNP - 03/26/2022 2:33 PM EST Noted. Carla Pfeiffer APRN.CNP * Telephone Encounter - Yazmin Cerda Pss - 03/26/2022 1:01 PM EST [facility] is scheduled for 04-26-22. Yazmin Cerda Pss documented in this encounterGenesis Hospital01-04-2023 Miscellaneous Notes* Telephone Encounter - Marcus Juarez - 03/14/2022 4:20 PM EST Received PAD results from [facility]. Placed in provider's inbox for review. Route to MA scanning. documented in this encounterGenesis Hospital12-29-2022 History of Present illness Narrative* Cisco Phan MD - 03/08/2022 2:57 PM EST VIRTUAL VISIT PROGRESS NOTE This is a virtual visit using [employer] video visit. It required patient-provider interaction for themedical decision making as documented below. Sandee Soriano is a 61 year old male seen for URI symptoms. Ongoing for a couple months. HISTORY REVIEWED (electronic chart updated): PAST MEDICAL HISTORY Diagnosis Date CAD (coronary artery disease) 2011 1v bypass COPD (chronic obstructive pulmonary disease) (HCC) Depression Hyperlipidemia Hypertension Left inguinal hernia MVP (mitral valve prolapse) Patent foramen ovale Pulmonary stenosis Tobacco abuse PAST SURGICAL HISTORY Procedure Laterality Date ARTHROSCOPY KNEE DIAGNOSTIC W/WO SYNOVIAL BX SPX Arthroscopy, knee x 2 on right knee CABG, MIN INV, 1 ART, [address] Turpin in [facility] LEFT HEART CATH age 14 evaluation heart murmur FAMILY HISTORY Problem Relation Age of Onset Heart Mother bone cancer Emphysema Mother Cancer Maternal Grandmother unsure type Heart Maternal Grandmother open heart Heart Maternal Grandfather CHF None Father never met GI Son volvulus, short gut syndrome post surgery Social History Tobacco Use Smoking status: Former Packs/day: 2.00 Years: 44.00 Pack years: 88.00 Types: Cigarettes, Cigars Start date: 05/30/1971 Quit date: 01/06/2019 Years since quittin.1 Smokeless tobacco: Never Tobacco comments: quit smoking Jan.09 Substance Use Topics Alcohol use: No Comment: heavy in past Drug use: No Current Outpatient Medications Medication Sig habwpqvllrb-echiwhraj-cdzdeikd (TRELEGY ELLIPTA) 100-62.5-25 mcg inhalation powder Inhale 1 Puff asinstructed once daily. albuterol HFA (PROVENTIL HFA, VENTOLIN HFA) 90 mcg/actuation inhaler Inhale 2 Puffs as instructed every 4 hours as needed. potassium chloride ER (K-DUR, KLOR-CON) 20 mEq tablet Take 1 tablet by mouth once daily. furosemide (LASIX) 40 mg tablet Take 1 tablet by mouth once daily. lansoprazole (PREVACID) 30 mg capsule Take 1 capsule by mouth once daily. metoprolol succinate ER (TOPROL XL) 25 mg 24 hr tablet Take 1 tablet by mouth once daily. PARoxetine (PAXIL) 20 mg tablet Take 1 tablet by mouth once daily. rosuvastatin (CRESTOR) 10 mg tablet TAKE 1 TABLET BY MOUTH EVERYDAY AT BEDTIME aspirin, enteric coated (ASPIRIN, ENTERIC COATED) 81 mg EC tablet Take 81 mg by mouth once daily. No current facility-administered medications for this visit. ALLERGIES No Known Allergies ROS: General: Feels mildly ill no weight changes, fever, chills. HEENT: nasal tenderness some sinus congestion, earache, sore throat. Cardiac: No chest pain, palpitations, shortness of breath Resp: minimal cough. GI: No reflux symptoms, food intolerance, bowel changes. : No urinary frequency, dysuria. MS: No pain or joint complaints. PHYSICAL EXAMINATION: Appears well. No shortness of breath No erythema a of the nose. No overt wheezing. Assessment/Plan: (J01.00) Acute non-recurrent maxillary sinusitis Comment: sounds like he has a lot of dried mucus in there as well as facial pressure Plan: Salt Irrigation Solution No.1 (OCEAN COMPLETE) aero, doxycycline (VIBRA-TABS) 100 mg tablet (R91.1) Pulmonary nodule (primary encounter diagnosis) Comment: prior history Plan: RTO discuss r/u imaging. He reports his previous pulmonary Dr not in plan . Requested Prescriptions Signed Prescriptions Disp Refills Salt Irrigation Solution No.1 (OCEAN COMPLETE) aero 177 mL 0 Sig: [place] into nose both nostrils several times a day doxycycline (VIBRA-TABS) 100 mg tablet 20 tablet 0 Sig: Take 1 tablet by mouth twice daily for 10 days. RTO: office visit to review pulmonary nodules. Likely f/u ct scan There are no Patient Instructions on file for this visit. I spent a total of 12 minutes on the date of the service which included [id number]-ig-[id number] patient care, completing clinical documentation, and obtaining and/or reviewing separately obtained history Cisco Phan MD documented in this encounterGenesis Hospital11-30-2022 History of Present illness Narrative* Donna Calderon MA - 02/07/2022 10:41 AM EST POPULATION HEALTH NAVIGATION OUTREACH Action/FYI Spoke with Sandee. Patient declined . COLORECTAL CANCER SCREENING Never done INFLUENZA(1) due on 11/09/2021 Pt identified by name and : YES, via phone Outreach Outcome/Action Spoke to patient or caregiver: Patient declined Did you use a PCP flex slot to schedule this appointment? N/A Reason for Outreach Care Gap or Scheduling/Wellness visits Payer: Payor: [employer] MEDICARE / Plan: WELLCARE BY [employer] HMO / Product Type: HMO / Care Gap Reviewed:: Colorectal Cancer Screening Flu vaccine Reminder: Reminder note to check Health Maintenance for items below Health Maintenance items due: COVID-19 VACCINE(1) Never done HEPATITIS A(1 of 2 - Risk 2-dose series) Never done HEPATITIS C SCREENING Never done HIV SCREENING Never done DTAP,TDAP,TD(1 - Tdap) Never done COLORECTAL CANCER SCREENING Never done SHINGRIX VACCINE(1 of 2) Never done HEPATITIS B(1 of 3 - Risk 3-dose series) Never done PROSTATE CANCER SCREENING DISCUSSION due on 05/04/2020 DEPRESSION ASSESSMENT Never done INFLUENZA(1) due on 11/09/2021 Message Sent to Practice: No Navigation Signature: Donna Calderon MA February 07, 2022 10:41 AM documented in this encounterGenesis Hospital11-21-2022 Miscellaneous Notes* Telephone Encounter - Jyoti Jones RN - 01/29/2022 6:12 PM EST Voicemail received January 29, 2022 4:11pm Hi this is Ruchi Heath. [phone]. Calling for my Dad Sandee Soriano date 1960. I'm calling to a refill on his trelegy to be sent to [facility] in [facility]. On previous conversation was willing to fill that until we got in with a lung specialist. My Dad currently has nine puffs left so he'll be needing that very soon and it looks like our appointment is not gonna be before that we're still working on with getting old records and what not before those schedule. My phonenumber is [phone]. Thank you so much. Trelegy was ordered 09/2021 by pulmonary. Pharmacy called, 5 refills available Call to patient, informed or current refills available Reason for Disposition Patient has refills remaining on their prescription Answer Assessment - Initial Assessment Questions 1. DRUG NAME: Trelegy 2. REFILLS REMAININ 3. EXPIRATION DATE: NA 4. PRESCRIBING HCP: Ismael 5. SYMPTOMS: NA 6. : NA Protocols used: Medication Refill and Renewal [id number] documented in this encounterGenesis Hospital08-30-2022 History of Present illness Narrative* Yana Adamson APRN.BOONE - 11/07/2021 12:48 PM EDT Incidental Lung Nodule Enrollment Call attempt: 1st Attempt Call status: Complete Enrolled in Lung Nodule program: No Declined reason: Patient already followed by another [facility] provider for incidental lung nodule(s). Lung Nodule Program Location: [place] documented in this encounterGenesis Hospital07-06-2022 History of Present illness Narrative* Beto Guevara MD - 09/13/2021 10:54 AM EDT Images from the original note were not included. [facility] ESTABLISHED PATIENT OFFICE VISIT 09/13/2021 Patient Name: Sandee Soriano PRIMARY CARE PHYSICIAN: Cisco Phan MD CHIEF COMPLAINT: COPD/lung nodules/systolic CHF follow-up HISTORY OF PRESENT ILLNESS: Mr. Soriano has been a patient for Dr. Cano in the past. He has been seen for emphysema and lung nodules. Patient has no new respiratory complaints He continues to feel tired and short of breath on exertion. No new cough sputum production or fever or chest pain Has feet swelling recently. Started on Lasix Medication Trelegy as needed albuterol that he seldom uses Most recent CT scan chest June 2021 Multiple new pulmonary nodules: Right lower lobe nodule is irregular Stable right upper lobe scarring/nodule CT scan chest March 2017-findings stable compared to CT scan chest July 2014 The 11-12 mm nodule which contains some calcification RIGHT upper lobe is unchanged 2. Smaller nodules in the RIGHT lung also unchanged Spirometry moderately severe airflow obstruction FEV1 56% compared to 60% last year Oximetry with ambulation October 2020 within normal Echocardiogram 2016 ejection fraction 46% grade 1 diastolic dysfunction, RVSP not measured Social History Tobacco Use Smoking status: Former Smoker Packs/day: 2.00 Years: 44.00 Pack years: 88.00 Types: Cigarettes, Cigars Start date: 05/30/1971 Quit date: 01/06/2019 Years since quittin.6 Smokeless tobacco: Never Used Tobacco comment: quit smoking Jan.09 Substance Use Topics Alcohol use: No Comment: heavy in past Drug use: No ALLERGIES ALLERGIES No Known Allergies CURRENT OUTPATIENT MEDICATIONS ykfjsyrscnk-swouongpt-lctyfhvi (TRELEGY ELLIPTA) 100-62.5-25 mcg inhalation powder Inhale 1 Puff asinstructed once daily. albuterol HFA (PROVENTIL HFA, VENTOLIN HFA) 90 mcg/actuation inhaler Inhale 2 Puffs as instructed every 4 hours as needed. potassium chloride ER (K-DUR, KLOR-CON) 20 mEq tablet Take 1 tablet by mouth once daily. furosemide (LASIX) 40 mg tablet Take 1 tablet by mouth once daily. lansoprazole (PREVACID) 30 mg capsule Take 1 capsule by mouth once daily. metoprolol succinate ER (TOPROL XL) 25 mg 24 hr tablet Take 1 tablet by mouth once daily. PARoxetine (PAXIL) 20 mg tablet Take 1 tablet by mouth once daily. rosuvastatin (CRESTOR) 10 mg tablet TAKE 1 TABLET BY MOUTH EVERYDAY AT BEDTIME aspirin, enteric coated (ASPIRIN, ENTERIC COATED) 81 mg EC tablet Take 81 mg by mouth once daily. REVIEW OF SYSTEMS Review of Systems Constitutional: Positive for malaise/fatigue. Negative for chills, fever and weight loss. Respiratory: Negative for cough, hemoptysis, sputum production, shortness of breath and wheezing. The remainder of review of systems was negative. PHYSICAL EXAMINATION: BP 104/54 Pulse 54 Ht 5' 9.646 (1.77m) Wt 191 lb 12.8 oz (87.0kg) SpO2 96% BMI 27.80 kg/(m^2). General appearance: Well appearing, alert, in no acute distress, well-hydrated, well nourished. Lungs: Lungs clear to auscultation. No wheezing, rhonchi, rales Heart: RRR without murmur, gallop, or rubs. No ectopy. No edema. Peripheral pulses: Normal Abdomen: Normal abdominal exam, Abdomen soft, non-tender. Bowel sounds normal. No masses, organomegaly Extremities: Normal, Warm and No cyanosis, no clubbing, Nontender Neuro: no focal deficit Psychiatry: Alert, oriented x3 DATA: Diagnostic tests reviewed for today's visit, including films and specimens, were personally reviewed by me Most recent labs and imaging results. No results found. CT CHEST W IVCON Result Date: 06/21/2021 IMPRESSION: Emphysema with dilated central pulmonary arteries consistent with chronic pulmonary arterial hypertension. Interval development of multiple lung nodules. Any of these appear centrilobularin may be due to chronic small airway inflammation. Others are indeterminate. One of the indeterminate nodules is an irregular lesion in the mid RIGHT lower lobe. Close follow-up is recommended. Recommend repeat CT in 3-4 months Right upper lobe linear densities suggestive scarring. However, a central spiculated lesion cannot be excluded and continued follow-up is recommended. There is coronary artery calcification consistent with coronary artery disease. Hepatic steatosis Incidental Finding: Follow-up Acuity: Incidental Finding: Solid >8 mm Routing Code: RI_1 Recommendation: Consult to Lung Nodule Clinic - [id number] Time Frame: at the discretion of the clinical team. Comments: Follow-up for this incidentally detected lung nodule with PET/CT or Biopsy within 4 weeks, or Chest CT exam in 3 months is recommended. COMMUNICATION:? Results will be communicated with the ordering provider viaEpic staff message by [facility] within 2 business days of report finalization. Side Seam Envelope Machine Operator: HAYLEY Transcribe Date/Time: Jun 21 2021 3:03P Dictated by : SARA ZAPATA MD This examination was interpreted and the report reviewed and electronically signed by: SARA ZAPATA MD on Jun 21 2021 3:27PM EST IMPRESSION: ASSESSMENT/PLAN: 1. Pulmonary emphysema, unspecified emphysema type (HCC) - ICD9: 492.8, ICD10: J43.9 (primary diagnosis) Moderately severe on today spirometry Continue Trelegy As needed albuterol Plan for lung volumes and DLCO in the future 2. Lung nodules - ICD9: 793.19, ICD10: R91.8 Had stable pulmonary nodules including 11 to 12 mm right upper lobe on CT scan chest 2014, [id number] scan chest June 2021 showed new pulmonary nodules one of them is suspicious in the right lower lobe We will proceed with PET scan - NM PET/CT SKULL-THIGH INITIAL 4. Ex-smoker - ICD9: V15.82, ICD10: Z87.891 In remission since 2018 6. Chronic combined systolic and diastolic congestive heart failure, NYHA class 3 (HCC) - ICD9: 428.42, 428.0, ICD10: I50.42 Advised to follow-up with cardiology Beto Guevara MD Immunizations: Unknown Smoking cessation instructions not required Patient instructed to contact me via my chart for radiology and lab test results. I discussed the plan in detail with the patient and the patient verbalizes understanding and is in agreement. Follow-up in October after PET scan Verbal and/or written health teaching given to patient with > 40 minutes spent face to face withmore than half of this for disease counseling. Beto Guevara MD Staff, Respiratory [facility] documented in this encounterGenesis Hospital07-06-2022 History of Present illness Narrative* Henrique Downing, WELDER GUN - 09/13/2021 10:06 AM EDT PULM FUNCTION SMARTBLOCK: Provider: Beto Guevara MD Assisting Tech: Henrique Downing RRT Spirometry w/BD: 1 documented in this encounterGenesis Hospital07-01-2022 History of Present illness Narrative* Cisco Phan MD - 09/08/2021 10:20 AM EDT Welcome To Medicare Visit GERD Patient is managed on Prevacid 30 mg adherent to current regimen without side effects from medication. No current symptoms. Cardiac Health Patient is managed on metoprolol, Lasix 40 mg and Crestor 10 mg. He has been off of potassium this month. Anxiety Patient is managed on Paxil 20 mg. Status quo PAST MEDICAL HISTORY Diagnosis Date CAD (coronary artery disease) 2011 1v bypass COPD (chronic obstructive pulmonary disease) (HCC) Depression Hyperlipidemia Hypertension Left inguinal hernia MVP (mitral valve prolapse) Patent foramen ovale Pulmonary stenosis Tobacco abuse PAST SURGICAL HISTORY Procedure Laterality Date ARTHROSCOPY KNEE DIAGNOSTIC W/WO SYNOVIAL BX SPX Arthroscopy, knee x 2 on right knee CABG, MIN INV, 1 ART, [address] Turpin in [facility] LEFT HEART CATH age 14 evaluation heart murmur Patient has no known allergies. Medications reviewed: Yes FAMILY HISTORY Problem Relation Age of Onset Heart Mother bone cancer Emphysema Mother Cancer Maternal Grandmother unsure type Heart Maternal Grandmother open heart Heart Maternal Grandfather CHF None Father never met GI Son volvulus, short gut syndrome post surgery SOCIAL HISTORY: Social History Tobacco Use Smoking status: Former Smoker Packs/day: 2.00 Years: 44.00 Pack years: 88.00 Types: Cigarettes, Cigars Start date: 05/30/1971 Quit date: 01/06/2019 Years since quittin.6 Smokeless tobacco: Never Used Tobacco comment: quit smoking Jan.09 Substance Use Topics Alcohol use: No Comment: heavy in past Drug use: No PHQ-2 Score: 1 Functional Ability/Safety Screen 1. Was the patient's timed Up and Go test unsteady or longer than 30 seconds? No 2. Does the patient need help with the phone, transportation, shopping,preparing meals, housework, laundry, medications or managing money? No 3. Does your home have rugs in the hallway, lack of grab bars in the bathroom, lack of handrails onthe stairs or have poor lighting? No Hearing Evaluation: normal PHYSICAL EXAM BP 123/69 Pulse 60 Ht 180.3 cm (5' 10.98) Wt 86.1 kg (189 lb 14.4 oz) SpO2 97% BMI 26.50kg/m Alert and oriented X 3: YES Body mass index is 26.5 kg/m . Heart: Regular rate and rhythm. Normal S1 and S2. No murmurs, rubs, or gallops. Lungs: Clear to auscultation bilaterally. No respiratory distress. No wheezes, rales, or rhonchi. Abdomen: Soft, non-tender, no distention Extremities: Feet/ankles without edema, posterior tibial pulses full and symmetrical ASSESSMENT/PLAN: 61 year old male The following prevention plan was discussed during the office visit and provided to the patient: - Smoking cessation - Prostate cancer screening Digital rectal exam recommended - Lipid panel (Z00.00) Medicare annual wellness visit, subsequent (primary encounter diagnosis) Comment: Patient was here for his yearly medicare wellness exam. Plan: as below (R93.89) Abnormal CT of the chest (J43.1) Panlobular emphysema (HCC) (R91.8) Lung nodules Comment: lung nodule found Plan: continue to monitor, CT CHEST WO IVCON (I25.5) Cardiomyopathy, ischemic Comment: well controlled Plan: COMP METABOLIC PANEL, metoprolol succinate ER (TOPROL XL) 25 mg 24 hr tablet (M54.41, G89.29, M54.42) Chronic low back pain with bilateral sciatica, unspecified back pain laterality Comment: well controlled Plan: continue to monitor (R60.0) Pedal edema Comment: no edema present today Plan: potassium chloride ER (K-DUR, KLOR-CON) 20 mEq tablet, furosemide (LASIX) 40 mg tablet (R10.13) Epigastric pain Comment: well controlled on current regimen Plan: lansoprazole (PREVACID) 30 mg capsule (Z12.5) Screening for prostate cancer Comment: Due for prostate cancer screening. Plan: PSA/PROSTSPECAG SCRN, HEP C AB IA W/CONF SCRN (Z11.4) Screening for HIV (human immunodeficiency virus) Comment: Due for one time HIV screening. Plan: HIV 1 2 COMBO(AG/AB),WITH REFLEX TO DIFFERENTIATION Signed Prescriptions Disp Refills potassium chloride ER (K-DUR, KLOR-CON) 20 mEq tablet 90 tablet 2 Sig: Take 1 tablet by mouth once daily. JOHN: No furosemide (LASIX) 40 mg tablet 90 tablet 2 Sig: Take 1 tablet by mouth once daily. JOHN: No lansoprazole (PREVACID) 30 mg capsule 90 capsule 2 Sig: Take 1 capsule by mouth once daily. JOHN: No metoprolol succinate ER (TOPROL XL) 25 mg 24 hr tablet 90 tablet 2 Sig: Take 1 tablet by mouth once daily. JOHN: No PARoxetine (PAXIL) 20 mg tablet 90 tablet 2 Sig: Take 1 tablet by mouth once daily. JOHN: No ATTESTATION: By signing my name below, Lucrecia Hernández, attest that this documentation has been prepared under the direction and in the presence of Cisco Phan MD. Electronically signed:Mckenzie Greenwood, September 08, 2021 8:10 AM Provider Attestation: ICisco MD, personally performed the services described in this documentation. All medical record entries made by the scribe were at my direction and in my presence. I have reviewed the chart and discharge instructions (if applicable) and agree that the record reflects my personal performance and is accurate and complete. Electronically Signed: Cisco Phan MD. September 08, 2021 3:15 PM documented in this encounterGenesis Hospital06-29-2022 Miscellaneous Notes* Telephone Encounter - Cisco Phan MD - 09/06/2021 1:35 PM EDT The following approved medication requests have been transmitted electronically. Signed Prescriptions Disp Refills metoprolol succinate ER (TOPROL XL) 25 mg 24 hr tablet 30 tablet 0 Sig: TAKE 1 TABLET BY MOUTH EVERY DAY JOHN: No Authorizing Provider: CISCO PHAN MD * Telephone Encounter - Altagracia Mariee Ma - 09/06/2021 12:44 PM EDT Last appointment: 07/20/21 Next appointment: 09/08/21 Pharmacy verified in [facility]. Refill(s) requested: Pending Prescriptions Disp Refills METOPROLOL SUCCINATE ER 25 MG TABLET,EXTENDED RELEASE 24 HR 30 tablet 0 Sig: TAKE 1 TABLET BY MOUTH EVERY DAY JOHN: Yes Order(s) pended. Please advise. Altagracia Mariee Ma, CMA documented in this encounterGenesis Hospital06-29-2022 Miscellaneous Notes* Telephone Encounter - Cisco Phan MD - 09/06/2021 1:33 PM EDT The following approved medication requests have been transmitted electronically. Signed Prescriptions Disp Refills lansoprazole (PREVACID) 30 mg capsule 30 capsule 0 Sig: TAKE 1 CAPSULE BY MOUTH ONCE DAILY A 1/2 HOUR BEFORE MEAL JOHN: No Authorizing Provider: CISCO PHAN MD * Telephone Encounter - Priti Escamilla MA - 09/06/2021 10:53 AM EDT Last appointment: 07-20-21 Next appointment: 09-08-21 Pharmacy verified in [facility]. Refill(s) requested: Pending Prescriptions Disp Refills LANSOPRAZOLE 30 MG CAPSULE,DELAYED RELEASE 30 capsule 0 Sig: TAKE 1 CAPSULE BY MOUTH ONCE DAILY A 1/2 HOUR BEFORE MEAL JOHN: Yes Order(s) pended. Please advise. Priti Escamilla MA MANAGEMENT PLANNER documented in this encounterGenesis Hospital05-31-2022 Miscellaneous Notes* Telephone Encounter - Salvatore Oakley MA - 08/08/2021 10:53 AM EDT Pharmacy verified in [facility]. Patient has been identified by name and date of : Yes Patient aware RX will be sent to pharmacy. No need to notify patient. Patient phones for refill(s): Pending Prescriptions Disp Refills LANSOPRAZOLE 30 MG CAPSULE,DELAYED RELEASE 30 capsule 0 Sig: TAKE 1 CAPSULE BY MOUTH ONCE DAILY A 1/2 HOUR BEFORE MEAL JOHN: Yes METOPROLOL SUCCINATE ER 25 MG TABLET,EXTENDED RELEASE 24 HR 30 tablet 0 Sig: TAKE 1 TABLET BY MOUTH EVERY DAY JOHN: Yes Date of last office visit : 05/18/2021 Date of next office visit : 09/08/2021 Last 2 Encounter Wt Readings: Date: Wt: 05/18/2021 85.9 kg (189 lb 4.8 oz) 01/21/2019 82.7 kg (182 lb 4.8 oz) Blood Pressure: BUN (mg/dL) Date Value 07/25/2021 10 01/11/2021 14 Creatinine (mg/dL) Date Value 07/25/2021 1.20 01/11/2021 1.21 Sodium (mmol/L) Date Value 07/25/2021 140 01/11/2021 138 Potassium (mmol/L) Date Value 07/25/2021 4.0 01/11/2021 4.5 Last 1 Encounter BP Readings: Date: BP: 05/18/2021 122/53 Please advise. Salvatore Oakley MA documented in this encounterGenesis Hospital05-13-2022 Miscellaneous Notes* Telephone Encounter - Cisco Phan MD - 07/21/2021 9:27 AM EDT Agree. Address the breathing issue first. Cisco Phan MD * Telephone Encounter - Paz Calderon - 07/21/2021 8:36 AM EDT Spoke to Daughter Ruchi, She stated they want to first take care of other health issues, Cardiology and Pulmonology. Will call later to schedule colonoscopy. Paz Calderon PSS documented in this encounterGenesis Hospital05-12-2022 History of Present illness Narrative* Cisco Phan MD - 07/20/2021 8:00 AM EDT This Team Access Model visit is a virtual encounter. It required patient- provider interaction for the medical decision making as documented below. The patient consented to proceed by video encounter before initiating the encounter. DISTANCE HEALTH VISIT Sandee Soriano is a 61 year old male seen for evaluation of pedal edema. Pedal Edema Patient says that his feet have been swollen. He is unsure of if he is gaining weight. He has been taking Lasix 20 mg and has been on this medication for about a month. Patient is also frequently out of breath. He denies any chest pressure or pain. HISTORY REVIEWED (electronic chart updated): - medical history - medications - allergies REVIEW OF SYSTEMS: General: Feels well, no weight changes, fever, chills. HEENT: No sinus congestion, earache, sore throat. Cardiac: No chest pain, palpitations Resp: No cough, wheeze +shortness of breath GI: No reflux symptoms, food intolerance, bowel changes. : No urinary frequency, dysuria. MS: +pedal edema PHYSICAL EXAMINATION: VIDEO EXAM: performed via video enabled technology GENERAL: alert and appropriate, in no distress and well-hydrated, well nourished Data Reviewed: 06/12/21 Creatinine- within normal limits 06/21/21 CT chest-IMPRESSION: Emphysema with dilated central pulmonary arteries consistent with chronic pulmonary arterial hypertension. Interval development of multiple lung nodules. Any of these appear centrilobular in may be due to chronic small airway inflammation. Others are indeterminate. One of the indeterminate nodules is an irregular lesion in the mid RIGHT lower lobe. Close follow-up is recommended. Recommend repeat CT in 3-4 months Right upper lobe linear densities suggestive scarring. However, a central spiculated lesion cannot be excluded and continued follow-up is recommended. There is coronary artery calcification consistent with coronary artery disease. Hepatic steatosis ASSESSMENT/PLAN: This encounter occurred by video encounter over the course of 12 minutes. (R60.0) Pedal edema (primary encounter diagnosis) Comment: patient having swelling in feet. Potentially from heart failure. Plan: Labs. Monitor weight (R91.8) Lung nodules Comment: per CT findings Plan: follow up with pulmonology. No medications selected for refill. RTO: 2 months Scribe Attestation: By signing my name below, I, Lucrecia Cannon, attest that this documentation has been prepared under the direction and in the presence of Tej Phan M.D.. Electronically Signed: Mckenzie Greenwood. July 20, 2021 7:48 AM. This telehealth encounter is provided under a state of emergency due to COVID19 and is for care forcondition where providing the care is supportive of minimizing potential exposure and/or transmission of COVID19. Provider Attestation: ICisco MD, personally performed the services described in this documentation. All medical record entries made by the scribe were at my direction and in my presence. I have reviewed the chart and discharge instructions (if applicable) and agree that the record reflects my personal performance and is accurate and complete. Electronically Signed: Cisco Phan MD. July 20, 2021 4:48 PM documented in this encounterGenesis Hospital05-11-2022 Miscellaneous Notes* Telephone Encounter - Taylre Mcmahon PA-C - 07/19/2021 4:02 PM EDT Noted. Tayler Mcmahon PA-C * Telephone Encounter - Yazmin Samano RN - 07/19/2021 3:16 PM EDT See below, patient prescribed Lasix 20 mg on 05/18/2021 for maryan foot swelling. Patient noted above swelling a few days ago but has gotten worse today. Patient does not elevate his legs, edema has not gone down since it was first noted. Daughter concerned about CHF, has a hx of COPD Patient denies CP, any increase in SOB which he has all of the time, congestion, cough, fever. Eating, taking po fluids, sleeping normally. Meds reviewed. Patient scheduled for VV tomorrow with PCP Patient will seek medical care if condition changes. Please advise if different plan of care Reason for Disposition Swelling of both ankles (i.e., pedal edema) [1] MILD swelling of both ankles (i.e., pedal edema) AND [2] new-onset or worsening Answer Assessment - Initial Assessment Questions 1. LOCATION: Which ankle is swollen? Where is the swelling? Both feet and ankles 2. ONSET: When did the swelling start? 3 days ago, worse today 3. SIZE: How large is the swelling? The whole foot, about 2 from the ankle going up the leg 4. PAIN: Is there any pain? If Yes, ask: How bad is it? (Scale 1-10; or mild, moderate, severe) - NONE (0): no pain. - MILD (1-3): doesn't interfere with normal activities. - MODERATE (4-7): interferes with normal activities (e.g., work or school) or awakens from sleep, limping. - SEVERE (8-10): excruciating pain, unable to do any normal activities, unable to walk. Mild 5. CAUSE: What do you think caused the ankle swelling? Hx of CHF, was prescribed Lasix 20 mg 05/18/2021 for maryan foot swelling 6. OTHER SYMPTOMS: Do you have any other symptoms? (e.g., fever, chest pain, difficulty breathing, calf pain) Denies 7. : Is there any chance you are ? When was your last menstrual period? n/a Answer Assessment - Initial Assessment Questions 1. ONSET: When did the swelling start? (e.g., minutes, hours, days) A few days ago 2. LOCATION: What part of the leg is swollen? Are both legs swollen or just one leg? Swelling is in feet and about 2 up the leg 3. SEVERITY: How bad is the swelling? (e.g., localized; mild, moderate, severe) - Localized - small area of swelling localized to one leg - MILD pedal edema - swelling limited to foot and ankle, pitting edema < 1/4 inch (6 mm) deep, rest and elevation eliminate most or all swelling - MODERATE edema - swelling of lower leg to knee, pitting edema > 1/4 inch (6 mm) deep, rest andelevation only partially reduce swelling - SEVERE edema - swelling extends above knee, facial or hand swelling present Mild 4. REDNESS: Does the swelling look red or infected? denies 5. PAIN: Is the swelling painful to touch? If Yes, ask: How painful is it? (Scale 1-10; mild, moderate or severe) Mild 6. FEVER: Do you have a fever? If Yes, ask: What is it, how was it measured, and when did it start? Denies 7. CAUSE: What do you think is causing the leg swelling? Unknown 8. MEDICAL HISTORY: Do you have a history of heart failure, kidney disease, liver failure, or cancer? COPD 9. RECURRENT SYMPTOM: Have you had leg swelling before? If Yes, ask: When was the last time? What happened that time? denies 10. OTHER SYMPTOMS: Do you have any other symptoms? (e.g., chest pain, difficulty breathing) Is SOB all of the time, that has not changed, per patient 11. : Is there any chance you are ? When was your last menstrual period? n/a Protocols used: ANKLE [id number], LEG SWELLING AND [id number] * Telephone Encounter - Diane Matt Pss - 07/19/2021 2:27 PM EDT Patient daughter is calling to speak to someone regarding the swelling in her father's feet. She states they were swollen yesterday and are worse today. He is on lansporvole 30mg, but it does not seem to be helping. She states her father says he has been more active lately which might be worsening the swelling. Please call daughterRuchi at [phone] to discuss. documented in this encounterGenesis Hospital05-09-2022 Miscellaneous Notes* Telephone Encounter - Jyoti Jones RN - 07/17/2021 1:35 PM EDT LM on for return call * Telephone Encounter - Carla Pfeiffer APRN.[facility] - 07/17/2021 12:54 PM EDT Colonoscopy ordered, may schedule. Carla Pfeiffer APRN.CNP * Telephone Encounter - Christos Rahman - 07/17/2021 10:06 AM EDT Patient requesting colonoscopy orders. Has an appointment on 09/08 for medicare wellness, please advise. Thank you. documented in this encounterGenesis Hospital05-02-2022 Miscellaneous Notes* Telephone Encounter - Cisco Phan MD - 07/10/2021 1:46 PM EDT The following approved medication requests have been transmitted electronically. Signed Prescriptions Disp Refills PARoxetine (PAXIL) 20 mg tablet 90 tablet 0 Sig: TAKE 1 TABLET BY MOUTH EVERY DAY JOHN: No Authorizing Provider: CISCO PHAN MD * Telephone Encounter - Rosanna Wolfe - 07/10/2021 1:21 PM EDT Last appointment: 05/18/21 Next appointment: n/a Pharmacy verified in [facility]. Refill(s) requested: Pending Prescriptions Disp Refills PAROXETINE 20 MG TABLET 90 tablet 0 Sig: TAKE 1 TABLET BY MOUTH EVERY DAY JOHN: Yes Order(s) pended. Please advise. Rosanna Wolfe LPN documented in this encounterGenesis Hospital05-02-2022 History of Present illness Narrative* Donna Calderon MA - 07/10/2021 9:30 AM EDT POPULATION HEALTH NAVIGATION OUTREACH Action/FYI lvm Mychart message sent Health Maintenance items due: ANNUAL MEDICARE WELLNESS EXAM COLORECTAL CANCER SCREENING Pt identified by name and : NO Outreach Outcome/Action Unable to reach patient: Left message [employer] message sent Reason for Outreach Care Gap or Scheduling/Wellness visits Payer: Payor: MEDICARE / Plan: MEDICARE A AND B / Product Type: Medicare / Care Gap Reviewed:: Annual Wellness visit Colorectal Cancer Screening Reminder: Reminder note to check Health Maintenance for items below Health Maintenance items due: COVID-19 VACCINE(1) Never done HEPATITIS C SCREENING Never done HIV SCREENING Never done DTAP,TDAP,TD(1 - Tdap) Never done COLORECTAL CANCER SCREENING Never done SHINGRIX VACCINE(1 of 2) Never done DEPRESSION SCREENING due on 01/10/2020 PROSTATE CANCER SCREENING DISCUSSION due on 05/04/2020 Message Sent to Practice: No Navigation Signature: Donna Calderon MA July 10, 2021 9:30 AM documented in this encounterGenesis Hospital04-25-2022 Miscellaneous Notes* Telephone Encounter - Salvatore Oakley MA - 07/03/2021 1:05 PM EDT Pharmacy verified in [place]. Patient has been identified by name and date of : Yes Patient aware RX will be sent to pharmacy. No need to notify patient. Patient phones for refill(s): Pending Prescriptions Disp Refills METOPROLOL SUCCINATE ER 25 MG TABLET,EXTENDED RELEASE 24 HR 30 tablet 0 Sig: TAKE 1 TABLET BY MOUTH EVERY DAY JOHN: Yes LANSOPRAZOLE 30 MG CAPSULE,DELAYED RELEASE 30 capsule 0 Sig: TAKE 1 CAPSULE BY MOUTH ONCE DAILY. TAKE A 1/2 HR BEFORE MEAL. JOHN: Yes Date of last office visit : 05/18/2021 Date of next office visit : Visit date not found Last 2 Encounter Wt Readings: Date: Wt: 05/18/2021 85.9 kg (189 lb 4.8 oz) 01/21/2019 82.7 kg (182 lb 4.8 oz) Blood Pressure: BUN (mg/dL) Date Value 01/11/2021 14 Creatinine (mg/dL) Date Value 06/12/2021 1.06 01/11/2021 1.21 Sodium (mmol/L) Date Value 01/11/2021 138 Potassium (mmol/L) Date Value 01/11/2021 4.5 Last 1 Encounter BP Readings: Date: BP: 05/18/2021 122/53 Please advise. Salvatore Oakley MA documented in this encounterGenesis Hospital04-20-2022 Miscellaneous Notes* Telephone Encounter - Geraldine Tristan - 06/28/2021 9:46 AM EDT Third attempt at contacting patient, left VM. Please assist in scheduling if he calls back * Telephone Encounter - Geraldine Tristan - 06/27/2021 9:08 AM EDT Second attempt at contacting patient, left VM. Please assist in scheduling * Telephone Encounter - Geraldine Tristan - 06/26/2021 9:30 AM EDT First attempt at contacting patient, left VM. Please assist in scheduling when he calls back * Telephone Encounter - Hollie Vaughan RN - 06/26/2021 9:03 AM EDT Called patient at [phone]. Reviewed provider message. Patient states he knows about the emphysema. Patient confirms he is not a current smoker. He agrees to following up with pulmonology and agreeable to seeing pul Opal again, has seen Shreyas Baig and does not recall why he did not return. Patient will expect call for scheduling with pul. Please assist. * Telephone Encounter - Yazmin Samano RN - 06/23/2021 12:15 PM EDT Message left to CB * Telephone Encounter - Cisco Phan MD - 06/23/2021 8:[address] shows emphysema and some lung nodules. 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 Cisco Phan MD documented in this encounterGenesis Hospital04-13-2022 History of Present illness Narrative* Priscilla Jaimes, RT(R) - 06/21/2021 1:20 PM EDT Radiology Service Progress Note DATE OF SERVICE: June 21, 2021 TIME: 3:47 PM PATIENT IDENTITY VERIFICATION COMPLETED USING TWO (2) STANDARD IDENTIFIERS: Name and Date of confirmed by patient verbally. FALL SCREENING: Has the patient had 2 falls in the last year or 1 fall with injury or currently using an Ambulatory Assistive Device (Walker, Cane, Wheelchair, Crutches, etc.)? No PATIENT GENDER DATA: Male PATIENT RELEVANT IMPLANT DATA REVIEWED: Yes ALLERGIES: Reviewed and unchanged CONTRAST ALLERGY: NO. EXAM: CT -CONTRAST INDUCED NEPHROPATHY RISK FACTORS: Patient age > 60 years CREATININE: Creatinine Date Value Ref Range Status 06/12/2021 1.06 0.73 - 1.22 mg/dL Final 01/11/2021 1.21 0.73 - 1.22 mg/dL Final 01/26/2020 1.14 0.73 - 1.22 mg/dL Final Estimated Glomerular Filtration Rate Date Value Ref Range Status 06/12/2021 79 >=60 mL/min/1.73m Final Comment: Estimated Glomerular Filtration Rate (eGFR) is calculated using the 2020 CKD-EPI creatinine equation. This equation utilizes serum creatinine, sex, and age as parameters. The creatinine assay has traceable calibration to isotope dilution- mass spectrometry. Refer to KDIGO guidelines for clinical interpretation. In patients with unstable renal function, e.g. those with acute kidney injury, the eGFRmay not accurately reflect actual GFR. eGFR- Date Value Ref Range Status 01/11/2021 >60 Final P.O.C.T. RESULTS: POC done: Yes, See Lab Tab June 21, 2021 TREATMENT: N/A PERIPHERAL IV DATA: Ambulatory: A peripheral IV was started in the Left antecubital site with a Angio cath: 22 gauge. RADIOLOGY DEPARTMENT: CT; Exam(s) Completed: Chest SIGNATURE: RT Sarah Beth(R) PATIENT NAME: Sandee oSriano DATE: June 21, 2021 TIME: 3:47 PM documented in this [facility]04-01-2022 Miscellaneous Notes* Telephone Encounter - Priti Escamilla MA - 06/09/2021 10:15 AM EDT Last appointment: 05-18-21 Next appointment: na Pharmacy verified in [facility]. Refill(s) requested: Pending Prescriptions Disp Refills FUROSEMIDE 20 MG TABLET 30 tablet 0 Sig: TAKE 1 TABLET BY MOUTH EVERY DAY JOHN: Yes Order(s) pended. Please advise. Priti Escamilla MA, MANAGEMENT PLANNER documented in this [facility]04-01-2022 Miscellaneous Notes* Telephone Encounter - Priti Escamilla MA - 06/09/2021 8:37 AM EDT Last appointment: 05-18-21 Next appointment: na Pharmacy verified in [facility]. Refill(s) requested: Pending Prescriptions Disp Refills LANSOPRAZOLE 30 MG CAPSULE,DELAYED RELEASE 30 capsule 0 Sig: TAKE 1 CAPSULE BY MOUTH ONCE DAILY. TAKE A 1/2 HR BEFORE MEAL. JOHN: Yes Order(s) pended. Please advise. Priti Escamilla MA, MANAGEMENT PLANNER documented in this [facility]03-25-2022 Miscellaneous Notes* Telephone Encounter - Priti Escamilla MA - 06/02/2021 9:33 AM EDT Last appointment: 05-18-21 Next appointment: na Pharmacy verified in [facility]. Refill(s) requested: Pending Prescriptions Disp Refills METOPROLOL SUCCINATE ER 25 MG TABLET,EXTENDED RELEASE 24 HR 30 tablet 0 Sig: TAKE 1 TABLET BY MOUTH EVERY DAY JOHN: Yes Order(s) pended. Please advise. Priti Escamilla MA, MANAGEMENT PLANNER [facility]* Diagnosis Cardiomyopathy, ischemic Other specified forms of chronic ischemic heart disease documented in this encounter [facility] note* Diagnosis Epigastric pain Abdominal pain, epigastric [facility]* Diagnosis Lung nodules Other nonspecific abnormal finding of lung field Shortness of breath documented in this encounter [facility] note* Diagnosis Lung nodule- Primary Solitary pulmonary nodule Pulmonary emphysema, unspecified emphysema type (HCC) documented in this encounter [facility] note* Diagnosis Chronic obstructive pulmonary disease, unspecified COPD type (HCC)- Primary documented in this encounter [facility] note* Diagnosis Cardiomyopathy, ischemic Other specified forms of chronic ischemic heart disease Epigastric pain Abdominal pain, epigastric [facility]* Diagnosis Pedal edema- Primary Edema Lung nodules Other nonspecific abnormal finding of lung field Dyspnea, unspecified [facility]* Diagnosis Epigastric pain Abdominal pain, epigastric Cardiomyopathy, ischemic Other specified forms of chronic ischemic heart disease [facility]* Diagnosis Epigastric pain Abdominal pain, epigastric [facility]* Diagnosis Cardiomyopathy, ischemic Other specified forms of chronic ischemic heart disease [facility]* Diagnosis Medicare annual wellness visit, subsequent- Primary Routine general medical examination at a health care facility Abnormal CT of the chest Nonspecific (abnormal) findings on radiological and other examination of other intrathoracic organs Panlobular emphysema (HCC) Other emphysema Cardiomyopathy, ischemic Other specified forms of chronic ischemic heart disease Chronic low back pain with bilateral sciatica, unspecified back pain laterality Pedal edema Edema Epigastric pain Abdominal pain, epigastric Lung nodules Other nonspecific abnormal finding of lung field Screening for prostate cancer Special screening for malignant neoplasm of prostate Screening for HIV (human immunodeficiency virus) Special screening examination for other specified viral diseases [facility]* Diagnosis Chronic obstructive pulmonary disease, unspecified COPD type (HCC) [facility]* Diagnosis Pulmonary emphysema, unspecified emphysema type (HCC)- Primary Lung nodules Other nonspecific abnormal finding of lung field Ex-smoker Personal history of tobacco use, presenting hazards to health Chronic combined systolic and diastolic congestive heart failure, NYHA class 3 (HCC) 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ailure [facility] Diagnosis Acute non-recurrent maxillary sinusitis- Primary Pulmonary nodule Solitary pulmonary nodule [facility]* Diagnosis Situational anxiety- Primary Other anxiety states [facility]* Diagnosis Onset Date Resolution Status History of mitral valve prolapse acute Atherosclerotic heart diseas e of [place] coronary artery without angina pectoris chronic COPD (chronic obstructive pulmonary disease) chronic Dyslipidemia chronic Dyspnea on exertion chronic Essential hypertension chron ic History of coronary artery bypass surgery [facility] Work Phone: Evaluation note* Diagnosis Situational anxiety Other anxiety states [facility] Diagnosis Chronic combined systolic and diastolic CHF (congestive heart failure) (HCC)- Primary 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ailure Nonrheumatic pulmonary valve insufficiency Pulmonary valve disorders Hyperglycemia Other abnormal glucose Adjustment disorder with anxiety [facility]* Diagnosis Pedal edema Edema Cardiomyopathy, ischemic Other specified forms of chronic ischemic heart disease Epigastric pain Abdominal pain, epigastric [facility]* Diagnosis Acquired hypothyroidism- Primary Unspecified hypothyroidism Hyperglycemia Other abnormal glucose [facility] Diagnosis Onset Date Resolution Status Atherosclerotic heart diseas e of [place] coronary artery without angina pectoris chronic COPD (chronic obstructive pulmonary disease) chronic Dyslipidemia chronic Dyspnea on exertion chronic Essential hypertension chron ic History of coronary artery bypass surgery chronic Lung nodules acute Chronic combined systolic an d diastolic CHF, NYHA class 3 chronic COPD (chronic obstructive pulmonary disease) chronic Non-rheumatic mitral regurgitation acute Nonrheumatic pulmonary valve regurgitation acute Atherosclerotic heart diseas e of [place] coronary artery without angina pectoris chronic COPD (chronic obstructive pulmonary disease) chronic Dyslipidemia chronic Dyspnea on exertion chronic Essential hypertension chron ic History of coronary artery bypass surgery chronic PFO (patent foramen ovale) c hronic [facility] Work Phone: Evaluation note* Diagnosis Onset Date Resolution Status Lung nodules acute Chronic combined systolic an d diastolic CHF, NYHA class 3 chronic COPD (chronic obstructive pulmonary disease) chronic Non-rheumatic mitral regurgitation acute Nonrheumatic pulmonary valve regurgitation acute Atherosclerotic heart diseas e of [place] coronary artery without angina pectoris chronic COPD (chronic obstructive pulmonary disease) chronic Dyslipidemia chronic Dyspnea on exertion chronic Essential hypertension chron ic History of coronary artery bypass surgery chronic PFO (patent foramen ovale) c hronic [facility] Work Phone: Evaluation note* Diagnosis Nonrheumatic pulmonary valve insufficiency Other diseases of pulmonary vessels (HCC) Nonrheumatic mitral (valve) prolapse 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 [facility] Diagnosis Essential (primary) hypertension- Primary Unspecified essential hypertension Encounter for immunization Need for other specified prophylactic vaccination against single bacterial disease Pulmonary hypertension (HCC) Other chronic pulmonary heart diseases 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ailure (HCC) 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ailure [facility]* Diagnosis Pedal edema Edema [facility]* Diagnosis Onset Date Resolution Status Daytime hypersomnia acute Lung nodules acute COPD (chronic obstructive pulmonary disease) [facility] Work Phone: Evaluation note* Diagnosis Dyslipidemia- Primary Other and unspecified hyperlipidemia Cardiomyopathy, ischemic Other specified forms of chronic ischemic heart disease Hypercholesterolemia Pure hypercholesterolemia [facility]* Diagnosis Medication management Encounter for long-term (current) use of other medications [facility]* Diagnosis Cardiomyopathy, ischemic- Primary Other specified forms of chronic ischemic heart disease MCMULLEN (dyspnea on exertion) Other dyspnea and respiratory abnormality Essential (primary) hypertension Unspecified essential hypertension 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ailure (HCC) 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ailure Fall in home, initial encounter Rib contusion, right, initial encounter Mild cognitive impairment Mild cognitive impairment, so stated Hypercholesterolemia Pure hypercholesterolemia Occipital headache Headache [facility] Diagnosis Cardiomyopathy, ischemic Other specified forms of chronic ischemic heart disease Hypercholesterolemia Pure hypercholesterolemia [facility]* Diagnosis Cardiomyopathy, ischemic Other specified forms of chronic ischemic heart disease Hypercholesterolemia Pure hypercholesterolemia documented in this encounter [facility] note* Diagnosis Epigastric pain Abdominal pain, epigastric documented in this encounter [facility] note* Diagnosis Rib contusion, right, initial encounter [facility]* Diagnosis Cardiomyopathy, ischemic Other specified forms of chronic ischemic heart disease documented in this encounter [facility] note* Diagnosis Pedal edema Edema documented in this encounter [facility] note* Diagnosis Cardiomyopathy, ischemic Other specified forms of chronic ischemic heart disease [facility]* Diagnosis Cardiomyopathy, ischemic Other specified forms of chronic ischemic heart disease Hypercholesterolemia Pure hypercholesterolemia documented in this encounter [facility] note* Diagnosis Hypercholesterolemia Pure hypercholesterolemia Medication management Encounter for long-term (current) use of other medications documented in this encounter [facility] note* Diagnosis Pedal edema Edema documented in this encounter [facility] note* Diagnosis Chronic obstructive pulmonary disease, unspecified COPD type (HCC)- Primary Cardiomyopathy, ischemic Other specified forms of chronic ischemic heart disease Hypercholesterolemia Pure hypercholesterolemia Chronic combined systolic (congestive) and diastolic (congestive) heart failure (HCC) Chronic depression Depressive disorder, not elsewhere classified PAD (peripheral artery disease) Peripheral vascular disease, unspecified Essential (primary) hypertension Unspecified essential hypertension Persistent cough Cough Epigastric pain Abdominal pain, epigastric Continuous tobacco abuse Chronic bilateral low back pain with bilateral sciatica Screening for depression Encounter for screening examination for other mental health and behavioral disorders Acquired hypothyroidism Unspecified hypothyroidism Hyperglycemia Other abnormal glucose documented in this encounter [facility] note* Diagnosis Tobacco abuse Tobacco use disorder documented in this encounter [facility] note* Diagnosis Cardiomyopathy, ischemic Other specified forms of chronic ischemic heart disease Hypercholesterolemia Pure hypercholesterolemia documented in this encounter [facility] noteNo assessment [facility] Work [facility]* Diagnosis Pedal edema Edema documented in this encounter [facility] course Narrative No data available for this section [facility] Discharge instructions No data available for this section [facility] Progress note No data available for this section [facility] Reason for referral (narrative)* Outpatient Procedure (Routine) - Pending Review Specialty Diagnoses / Procedures Referred By Contac t Referred To Contact [facility] Diagnoses Chronic obstructive pulmonary disease, unspecified COPD type (HCC) Procedures SPIROMETRY WITH DILATOR IF OBSTRUCTED BRNCDILAT RSPSE SPMTRY PRE&POST-BRNCDILAT ADMN Beto Guevara MD [address] [place] [address] Respiratory [place] [address] [place] [address] Referral ID Status Reason Start Date Expiration Date Visits Requested Visits Authorized [id number] Pending Review Auto-Generat ed Referral 07/01/2021 07/30/2022 1 1 [facility] for referral (narrative)* Diagnostic Procedure Only (Routine) - Pending Review Specialty Diagnoses / Procedures Referred By Contac t Referred To Contact MOLECULAR & FUNCTIONAL IMAGING Diagnoses Lung nodules Procedures NM PET/CT SKULL-THIGH INITIAL PET IMAGING CT ATTENUATION SKULL BASE MID-THIGH Beto Guevara MD [address] [place] [address] Molecular & Functional Imaging [address] [place] [address] Referral ID Status Reason Start Date Expiration Date Visits Requested Visits Authorized [id number] Pending Review Auto-Generat ed Referral 09/13/2021 10/13/2022 1 1 [facility] for referral (narrative)* Diagnostic Procedure Only (Routine) - Pending Review Specialty Diagnoses / Procedures Referred By Contac t Referred To Contact XR IMAGING Diagnoses Rib contusion, right, initial encounter Procedures XR RIBS 2V AP/OBL RIGHT RADEX RIBS UNILATERAL 2 VIEWS Cisco Phan MD [address] [place] [address] [place] [address] [place] [address] Referral ID Status Reason Start Date Expiration Date Visits Requested Visits Authorized [id number] Pending Review Auto-Generat ed Referral 06/24/2023 07/23/2024 1 1 [facility] for referral (narrative)* Diagnostic Procedure Only (Routine) - Closed Specialty Diagnoses / Procedures Referred By Contac t Referred To Contact XR IMAGING Diagnoses Rib contusion, right, initial encounter Procedures XR RIBS 2V AP/OBL RIGHT RADEX RIBS UNILATERAL 2 VIEWS Cisco Phan MD [address] [facility] [place] [address] [place] [address] Referral ID Status Reason Start Date Expiration Date V isits Requested Visits Authorized [id number] Closed Auto-Generate d Referral 06/27/2023 03/10/2024 1 1 [facility] for referral (narrative)No reason for referral [facility]: Reason for visit Narrative* Diagnostic Procedure Only (Routine) - Closed Specialty Diagnoses / Procedures Referred By Contac t Referred To Contact XR IMAGING Diagnoses Rib contusion, right, initial encounter Procedures XR RIBS 2V AP/OBL RIGHT RADEX RIBS UNILATERAL 2 VIEWS Cisco Phan MD [address] [place] [address] [place] [address] Referral ID Status Reason Start Date Expiration Date V isits Requested Visits Authorized [id number] Closed Auto-Generate d Referral 06/27/2023 03/10/2024 1 1 [facility] Summary Purpose Family History No Family History Records Found Relationship Condition Age at Onset Recorded Date/T laurent mother Malignant neoplasm Unknown grandmother Cardiac disease Unknown grandfather Congestive heart failure Unknown Advance Directives No Advanced Directives Records FoundNo Advanced Directives Records FoundNo Advanced Directives Records FoundNo Advanced Directives Records FoundNo Advanced Directives Records FoundNo Advanced Directives Records FoundNo Advanced Directives Records Found Reason for Referral Specialty Diagnoses / Procedures Referred By Contac t Referred To Contact CT IMAGING Diagnoses Lung nodules Shortness of breath Procedures CT CHEST W IVCON DIAGNOSTIC COMPUTED TOMOGRAPHY THORAX W/CONTRAST Carla Pfeiffer APRN.INSURANCE ADJUSTOR [address] [place] [address] Ct Imaging Referral ID Status Reason Start Date Expiration Date V isits Requested Visits Authorized [id number] Closed Auto-Generate d Referral 05/25/2021 06/24/2022 1 1 Specialty Diagnoses / Procedures Referred By Contac t Referred To Contact Pulmonary and Critical Care Medicine Diagnoses Lung nodule Pulmonary emphysema, unspecified emphysema type (HCC) Procedures CONSULT TO PULM/CRITICAL CARE OFFICE/OUTPATIENT [facility] 60-74 MINUTES Cisco Phan MD [address] [place] [address] Referral ID Status Reason Start Date Expiration Date Visits Requested Visits Authorized [id number] Authorized PCP Requested Referral 06/23/2021 06/23/2022 1 1 Specialty Diagnoses / Procedures Referred By Contac t Referred To Contact CT IMAGING Diagnoses Lung nodules Procedures CT CHEST WO IVCON DIAGNOSTIC COMPUTED TOMOGRAPHY THORAX W/O CNTRST Cisco Phan MD [address] [facility] [place] [address] Ct Imaging Referral ID Status Reason Start Date Expiration Date Visits Requested Visits Authorized [id number] Pending Review Auto-Generat ed Referral 09/22/2021 08/19/2022 1 1 Referral ID Status Reason Start Date Expiration Date Visits Requested Visits Authorized [id number] Pending Review Auto-Generat ed Referral 10/09/2021 10/08/2022 1 1 Specialty Diagnoses / Procedures Referred By Contac t Referred To Contact Radiology Diagnoses Nonrheumatic pulmonary valve insufficiency Other diseases of pulmonary vessels (HCC) Nonrheumatic mitral (valve) prolapse 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 Procedures MR cardiac morphology and function wo IV contrast Best Titus MD [address] [place] [address] Referral ID Status Reason Start Date Expiration Date Visits Re quested Visits Authorized [id number] Closed 07/06/2022 01/02/2023 1 1 Chief Complaint and Reason for Visit Chief Complaint Amb Documentation CAD, MVP (SELF REF) CAD ASHD Reason for Visit History of mitral va lve prolapse Atherosclerotic heart disease of [place] coronary artery without angina pectoris COPD (chronic obstructive pulmonary disease) Dyslipidemia Dyspnea on exertion Essential hypertension History of coronary artery bypass surgery Chief Complaint Amb Documentation CAD, MVP (SELF REF) CAD ASHD Amb Documentation COPD 3 M FU MULTIPLE LUNG NODULES Reason for Visit Atherosclerotic hear t disease of [place] coronary artery without angina pectoris COPD (chronic obstructive pulmonary disease) Dyslipidemia Dyspnea on exertion Essential hypertension History of coronary artery bypass surgery Lung nodules Chronic combined systolic and diastolic CHF, NYHA class 3 COPD (chronic obstructive pulmonary disease) Non-rheumatic mitral regurgitation Nonrheumatic pulmonary valve regurgitation Atherosclerotic heart disease of [place] coronary artery without angina pectoris COPD (chronic obstructive pulmonary disease) Dyslipidemia Dyspnea on exertion Essential hypertension History of coronary artery bypass surgery PFO (patent foramen ovale) Chief Complaint Amb Documentation COPD 3 M FU MULTIPLE LUNG NODULES Other nonspecific abnormal finding of lung field Other nonspecific abnormal finding of lung field Other nonspecific abnormal finding of lung field Other nonspecific abnormal finding of lung field CAD ASHD CAD ASHD Reason for Visit Lung nodules Chronic combined systolic and diastolic CHF, NYHA class 3 COPD (chronic obstructive pulmonary disease) Non-rheumatic mitral regurgitation Nonrheumatic pulmonary valve regurgitation Atherosclerotic heart disease of [place] coronary artery without angina pectoris COPD (chronic obstructive pulmonary disease) Dyslipidemia Dyspnea on exertion Essential hypertension History of coronary artery bypass surgery PFO (patent foramen ovale) Chief Complaint HX NICOTINE DEPENDEN CE 6 M FU Reason for Visit Daytime hypersomnia Lung nodules COPD (chronic obstructive pulmonary disease) Chief Complaint Admit Date R06.09 - Other forms of dyspnea September 10:33am Chief Complaint Admit Date R06.09 - Other forms of dyspnea September 10:33am R06.09 - Other forms of dyspnea October 102024 12:50pm R06.09 - Other forms of dyspnea October 102024 9:56am Chief Complaint Admit Date R06.09 - Other forms of dyspnea September 10:33am R06.09 - Other forms of dyspnea October 102024 12:50pm R06.09 - Other forms of dyspnea October 102024 9:56am Follow up from testing November 18 8:03am Additional Source Comments (unrecognized sect ion and content) No Status Records FoundNo Status Records FoundNo Status Records FoundNo Status Records FoundNo Status Records FoundNo Status Records FoundNo Status Records Found INFORMATION SOURCE (unrecogn ized section and content) DATE CREATED AUTHOR 04/19/2018 [facility] DATE CREATED AUTHOR AUTHOR'S ORGANIZ ATION 01/21/2019 [facility] DATE CREATED AUTHOR AUTHOR'S ORGANIZ ATION 10/19/2022 [facility] DATE CREATED AUTHOR AUTHOR'S ORGANIZ ATION 03/14/2023 [facility] ([place]) DATE CREATED AUTHOR AUTHOR'S ORGANIZ ATION 10/16/2024 [facility] DATE CREATED AUTHOR AUTHOR'S ORGANIZ ATION 11/21/2024 [facility] DATE CREATED AUTHOR AUTHOR'S ORGANIZ ATION 12/13/2024 [facility] Source Comments (unrecognize d section and content) In the event this informatio n is protected by the Federal Confidentiality of Alcohol and Drug Abuse Patient Records regulations: The Federal rules restrict any use of the information to criminally investigate or prosecute any alcohol or drug abuse patient.[facility] the event this information is protected by the Federal Confidentiality of Alcohol and Drug Abuse Patient Records regulations: The Federal rules restrict any use of the information to criminally investigate or prosecute any alcohol or drug abuse patient.[facility] Hospital[facility] the event this information is protected by the Federal Confidentiality of Alcohol and Drug Abuse Patient Records regulations: The Federal rules restrict any use of the information to criminally investigate or prosecute any alcohol or drug abuse patient.[facility] Hospital[facility] the event this information is protected by the Federal Confidentiality of Alcohol and Drug Abuse Patient Records regulations: The Federal rules restrict any use of the information to criminally investigate or prosecute any alcohol or drug abuse patient.[facility] Hospital[facility] the event this information is protected by the Federal Confidentiality of Alcohol and Drug Abuse Patient Records regulations: The Federal rules restrict any use of the information to criminally investigate or prosecute any alcohol or drug abuse patient.[facility] Hospital[facility] the event this information is protected by the Federal Confidentiality of Alcohol and Drug Abuse Patient Records regulations: The Federal rules restrict any use of the information to criminally investigate or prosecute any alcohol or drug abuse patient.[facility] Hospital[facility] the event this information is protected by the Federal Confidentiality of Alcohol and Drug Abuse Patient Records regulations: The Federal rules restrict any use of the information to criminally investigate or prosecute any alcohol or drug abuse patient.[facility] HospitalIn the event this information is protected by the Federal Confidentiality of Alcohol and Drug Abuse Patient Records regulations: The Federal rules restrict any use of the information to criminally investigate or prosecute any alcohol or drug abuse patient.[facility] Hospital[facility] the event this information is protected by the Federal Confidentiality of Alcohol and Drug Abuse Patient Records regulations: The Federal rules restrict any use of the information to criminally investigate or prosecute any alcohol or drug abuse patient.[facility] Hospital[facility] the event this information is protected by the Federal Confidentiality of Alcohol and Drug Abuse Patient Records regulations: The Federal rules restrict any use of the information to criminally investigate or prosecute any alcohol or drug abuse patient.[facility] HospitalIn the event this information is protected by the Federal Confidentiality of Alcohol and Drug Abuse Patient Records regulations: The Federal rules restrict any use of the information to criminally investigate or prosecute any alcohol or drug abuse patient.[facility] HospitalIn the event this information is protected by the Federal Confidentiality of Alcohol and Drug Abuse Patient Records regulations: The Federal rules restrict any use of the information to criminally investigate or prosecute any alcohol or drug abuse patient.[facility] HospitalIn the event this information is protected by the Federal Confidentiality of Alcohol and Drug Abuse Patient Records regulations: The Federal rules restrict any use of the information to criminally investigate or prosecute any alcohol or drug abuse patient.[facility] HospitalIn the event this information is protected by the Federal Confidentiality of Alcohol and Drug Abuse Patient Records regulations: The Federal rules restrict any use of the information to criminally investigate or prosecute any alcohol or drug abuse patient.[facility] HospitalIn the event this information is protected by the Federal Confidentiality of Alcohol and Drug Abuse Patient Records regulations: The Federal rules restrict any use of the information to criminally investigate or prosecute any alcohol or drug abuse patient.[facility] HospitalIn the event this information is protected by the Federal Confidentiality of Alcohol and Drug Abuse Patient Records regulations: The Federal rules restrict any use of the information to criminally investigate or prosecute any alcohol or drug abuse patient.[facility] HospitalIn the event this information is protected by the Federal Confidentiality of Alcohol and Drug Abuse Patient Records regulations: The Federal rules restrict any use of the information to criminally investigate or prosecute any alcohol or drug abuse patient.[facility] HospitalIn the event this information is protected by the Federal Confidentiality of Alcohol and Drug Abuse Patient Records regulations: The Federal rules restrict any use of the information to criminally investigate or prosecute any alcohol or drug abuse patient.[facility] HospitalIn the event this information is protected by the Federal Confidentiality of Alcohol and Drug Abuse Patient Records regulations: The Federal rules restrict any use of the information to criminally investigate or prosecute any alcohol or drug abuse patient.[facility] HospitalIn the event this information is protected by the Federal Confidentiality of Alcohol and Drug Abuse Patient Records regulations: The Federal rules restrict any use of the information to criminally investigate or prosecute any alcohol or drug abuse patient.[facility] HospitalIn the event this information is protected by the Federal Confidentiality of Alcohol and Drug Abuse Patient Records regulations: The Federal rules restrict any use of the information to criminally investigate or prosecute any alcohol or drug abuse patient.[facility] HospitalIn the event this information is protected by the Federal Confidentiality of Alcohol and Drug Abuse Patient Records regulations: The Federal rules restrict any use of the information to criminally investigate or prosecute any alcohol or drug abuse patient.[facility] HospitalIn the event this information is protected by the Federal Confidentiality of Alcohol and Drug Abuse Patient Records regulations: The Federal rules restrict any use of the information to criminally investigate or prosecute any alcohol or drug abuse patient.[facility] HospitalIn the event this information is protected by the Federal Confidentiality of Alcohol and Drug Abuse Patient Records regulations: The Federal rules restrict any use of the information to criminally investigate or prosecute any alcohol or drug abuse patient.[facility] HospitalIn the event this information is protected by the Federal Confidentiality of Alcohol and Drug Abuse Patient Records regulations: The Federal rules restrict any use of the information to criminally investigate or prosecute any alcohol or drug abuse patient.[facility] HospitalIn the event this information is protected by the Federal Confidentiality of Alcohol and Drug Abuse Patient Records regulations: The Federal rules restrict any use of the information to criminally investigate or prosecute any alcohol or drug abuse patient.[facility] HospitalIn the event this information is protected by the Federal Confidentiality of Alcohol and Drug Abuse Patient Records regulations: The Federal rules restrict any use of the information to criminally investigate or prosecute any alcohol or drug abuse patient.[facility] HospitalIn the event this information is protected by the Federal Confidentiality of Alcohol and Drug Abuse Patient Records regulations: The Federal rules restrict any use of the information to criminally investigate or prosecute any alcohol or drug abuse patient.[facility] HospitalIn the event this information is protected by the Federal Confidentiality of Alcohol and Drug Abuse Patient Records regulations: The Federal rules restrict any use of the information to criminally investigate or prosecute any alcohol or drug abuse patient.[facility] HospitalIn the event this information is protected by the Federal Confidentiality of Alcohol and Drug Abuse Patient Records regulations: The Federal rules restrict any use of the information to criminally investigate or prosecute any alcohol or drug abuse patient.[facility] HospitalIn the event this information is protected by the Federal Confidentiality of Alcohol and Drug Abuse Patient Records regulations: The Federal rules restrict any use of the information to criminally investigate or prosecute any alcohol or drug abuse patient.[facility] HospitalIn the event this information is protected by the Federal Confidentiality of Alcohol and Drug Abuse Patient Records regulations: The Federal rules restrict any use of the information to criminally investigate or prosecute any alcohol or drug abuse patient.[facility] HospitalIn the event this information is protected by the Federal Confidentiality of Alcohol and Drug Abuse Patient Records regulations: The Federal rules restrict any use of the information to criminally investigate or prosecute any alcohol or drug abuse patient.[facility] HospitalIn the event this information is protected by the Federal Confidentiality of Alcohol and Drug Abuse Patient Records regulations: The Federal rules restrict any use of the information to criminally investigate or prosecute any alcohol or drug abuse patient.[facility] HospitalIn the event this information is protected by the Federal Confidentiality of Alcohol and Drug Abuse Patient Records regulations: The Federal rules restrict any use of the information to criminally investigate or prosecute any alcohol or drug abuse patient.[facility] HospitalIn the event this information is protected by the Federal Confidentiality of Alcohol and Drug Abuse Patient Records regulations: The Federal rules restrict any use of the information to criminally investigate or prosecute any alcohol or drug abuse patient.[facility] HospitalIn the event this information is protected by the Federal Confidentiality of Alcohol and Drug Abuse Patient Records regulations: The Federal rules restrict any use of the information to criminally investigate or prosecute any alcohol or drug abuse patient.[facility] HospitalIn the event this information is protected by the Federal Confidentiality of Alcohol and Drug Abuse Patient Records regulations: The Federal rules restrict any use of the information to criminally investigate or prosecute any alcohol or drug abuse patient.[facility] HospitalIn the event this information is protected by the Federal Confidentiality of Alcohol and Drug Abuse Patient Records regulations: The Federal rules restrict any use of the information to criminally investigate or prosecute any alcohol or drug abuse patient.[facility] HospitalIn the event this information is protected by the Federal Confidentiality of Alcohol and Drug Abuse Patient Records regulations: The Federal rules restrict any use of the information to criminally investigate or prosecute any alcohol or drug abuse patient.[facility] HospitalIn the event this information is protected by the Federal Confidentiality of Alcohol and Drug Abuse Patient Records regulations: The Federal rules restrict any use of the information to criminally investigate or prosecute any alcohol or drug abuse patient.[facility] HospitalIn the event this information is protected by the Federal Confidentiality of Alcohol and Drug Abuse Patient Records regulations: The Federal rules restrict any use of the information to criminally investigate or prosecute any alcohol or drug abuse patient.[facility] HospitalIn the event this information is protected by the Federal Confidentiality of Alcohol and Drug Abuse Patient Records regulations: The Federal rules restrict any use of the information to criminally investigate or prosecute any alcohol or drug abuse patient.[facility] HospitalIn the event this information is protected by the Federal Confidentiality of Alcohol and Drug Abuse Patient Records regulations: The Federal rules restrict any use of the information to criminally investigate or prosecute any alcohol or drug abuse patient.[facility] HospitalIn the event this information is protected by the Federal Confidentiality of Alcohol and Drug Abuse Patient Records regulations: The Federal rules restrict any use of the information to criminally investigate or prosecute any alcohol or drug abuse patient.[facility] HospitalIn the event this information is protected by the Federal Confidentiality of Alcohol and Drug Abuse Patient Records regulations: The Federal rules restrict any use of the information to criminally investigate or prosecute any alcohol or drug abuse patient.[facility] HospitalIn the event this information is protected by the Federal Confidentiality of Alcohol and Drug Abuse Patient Records regulations: The Federal rules restrict any use of the information to criminally investigate or prosecute any alcohol or drug abuse patient.[facility] HospitalIn the event this information is protected by the Federal Confidentiality of Alcohol and Drug Abuse Patient Records regulations: The Federal rules restrict any use of the information to criminally investigate or prosecute any alcohol or drug abuse patient.[facility] HospitalIn the event this information is protected by the Federal Confidentiality of Alcohol and Drug Abuse Patient Records regulations: The Federal rules restrict any use of the information to criminally investigate or prosecute any alcohol or drug abuse patient.[facility] HospitalIn the event this information is protected by the Federal Confidentiality of Alcohol and Drug Abuse Patient Records regulations: The Federal rules restrict any use of the information to criminally investigate or prosecute any alcohol or drug abuse patient.[facility] HospitalIn the event this information is protected by the Federal Confidentiality of Alcohol and Drug Abuse Patient Records regulations: The Federal rules restrict any use of the information to criminally investigate or prosecute any alcohol or drug abuse patient.[facility] HospitalIn the event this information is protected by the Federal Confidentiality of Alcohol and Drug Abuse Patient Records regulations: The Federal rules restrict any use of the information to criminally investigate or prosecute any alcohol or drug abuse patient.[facility] HospitalIn the event this information is protected by the Federal Confidentiality of Alcohol and Drug Abuse Patient Records regulations: The Federal rules restrict any use of the information to criminally investigate or prosecute any alcohol or drug abuse patient.[facility] HospitalIn the event this information is protected by the Federal Confidentiality of Alcohol and Drug Abuse Patient Records regulations: The Federal rules restrict any use of the information to criminally investigate or prosecute any alcohol or drug abuse patient.[facility] HospitalIn the event this information is protected by the Federal Confidentiality of Alcohol and Drug Abuse Patient Records regulations: The Federal rules restrict any use of the information to criminally investigate or prosecute any alcohol or drug abuse patient.[facility] HospitalIn the event this information is protected by the Federal Confidentiality of Alcohol and Drug Abuse Patient Records regulations: The Federal rules restrict any use of the information to criminally investigate or prosecute any alcohol or drug abuse patient.[facility] HospitalIn the event this information is protected by the Federal Confidentiality of Alcohol and Drug Abuse Patient Records regulations: The Federal rules restrict any use of the information to criminally investigate or prosecute any alcohol or drug abuse patient.[facility] HospitalIn the event this information is protected by the Federal Confidentiality of Alcohol and Drug Abuse Patient Records regulations: The Federal rules restrict any use of the information to criminally investigate or prosecute any alcohol or drug abuse patient.[facility] HospitalIn the event this information is protected by the Federal Confidentiality of Alcohol and Drug Abuse Patient Records regulations: The Federal rules restrict any use of the information to criminally investigate or prosecute any alcohol or drug abuse patient.[facility] HospitalIn the event this information is protected by the Federal Confidentiality of Alcohol and Drug Abuse Patient Records regulations: The Federal rules restrict any use of the information to criminally investigate or prosecute any alcohol or drug abuse patient.[facility] HospitalIn the event this information is protected by the Federal Confidentiality of Alcohol and Drug Abuse Patient Records regulations: The Federal rules restrict any use of the information to criminally investigate or prosecute any alcohol or drug abuse patient.[facility] HospitalIn the event this information is protected by the Federal Confidentiality of Alcohol and Drug Abuse Patient Records regulations: The Federal rules restrict any use of the information to criminally investigate or prosecute any alcohol or drug abuse patient.[facility] HospitalIn the event this information is protected by the Federal Confidentiality of Alcohol and Drug Abuse Patient Records regulations: The Federal rules restrict any use of the information to criminally investigate or prosecute any alcohol or drug abuse patient.[facility] HospitalIn the event this information is protected by the Federal Confidentiality of Alcohol and Drug Abuse Patient Records regulations: The Federal rules restrict any use of the information to criminally investigate or prosecute any alcohol or drug abuse patient.[facility] HospitalIn the event this information is protected by the Federal Confidentiality of Alcohol and Drug Abuse Patient Records regulations: The Federal rules restrict any use of the information to criminally investigate or prosecute any alcohol or drug abuse patient.[facility] HospitalIn the event this information is protected by the Federal Confidentiality of Alcohol and Drug Abuse Patient Records regulations: The Federal rules restrict any use of the information to criminally investigate or prosecute any alcohol or drug abuse patient.[facility] HospitalIn the event this information is protected by the Federal Confidentiality of Alcohol and Drug Abuse Patient Records regulations: The Federal rules restrict any use of the information to criminally investigate or prosecute any alcohol or drug abuse patient.[facility] HospitalIn the event this information is protected by the Federal Confidentiality of Alcohol and Drug Abuse Patient Records regulations: The Federal rules restrict any use of the information to criminally investigate or prosecute any alcohol or drug abuse patient.[facility] HospitalIn the event this information is protected by the Federal Confidentiality of Alcohol and Drug Abuse Patient Records regulations: The Federal rules restrict any use of the information to criminally investigate or prosecute any alcohol or drug abuse patient.[facility] HospitalIn the event this information is protected by the Federal Confidentiality of Alcohol and Drug Abuse Patient Records regulations: The Federal rules restrict any use of the information to criminally investigate or prosecute any alcohol or drug abuse patient.[facility] HospitalIn the event this information is protected by the Federal Confidentiality of Alcohol and Drug Abuse Patient Records regulations: The Federal rules restrict any use of the information to criminally investigate or prosecute any alcohol or drug abuse patient.[facility] HospitalIn the event this information is protected by the Federal Confidentiality of Alcohol and Drug Abuse Patient Records regulations: The Federal rules restrict any use of the information to criminally investigate or prosecute any alcohol or drug abuse patient.[facility] HospitalIn the event this information is protected by the Federal Confidentiality of Alcohol and Drug Abuse Patient Records regulations: The Federal rules restrict any use of the information to criminally investigate or prosecute any alcohol or drug abuse patient.[facility] HospitalIn the event this information is protected by the Federal Confidentiality of Alcohol and Drug Abuse Patient Records regulations: The Federal rules restrict any use of the information to criminally investigate or prosecute any alcohol or drug abuse patient.[facility] HospitalIn the event this information is protected by the Federal Confidentiality of Alcohol and Drug Abuse Patient Records regulations: The Federal rules restrict any use of the information to criminally investigate or prosecute any alcohol or drug abuse patient.[facility] HospitalIn the event this information is protected by the Federal Confidentiality of Alcohol and Drug Abuse Patient Records regulations: The Federal rules restrict any use of the information to criminally investigate or prosecute any alcohol or drug abuse patient.[facility] HospitalIn the event this information is protected by the Federal Confidentiality of Alcohol and Drug Abuse Patient Records regulations: The Federal rules restrict any use of the information to criminally investigate or prosecute any alcohol or drug abuse patient.[facility] HospitalIn the event this information is protected by the Federal Confidentiality of Alcohol and Drug Abuse Patient Records regulations: The Federal rules restrict any use of the information to criminally investigate or prosecute any alcohol or drug abuse patient.[facility] HospitalIn the event this information is protected by the Federal Confidentiality of Alcohol and Drug Abuse Patient Records regulations: The Federal rules restrict any use of the information to criminally investigate or prosecute any alcohol or drug abuse patient.[facility] HospitalIn the event this information is protected by the Federal Confidentiality of Alcohol and Drug Abuse Patient Records regulations: The Federal rules restrict any use of the information to criminally investigate or prosecute any alcohol or drug abuse patient.[facility] HospitalIn the event this information is protected by the Federal Confidentiality of Alcohol and Drug Abuse Patient Records regulations: The Federal rules restrict any use of the information to criminally investigate or prosecute any alcohol or drug abuse patient.[facility] HospitalIn the event this information is protected by the Federal Confidentiality of Alcohol and Drug Abuse Patient Records regulations: The Federal rules restrict any use of the information to criminally investigate or prosecute any alcohol or drug abuse patient.[facility] HospitalIn the event this information is protected by the Federal Confidentiality of Alcohol and Drug Abuse Patient Records regulations: The Federal rules restrict any use of the information to criminally investigate or prosecute any alcohol or drug abuse patient.[facility] HospitalIn the event this information is protected by the Federal Confidentiality of Alcohol and Drug Abuse Patient Records regulations: The Federal rules restrict any use of the information to criminally investigate or prosecute any alcohol or drug abuse patient.[facility] HospitalIn the event this information is protected by the Federal Confidentiality of Alcohol and Drug Abuse Patient Records regulations: The Federal rules restrict any use of the information to criminally investigate or prosecute any alcohol or drug abuse patient.[facility] HospitalIn the event this information is protected by the Federal Confidentiality of Alcohol and Drug Abuse Patient Records regulations: The Federal rules restrict any use of the information to criminally investigate or prosecute any alcohol or drug abuse patient.[facility] HospitalIn the event this information is protected by the Federal Confidentiality of Alcohol and Drug Abuse Patient Records regulations: The Federal rules restrict any use of the information to criminally investigate or prosecute any alcohol or drug abuse patient.[facility] HospitalIn the event this information is protected by the Federal Confidentiality of Alcohol and Drug Abuse Patient Records regulations: The Federal rules restrict any use of the information to criminally investigate or prosecute any alcohol or drug abuse patient.[facility] Reason for Visit (unrecogniz ed section and content) Reason Comments Refill Request Reason Comments Radiology CT Specialty Diagnoses / Procedures Referred By Contac t Referred To Contact CT IMAGING Diagnoses Lung nodules Shortness of breath Procedures CT CHEST W IVCON DIAGNOSTIC COMPUTED TOMOGRAPHY THORAX W/CONTRAST Carla Pfeiffer, JOSELO.INSURANCE ADJUSTOR [address] [place] [address] Ct Imaging Referral ID Status Reason Start Date Expiration Date V isits Requested Visits Authorized [id number] Closed Auto-Generate d Referral 05/25/2021 06/24/2022 [address] Reason Onset Date Comments Population Health Navigation Outreach 07/10/2021 [facility] Reason Comments Orders Reason Comments Erroneous encounter-disregard Reason Comments Nurse Triage Call feet swelling Reason Comments Edema Reason Comments Future Appointment Reason Comments Follow Up ran out of K not charity ing for 1 month Reason Comments Spirometry Specialty Diagnoses / Procedures Referred By Contac t Referred To Contact PULMONARY MEDICINE Diagnoses Chronic obstructive pulmonary disease, unspecified COPD type (HCC) Procedures SPIROMETRY WITH DILATOR IF OBSTRUCTED BRNCDILAT RSPSE SPMTRY PRE&POST-BRNCDILAT ADMN REFERRAL TO [facility] FINANCIAL COUNSELOR Beto Guevara MD [address] [place] [address] [facility] [address] [address] Referral ID Status Reason Start Date Expiration Date Visits Requested Visits Authorized [id number] Waiting for Response Auto-Generated Referral Financial Clearance Required - OON Payor OON Notification Letter Patient Cleared - Admin/Grain Loader/ Director advise to proceed 2 07/30/2022 1 1 Reason Comments New Patient Nodule Specialty Diagnoses / Procedures Referred By Contac t Referred To Contact PULMONARY MEDICINE Diagnoses Lung nodule Pulmonary emphysema, unspecified emphysema type (HCC) Procedures CONSULT TO PULM/CRITICAL CARE OFFICE/OUTPATIENT NEW HIGH MDM 60-74 MINUTES REFERRAL TO [facility] FINANCIAL COUNSELOR Cisco Phan MD [address] [place] [address] [facility] [address] [address] Referral ID Status Reason Start Date Expiration Date Visits Requested Visits Authorized [id number] Waiting for Response PCP Requested Referral Financial Clearance Required - OON Payor OON Notification Letter Patient Cleared - Admin/Grain Loader/ Director advise to proceed 2 06/23/2022 1 1 Reason Onset Date Comments Population Health Navigation Outreach 02/07/2022 [facility] [place] [facility] Reason Comments URI Specialty Diagnoses / Procedures Referred By Contac t Referred To Contact Family Medicine / FAMILY MEDICINE Diagnoses Sick with a cold or something for a few weeks. Procedures VIDEO PRIMARY EST Self Cisco Phan MD [address] [place] [address] Referral ID Status Reason Start Date Expiration Date Visits Requested Visits Authorized [id number] Denied Financial Clearance Required - OON Payor OON Notification Letter Clearance Not Met - Admin/Grain Loader/D irector Advise to Postpone/Resched ule or Not Proceed 2 03/10/2022 1 0 Reason Comments Received Outside Medical Records PAD res ults [facility] Reason Comments FYI-No Action Needed Patient Update Reason Comments Results MRI and Chest xray o n disc Reason Comments EKG Reason Comments Patient Question Reason Comments Received Outside Medical Records [facility] BMP 04/20/2022 Reason Comments Received Outside Medical Records [facility] 04/20/22 Reason Comments Medication Request Xanax one pill Reason Comments Multiple Concerns Specialty Diagnoses / Procedures Referred By Contac t Referred To Contact Family Medicine / FAMILY MEDICINE Diagnoses blood work, tests, symptoms, heart failure Procedures MYC OFFICE VISIT Cisco Phan MD [address] [place] [address] [place] [address] Cisco Phan MD [address] [place] [address] [place] [address] Referral ID Status Reason Start Date Expiration Date Visits Requested Visits Authorized [id number] Authorized Financial Clearance Required - Self Pay Patient Cleared - Qualified [id number] 05/07/2022 08/05/2022 99 99 Reason Comments f/u Specialty Diagnoses / Procedures Referred By Contac t Referred To Contact Family Medicine / FAMILY MEDICINE Diagnoses Medication management Medication Check. Symptom check. 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 Phan's office. Procedures MYC OFFICE VISIT Self Cisco Phan MD [address] [place] [address] [place] [address] Referral ID Status Reason Start Date Expiration Date Visits Re quested Visits Authorized [id number] Closed 10/08/2022 11/08/2022 1 1 Reason Comments Follow Up Specialty Diagnoses / Procedures Referred By Contac t Referred To Contact FAMILY MEDICINE Diagnoses Follow-up exam Flea bite of lower leg, unspecified laterality, initial encounter follow up Procedures 4C EST Cisco Phan MD [address] [place] [address] [facility] [address] [place] [address] Referral ID Status Reason Start Date Expiration Date Visits Requested Visits Authorized [id number] Closed Financial Clearance Required - OON Payor OON Notification Letter Clearance Not Met - Admin/Grain Loader/D irector Advise to Postpone/Resched ule or Not Proceed 01/10/2023 03/10/2023 1 1 Reason Onset Date Comments Population Health Navigation Outreach 01/17/2023 ACO CARE GAP Reason Comments Received Outside Medical Records [facility] Low dose CT Lung screening 05/15/2023 Reason Comments Received Outside Medical Records [facility] Visit summary Pulmonary medicine 05/20/2023 Evaluation for sleep apnea Reason Comments Follow Up Specialty Diagnoses / Procedures Referred By Contac t Referred To Contact Family Medicine / FAMILY MEDICINE Diagnoses Essential (primary) hypertension Unknown Procedures OFFICE/OUTPATIENT ESTABLISHED MOD MDM 30 MIN MYC OFFICE VISIT Self Cisco Phan MD [address] [place] [address] Referral ID Status Reason Start Date Expiration Date Visits Re quested Visits Authorized [id number] Closed 06/04/2023 03/10/2024 1 1 Reason Onset Date Comments Refill Request 06/24/2023 Reason Comments Received Outside Medical Records [facility] 07/08/23 Reason Onset Date Comments Refill Request 07/10/2023 Reason Comments Received Outside Medical Records [facility] Reason Comments Received Outside Medical Records [facility] Cardiovascular Services Echo Complete 08/14/2023 Reason Onset Date Comments Edema 09/04/2023 Reason Onset Date Comments Refill Request 10/22/2023 Reason Comments Outside Labs Results [facility] 12/17 Reason Comments Received Outside Medical Records [facility] Reason Onset Date Comments Refill Request 02/10/2024 Reason Comments Received Outside Medical Records [facility] Pul monary Reason Onset Date Comments Refill Request 05/03/2024 Specialty Diagnoses / Procedures Referred By Yaya bazzi Referred To Contact Family Medicine / FAMILY MEDICINE Diagnoses Follow-Up Procedures MYC OFFICE VISIT Self Cisco Phan MD [address] [place] [address] Phone: tel: fax: Referral ID Status Reason Start Date Expiration Date Visits Re quested Visits Authorized [id number] Closed 07/21/2024 08/28/2024 1 1 Reason Comments Received Outside Medical Records [facility] Reason Comments Received Outside Medical Records [facility] pul m Care Teams (unrecognized sec tion and content) Shift Commander Relationship Specialty Start Date End Date Cisco Phan MD [address] [place] [address] [address] [place], [place] [id number] PCP - General Family Practice 11/08/17 Shift Commander Relationship Specialty Start Date End Date Cisco Phan MD [address] [facility] [address] [place], [place] [address] PCP - General Family Practice 11/08/17 Shift Commander Relationship Specialty Start Date End Date Cisco Phan MD [address] [facility] [address] [place], [place] [id number] PCP - General Family Practice 11/08/17 Shift Commander Relationship Specialty Start Date End Date Cisco Phan MD [address] [facility] [address] [place], [place] [id number] PCP - General Family Practice 11/08/17 Shift Commander Relationship Specialty Start Date End Date Cisco Phan MD [address] [facility] [address] [place], [place] [id number] PCP - General Family Practice 11/08/17 Shift Commander Relationship Specialty Start Date End Date Cisco Phan MD [address] [place] [address] PCP - General Family Practice 11/08/17 Shift Commander Relationship Specialty Start Date End Date Cisco Phan MD [address] [place] [address] PCP - General Family Practice 11/08/17 Shift Commander Relationship Specialty Start Date End Date Cisco Phan MD [address] [address] [place] [address] PCP - General Family Practice 11/08/17 Shift Commander Relationship Specialty Start Date End Date Cisco Phan MD [address] [address] [place] [address] PCP - General Family Practice 11/08/17 Shift Commander Relationship Specialty Start Date End Date Cisco Phan MD [address] [place] [address] PCP - General Family Practice 11/08/17 Shift Commander Relationship Specialty Start Date End Date Cisco Phan MD [address] [place] [address] PCP - General Family Practice 11/08/17 Shift Commander Relationship Specialty Start Date End Date Cisco Phan MD [address] [address] [place] [address] PCP - General Family Practice 11/08/17 Shift Commander Relationship Specialty Start Date End Date Cisco Phan MD [address] [address] [place] [address] PCP - General Family Practice 11/08/17 Shift Commander Relationship Specialty Start Date End Date Cisco Phan MD [address] [address] [place] [address] PCP - General Family Practice 11/08/17 Shift Commander Relationship Specialty Start Date End Date Cisco Phan MD [address] [address] [place] [address] PCP - General Family Practice 11/08/17 Shift Commander Relationship Specialty Start Date End Date Cisco Phan MD [address] [facility] [place] [address] PCP - General Family Practice 11/08/17 Shift Commander Relationship Specialty Start Date End Date Cisco Phan MD [address] [facility] [place] [address] PCP - General Family Practice 11/08/17 Shift Commander Relationship Specialty Start Date End Date Cisco Phan MD [address] [facility] [address] PCP - General Family Medicine 11/08/17 Shift Commander Relationship Specialty Start Date End Date Cisco Phan MD [address] [facility] [place] [address] PCP - General Family Medicine 11/08/17 Shift Commander Relationship Specialty Start Date End Date Cisco Phan MD [address] [facility] [address] [place] [address] PCP - General Family Medicine 11/08/17 Shift Commander Relationship Specialty Start Date End Date Cisco Phan MD [address] [address] [place] [address] PCP - General Family Medicine 11/08/17 Team Status: Active Member Role Status Dates Dr. Tej Phan MD Primary Care Provider Active Team Status: Inactive Member Role Status Dates Dr. Best Titus MD Attending Provider Active Dr. Tej Phan MD Primary Care Provider, [facility] Active Team Status: Active Member Role Status Dates Dr. Tej Phan MD Primary Care Provider Active Juliana Willson Attending Provider Active Team Status: Active Member Role Status Dates Dr. Tej Phan MD Primary Care Provider Active Dr. Best Titus MD Attending Provider Active Team Status: Inactive Member Role Status Dates Dr. Tej Phan MD Primary Care Provider Active Dr. Best Titus MD Attending Provider Active Shift Commander Relationship Specialty Start Date End Date Cisco Phan MD [address] [place] [address] PCP - General Family Medicine 11/08/17 Shift Commander Relationship Specialty Start Date End Date Cisco Phan MD [address] [facility] [address] [place] [address] PCP - General Family Medicine 11/08/17 Shift Commander Relationship Specialty Start Date End Date Cisco Phan MD [address] [address] [place] [address] PCP - General Family Medicine 11/08/17 Shift Commander Relationship Specialty Start Date End Date Cisco Phan MD [address] [facility] [place] [address] PCP - General Family Medicine 11/08/17 Shift Commander Relationship Specialty Start Date End Date Cisco Phan MD [address] [facility] [place] [address] PCP - General Family Medicine 11/08/17 Shift Commander Relationship Specialty Start Date End Date Cisco Phan MD [address] [place] [address] [place] [address] PCP - General Family Medicine 11/08/17 Shift Commander Relationship Specialty Start Date End Date Cisco Phan MD [address] [place] [address] [place] [address] PCP - General Family Medicine 11/08/17 Team Status: Inactive Member Role Status Dates Dr. Nuno Waggoner DO Attending Provider Active Dr. Tej Phan MD Primary Care Provider Active Team Status: Inactive Member Role Status Dates Dr. Tej Phan MD Primary Care Provider, Referri ng Provider Active Dr. Best Titus MD Attending Provider Active Team Status: Inactive Member Role Status Dates Dr. Tej Phan MD Primary Care Provider Active Dr. Nuno Waggoner DO Attending Provider, Referring Pro vider Active Shift Commander Relationship Specialty Start Date End Date Cisco Phan MD [address] [facility] [place], [place] [id number] PCP - General Family Medicine 11/08/17 Team Status: Active Member Role Status Dates Dr. Tej hPan MD Primary Care Provider Active Dr. Nuno Waggoner DO Attending Provider, Referring Provider, Other Provider Active Team Status: Active Member Role Status Dates Dr. Tej Phan MD Primary Care Provider Active Dr. Nuno Waggoner DO Referring Provider, Other Provide r Active Dr. Agustín Elder MD Attending Provider Active Team Status: Active Member Role Status Dates Dr. Tej Phan MD Primary Care Provider Active Dr. Best Titus MD Attending Provider , Referring Provider, Other Provider Active Team Status: Inactive Member Role Status Dates Dr. Tej Phan MD Primary Care Provider Active Dr. Best Titus MD Attending Provider, Referring Pr ovider Active Shift Commander Relationship Specialty Start Date End Date Cisco Phan [address] [place] [address] PCP - General 03/26/18 Shift Commander Relationship Specialty Start Date End Date Cisco Phan [address] [facility] [place] [address] PCP - General 03/26/18 Shift Commander Relationship Specialty Start Date End Date Cisco Phan MD [address] [address] [facility] [address] PCP - General Family Medicine 11/08/17 Shift Commander Relationship Specialty Start Date End Date Cisco Phan MD [address] [facility] [address] [place] [address] PCP - General Family Medicine 11/08/17 Shift Commander Relationship Specialty Start Date End Date Cisco Phan MD [address] [facility] [address] PCP - General Family Medicine 11/08/17 Shift Commander Relationship Specialty Start Date End Date Cisco Phan MD [address] [facility] [address] PCP - General Family Medicine 11/08/17 Shift Commander Relationship Specialty Start Date End Date Cisco Phan MD [address] [address] [place] [address] PCP - General Family Medicine 11/08/17 Shift Commander Relationship Specialty Start Date End Date Cisco Phan MD [address] [address] [place] [address] PCP - General Family Medicine 11/08/17 Team Status: Inactive Member Role Status Dates Dr. Tej Phan MD Primary Care Provider, Referri Provider Active María Harman SUPERVISOR INSTRUMENT MAINTENANCE, SUPERVISOR INSTRUMENT MAINTENANCE-C Attending Provider Active Shift Commander Relationship Specialty Start Date End Date Cisco Phan MD [address] [facility] [address] PCP - General Family Medicine 11/08/17 Shift Commander Relationship Specialty Start Date End Date Cisco Phan MD [address] [facility] [place] [address] PCP - General Family Medicine 11/08/17 Shift Commander Relationship Specialty Start Date End Date Cisco Phan MD [address] [facility] [address] [place], [place] [address] PCP - General Family Medicine 11/08/17 Shift Commander Relationship Specialty Start Date End Date Cisco Phan MD [address] [facility] [address] [place], [place] [address] PCP - General Family Medicine 11/08/17 Shift Commander Relationship Specialty Start Date End Date Cisco Phan MD [address] [facility] [place] [address] PCP - General Family Medicine 11/08/17 Shift Commander Relationship Specialty Start Date End Date Cisco Phan MD [address] [facility] [place] [address] PCP - General Family Medicine 11/08/17 Shift Commander Relationship Specialty Start Date End Date Cisco Phan MD [address] [facility] [address] [place], [place] [address] PCP - General Family Medicine 11/08/17 Shift Commander Relationship Specialty Start Date End Date Cisco Phan MD [address] [facility] [address] [place], [place] [address] PCP - General Family Medicine 11/08/17 Shift Commander Relationship Specialty Start Date End Date Cisco Phan MD [address] [facility] [address] [place], [place] [address] PCP - General Family Medicine 11/08/17 Shift Commander Relationship Specialty Start Date End Date Cisco Phan MD [address] [facility] [address] [place], [place] [address] PCP - General Family Medicine 11/08/17 Carla Esparza PUBLICIST.INSURANCE ADJUSTOR [address] [facility] [address] [place], [place] [address] [phone] Collection Operator Internal Medicine 02/16/24 Shift Commander Relationship Specialty Start Date End Date Cisco Phan MD [address] [facility] [place] [address] PCP - General Family Medicine 11/08/17 Carla Esparza, PUBLICIST.INSURANCE ADJUSTOR [address] [facility] [place] [address] Distribution Collection Operator Internal Medicine 02/16/24 Shift Commander Relationship Specialty Start Date End Date Cisco Phan MD [address] [facility] [place] [address] PCP - General Family Medicine 11/08/17 Carla Esparza, PUBLICIST.INSURANCE ADJUSTOR [address] [facility] [address] Distribution Collection Operator Internal Medicine 02/16/24 Shift Commander Relationship Specialty Start Date End Date Cisco Phan MD [address] [facility] [place] [address] PCP - General Family Medicine 11/08/17 Carla Esparza, PUBLICIST.INSURANCE ADJUSTOR [address] [facility] [place] [address] Distribution Collection Operator Internal Medicine 02/16/24 Shift Commander Relationship Specialty Start Date End Date Cisco Phan MD [address] [facility] [place] [address] PCP - General Family Medicine 11/08/17 Carla Esparza, PUBLICIST.INSURANCE ADJUSTOR [address] [facility] [address] [place], [place] [address] Distribution Collection Operator Internal Medicine 02/16/24 Shift Commander Relationship Specialty Start Date End Date Cisco Phan MD [address] [facility] [place] [address] PCP - General Family Medicine 11/08/17 Carla Esparza, PUBLICIST.INSURANCE ADJUSTOR [address] [facility] [place] [address] Distribution Collection Operator Internal Medicine 02/16/24 Shift Commander Relationship Specialty Start Date End Date Cisco Phan MD [address] [facility] [place] [address] PCP - General Family Medicine 11/08/17 Carla Esparza, PUBLICIST.INSURANCE ADJUSTOR [address] [facility] [address] Distribution Collection Operator Internal Medicine 02/16/24 Shift Commander Relationship Specialty Start Date End Date Cisco Phan MD [address] [facility] [place] [address] PCP - General Family Medicine 11/08/17 Carla Esparza, PUBLICIST.INSURANCE ADJUSTOR [address] [facility] [address] Distribution Collection Operator Internal Medicine 02/16/24 Team Status: Active Member Role/Relationship Status Dates Dr. Tej Phan MD Primary Care Provider Active Team Status: Inactive Member Role/Relationship Status Dates Dr. Tej Phan MD Primary Care Provider Active Start: September 28, 2024 End: September 28, 2024 María Harman SUPERVISOR INSTRUMENT MAINTENANCE, SUPERVISOR INSTRUMENT MAINTENANCE-C Attending Provider Active Start: September 28, 2024 End: September 28, 2024 María Harman SUPERVISOR INSTRUMENT MAINTENANCE, SUPERVISOR INSTRUMENT MAINTENANCE-C Referring Provider Active Start: September 28, 2024 End: September 28, 2024 Shift Commander Relationship Specialty Start Date End Date Cisco Phan MD [address] [facility] [address] [place], [place] [phone] PCP - General Family Medicine 11/08/17 Carla Esparza APRN.INSURANCE ADJUSTOR [address] [facility] [address] [place], [place] [address] Distribution Collection Operator Internal Medicine 02/16/24 Team Status: Inactive Member Role/Relationship Status Dates Dr. Tej Phan MD Primary Care Provider Active Start: November 03, 2024 End: November 03, 2024 María Harman SUPERVISOR INSTRUMENT MAINTENANCE, SUPERVISOR INSTRUMENT MAINTENANCE-C Attending Provider Active Start: November 03, 2024 End: November 03, 2024 María Harman NP, SUPERVISOR INSTRUMENT MAINTENANCE-C Referring Provider Active Start: November 03, 2024 End: November 03, 2024 Team Status: Active Member Role/Relationship Status Dates Dr. Tej Phan MD Primary Care Provider Active Start: November 05, 2024 María Harman SUPERVISOR INSTRUMENT MAINTENANCE, SUPERVISOR INSTRUMENT MAINTENANCE-C Referring Provider Active Start: November 05, 2024 María Harman SUPERVISOR INSTRUMENT MAINTENANCE, SUPERVISOR INSTRUMENT MAINTENANCE-C Other Provider Active Start: November 05, 2024 Dr. Nuno Waggoner DO Attending Provider Active S tart: November 05, 2024 Team Status: Inactive Member Role/Relationship Status Dates Dr. Tej Phan MD Primary Care Provider Active Start: November 18, 2024 End: November 18, 2024 Dr. Tej Phan MD Referring Provider Active Start: November 18, 2024 End: November 18, 2024 María Harman NP, SUPERVISOR INSTRUMENT MAINTENANCE-C Attending Provider Active Start: November 18, 2024 End: November 18, 2024 Goals (unrecognized section and content) Goals may be documented in a n alternate sectionGoals may be documented in an alternate sectionGoals may be documented in an alternate section No data available for this sectionGoals may be documented in an alternate section No data available for this sectionGoals may be documented in an alternate section No data available for this sectionGoals may be documented in an alternate sectionGoals may be documented in an alternate section FOR RECORDS PERTAINING TO PATIENTS WHO ARE OR HAVE BEEN ENROLLED IN A CHEMICAL DEPENDENCY/SUBSTANCEABUSE PROGRAM, SOME INFORMATION MAY BE OMITTED. This clinical summary was aggregated from multiple sources. Caution should be exercised in using it in the provision of clinical care. This summary normalizes information from multiple sources, and as a consequence, information in this document may materially change the coding, format and clinical context of patient data. In addition, data may be omitted in some cases. CLINICAL DECISIONS SHOULD BE BASED ON THE PRIMARY CLINICAL RECORDS. [facility]. provides no warranty or guarantee of the accuracy or completeness of information in this document.
--- NOTE | 2025-02-26 18:00 | RAD_ITS ---
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 No focal consolidation, pneumothorax or pleural effusion appreciated. Heart/Mediastinum: Mild cardiomegaly with central vascular congestion, and ectatic caliber of the central pulmonary arteries which is better demonstrated on prior CT exams. 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 Bones/Soft tissues: Mild multilevel degenerative changes of the spine. RAD/Chest PA and Lateral IMPRESSION: Mild cardiomegaly and central vascular congestion. Redemonstrated ectatic maisha florecita of the central pulmonary arteries suggesting pulmonary arterial hypertension. 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 No apprecia ble airspace consolidation, pneumothorax or pleural effusion. Reading Location: [id number]
[2025-02-26 18:05] LABS: Hematocrit 45.0 % (40-54); Hemoglobin 15.0 g/dL (13.0-16.5); Immature Granulocytes Count 0.050 X10^3/uL (0.0-0.0); Mean Corp Hgb Conc 33.3 g/dL (32-36); Mean Corpuscular Volume 97.8 fL (80-94); Mean Platelet Vol. 9.7 fl (6.2-12.0); NRBC Flagged by Analyzer 0 % (0-5); Platelet Count 210 K/mm3 (150-450); RBC Distribution Width CV 14.0 % (11.6-14.6); RBC Distribution Width SD 50.4 fl (35.1-43.9); Red Blood Count 4.60 M/mm3 (4.6-6.2); White Blood Count 10.1 K/mm3 (4.4-11.0)
[2025-02-26 18:56] LABS: Anion Gap 9 (5-15); BUN 10 mg/dL (4-19); BUN/Creat Ratio 8.4 RATIO (10-20); Calcium,Total 9.4 mg/dL (7.6-11.0); Carbon Dioxide 25.8 mmol/L (21.0-32.0); Chloride 105 mmol/L (98-108); Estimated Creatinine Clearance 68.80 ml/min (50-250); Glucose 89 mg/dL (70-99); Potassium 3.6 mmol/L (3.3-5.1); Troponin T High Sensitivity 22 ng/L (<=22)
[2025-02-26 19:47] LABS: Troponin T High Sens 2 HR 22 ng/L (<=22)
== END 2025-02-26 21:28 | disposition home or self-care (01) ==
PROVIDERS: Emergency Provider Emergency Medicine; PCP Family Medicine; Visit Provider Emergency Medicine
DX: R07.89 Other chest pain (principal); I11.0 Hypertensive heart disease with heart failure; I50.42 Chronic combined systolic (congestive) and diastolic (congestive) heart failure; J44.9 Chronic obstructive pulmonary disease, unspecified; Z87.891 Personal history of nicotine dependence; E78.2 Mixed hyperlipidemia; I25.10 Atherosclerotic heart disease of native coronary artery without angina pectoris
CPT/HCPCS: 71046; 80048; 84484; 85025; 93005; 99283; A4216